=== PATIENT | female | born 1940 | race Caucasian/White ===

== ENCOUNTER 2020-01-27 20:51 | Inpatient (IN) | payer MEDICARE, OTHER ==
[2020-01-27] MEDS ORDERED: Diltiazem 125 MG/25 ML ONE (21:01)
[2020-01-27 21:15] LABS: #Basophils 0.1 thou/uL (0.0-0.2); #Lymphocytes 1.3 thou/uL (1.20-3.40); #Monocytes 0.8 thou/uL (0.11-0.59); #Neutrophils 16.4 thou/uL (1.40-6.50); %Basophils 0.3 % (0.0-1.0); %Eosinophils 0.1 % (0.0-10.0); %Monocytes 4.4 % (0.0-10.0); %Neutrophils 88.2 % (42.0-75.0); Hemoglobin 17.4 g/dL (12.0-16.0); Mean Corpuscular HGB CONC 33.8 g/dL (32.0-36.0); Mean Corpuscular Hemoglobin 30.3 pg (27.0-31.0); Mean Corpuscular Volume 89.8 fL (78.0-98.0); Mean Platelet Volume 8.1 fL (7.4-10.4); Platelet Count 220 thou/uL (130-400); RBC Distribution Width 14.7 % (11.5-14.5); Red Blood Cell (RBC) Count 5.75 mill/uL (4.20-5.40); White Blood Cell (WBC) Count 18.6 thou/uL (4.8-10.8)
[2020-01-27] MEDS ORDERED: diphenhydrAMINE 50 MG/ML VIAL ONE (21:16)
[2020-01-27] MEDS ORDERED: Metoprolol Tartrate 50 MG TAB ONE (21:16)
[2020-01-27] MEDS ORDERED: diphenhydrAMINE 50 MG CAP ONE (21:16)
[2020-01-27] MEDS ORDERED: Metoprolol Tartrate 5 MG/5 ML VIAL ONE ×3 (21:17→21:27)
[2020-01-27] MEDS ORDERED: methylPREDNISolone Sod Succ/PF 125 MG/2 ML VIAL ONE (21:19)
[2020-01-27 21:34] LABS: ALT (SGPT) 59 U/L (8-55); AST (SGOT) 163 U/L (5-34); Alkaline Phosphatase 46 U/L (40-110); Anion Gap 18 mmol/L (10-20); BUN (Urea Nitrogen) 17 mg/dL (9.8-20.1); Bilirubin, Total 1.1 mg/dL (0.2-1.2); Calc. Creatinine Clearance 0 mL/min (70-130); Calcium 9.3 mg/dL (7.8-10.44); Carbon Dioxide 19 mmol/L (23-31); Chloride 106 mmol/L (98-107); Estimated GFR-MDRD 67; Globulin 3.1 g/dL (2.4-3.5); Glucose 142 mg/dL (83-110); Potassium 4.3 mmol/L (3.5-5.1); Protein, Total 7.1 g/dL (6.0-8.3); Sodium 139 mmol/L (136-145)
--- NOTE | 2020-01-27 21:38 | RAD ---
XR Chest 1 View Portable History: Shortness of breath Comparison: None. Findings: Heart size is enlarged. Mild pulmonary edema. No pneumothorax. No effusion. No acute osseou s abnormality. Impression: Moderate decompensated congestive heart failure.
[2020-01-27 22:23] LABS: CKMB 333.7 ng/mL (0-6.6)
[2020-01-27] MEDS ORDERED: Furosemide 40 MG/4 ML VIAL ONE (22:32)
[2020-01-27] MEDS ORDERED: Digoxin 0.5 MG/2 ML AMP ONE (22:54)
[2020-01-27 23:13] LABS: Actual Bicarbonate (HCO3a) 13.8 mEq/L (22-28); Analyzer IN Cardio ER; Calcium, Ionized (arterial) 1.17 mmol/L (1.12-1.30); Carboxyhemoglobin (COHb) 0.5 gm% (0.0-3.0); Hemoglobin (Hb) 16.7 g/dL (12.0-16.0); O2 Tension (PaO2), arterial 134.3 mmHg (> 70.0); Potassium - ABG Lab 4.73 mmol/L (3.70-5.30); pH, Arterial 7.29 (7.35-7.45)
[2020-01-27 23:14] LABS: Puncture Site LRA
[2020-01-28 00:16] LABS: Lactic Acid 5.1 mmol/L (0.5-2.2)
[2020-01-28] MEDS ORDERED: Guaifenesin DM 100-10/5 ML UDCUP PO PRN (00:25)
[2020-01-28] MEDS ORDERED: Promethazine HCl 12.5 MG in Sodium Chloride 0.9% 50 ML IVPB PRN (00:25)
[2020-01-28] MEDS ORDERED: Ondansetron PF 4 MG/2 ML Vial IVP PRN (00:25)
[2020-01-28] MEDS ORDERED: Aspirin 325 MG TAB PO SCH (00:30)
[2020-01-28] MEDS ORDERED: Electrolyte Replacement Protoc 1 EACH EACH FS SCH (00:30)
[2020-01-28] MEDS ORDERED: Enoxaparin Sodium 100 MG/ML SYRINGE SC SCH (00:30)
--- NOTE | 2020-01-28 00:35 | PDOC.HHP ---
Hospitalist HPI - History of Present Illness Shortness of breath History of Present Illness: Patient is a 79 year old female with PMH COPD, HTN, CHF, HTN who presents to ED for shortness of breath x 1 day. She has history of COPD and reports wheezing as well. no covid exposure. denies fever, chills, nausea, vomiting, palpitaitons. got steroids and abx a few weeks ago for COPD exacerbation, she has some wh eezing. In ED, vitals concerning w/ RR 30, hypoxic and requiring facemask and then bipap to maintain saturations. BP stable. EKG reveals afib w/ rate 167, troponin 18, ckmb 333, bnp 642, lactic acid 2.8 -> 5.1, CXR w/ moderate decompensated CHF, WBC 18, elevated LFT/hgb. Patient started on aspirin and cardizem however had allergic reaction and switched to rate control w/ IV metoprolol and IV digoxin, Dr Cárdenas of cardiology called by ED who recommended digoxin, diuresis, echo. Hospitalist ROS - Review of Systems Constitutional: denies: fever, chills, sweats, weakness, malaise, other Eyes: denies: pain, vision change, conjunctivae inflammation, eyelid inflammation, redness, other ENT: denies: ear pain, ear discharge, nose pain, nose discharge, nose congestion, mouth pain, mouth swelling, throat pain, throat swelling, other Respiratory: reports: shortness of breath, wheezing. denies: cough, dry, hemoptysis, SOB with excertion, pleuritic pain, sputum, other Cardiovascular: denies: chest pain, palpitations, orthopnea, paroxysmal noc. dyspnea, edema, light headedness, other Gastrointestinal: denies: nausea, vomiting, abdominal pain, diarrhea, constipation, melena, hematochezia, other Genitourinary: denies: dysuria, frequency, incontinence, hematuria, retention, other Musculoskeletal: denies: neck pain, shoulder pain, arm pain, back pain, hand pain, leg pain, foot pain, other Skin: denies: rash, lesions, tami, bruising, other Neurological: denies: weakness, numbness, incoordination, change in speech, confusion, seizures, other All other systems reviewed; all pertinent +/- noted in HPI/Subj - Medication Medications: atenolol ThuJan 27, 2020 21:46 Mann RN, Daniel tablet : Strength - 100 mg : ORAL Patient Dose: once a day. simvastatin ThuJan 27, 2020 21:46 Mann RN, Daniel tablet : Strength - 20 mg : ORAL Patient Dose: once a day. hydroCHLOROthiazide ThuJan 27, 2020 21:47 Mann RN, Daniel capsule : Strength - 12.5 mg : ORAL Patient Dose: once a day. aspirin oral ThuJan 27, 2020 21:47 Mann RN, Daniel tablet : Strength - 81 mg : ORAL Patient Dose: Unknown. escitalopram oxalate ThuJan 27, 2020 21:48 Mann RN, Daniel tablet : Strength - 20 mg : ORAL Patient Dose: once a day. albuterol sulfate oral ThuJan 27, 2020 21:49 Mann RN, Daniel tablet : Strength - 4 mg : ORAL Patient Dose: 1 puff(s) Nebulize every 4 hours prn. Trelegy Ellipta ThuJan 27, 2020 21:51 Mann RN, Daniel blister with device : Strength - 100 mcg-62.5 mcg-25 mcg/actuation : INHALATION Patient Dose: 1 puff(s) Nebulize once a day. Hospitalist History - Past Medical History Other Medical History: COPD, HTN, CHF, HTN - Past Surgical History Past Surgical History: reports: Hysterectomy - Family History Family History: reports: no pertinent history - Social History Smoking Status: Current every day smoker Alcohol: reports: None Drugs: reports: none - Exam General Appearance: NAD, awake alert General - other findings: on bipap, no distress Eye: PERRL, anicteric sclera ENT: normocephalic atraumatic, no oropharyngeal lesions, moist mucosa Neck: supple, symmetric, no JVD, no thyromegaly, no lymphadenopathy, no carotid bruit Heart: RRR, no murmur, no gallops, no rubs, normal peripheral pulses Respiratory: CTAB, no rales, no ronchi, normal chest expansion, no tachypnea, normal percussion Respiratory - other findings: prolonged expiratory phase Gastrointestinal: soft, non-tender, non-distended, normal bowel sounds, no palpable masses, no hepatomegaly, no splenomegaly, no bruit Extremities: no cyanosis, no clubbing, no edema Skin: normal turgor, no lesions, no rashes Neurological: cranial nerve grossly intact, normal sensation to touch, no weakness, no focal deficits, no new deficit Musculoskeletal: normal tone, normal strength, no muscle wasting Psychiatric: normal affect, normal behavior, A&O x 3 Hospitalist Results - Labs Result Diagrams: 01/27/20 21:05 01/27/20 21:05 Lab results: WBC 18.6 thou/uL (4.8-10.8) H 01/27/20 21:05 Hgb 17.4 g/dL (12.0-16.0) H 01/27/20 21:05 Hct 51.6 % (36.0-47.0) H 01/27/20 21:05 MCV 89.8 fL (78.0-98.0) 01/27/20 21:05 Plt Count 220 thou/uL (130-400) 01/27/20 21:05 Neutrophils % 88.2 % (42.0-75.0) H 01/27/20 21:05 ABG pH 7.29 (7.35-7.45) L 01/27/20 23:00 ABG pCO2 29.0 mmHg (35.0-45.0) L 01/27/20 23:00 ABG pO2 134.3 mmHg (> 70.0) H 01/27/20 23:00 Sodium 139 mmol/L (136-145) 01/27/20 21:05 Potassium 4.3 mmol/L (3.5-5.1) 01/27/20 21:05 Chloride 106 mmol/L (98-107) 01/27/20 21:05 Carbon Dioxide 19 mmol/L (23-31) L 01/27/20 21:05 BUN 17 mg/dL (9.8-20.1) 01/27/20 21:05 Creatinine 0.83 mg/dL (0.6-1.1) 01/27/20 21:05 Glucose 142 mg/dL (83-110) H 01/27/20 21:05 Lactic Acid 5.1 mmol/L (0.5-2.2) H* 01/27/20 23:48 Calcium 9.3 mg/dL (7.8-10.44) 01/27/20 21:05 Total Bilirubin 1.1 mg/dL (0.2-1.2) 01/27/20 21:05 AST 163 U/L (5-34) H 01/27/20 21:05 ALT 59 U/L (8-55) H 01/27/20 21:05 Alkaline Phosphatase 46 U/L (40-110) 01/27/20 21:05 CK-MB (CK-2) 333.7 ng/mL (0-6.6) H* 01/27/20 21:05 Troponin I 18.754 ng/mL (< 0.028) H* 01/27/20 21:05 B-Natriuretic Peptide 642.9 pg/mL (0-100) H 01/27/20 21:05 Serum Total Protein 7.1 g/dL (6.0-8.3) 01/27/20 21:05 Albumin 4.0 g/dL (3.4-4.8) 01/27/20 21:05 Additional comment: VITAL SIGNS ThuJan 27, 2020 23:55 Mann RN, Daniel BP: 119/96 Pulse: 156 Resp: 30 Temp: 97.7 (Oral) Pain: 0 O2 sat: 97 on (Bipap) Time: 01/27/2020 23:55. labs, imaging, EKG report, ED documents reviewed RADIOLOGY XR Chest 1 View Portable Observe DT: ThuJan 27, 2020 21:08 CXRP XR Chest 1 View Portable History: Shortness of breath Comparison: None. Findings: Heart size is enlarged. Mild pulmonary edema. No pneumothorax. No effusion. No acute osseou s abnormality. Impression: Moderate decompensated congestive heart failure. - EKG Interpretation EKG: EKG INTERPRETATION ThuJan 27, 2020 21:09 MD Holliday Bryan 12 LEAD EKG INTERPRETATION 12 lead EKG interpreted by Emergency Department Physician at time of study Heart rate 167 bpm, atrial fibrillation with rapid ventricular response, Q waves in V1 through V4, normal axis, no ST elevation depression over impression is A. fib RVR. Hospitalist H&P A/P - Plan Plan: Patient is a 79 year old female with PMH COPD, HTN, CHF, HTN who presents to ED for shortness of breath x 1 day. # severe sepsis # COPD exacerbation # new onset afib w/ RVR # acute hypoxic respiratory failure # history of CHF/HTN Presents for worsening shortness of breath, in ED, vitals concerning w/ RR 30, hypoxic and requiring facemask and then bipap to maintain saturations. BP stable. EKG reveals afib w/ rate 167, troponin 18, ckmb 333, bnp 642, lactic acid 2.8 -> 5.1, CXR w/ moderate decompensated CHF, WBC 18, elevated LFT/hgb. Patient started on aspirin and cardizem however had allergic reaction and switched to rate control w/ IV metoprolol and IV digoxin, Dr Cárdenas of cardiology called by ED who recommended digoxin, diuresis, echo. - admit to CCU - CTA chest r/o PE or pneumonia - start rate control w/ IV metoprolol, digoxin load, may add amiodarone if persists or worsens - asa, statin, trend troponins, start lovenox therapeutic dosing - for COPD, empiric IV steroids and PRN nebs, follow up covid swab, azithromcyin - consult pulmonary and cardiology - echo ordered DVT/GI ppx full code 44 minutes critical care time
[2020-01-28] MEDS ORDERED: Dextrose 50% Abboject 50 ML SYRINGE IVP PRN (00:45)
[2020-01-28] MEDS ORDERED: Dextrose 5% in Water 1,000 ML IV PRN (00:45)
[2020-01-28] MEDS ORDERED: Azithromycin 500 MG in Sodium Chloride 0.9% 250 ML 250 ML IVPB SCH ×2 (01:00→21:00)
[2020-01-28] MEDS ORDERED: Digoxin 0.5 MG/2 ML AMP SLOW IVP SCH ×2 (04:00→09:00)
[2020-01-28 04:20] LABS: Lactic Acid 2.4 mmol/L (0.5-2.2)
[2020-01-28 04:32] LABS: Troponin I 23.552 ng/mL (< 0.028)
[2020-01-28] MEDS: methylPREDNISolone Sod Succ/PF 125 MG/2 ML VIAL IVP SCH ×3 (05:53→22:27)
--- NOTE | 2020-01-28 08:39 | CON ---
DATE OF CONSULTATION: HISTORY: Leanne Jessica is a 79-year-old morbidly obese female from [place], [place], who presented with several-day history of increasing shortness of breath and cough. She is still smoking. Apparently, she was given a course of steroids and antibiotics by primary care physician. In the ER, sats were 96% on face mask, respirations 36, blood pressure 116/79. She states on most days she can barely walk a 50-feet without getting markedly short of breath. PAST MEDICAL HISTORY: Arthritis, COPD, emphysema, hypertension, CHF. PREVIOUS SURGERIES: Hysterectomy. Still smoking. HOME MEDICATIONS: Includes; 1. Simvastatin 20. 2. Hydrochlorothiazide 12.5. 3. Trelegy 1 puff a day. 4. Lexapro 20. 5. Atenolol 100. 6. Aspirin 81. 7. Albuterol inhaler. ALLERGIES: 1. PENICILLIN. 2. CARDIZEM. REVIEW OF SYSTEMS: Otherwise, unremarkable. PHYSICAL EXAMINATION: GENERAL: She is awake, alert, responsive, on the BiPAP sats are 99%, blood pressure 140/100, pulse 80 and regular, respiratory rate 20. CHEST: Decreased breath sounds. No wheezing. CARDIAC: Normal S1, S2. No gallops, no masses. NEUROLOGIC: Awake, responsive. No edema. LABORATORY AND DIAGNOSTIC DATA: White count 18,000, H and H , platelet count is 220. PO2 is 134, pCO2 BiPAP 14/8. Lytes are normal. Troponin is elevated. AST slightly increased at 163. BNP is elevated at 642. Troponin is 23. Thyroid function normal. ASSESSMENT: 1. Acute coronary syndrome. 2. Supraventricular tachycardia. 3. Morbid obesity. 4. Chronic obstructive pulmonary disease. 5. Bilateral pleural effusion. 6. Chronic obstructive pulmonary disease exacerbation. PLAN: I agree with empiric antibiotics, steroids, neb treatments, supportive care. I await input from Cardiology. If condition gets worse, she may require intubation. In the meantime she is told to refrain from smoking. This is a 45-minute critical time. Continue observation in the ICU. Job ID: [id number]
[2020-01-28] MEDS ORDERED: FLU VACC QS2020-21(65YR UP)/PF 240 MCG/0.7 ML SYRINGE IM ONE (09:00)
--- NOTE | 2020-01-28 09:01 | CT ---
PRELIMINARY REPORT/[facility]/EMERGENCY AFTER HOURS PROCEDURE EXAM: CTA Chest with Intravenous Contrast CLINICAL HISTORY: Patient 79-year-old female with history of COPD who presents emergency department tonight with shortn ess of breath and tachycardia. Patient states that she has been having left the past couple of days and got worse after she called EMS. She states she is never had any kind of heart issues prior to now and does not have any chest pain currently but does feel very short of breath TECHNIQUE: Axial CTA images of the chest with intravenous contrast. Three-dimensional MIP/volume rendered reform ations were performed. CONTRAST: With; ISOVUE 370,100mL COMPARISON: None provided. FINDINGS: PULMONARY ARTERIES Heterogeneity/poor opacification of the subsegmental pulmonary arteries of the posterior lower lobes. No large pulmonary embolism is identified. AORTA Calcified atherosclerosis without thoracic aortic aneurysm or dissection. LUNGS Lower lobe predominant smooth interlobular septal thickening with patchy areas of groundglass attenua tion. Lower lobe predominant bronchial wall thickening. Tree-in-bud nodularity is appreciated within the right middle lobe. PLEURAL SPACES Small to moderate right greater than left pleural effusions. No pneumothorax. HEART AND MEDIASTINUM Cardiomegaly. Moderate pericardial effusion. Calcified atherosclerosis of the coronary arteries. M itral annular calcifications are present. LYMPH NODES No lymphadenopathy. BONES Compression fracture of T7. CHEST WALL AND UPPER ABDOMEN Right hepatic lobe cyst. The chest wall is unremarkable. IMPRESSION: 1. Heterogeneity/poor opacification of the subsegmental pulmonary arteries of the posterior lower lo bes. No large pulmonary embolism is identified. 2. Constellation of findings most consistent with cardiogenic pulmonary edema as evidenced by cardio megaly, small to moderate right greater than left pleural effusions, a moderate pericardial effusion, and lower lobe predominant pulmonary edema. Tree-in-bud nodularity within the right middle lobe likely reflects some degree of pulmonary edema within the bronchioles. Superimposed infection, aspiration, or hemorrhage cannot be excluded in the appropriate clinical setting. 3. Compression fracture of T7 of unknown chronicity. ELECTRONICALLY SIGNED BY: Berry Duran MD Jan 28, 2020 2:22:41 AM CDT This report is intended for review by the ordering physician only, in accordance of law. If you recei ve this report in error, please call [facility] at [phone]. FINAL REPORT Final report by Dr. Dawn. Emergency after-hours study CT ANGIOGRAM THORAX WITH CONTRAST: (CTA pulmonary angiogram) DATE: 01/28/2020 1:55 AM HISTORY: 79-year-old female with dyspnea and tachycardia TECHNIQUE: IV injection of iodinated contrast. Scan acquisition timing attempted to coincide with iodinated contrast bolus reaching maximal density in pulmonary arteries. 3-D MIP reconstructions. FINDINGS: No major disagreement with preliminary report by [facility]. IMPRESSION: 1) although there is excellent opacification of the central pulmonary arteries, there is heterogeneou s, poor contrast opacification of peripheral basilar lower lobe subsegmental branches of the bilateral lower lobe pulmonary arteries. Although the appearance is not classic for PE, this appearan ce is also not typical for streak artifact due to motion. Therefore, pulmonary thromboembolism cannot be excluded at these basilar peripheral branches, especia lly on the right. 2) groundglass pulmonary densities at the basilar segments of bilateral lower lobes, and to a lesser degree right middle lobe and lingula. Nonspecific. 3) moderate sized pericardial effusion. 4) small bilateral pleural effusions, right greater than left. 5) coronary atherosclerotic disease. Transcribed Date/Time: 01/28/2020 9:29 AM
[2020-01-28] MEDS: Aspirin 81 mg Enteric Coated Tablet PO SCH (09:03)
[2020-01-28] MEDS: Furosemide 40 MG/4 ML VIAL SLOW IVP SCH (09:04)
[2020-01-28] MEDS: Enoxaparin Sodium 100 MG/ML SYRINGE SC SCH ×2 (09:04→20:39)
[2020-01-28] MEDS: Famotidine 20 MG TAB PO SCH ×2 (09:04→22:01)
[2020-01-28 09:06] LABS: CKMB 206.6 ng/mL (0-6.6); Critical Call CKMB RESULT DECREASING
[2020-01-28] MEDS ORDERED: Iopamidol-370 76% 500 ML 1 ML ONE (09:12)
[2020-01-28] MEDS ORDERED: Magnesium 2 GM/50 ML 2 GM in Premix Bag 1 BAG IVPB SCH (09:15)
[2020-01-28] MEDS ORDERED: Digoxin 0.25 MG TAB PO SCH (10:00)
[2020-01-28] MEDS ORDERED: Diltiazem 125 MG in Sodium Chloride 0.9% 100 ML IVPB SCH (11:00)
[2020-01-28] MEDS: Diltiazem HCl 125 MG, Admixture Fee 1 EACH in Sodium Chloride 0.9% 100 ML IVPB SCH (11:23)
[2020-01-28] MEDS: cefTRIAXone\\ROCEPHIN 1 GM in Sodium Chloride 0.9% 100 ML IVPB SCH (11:24)
--- NOTE | 2020-01-28 12:27 | CON ---
DATE OF CONSULTATION: 01/28/2020 INDICATION FOR CONSULTATION: This is a 79-year-old female with acute respiratory failure, also has evidence of congestive heart failure, abnormal cardiac enzymes. She denies chest pain. We were advised to see her due to the abnormal cardiac enzymes and what appears to be congestive heart failure. HISTORY OF PRESENT ILLNESS: This is a very unfortunate 79-year-old female, who smokes up to 2 packs a day for many years. She is actually having shortness of breath for quite some time. Over the last several days, she noticed that the breathing had gotten worse and was given steroids and IV antibiotics, but continued to have problems. She then presented to the emergency room and she was in atrial fibrillation with rapid ventricular response. She then was transferred to [facility] for further evaluation and treatment. Chest x-ray does show some mild congestion, but cardiomegaly. She has very minimal what appears to be bilateral pleural effusions, but these are minimal. She has been on the BiPAP. She still is tachypneic. Heart rate is significantly elevated with her atrial fibrillation in the one teens to 150s. With minimal exertion, the heart rate goes up. The ER tried to give her some diltiazem yesterday in the emergency room as well as digoxin and the heart rate remained elevated. They only gave a small dose of the diltiazem and then this was stopped after she felt was some itching her hand, but at this time with elevated heart rate, we will need to reinstate medications to lower the heart rate and she is not a very good candidate for beta-blockers due to her severe underlying COPD and may have asthma. She has diffuse wheezing noted throughout. At this time, her respiratory rates in the 30s and O2 saturations remained in the 90s. Blood pressure is stable, but overall the patient does appear to be somewhat diaphoretic and remains short of breath and appears to be agitated or irritable just due to the work of breathing and overall tachycardia. 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 It is possible she infarcted several days ago and had an asymptomatic myocardial infarction. The cardiac enzymes are trending downward. Her MB was 333 when she arrived, this morning is 206. Troponin I is lagging behind, it was 18.7 on admission; it increased up to 23.5, indicative of a resolving myocardial infarction most likely; however, she still denies any chest pain and does not have any ST-segment elevation. This could be myocarditis due to a viral illness, but she has had no recent fevers, but has been having some cough, increased shortness of breath recently, and I believe she was negative on her COVID evaluation, but I do not see that at this time. We will need to re-evaluate to make sure that she has had a COVID study performed. At this time, she still denies any chest pain. PAST MEDICAL HISTORY: Significant for COPD, hypertension, and hypercholesterolemia. She has arthritis. She has had a hysterectomy. SOCIAL HISTORY: She continues to smoke heavily. MEDICATIONS: Prior to admission included, 1. Hydrochlorothiazide. 2. Simvastatin. 3. Trelegy. 4. Lexapro. 5. Aspirin. 6. Atenolol. 7. Albuterol inhalers. ALLERGIES: SUPPOSEDLY, SHE IS ALLERGIC TO PENICILLIN; UNCERTAIN ABOUT THE CARDIZEM ALLERGY, WE WILL REINSTATE CARDIZEM AND SEE WHETHER OR NOT SHE HAS ANY SIGNIFICANT ITCHING OR ANY WHELPS OR ANY URTICARIA, BUT WE WILL NEED TO LOWER THE HEART RATE. SHE HAS BEEN GIVEN DIGOXIN, BUT CONTINUES TO HAVE THE TACHYCARDIA. SHOULD SHE BECOME HYPOTENSIVE, THEN SHE WILL NEED TO UNDERGO A CARDIOVERSION, BUT AT THIS TIME, THE BLOOD PRESSURE IS REMAINING RELATIVELY STABLE AT 119/69. REVIEW OF SYSTEMS: Mainly, she complains of shortness of breath. She denied any new GI or complaints. Musculoskeletal; she has leg cramps at night, but has no claudication symptoms. She is limited by her ambulation due to her breathing. Neurologic; no history of seizures or syncope. PHYSICAL EXAMINATION: GENERAL: Obese elderly female, who is somewhat uncomfortable, appears to be in mild distress due to the tachycardia as well as the tachypnea. VITAL SIGNS: Respiratory rates in the 29 to 30. She had had a BiPAP mask in the past, this was then removed, and the O2 nasal cannula was reinstated, but she becomes more short of breath and we will reinstate the BiPAP mask at this time, so that she can become more comfortable. O2 sats still remained in the 90s. HEENT: Shows head to be normocephalic and atraumatic. I cannot hear any significant bruits; however, there is increased airway noise. CHEST: Her chest has diffuse wheezing throughout. CARDIOVASCULAR: Heart sounds are distant, but appears to be irregular and tachycardic. I cannot elicit any gross murmurs at this time. ABDOMEN: Morbid obesity. Positive bowel sounds at present. EXTREMITIES: No clubbing or cyanosis. I was unable to palpate femoral, popliteal or pedal pulses. NEUROLOGICAL: She appears to be grossly intact. LABORATORY DATA: WBC 18.6, hemoglobin 17.4, platelet count 220,000, and hematocrit 51.6. Her BUN is 17 and creatinine is 0.8. Her AST is 162 with ALT of 59. Troponin I is 18.7, increased to 23.5, but MBs were 333, decreased down to 206. ABGs yesterday showed a pH of 7.29 with a pO2 of 134, pCO2 of 29 on 40% oxygen, and O2 saturation was 98%. DIAGNOSTIC DATA: An EKG shows an atrial fibrillation with Q-waves in V1 through V4, most likely compatible with a recent or old anterior myocardial infarction anteriorly. I do not see Q-waves. There is no ST-segment elevation. IMPRESSION: 1. Acute congestive heart failure, possibly due to recent myocardial infarction with elevated enzymes or she has a myocarditis with a myocardial infarction in the past. Echocardiogram showed decrease in left ventricular systolic function compatible with previous injury or coronary artery disease, but she is decompensated. 2. Severe chronic obstructive pulmonary disease with respiratory insufficiency. She has been seen already by the manager sterile. She eventually might need to undergo intubation should she become more tachypneic, and right now, the respiratory rate is still in the 30s. BiPAP has been reinstated. We will at this time also start diltiazem for the tachycardia and see if we can control the heart rate better. This may actually improve some of her symptoms. Once she becomes more stable, we will most likely need to undergo cardiac catheterization. At this time, we will also continue with IV diuretics; however, the chest x-ray does not look significantly volume overloaded, but she will be given IV fluids for her medications as well as the antibiotics, and we will give IV Lasix and in order to prevent volume overload. 3. Severe chronic obstructive pulmonary disease, for which she is being seen by the manager sterile. 4. Hypertension. At this time, the blood pressure is stable and we will continue the present medications. We will be more than happy to continue to follow the patient with you, but at this time, overall prognosis is certainly concerning for deterioration of the patient. I believe COVID study is still pending. She may have a COVID-19. We will need to wait for the results of that study. Job ID: [id number] [id number]
--- NOTE | 2020-01-28 12:50 | PDOC.HOSPP ---
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 - Objective Vital Signs & Weight: Vital Signs (12 hours) Temp Pulse Resp Pulse Ox 01/28/20 11:01 144 H 23 H 95 01/28/20 11:00 124 H 31 H 95 01/28/20 09:11 140 H 01/28/20 08:00 97.5 F L 01/28/20 04:22 140 H 01/28/20 04:00 97.4 F L 01/28/20 02:27 144 H 23 H 99 01/28/20 02:20 97.7 F 01/28/20 02:05 100 Weight Weight 219 lb 4.8 oz Most Recent Monitor Data Heart Rate from ECG 110 NIBP 92/78 NIBP BP-Mean 82 Respiration from ECG 27 SpO2 95 I&O: 01/27/20 01/28/20 01/29/20 06:59 06:59 06:59 Intake Total 600 Output Total 240 465 Balance -240 135 Result Diagrams: 01/27/20 21:05 01/27/20 21:05 Additional Labs: Accuchecks 01/28/20 10:11 POC Glucose 168 H Hospitalist ROS - Medication Medications: Active Medications Generic Name Dose Route Start Last Admin Trade Name Freq PRN Reason Stop Dose Admin Albuterol/Ipratropium 3 ml 01/28/20 11:00 01/28/20 11:00 Ipratropium/Albuterol Sulfate 3 Ml Neb NEB 3 ml [id number] PAULA Administration Aspirin 81 mg 01/28/20 09:00 01/28/20 09:03 Aspirin 81 Mg Enteric Coated Tablet PO 81 mg DAILY PAULA Administration Enoxaparin Sodium 100 mg 01/28/20 09:00 01/28/20 09:04 Enoxaparin Sodium 100 Mg/Ml Syringe SC 100 mg 0900,2100 PAULA Administration Famotidine 20 mg 01/28/20 09:00 01/28/20 09:04 Famotidine 20 Mg Tab PO 20 mg BID PAULA Administration Furosemide 40 mg 01/28/20 09:00 01/28/20 09:04 Furosemide 40 Mg/4 Ml Vial SLOW IVP 40 mg DAILY PAULA Administration Ceftriaxone Sodium 1 gm/ 100 mls @ 200 mls/hr 01/28/20 11:00 01/28/20 11:24 Sodium Chloride IVPB 100 mls 1100 PAULA Administration Diltiazem HCl 125 mg/ 125 mls @ 0 mls/hr 01/28/20 11:00 01/28/20 11:23 Miscellaneous Medication 1 IVPB 125 mls each/ Sodium Chloride INF PAULA Administration Protocol As Directed Methylprednisolone Sodium Succinate 60 mg 01/28/20 06:00 01/28/20 05:53 Methylprednisolone Sod Succ/Pf 125 Mg/2 Ml Vial IVP 60 mg Q8HR PAULA Administration - Exam General Appearance: awake alert Eye: PERRL, anicteric sclera ENT: no oropharyngeal lesions, dry oral mucosa Neck: supple, no JVD Heart: no murmur, irregular Respiratory: no wheezes, rales, rhonchi, wheezes Gastrointestinal: soft, non-tender, non-distended, normal bowel sounds Extremities: no cyanosis, no edema Neurological: cranial nerve grossly intact, no focal deficits Psychiatric: normal affect, A&O x 3 Hosp A/P (1) Acute respiratory failure with hypoxia Code(s): J96.01 - ACUTE RESPIRATORY FAILURE WITH HYPOXIA Status: Acute (2) COPD exacerbation Code(s): J44.1 - CHRONIC OBSTRUCTIVE PULMONARY DISEASE W (ACUTE) EXACERBATION Status: Acute (3) NSTEMI (non-ST elevated myocardial infarction) Code(s): I21.4 - NON-ST ELEVATION (NSTEMI) MYOCARDIAL INFARCTION Status: Acute (4) Atrial fibrillation with RVR Code(s): I48.91 - UNSPECIFIED ATRIAL FIBRILLATION Status: Acute (5) Tobacco abuse Code(s): Z72.0 - TOBACCO USE Status: Chronic - Plan On bipap off and on trop is trending upto 25, d/w got iv digoxin, rvr upto 100 echo shows ef around 25%, technically inadequate and pt was in afib to measure accurately is on asp, full dose lovenox, lipitor, ceftriaxone, zithromax, solumedrol, lasix daily iv prognosis guarded may give liq diet until she is stable off bipap for sometime appreciate help from and
[2020-01-28 15:25] LABS: SARS-CoV-2 MS2 Positive; SARS-CoV-2 N Gene Negative; SARS-CoV-2 S Gene Negative; SARS-CoV-2 by NAA Not Detected (NotDetected); SARS-CoV-2 orf1ab Negative
[2020-01-28] MEDS: Mometasone 200 MCG/Formoterol 5 MCG 120 PUFF INHALER INH SCH (18:15)
[2020-01-28] MEDS ORDERED: Azithromycin 500 MG in Syringe 0 ML IVPB SCH (21:00)
[2020-01-28] MEDS: Atorvastatin Calcium 40 MG TAB PO SCH (22:01)
[2020-01-28] MEDS ORDERED: Lorazepam 0.5 MG TAB PO SCH (23:00)
[2020-01-29] MEDS: Diltiazem HCl 125 MG, Admixture Fee 1 EACH in Sodium Chloride 0.9% 100 ML IVPB SCH ×3 (00:05→16:25)
[2020-01-29 03:51] LABS: #Lymphocytes 0.7 thou/uL (1.20-3.40); #Monocytes 0.8 thou/uL (0.11-0.59); #Neutrophils 15.3 thou/uL (1.40-6.50); %Basophils 0.2 % (0.0-1.0); %Eosinophils 0.1 % (0.0-10.0); %Lymphocytes 4.2 % (21.0-51.0); %Monocytes 4.9 % (0.0-10.0); %Neutrophils 90.6 % (42.0-75.0); Hemoglobin 15.8 g/dL (12.0-16.0); Mean Corpuscular HGB CONC 33.4 g/dL (32.0-36.0); Mean Corpuscular Hemoglobin 29.9 pg (27.0-31.0); Mean Corpuscular Volume 89.7 fL (78.0-98.0); Mean Platelet Volume 8.7 fL (7.4-10.4); Platelet Count 190 thou/uL (130-400); RBC Distribution Width 14.4 % (11.5-14.5); Red Blood Cell (RBC) Count 5.28 mill/uL (4.20-5.40); White Blood Cell (WBC) Count 16.9 thou/uL (4.8-10.8)
[2020-01-29 04:10] LABS: ALT (SGPT) 70 U/L (8-55); AST (SGOT) 120 U/L (5-34); Albumin 3.7 g/dL (3.4-4.8); Alkaline Phosphatase 40 U/L (40-110); Anion Gap 14 mmol/L (10-20); BUN (Urea Nitrogen) 28 mg/dL (9.8-20.1); Bilirubin, Direct 0.4 mg/dL (0.1-0.3); Bilirubin, Total 0.8 mg/dL (0.2-1.2); Calc. Creatinine Clearance 92 mL/min (70-130); Carbon Dioxide 24 mmol/L (23-31); Chloride 104 mmol/L (98-107); Estimated GFR-MDRD 70; Glucose 150 mg/dL (83-110); Magnesium 2.5 mg/dL (1.6-2.6); Potassium 4.3 mmol/L (3.5-5.1); Protein, Total 6.6 g/dL (6.0-8.3); Sodium 138 mmol/L (136-145)
[2020-01-29] MEDS: methylPREDNISolone Sod Succ/PF 125 MG/2 ML VIAL IVP SCH ×3 (05:38→21:09)
[2020-01-29] MEDS: Mometasone 200 MCG/Formoterol 5 MCG 120 PUFF INHALER INH SCH ×2 (06:44→18:12)
[2020-01-29] MEDS: Furosemide 40 MG/4 ML VIAL SLOW IVP SCH (08:51)
[2020-01-29] MEDS: HYDROcodone/Acetaminophen 5/325 mg Tablet PO PRN ×2 (08:51→15:56)
[2020-01-29] MEDS: Enoxaparin Sodium 100 MG/ML SYRINGE SC SCH ×2 (08:53→21:10)
[2020-01-29] MEDS: Aspirin 81 mg Enteric Coated Tablet PO SCH (08:53)
[2020-01-29] MEDS: Famotidine 20 MG TAB PO SCH ×2 (08:53→21:09)
[2020-01-29] MEDS ORDERED: methylPREDNISolone Sod Succ/PF 125 MG/2 ML VIAL IVP SCH (09:00)
--- NOTE | 2020-01-29 09:04 | PRG ---
DATE OF SERVICE: 01/29/2020 SUBJECTIVE: Leanne Jessica is a 79-year-old female, still in AFib, going anywhere from 120 to 160. Blood pressure is 130/80, sats 93% to 95%, respiratory rate 25. She is having palpitation, but no shortness of breath. OBJECTIVE: CHEST: No wheezing. No crackles. CARDIAC: Normal S1, S2. No gallops. ABDOMEN: No masses. LABORATORY DATA: White count is 16,000. There is no left shift. Lytes are normal. AST is elevated at 120. ASSESSMENT: 1. Chronic obstructive pulmonary disease. 2. Supraventricular tachycardia. 3. Severely depressed ejection fraction, congestive heart failure. PLAN: Pulmonary parks, continue steroids, neb treatments. Continue cardiac input. We will follow. Job ID: [id number]
[2020-01-29] MEDS: Nicotine 21 MG PATCH TOP SCH (09:53)
[2020-01-29] MEDS: Lorazepam 0.5 MG TAB PO PRN ×2 (09:53→21:09)
--- NOTE | 2020-01-29 10:07 | RAD ---
RADIOGRAPH CHEST 1 VIEW: DATE: 01/29/2020 TIME: 4:37 AM HISTORY: 79-year-old female with dyspnea, "hypoxic respiratory failure" COMPARISON: 01/27/2020 FINDINGS: Cardiac silhouette is enlarged due to combination of pericardial effusion and chamber dilation, as de monstrated on yesterday's CTA. There is no endotracheal tube or central venous catheter. Mild interstitial densities at bilateral mid and lower lung zones, especially at right base, may or m ay not have minimally improved. Comparison is difficult because of positional differences; the current study is lordotic positioning. No pneumothorax. IMPRESSION: 1) pericardial effusion and cardiomegaly. 2) interstitial densities may represent mild pulmonary interstitial edema. This may have slightly imp roved since 2 days ago.
[2020-01-29] MEDS: cefTRIAXone\\ROCEPHIN 1 GM in Sodium Chloride 0.9% 100 ML IVPB SCH (10:22)
[2020-01-29] MEDS: Insulin Regular 300 UNITS/3 ML VIAL SC PRN (10:22)
--- NOTE | 2020-01-29 12:33 | PDOC.HOSPP ---
- Subjective Encounter Date: 01/29/20 Encounter Time: 09:00 Subjective: is on bipap oriented well, follows verbal stimuli no chest pain, has sob has shaking of her hands/forearm likely from nebs - Objective Vital Signs & Weight: Vital Signs (12 hours) Temp Pulse Resp Pulse Ox 01/29/20 12:00 98.8 F 01/29/20 09:00 97.4 F L 01/29/20 08:00 90 L 01/29/20 06:43 120 H 24 H 96 01/29/20 04:00 98.4 F 01/29/20 01:16 85 23 H 99 Weight Weight 219 lb 4.8 oz Most Recent Monitor Data Heart Rate from ECG 151 NIBP 124/77 NIBP BP-Mean 92 Respiration from ECG 27 SpO2 82 I&O: 01/28/20 01/29/20 01/30/20 06:59 06:59 06:59 Intake Total 889.3 540 Output Total 240 1555 635 Balance -240 -665.7 -95 Result Diagrams: 01/29/20 03:03 01/29/20 03:03 Additional Labs: Accuchecks 01/29/20 10:23 POC Glucose 210 H Hospitalist ROS - Medication Medications: Active Medications Generic Name Dose Route Start Last Admin Trade Name Freq PRN Reason Stop Dose Admin Hydrocodone Bitart/Acetaminophen 1 tab 01/28/20 00:25 01/29/20 08:51 Hydrocodone/Acetaminophen 5/325 Mg Tablet PO 1 tab Q4H PRN Administration Moderate Pain (4-6) Albuterol/Ipratropium 3 ml 01/28/20 00:25 01/28/20 21:49 Ipratropium/Albuterol Sulfate 3 Ml Neb NEB 3 ml Q2H PRN Administration SOB &/or Wheezing Aspirin 81 mg 01/28/20 09:00 01/29/20 08:53 Aspirin 81 Mg Enteric Coated Tablet PO 81 mg DAILY PAULA Administration Atorvastatin Calcium 40 mg 01/28/20 21:00 01/28/20 22:01 Atorvastatin Calcium 40 Mg Tab PO 40 mg HS PAULA Administration Enoxaparin Sodium 100 mg 01/28/20 09:00 01/29/20 08:53 Enoxaparin Sodium 100 Mg/Ml Syringe SC 100 mg 0900,2100 PAULA Administration Famotidine 20 mg 01/28/20 09:00 01/29/20 08:53 Famotidine 20 Mg Tab PO 20 mg BID PAULA Administration Furosemide 40 mg 01/28/20 09:00 01/29/20 08:51 Furosemide 40 Mg/4 Ml Vial SLOW IVP 40 mg DAILY PAULA Administration Ceftriaxone Sodium 1 gm/ 100 mls @ 200 mls/hr 01/28/20 11:00 01/29/20 10:22 Sodium Chloride IVPB 100 mls 1100 PAULA Administration Diltiazem HCl 125 mg/ 125 mls @ 0 mls/hr 01/28/20 11:00 01/29/20 10:20 Miscellaneous Medication 1 IVPB 125 mls each/ Sodium Chloride INF PAULA Administration Protocol As Directed Insulin Human Regular 0 units 01/28/20 00:26 01/29/20 10:22 Insulin Regular 300 Units/3 Ml Vial SC 3 unit .MILD SLIDING SCALE PRN Administration Mild Correctional Scale Lorazepam 0.5 mg 01/29/20 09:28 01/29/20 09:53 Lorazepam 0.5 Mg Tab PO 0.5 mg Q8H PRN Administration Anxiety Mometasone Furoate/Formoterol Fumar 2 puff 01/28/20 18:30 01/29/20 06:44 Mometasone 200 Mcg/Formoterol 5 Mcg 120 Puff Inhaler INH 2 puff BID-RT PAULA Administration Nicotine 21 mg 01/29/20 10:00 01/29/20 09:53 Nicotine 21 Mg Patch TOP 21 mg Q24HR PAULA Administration - Exam General Appearance: awake alert Eye: PERRL, anicteric sclera ENT: no oropharyngeal lesions, dry oral mucosa Neck: supple, no JVD Heart: no gallops, irregular Respiratory: no wheezes, rales, rhonchi Gastrointestinal: soft, non-tender, non-distended, normal bowel sounds Extremities: no cyanosis, no edema Neurological: cranial nerve grossly intact, no focal deficits Psychiatric: A&O x 3 Hosp A/P (1) Acute respiratory failure with hypoxia Code(s): J96.01 - ACUTE RESPIRATORY FAILURE WITH HYPOXIA Status: Acute (2) COPD exacerbation Code(s): J44.1 - CHRONIC OBSTRUCTIVE PULMONARY DISEASE W (ACUTE) EXACERBATION Status: Acute (3) NSTEMI (non-ST elevated myocardial infarction) Code(s): I21.4 - NON-ST ELEVATION (NSTEMI) MYOCARDIAL INFARCTION Status: Acute (4) Atrial fibrillation with RVR Code(s): I48.91 - UNSPECIFIED ATRIAL FIBRILLATION Status: Acute (5) Tobacco abuse Code(s): Z72.0 - TOBACCO USE Status: Chronic (6) Acute exacerbation of CHF (congestive heart failure) Code(s): I50.9 - HEART FAILURE, UNSPECIFIED Status: Acute Qualifiers: Heart failure type: combined systolic and diastolic Qualified Code(s): I50.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 - Plan On bipap off and on trop is trending upto 25. cardizem drip echo shows ef around 25%, technically inadequate and pt was in afib to measure accurately is on asp, full dose lovenox, lipitor, ceftriaxone, solumedrol, lasix daily iv prognosis guarded may give liq diet until she is stable off bipap for sometime appreciate help from and likely will have cardiac cath or cardioversion with cath in am if stable off bipap. Has underlying anxiety as well, ativan prn
[2020-01-29] MEDS ORDERED: Digoxin 0.5 MG/2 ML AMP SLOW IVP SCH (13:30)
[2020-01-29] MEDS: Atorvastatin Calcium 40 MG TAB PO SCH (21:09)
[2020-01-29] MEDS ORDERED: methylPREDNISolone Sod Succ 40 MG VIAL IVP SCH (22:00)
[2020-01-30] MEDS: Diltiazem HCl 125 MG, Admixture Fee 1 EACH in Sodium Chloride 0.9% 100 ML IVPB SCH ×2 (02:41→11:01)
[2020-01-30] MEDS: methylPREDNISolone Sod Succ 40 MG VIAL IVP SCH ×3 (05:46→21:17)
[2020-01-30] MEDS: Mometasone 200 MCG/Formoterol 5 MCG 120 PUFF INHALER INH SCH ×2 (07:40→18:15)
--- NOTE | 2020-01-30 08:13 | RAD ---
PORTABLE CHEST: HISTORY: CCU followup. On ventilator. COMPARISON: 01/29/2020. FINDINGS: Cardiomegaly with mild vascular engorgement. Hazy infiltrate and/or atelectasis in the right lung ba se. IMPRESSION: No significant change from yesterday. POS: OFF
[2020-01-30] MEDS: Enoxaparin Sodium 100 MG/ML SYRINGE SC SCH ×2 (08:53→20:59)
[2020-01-30] MEDS: Furosemide 40 MG/4 ML VIAL SLOW IVP SCH (08:53)
[2020-01-30] MEDS: Digoxin 0.25 MG TAB PO SCH (08:54)
[2020-01-30] MEDS: Aspirin 81 mg Enteric Coated Tablet PO SCH (08:54)
[2020-01-30] MEDS: Famotidine 20 MG TAB PO SCH ×2 (08:54→20:59)
[2020-01-30] MEDS ORDERED: Laxative Of Choice PO PRN (09:05)
--- NOTE | 2020-01-30 09:36 | PRG ---
DATE OF SERVICE: 01/30/2020 SUBJECTIVE: This morning, she says she is constipated, but her breathing is somewhat better. X-ray still shows a questionable left-sided infiltrate. OBJECTIVE: VITAL SIGNS: Pulse 115, respirations 30, saturations 95% on 4 L, blood pressure CHEST: Prolonged expiration, minimal wheezing. CARDIAC: Atrial fibrillation. ABDOMEN: Soft. LABORATORY DATA: Glucose 160. ASSESSMENT: 1. Chronic obstructive pulmonary disease exacerbation, bronchitis. 2. SVT, severe deconditioning. PLAN: Laxative is being given. Continue cardiac care. She has cardiomyopathy, EF is only 25%. Job ID: [id number]
[2020-01-30] MEDS ORDERED: Bisacodyl 10 MG SUPP PR PRN (09:41)
[2020-01-30] MEDS: cefTRIAXone\\ROCEPHIN 1 GM in Sodium Chloride 0.9% 100 ML IVPB SCH (09:46)
[2020-01-30] MEDS: Nicotine 21 MG PATCH TOP SCH (09:46)
[2020-01-30] MEDS: Lorazepam 0.5 MG TAB PO PRN ×2 (09:55→20:59)
[2020-01-30] MEDS: Insulin Regular 300 UNITS/3 ML VIAL SC PRN (12:29)
--- NOTE | 2020-01-30 15:12 | PDOC.HOSPP ---
- Subjective Encounter Date: 01/30/20 Subjective: Still having a difficult time with her shortness of breath. However, she reports that she had a rough night primarily related to constipation issues. She requested a suppository and one was ordered. - Objective Vital Signs & Weight: Vital Signs (12 hours) Temp Pulse Resp Pulse Ox 01/30/20 13:01 95 29 H 98 01/30/20 08:54 115 H 01/30/20 07:38 115 H 30 H 95 01/30/20 04:00 98.1 F Weight Weight 219 lb 4.8 oz Most Recent Monitor Data Heart Rate from ECG 108 NIBP 127/80 NIBP BP-Mean 95 Respiration from ECG 24 SpO2 90 I&O: 01/29/20 01/30/20 01/31/20 06:59 06:59 06:59 Intake Total 889.3 1757 300 Output Total 1555 1180 675 Balance -665.7 577 -375 Result Diagrams: 01/29/20 03:03 01/29/20 03:03 Additional Labs: Accuchecks 01/30/20 01/30/20 01/29/20 10:19 05:56 23:31 POC Glucose 176 H 166 H 177 H 01/29/20 01/28/20 17:11 16:49 POC Glucose 170 H 148 H Hospitalist ROS - Medication Medications: Active Medications Generic Name Dose Route Start Last Admin Trade Name Freq PRN Reason Stop Dose Admin Hydrocodone Bitart/Acetaminophen 1 tab 01/28/20 00:25 01/29/20 15:56 Hydrocodone/Acetaminophen 5/325 Mg Tablet PO 1 tab Q4H PRN Administration Moderate Pain (4-6) Albuterol/Ipratropium 3 ml 01/28/20 00:25 01/28/20 21:49 Ipratropium/Albuterol Sulfate 3 Ml Neb NEB 3 ml Q2H PRN Administration SOB &/or Wheezing Albuterol/Ipratropium 3 ml 01/29/20 13:00 01/30/20 13:01 Ipratropium/Albuterol Sulfate 3 Ml Neb NEB 3 ml [id number] PAULA Administration Aspirin 81 mg 01/28/20 09:00 01/30/20 08:54 Aspirin 81 Mg Enteric Coated Tablet PO 81 mg DAILY PAULA Administration Atorvastatin Calcium 40 mg 01/28/20 21:00 01/29/20 21:09 Atorvastatin Calcium 40 Mg Tab PO 40 mg HS PAULA Administration Bisacodyl 10 mg 01/30/20 09:41 01/30/20 11:02 Bisacodyl 10 Mg Supp SC 10 mg Q8H PRN Administration Constipation Digoxin 0.25 mg 01/30/20 09:00 01/30/20 08:54 Digoxin 0.25 Mg Tab PO 0.25 mg DAILY PAULA Administration Enoxaparin Sodium 100 mg 01/28/20 09:00 01/30/20 08:53 Enoxaparin Sodium 100 Mg/Ml Syringe SC 100 mg 0900,2100 PAULA Administration Famotidine 20 mg 01/28/20 09:00 01/30/20 08:54 Famotidine 20 Mg Tab PO 20 mg BID PAULA Administration Furosemide 40 mg 01/28/20 09:00 01/30/20 08:53 Furosemide 40 Mg/4 Ml Vial SLOW IVP 40 mg DAILY PAULA Administration Ceftriaxone Sodium 1 gm/ 100 mls @ 200 mls/hr 01/28/20 11:00 01/30/20 09:46 Sodium Chloride IVPB 100 mls 1100 PAULA Administration Diltiazem HCl 125 mg/ 125 mls @ 0 mls/hr 01/28/20 11:00 01/30/20 11:01 Miscellaneous Medication 1 IVPB 125 mls each/ Sodium Chloride INF PAULA Administration Protocol As Directed Insulin Human Regular 0 units 01/28/20 00:26 01/30/20 12:29 Insulin Regular 300 Units/3 Ml Vial SC 2 unit .MILD SLIDING SCALE PRN Administration Mild Correctional Scale Lorazepam 0.5 mg 01/29/20 09:28 01/30/20 09:55 Lorazepam 0.5 Mg Tab PO 0.5 mg Q8H PRN Administration Anxiety Methylprednisolone Sodium Succinate 40 mg 01/30/20 06:00 01/30/20 14:02 Methylprednisolone Sod Succ 40 Mg Vial IVP 40 mg Q8HR PAULA Administration Mometasone Furoate/Formoterol Fumar 2 puff 01/28/20 18:30 01/30/20 07:40 Mometasone 200 Mcg/Formoterol 5 Mcg 120 Puff Inhaler INH 2 puff BID-RT PAULA Administration Nicotine 21 mg 01/29/20 10:00 01/30/20 09:46 Nicotine 21 Mg Patch TOP 21 mg Q24HR PAULA Administration Ondansetron HCl 4 mg 01/28/20 00:25 01/29/20 20:40 Ondansetron Pf 4 Mg/2 Ml Vial IVP 4 mg Q6H PRN Administration Nausea/Vomiting, use 1st - Exam General Appearance: NAD General - other findings: On BiPAP. Conversant. Heart: no murmur, no gallops, no rubs, normal peripheral pulses, irregular Respiratory: rales (Bilateral) Gastrointestinal: soft, non-tender, non-distended, normal bowel sounds, no palpable masses, no hepatomegaly, no splenomegaly, no bruit Extremities: no cyanosis, no clubbing, no edema Skin: normal turgor Musculoskeletal: no muscle wasting, generalized weakness Psychiatric: normal affect, normal behavior, A&O x 3 Hosp A/P (1) Acute exacerbation of CHF (congestive heart failure) Code(s): I50.9 - HEART FAILURE, UNSPECIFIED Status: Acute Qualifiers: Heart failure type: combined systolic and diastolic Qualified Code(s): I50.43 - Acute on chronic combined systolic (congestive) and diastolic ( congestive) heart failure (2) Acute respiratory failure with hypoxia Code(s): J96.01 - ACUTE RESPIRATORY FAILURE WITH HYPOXIA Status: Acute (3) Atrial fibrillation with RVR Code(s): I48.91 - UNSPECIFIED ATRIAL FIBRILLATION Status: Acute (4) COPD exacerbation Code(s): J44.1 - CHRONIC OBSTRUCTIVE PULMONARY DISEASE W (ACUTE) EXACERBATION Status: Acute (5) NSTEMI (non-ST elevated myocardial infarction) Code(s): I21.4 - NON-ST ELEVATION (NSTEMI) MYOCARDIAL INFARCTION Status: Acute (6) Tobacco abuse Code(s): Z72.0 - TOBACCO USE Status: Chronic (7) Constipation Code(s): K59.00 - CONSTIPATION, UNSPECIFIED Status: Acute (8) Cardiomyopathy Code(s): I42.9 - CARDIOMYOPATHY, UNSPECIFIED Status: Acute - Plan Acute hypoxic respiratory failure: Secondary to COPD exacerbation. Pulmonology following. Continuing on BiPAP, steroids, bronchodilators. COPD exacerbation: As above. A. fib with RVR: Continuing on maximum diltiazem drip. Still does not have complete rate control. Dr. Cárdenas has started digoxin without a load today. Continue with 0.25 mg p.o. daily. Full dose anticoagulation with Lovenox. NSTEMI: Cardiology anticipates a heart cath however, the patient is incapable of lying flat currently. Continue to work on improving her respiratory status. Constipation: Dulcolax suppository ordered. Coronary artery disease: Continue aspirin beta blockers. Hyperlipidemia: Continue statin. Acute on chronic systolic congestive heart failure: Patient has a cardiomyopathy with an ejection fraction of 20 to 25%. Likely decompensated significantly with the tachycardia of the atrial fibrillation. C urrently appears to be a bit more euvolemic. Continue daily IV Lasix dose.
[2020-01-30] MEDS ORDERED: Digoxin 0.5 MG/2 ML AMP ONE (16:10)
[2020-01-30] MEDS ORDERED: Digoxin 0.5 MG/2 ML AMP SLOW IVP SCH (16:30)
[2020-01-30] MEDS: Atorvastatin Calcium 40 MG TAB PO SCH (20:59)
[2020-01-31] MEDS: methylPREDNISolone Sod Succ 40 MG VIAL IVP SCH ×3 (05:33→21:18)
[2020-01-31] MEDS: Mometasone 200 MCG/Formoterol 5 MCG 120 PUFF INHALER INH SCH ×2 (07:14→18:23)
[2020-01-31] MEDS: Lorazepam 0.5 MG TAB PO PRN ×2 (07:27→17:19)
--- NOTE | 2020-01-31 08:55 | PRG ---
DATE OF SERVICE: 01/31/2020 SUBJECTIVE: Leanne Jessica is a 79-year-old female, remains on the BiPAP this morning with sats of 95%, pulse 89, blood pressure 150/78. OBJECTIVE: RESPIRATORY, LUNGS, CHEST: Decreased breath sounds with minimal wheezing. CARDIAC: Normal S1, S2. No gallops. ASSESSMENT: Cardiomyopathy, ejection fraction decreased, chronic obstructive pulmonary disease, congestive heart failure, morbid obesity. PLAN: She is on a Cardizem drip, dig, steroids, empiric antibiotics, neb treatment. Laxative of choice. We will continue to observe while in the ICU. Job ID: [id number]
[2020-01-31] MEDS: Enoxaparin Sodium 100 MG/ML SYRINGE SC SCH ×2 (09:14→21:18)
[2020-01-31] MEDS: Furosemide 40 MG/4 ML VIAL SLOW IVP SCH (09:15)
[2020-01-31] MEDS: Digoxin 0.25 MG TAB PO SCH (09:15)
[2020-01-31] MEDS: Escitalopram Oxalate 20 mg Tablet PO SCH (09:15)
[2020-01-31] MEDS: Nicotine 21 MG PATCH TOP SCH (09:15)
[2020-01-31] MEDS: Aspirin 81 mg Enteric Coated Tablet PO SCH (09:15)
[2020-01-31] MEDS: Famotidine 20 MG TAB PO SCH ×2 (09:15→21:18)
--- NOTE | 2020-01-31 09:21 | RAD ---
CHEST 1 VIEW: Date: 01/31/2020 HISTORY: Ventilated patient. COMPARISON: Radiograph prior day. FINDINGS: Heart size is enlarged. Small pleural effusions. Mild pulmonary edema. IMPRESSION: Mild decompensated congestive heart failure. Slightly enlarging pleural effusions. POS: OFF
[2020-01-31] MEDS: Insulin Regular 300 UNITS/3 ML VIAL SC PRN ×2 (10:43→15:58)
[2020-01-31] MEDS: cefTRIAXone\\ROCEPHIN 1 GM in Sodium Chloride 0.9% 100 ML IVPB SCH (10:43)
[2020-01-31] MEDS: Diltiazem HCl 125 MG, Admixture Fee 1 EACH in Sodium Chloride 0.9% 100 ML IVPB SCH (12:35)
[2020-01-31] MEDS: Acetaminophen 325 MG TAB PO PRN (12:35)
--- NOTE | 2020-01-31 14:37 | PQF ---
CLINICAL DOCUMENTATION CLARIFICATION FORM: Dear Dr. Paniagua Date: 01/31/20 Please exercise your independent, professional judgment in responding to the clarification form. Clinical indicators are provided on the bottom of this form for your review. Please check appropriate box(es) to clarify if the following diagnosis has been ruled in our ruled out: SEPSIS [ ] Ruled in diagnosis [ ] Continue to treat [ ] Resolved [ ] Ruled out diagnosis [ ] Improving [ ] Cannot rule out diagnosis [ ] Other diagnosis [ ] Unable to determine In addition, please specify: Present on Admission (POA): [ ] Yes [ ] No [ ] Unable to determine For continuity of documentation, please document condition throughout progress notes and discharge summary. Thank You. CLINICAL INDICATORS - SIGNS / SYMPTOMS / LABS / RESULTS AND LOCATION IN MR H&P (ATERNO): "SEVERE SEPSIS" WBC 01/26: 18.6 LACTIC ACID 01/26: 5.1 RISKS: COPD EXACERBATION (H&P) ACUTE RESPIRATORY FAILURE (H&P) TREATMENT: SOLUMEDROL (01/29) IV ROCEPHIN (01/27-PRESENT) COVID TESTING 01/26 CRITICAL CARE MONITORING CDS Signature: Mulu Michelle RN Phone #: [phone] Date: 01/31/20 This is a permanent part of the Medical Record [facility]
[2020-01-31] MEDS ORDERED: Bisacodyl 5 MG TAB PO PRN (16:36)
--- NOTE | 2020-01-31 16:38 | PDOC.HOSPP ---
- Subjective Encounter Date: 01/31/20 Subjective: Says she had another rough night. Still did not have BM. Does not want a liquid. She was off BIPAP and then had to lie down to get cleaned and she desaturated. She was back on BIPAP briefly and then back on NC. - Objective Vital Signs & Weight: Vital Signs (12 hours) Temp Pulse Resp Pulse Ox 01/31/20 16:00 98.1 F 01/31/20 13:53 104 H 22 H 92 L 01/31/20 12:00 97.9 F 01/31/20 09:15 106 H 01/31/20 08:00 97.9 F 96 01/31/20 07:14 101 H 32 H 95 Weight Weight 219 lb 4.8 oz Most Recent Monitor Data Heart Rate from ECG 103 NIBP 139/81 NIBP BP-Mean 100 Respiration from ECG 18 SpO2 88 I&O: 01/30/20 01/31/20 02/01/20 06:59 06:59 06:59 Intake Total 1757 698 Output Total 1180 8211 780 Balance 577 -1072 -780 Result Diagrams: 01/29/20 03:03 01/29/20 03:03 Additional Labs: Accuchecks 01/31/20 01/31/20 01/31/20 16:02 10:44 05:55 POC Glucose 162 H 198 H 170 H 01/30/20 17:46 POC Glucose 152 H Hospitalist ROS - Medication Medications: Active Medications Generic Name Dose Route Start Last Admin Trade Name Freq PRN Reason Stop Dose Admin Acetaminophen 650 mg 01/28/20 00:25 01/31/20 12:35 Acetaminophen 325 Mg Tab PO 650 mg Q4H PRN Administration Headache/Fever/Mild Pain (1-3) Hydrocodone Bitart/Acetaminophen 1 tab 01/28/20 00:25 01/29/20 15:56 Hydrocodone/Acetaminophen 5/325 Mg Tablet PO 1 tab Q4H PRN Administration Moderate Pain (4-6) Albuterol/Ipratropium 3 ml 01/28/20 00:25 01/28/20 21:49 Ipratropium/Albuterol Sulfate 3 Ml Neb NEB 3 ml Q2H PRN Administration SOB &/or Wheezing Albuterol/Ipratropium 3 ml 01/29/20 13:00 01/31/20 13:53 Ipratropium/Albuterol Sulfate 3 Ml Neb NEB 3 ml [id number] PAULA Administration Aspirin 81 mg 01/28/20 09:00 01/31/20 09:15 Aspirin 81 Mg Enteric Coated Tablet PO 81 mg DAILY PAULA Administration Atorvastatin Calcium 40 mg 01/28/20 21:00 01/30/20 20:59 Atorvastatin Calcium 40 Mg Tab PO 40 mg HS PAULA Administration Bisacodyl 10 mg 01/30/20 09:41 01/30/20 11:02 Bisacodyl 10 Mg Supp RI 10 mg Q8H PRN Administration Constipation Digoxin 0.25 mg 01/30/20 09:00 01/31/20 09:15 Digoxin 0.25 Mg Tab PO 0.25 mg DAILY PAULA Administration Enoxaparin Sodium 100 mg 01/28/20 09:00 01/31/20 09:14 Enoxaparin Sodium 100 Mg/Ml Syringe SC 100 mg 0900,2100 PAULA Administration Escitalopram Oxalate 20 mg 01/31/20 09:00 01/31/20 09:15 Escitalopram Oxalate 20 Mg Tablet PO 20 mg DAILY PAULA Administration Famotidine 20 mg 01/28/20 09:00 01/31/20 09:15 Famotidine 20 Mg Tab PO 20 mg BID PAULA Administration Furosemide 40 mg 01/28/20 09:00 01/31/20 09:15 Furosemide 40 Mg/4 Ml Vial SLOW IVP 40 mg DAILY PAULA Administration Ceftriaxone Sodium 1 gm/ 100 mls @ 200 mls/hr 01/28/20 11:00 01/31/20 10:43 Sodium Chloride IVPB 100 mls 1100 PAULA Administration Diltiazem HCl 125 mg/ 125 mls @ 0 mls/hr 01/28/20 11:00 01/31/20 12:35 Miscellaneous Medication 1 IVPB 125 mls each/ Sodium Chloride INF PAULA Administration Protocol As Directed Insulin Human Regular 0 units 01/28/20 00:26 01/31/20 15:58 Insulin Regular 300 Units/3 Ml Vial SC 2 unit .MILD SLIDING SCALE PRN Administration Mild Correctional Scale Lorazepam 0.5 mg 01/29/20 09:28 01/31/20 07:27 Lorazepam 0.5 Mg Tab PO 0.5 mg Q8H PRN Administration Anxiety Methylprednisolone Sodium Succinate 40 mg 01/30/20 06:00 01/31/20 14:32 Methylprednisolone Sod Succ 40 Mg Vial IVP 40 mg Q8HR PAULA Administration Mometasone Furoate/Formoterol Fumar 2 puff 01/28/20 18:30 01/31/20 07:14 Mometasone 200 Mcg/Formoterol 5 Mcg 120 Puff Inhaler INH 2 puff BID-RT PAULA Administration Nicotine 21 mg 01/29/20 10:00 01/31/20 09:15 Nicotine 21 Mg Patch TOP 21 mg Q24HR PAULA Administration Ondansetron HCl 4 mg 01/28/20 00:25 01/29/20 20:40 Ondansetron Pf 4 Mg/2 Ml Vial IVP 4 mg Q6H PRN Administration Nausea/Vomiting, use 1st - Exam General Appearance: NAD, awake alert Heart: no murmur, no gallops, no rubs, normal peripheral pulses, irregular Respiratory: rales, rhonchi, tachypneic, wheezes Gastrointestinal: soft, non-tender, non-distended, normal bowel sounds, no palpable masses, no hepatomegaly, no splenomegaly, no bruit Extremities: no cyanosis, no clubbing, no edema Skin: normal turgor Neurological: no focal deficits Musculoskeletal: generalized weakness Psychiatric: normal affect, normal behavior, A&O x 3 Hosp A/P (1) Acute exacerbation of CHF (congestive heart failure) Code(s): I50.9 - HEART FAILURE, UNSPECIFIED Status: Acute Qualifiers: Heart failure type: combined systolic and diastolic Qualified Code(s): I50.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 (2) Acute respiratory failure with hypoxia Code(s): J96.01 - ACUTE RESPIRATORY FAILURE WITH HYPOXIA Status: Acute (3) Atrial fibrillation with RVR Code(s): I48.91 - UNSPECIFIED ATRIAL FIBRILLATION Status: Acute (4) COPD exacerbation Code(s): J44.1 - CHRONIC OBSTRUCTIVE PULMONARY DISEASE W (ACUTE) EXACERBATION Status: Acute (5) NSTEMI (non-ST elevated myocardial infarction) Code(s): I21.4 - NON-ST ELEVATION (NSTEMI) MYOCARDIAL INFARCTION Status: Acute (6) Tobacco abuse Code(s): Z72.0 - TOBACCO USE Status: Chronic (7) Constipation Code(s): K59.00 - CONSTIPATION, UNSPECIFIED Status: Acute (8) Cardiomyopathy Code(s): I42.9 - CARDIOMYOPATHY, UNSPECIFIED Status: Acute - Plan Acute hypoxic respiratory failure: Secondary to COPD exacerbation. Pulmonology following. Continuing on BiPAP and weaning down to NC oxygen, steroids, bronchodilators. COPD exacerbation: As above. A. fib with RVR: Continuing on maximum diltiazem drip. Still does not have complete rate control. Dr. Cárdenas has started digoxin with some improvement. Continue with 0.25 mg p.o. daily. Full dose anticoagulation with Lovenox. NSTEMI: Cardiology anticipates a heart cath however, the patient is incapable of lying flat currently. Continue to work on improving her respiratory status. Constipation: Dulcolax suppository ordered. Coronary artery disease: Continue aspirin beta blockers. Hyperlipidemia: Continue statin. 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 Likely decompensated significantly with the tachycardia of the atrial fibrillation. Currently appears to be a bit more euvolemic. Continue daily IV Lasix dose. CXR had some persistent edema. Will give an additional dose of Lasix this afternoon. Did not have a huge response to the morning dose.
[2020-01-31] MEDS: HYDROcodone/Acetaminophen 5/325 mg Tablet PO PRN (16:39)
[2020-01-31] MEDS ORDERED: Furosemide 40 MG/4 ML VIAL SLOW IVP SCH (16:45)
[2020-01-31] MEDS: Senokot 8.6 MG TAB PO PRN (17:21)
[2020-01-31] MEDS: Atorvastatin Calcium 40 MG TAB PO SCH (21:18)
[2020-02-01] MEDS: Lorazepam 0.5 MG TAB PO PRN ×3 (00:33→21:15)
[2020-02-01 03:47] LABS: Hemoglobin 15.2 g/dL (12.0-16.0); Mean Corpuscular HGB CONC 33.2 g/dL (32.0-36.0); Mean Corpuscular Hemoglobin 29.9 pg (27.0-31.0); Mean Corpuscular Volume 89.8 fL (78.0-98.0); Mean Platelet Volume 8.1 fL (7.4-10.4); Platelet Count 183 thou/uL (130-400); RBC Distribution Width 14.2 % (11.5-14.5); White Blood Cell (WBC) Count 12.6 thou/uL (4.8-10.8)
[2020-02-01] MEDS: HYDROcodone/Acetaminophen 5/325 mg Tablet PO PRN (03:52)
[2020-02-01 04:05] LABS: Anion Gap 13 mmol/L (10-20); BUN (Urea Nitrogen) 29 mg/dL (9.8-20.1); Calc. Creatinine Clearance 96 mL/min (70-130); Calcium 9.1 mg/dL (7.8-10.44); Carbon Dioxide 30 mmol/L (23-31); Chloride 99 mmol/L (98-107); Estimated GFR-MDRD 73; Glucose 156 mg/dL (83-110); Potassium 4.3 mmol/L (3.5-5.1); Sodium 138 mmol/L (136-145)
[2020-02-01] MEDS: methylPREDNISolone Sod Succ 40 MG VIAL IVP SCH ×3 (05:27→21:16)
[2020-02-01] MEDS: Furosemide 40 MG/4 ML VIAL SLOW IVP SCH ×2 (05:27→13:17)
[2020-02-01] MEDS: Diltiazem HCl 125 MG, Admixture Fee 1 EACH in Sodium Chloride 0.9% 100 ML IVPB SCH ×3 (05:56→21:18)
[2020-02-01] MEDS: Mometasone 200 MCG/Formoterol 5 MCG 120 PUFF INHALER INH SCH ×2 (07:14→18:34)
--- NOTE | 2020-02-01 08:53 | PRG ---
DATE OF SERVICE: 02/01/2020 SUBJECTIVE: Leanne Jessica is a 79-year-old female, remains in the ICU in atrial fibrillation, on a Cardizem drip. She is better, less short of breath, but still constipated. OBJECTIVE: VITAL SIGNS: Sats are anyway from 90% to 88% on 4 L, pulse 89, blood pressure 145/73. CHEST: Decreased breath sounds. Prolonged expiration. CARDIAC: Atrial fibrillation. ABDOMEN: Distended, but soft. EXTREMITIES: No edema. IMPRESSION AND PLAN: 1. End-stage chronic obstructive pulmonary disease. 2. Cardiomyopathy. 3. Probably sleep apnea. 4. Severe deconditioning. Pulmonary parks, she is stable enough to be transferred to a monitored bed. Continue steroids, neb treatment, Dulera. We will follow. Job ID: [id number]
[2020-02-01] MEDS: Aspirin 81 mg Enteric Coated Tablet PO SCH (10:03)
[2020-02-01] MEDS: Famotidine 20 MG TAB PO SCH ×2 (10:03→21:14)
[2020-02-01] MEDS: Digoxin 0.25 MG TAB PO SCH (10:03)
[2020-02-01] MEDS: Escitalopram Oxalate 20 mg Tablet PO SCH (10:03)
[2020-02-01] MEDS: cefTRIAXone\\ROCEPHIN 1 GM in Sodium Chloride 0.9% 100 ML IVPB SCH (10:03)
[2020-02-01] MEDS: Enoxaparin Sodium 100 MG/ML SYRINGE SC SCH ×2 (10:03→21:16)
[2020-02-01] MEDS: Insulin Regular 300 UNITS/3 ML VIAL SC PRN ×2 (11:29→17:36)
[2020-02-01] MEDS ORDERED: Magnesium Citrate 300 ML BOT PO SCH (12:00)
--- NOTE | 2020-02-01 17:55 | PDOC.HOSPP ---
- Subjective Encounter Date: 02/01/20 Encounter Time: 17:50 Subjective: f/u for A-fib RVR with systolic CHF and EF 25% receiving Cardizem gtt and Lasix. Apparently dyspnea precluding pt laying supine for heart cath currently. - Objective Vital Signs & Weight: Vital Signs (12 hours) Temp Pulse Pulse Pulse Resp BP BP 02/01/20 16:00 98.7 F 02/01/20 13:29 82 28 H 02/01/20 12:00 98.8 F 02/01/20 10:03 107 H 02/01/20 08:50 105 H 94 133/61 127/72 02/01/20 08:00 98.2 F 02/01/20 07:11 89 22 H Pulse Ox Pulse Ox Pulse Ox 02/01/20 16:00 02/01/20 13:29 94 L 02/01/20 12:00 02/01/20 10:03 02/01/20 08:50 86 L 92 L 02/01/20 08:00 94 L 02/01/20 07:11 90 L Weight Weight 219 lb 4.8 oz Most Recent Monitor Data Heart Rate from ECG 110 NIBP 129/75 NIBP BP-Mean 93 Respiration from ECG 22 SpO2 99 I&O: 01/31/20 02/01/20 02/02/20 06:59 06:59 06:59 Intake Total 698 579 890 Output Total 8263 7969 1837 [facility]1072 -1786 -1275 Result Diagrams: 02/01/20 03:23 02/01/20 03:23 Additional Labs: Accuchecks 02/01/20 02/01/20 16:35 11:26 POC Glucose 164 H 163 H Laboratory Tests 01/27/20 01/27/20 01/27/20 21:05 21:05 21:05 WBC 18.6 H Troponin I 18.754 H* B-Natriuretic Peptide 642.9 H TSH 3rd Generation SARS-CoV-2 (PCR) 01/27/20 01/28/20 01/28/20 22:50 03:10 03:10 WBC Troponin I 23.552 H* B-Natriuretic Peptide TSH 3rd Generation 1.6065 SARS-CoV-2 (PCR) Not Detected 01/29/20 03:03 WBC 16.9 H Troponin I B-Natriuretic Peptide TSH 3rd Generation SARS-CoV-2 (PCR) Radiology Reviewed by me: Yes (PCXR - mild vasc prominence, cardiomegaly) EKG Reviewed by me: Yes (Tele - A-fib in 100's) Hospitalist ROS - Medication Medications: Active Medications Generic Name Dose Route Start Last Admin Trade Name Freq PRN Reason Stop Dose Admin Acetaminophen 650 mg 01/28/20 00:25 01/31/20 12:35 Acetaminophen 325 Mg Tab PO 650 mg Q4H PRN Administration Headache/Fever/Mild Pain (1-3) Hydrocodone Bitart/Acetaminophen 1 tab 01/28/20 00:25 02/01/20 03:52 Hydrocodone/Acetaminophen 5/325 Mg Tablet PO 1 tab Q4H PRN Administration Moderate Pain (4-6) Albuterol/Ipratropium 3 ml 01/28/20 00:25 01/28/20 21:49 Ipratropium/Albuterol Sulfate 3 Ml Neb NEB 3 ml Q2H PRN Administration SOB &/or Wheezing Albuterol/Ipratropium 3 ml 01/29/20 13:00 02/01/20 13:29 Ipratropium/Albuterol Sulfate 3 Ml Neb NEB 3 ml [id number] PAULA Administration Aspirin 81 mg 01/28/20 09:00 02/01/20 10:03 Aspirin 81 Mg Enteric Coated Tablet PO 81 mg DAILY PAULA Administration Atorvastatin Calcium 40 mg 01/28/20 21:00 01/31/20 21:18 Atorvastatin Calcium 40 Mg Tab PO 40 mg HS PAULA Administration Bisacodyl 10 mg 01/30/20 09:41 01/30/20 11:02 Bisacodyl 10 Mg Supp [place] 10 mg Q8H PRN Administration Constipation Digoxin 0.25 mg 01/30/20 09:00 02/01/20 10:03 Digoxin 0.25 Mg Tab PO 0.25 mg DAILY PAULA Administration Enoxaparin Sodium 100 mg 01/28/20 09:00 02/01/20 10:03 Enoxaparin Sodium 100 Mg/Ml Syringe SC 100 mg 0900,2100 PAULA Administration Escitalopram Oxalate 20 mg 01/31/20 09:00 02/01/20 10:03 Escitalopram Oxalate 20 Mg Tablet PO 20 mg DAILY PAULA Administration Famotidine 20 mg 01/28/20 09:00 02/01/20 10:03 Famotidine 20 Mg Tab PO 20 mg BID PAULA Administration Furosemide 40 mg 02/01/20 06:00 02/01/20 13:17 Furosemide 40 Mg/4 Ml Vial SLOW IVP 40 mg 0600,1400 PAULA Administration Ceftriaxone Sodium 1 gm/ 100 mls @ 200 mls/hr 01/28/20 11:00 02/01/20 10:03 Sodium Chloride IVPB 100 mls 1100 PAULA Administration Diltiazem HCl 125 mg/ 125 mls @ 0 mls/hr 01/28/20 11:00 02/01/20 14:06 Miscellaneous Medication 1 IVPB 125 mls each/ Sodium Chloride INF PAULA Administration Protocol As Directed Insulin Human Regular 0 units 01/28/20 00:26 02/01/20 17:36 Insulin Regular 300 Units/3 Ml Vial SC 2 unit .MILD SLIDING SCALE PRN Administration Mild Correctional Scale Lorazepam 0.5 mg 01/29/20 09:28 02/01/20 13:17 Lorazepam 0.5 Mg Tab PO 0.5 mg Q8H PRN Administration Anxiety Methylprednisolone Sodium Succinate 40 mg 02/01/20 09:00 02/01/20 10:03 Methylprednisolone Sod Succ 40 Mg Vial IVP 40 mg BID PAULA Administration Mometasone Furoate/Formoterol Fumar 2 puff 01/28/20 18:30 02/01/20 07:14 Mometasone 200 Mcg/Formoterol 5 Mcg 120 Puff Inhaler INH 2 puff BID-RT PAULA Administration Ondansetron HCl 4 mg 01/28/20 00:25 01/29/20 20:40 Ondansetron Pf 4 Mg/2 Ml Vial IVP 4 mg Q6H PRN Administration Nausea/Vomiting, use 1st Senna 2 tab 01/31/20 16:36 01/31/20 17:21 Senokot 8.6 Mg Tab PO 2 tab HSPRN PRN Administration Constipation Sodium Chloride 10 ml 02/01/20 09:00 02/01/20 10:04 Flush - Normal Saline 10 Ml Syringe IVF 10 ml Q12HR PAULA Administration - Exam General Appearance: awake alert General - other findings: mild resp distress Eye: PERRL, anicteric sclera ENT: normocephalic atraumatic, no oropharyngeal lesions Neck: supple, symmetric, no JVD, no thyromegaly, no lymphadenopathy Heart: no murmur, no gallops, normal peripheral pulses, irregular Heart - other findings: S1, S2 tachycardic Respiratory - other findings: diminished bilat, exp wheeze, poor inspiratory effort Gastrointestinal: soft, non-tender, non-distended, normal bowel sounds, no palpable masses Extremities: no cyanosis, no clubbing, no edema Skin: normal turgor Neurological: cranial nerve grossly intact, no new deficit Musculoskeletal: normal tone, generalized weakness Psychiatric: normal affect, A&O x 3 Hosp A/P (1) Acute exacerbation of CHF (congestive heart failure) Code(s): I50.9 - HEART FAILURE, UNSPECIFIED Status: Acute Qualifiers: Heart failure type: combined systolic and diastolic Qualified Code(s): I50.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 Plan: EF 25%, continue Lasix 40mg IV BID, await heart cath, ASA/Lipitor (2) Acute respiratory failure with hypoxia Code(s): J96.01 - ACUTE RESPIRATORY FAILURE WITH HYPOXIA Status: Acute Plan: Secondary to CHF/COPD, O2 supplementation (3) Atrial fibrillation with RVR Code(s): I48.91 - UNSPECIFIED ATRIAL FIBRILLATION Status: Acute Plan: Cardizem gtt, Digoxin 0.25mg daily, Lovenox (4) COPD exacerbation Code(s): J44.1 - CHRONIC OBSTRUCTIVE PULMONARY DISEASE W (ACUTE) EXACERBATION Status: Acute Plan: Pulmonary support, Duonebs/Solumedrol/Dulera/Rocephin (5) Cardiomyopathy Code(s): I42.9 - CARDIOMYOPATHY, UNSPECIFIED Status: Chronic Plan: Likely ischemic, heart cath pending (6) Constipation Code(s): K59.00 - CONSTIPATION, UNSPECIFIED Status: Acute Plan: Add Dulcolax supp, Senokot 2 tabs now, Mag Citrate (7) NSTEMI (non-ST elevated myocardial infarction) Code(s): I21.4 - NON-ST ELEVATION (NSTEMI) MYOCARDIAL INFARCTION Status: Acute (8) Tobacco abuse Code(s): Z72.0 - TOBACCO USE Status: Chronic Plan: Nicotine patch daily, smoking cessation resources - Plan continue antibiotics, addiction social worker, respiratory therapy, DVT proph w/SCDs Continue Cardizem gtt for rate control Digoxin 0.25mg po daily Lovenox 100mg sc BID Heart Cath pending Pulmonary support BiPAP PRN AM lab: BMP Transfer to [facility]
[2020-02-01] MEDS ORDERED: Senokot 8.6 MG TAB PO SCH (18:15)
--- NOTE | 2020-02-01 19:47 | PQF ---
Q55 2019 [facility] Updated: CLINICAL DOCUMENTATION CLARIFICATION FORM: Dear Dr. Gavin Date: 02/01/20 Please exercise your independent, professional judgment in responding to the clarification form. Clinical indicators are provided on the bottom of this form for your review. Please check appropriate box(es) to clarify if the following diagnosis has been ruled in our ruled out: SEPSIS [ ] Ruled in diagnosis [ ] Continue to treat [ ] Resolved [ x ] Ruled out diagnosis [ ] Improving [ ] Cannot rule out diagnosis [ ] Other diagnosis [ ] Unable to determine In addition, please specify: Present on Admission (POA): [ ] Yes [ x ] No [ ] Unable to determine For continuity of documentation, please document condition throughout progress notes and discharge summary. Thank You. CLINICAL INDICATORS - SIGNS / SYMPTOMS / LABS / RESULTS AND LOCATION IN MR H&P (ATERNO): "SEVERE SEPSIS" WBC 01/26: 18.6 LACTIC ACID 01/26: 5.1 RISKS: COPD EXACERBATION (H&P) ACUTE RESPIRATORY FAILURE (H&P) TREATMENT: SOLUMEDROL (01/29) IV ROCEPHIN (01/27-PRESENT) COVID TESTING 01/26 CRITICAL CARE MONITORING CDS Signature: Mulu Michelle RN Phone #: [phone] Date: 02/01/20 This is a permanent part of the Medical Record [facility]
[2020-02-01] MEDS: Atorvastatin Calcium 40 MG TAB PO SCH (21:15)
[2020-02-01] MEDS: Bisacodyl 10 MG SUPP PR SCH (21:16)
[2020-02-02] MEDS: Bisacodyl 10 MG SUPP PR SCH ×3 (02:41→19:06)
[2020-02-02] MEDS ORDERED: Lorazepam 2 MG/ML VIAL SLOW IVP SCH (02:45)
[2020-02-02 04:20] LABS: #Lymphocytes 0.3 thou/uL (1.20-3.40); #Monocytes 0.7 thou/uL (0.11-0.59); #Neutrophils 9.3 thou/uL (1.40-6.50); %Eosinophils 0.1 % (0.0-10.0); %Lymphocytes 2.8 % (21.0-51.0); %Monocytes 7.1 % (0.0-10.0); Hemoglobin 14.8 g/dL (12.0-16.0); Mean Corpuscular HGB CONC 32.9 g/dL (32.0-36.0); Mean Corpuscular Volume 91.1 fL (78.0-98.0); Mean Platelet Volume 8.3 fL (7.4-10.4); Platelet Count 171 thou/uL (130-400); Red Blood Cell (RBC) Count 4.92 mill/uL (4.20-5.40); White Blood Cell (WBC) Count 10.3 thou/uL (4.8-10.8)
[2020-02-02 04:43] LABS: Anion Gap 13 mmol/L (10-20); BUN (Urea Nitrogen) 30 mg/dL (9.8-20.1); Calc. Creatinine Clearance 94 mL/min (70-130); Calcium 8.6 mg/dL (7.8-10.44); Carbon Dioxide 31 mmol/L (23-31); Chloride 97 mmol/L (98-107); Estimated GFR-MDRD 71; Glucose 165 mg/dL (83-110); Potassium 4.2 mmol/L (3.5-5.1); Sodium 137 mmol/L (136-145)
[2020-02-02] MEDS: Furosemide 40 MG/4 ML VIAL SLOW IVP SCH ×2 (06:13→14:25)
[2020-02-02] MEDS: Mometasone 200 MCG/Formoterol 5 MCG 120 PUFF INHALER INH SCH ×2 (07:23→18:51)
[2020-02-02] MEDS: Digoxin 0.25 MG TAB PO SCH (08:24)
[2020-02-02] MEDS: Escitalopram Oxalate 20 mg Tablet PO SCH (08:24)
[2020-02-02] MEDS: Aspirin 81 mg Enteric Coated Tablet PO SCH (08:24)
[2020-02-02] MEDS: Famotidine 20 MG TAB PO SCH ×2 (08:24→21:10)
[2020-02-02] MEDS: Lorazepam 0.5 MG TAB PO PRN (08:24)
[2020-02-02] MEDS: Enoxaparin Sodium 100 MG/ML SYRINGE SC SCH ×2 (08:25→21:10)
[2020-02-02] MEDS: methylPREDNISolone Sod Succ 40 MG VIAL IVP SCH ×2 (08:25→21:11)
--- NOTE | 2020-02-02 10:07 | PRG ---
DATE OF SERVICE: 02/02/2020 SUBJECTIVE: Leanne Jessica is a 79-year-old female, who is still short of breath, still tachypneic, and tachycardic. OBJECTIVE: VITAL SIGNS: Temperature 97, pulse 74, saturations 94% on 4 L, blood pressure 150/95. CHEST: Decreased breath sounds. No wheezing. CARDIAC: Normal S1 and S2. No gallops. ABDOMEN: No masses. LABORATORY DATA: Unremarkable. ASSESSMENT AND PLAN: Chronic obstructive pulmonary disease, end-stage; supraventricular tachycardia; severe deconditioning. Switch over to oral antibiotics. Continue PT, supportive care, nutrition. Cardizem. Prognosis is poor. Nocturnal CPAP. Job ID: [id number]
[2020-02-02] MEDS ORDERED: Doxycycline 100 MG CAP PO SCH (11:00)
[2020-02-02] MEDS: Acetaminophen 325 MG TAB PO PRN (14:25)
[2020-02-02] MEDS: Nicotine 21 MG PATCH TOP SCH (14:25)
[2020-02-02] MEDS ORDERED: Fleets Phospha Soda 45 ml Bottle PO PRN (17:17)
--- NOTE | 2020-02-02 17:19 | PDOC.HOSPP ---
- Subjective Encounter Date: 02/02/20 Encounter Time: 17:05 Subjective: f/u for COPD/CHF exacerbation/A-fib RVR on Cardizem gtt. SOB remains and worsened with exertion. - Objective Vital Signs & Weight: Vital Signs (12 hours) Temp Pulse Pulse Pulse Resp BP BP 02/02/20 15:23 97.3 F L 02/02/20 14:21 89 28 H 02/02/20 11:32 96.1 F L 02/02/20 08:48 92 84 145/68 H 133/78 02/02/20 08:24 74 02/02/20 08:00 02/02/20 07:31 96.2 F L 02/02/20 07:20 94 31 H Pulse Ox 02/02/20 15:23 02/02/20 14:21 94 L 02/02/20 11:32 02/02/20 08:48 02/02/20 08:24 02/02/20 08:00 100 02/02/20 07:31 02/02/20 07:20 92 L Weight Weight 219 lb 4.8 oz Most Recent Monitor Data Heart Rate from ECG 92 NIBP 141/90 NIBP BP-Mean 107 Respiration from ECG 18 SpO2 94 I&O: 02/01/20 02/02/20 02/03/20 06:59 06:59 06:59 Intake Total 579 2140 Output Total 1229 4075 Balance -0111 -289 Result Diagrams: 02/02/20 03:46 02/02/20 03:46 Additional Labs: Accuchecks 02/02/20 02/02/20 02/02/20 16:59 10:43 05:54 POC Glucose 203 H 167 H 175 H 02/01/20 21:09 POC Glucose 163 H Laboratory Tests 01/27/20 01/27/20 01/27/20 21:05 21:05 21:05 WBC 18.6 H Troponin I 18.754 H* B-Natriuretic Peptide 642.9 H TSH 3rd Generation SARS-CoV-2 (PCR) 01/27/20 01/28/20 01/28/20 22:50 03:10 03:10 WBC Troponin I 23.552 H* B-Natriuretic Peptide TSH 3rd Generation 1.6065 SARS-CoV-2 (PCR) Not Detected 01/29/20 03:03 WBC 16.9 H Troponin I B-Natriuretic Peptide TSH 3rd Generation SARS-CoV-2 (PCR) EKG Reviewed by me: Yes (Tele - A-fib in 's) Hospitalist ROS - Medication Medications: Active Medications Generic Name Dose Route Start Last Admin Trade Name Freq PRN Reason Stop Dose Admin Acetaminophen 650 mg 01/28/20 00:25 02/02/20 14:25 Acetaminophen 325 Mg Tab PO 650 mg Q4H PRN Administration Headache/Fever/Mild Pain (1-3) Hydrocodone Bitart/Acetaminophen 1 tab 01/28/20 00:25 02/01/20 03:52 Hydrocodone/Acetaminophen 5/325 Mg Tablet PO 1 tab Q4H PRN Administration Moderate Pain (4-6) Albuterol/Ipratropium 3 ml 01/28/20 00:25 01/28/20 21:49 Ipratropium/Albuterol Sulfate 3 Ml Neb NEB 3 ml Q2H PRN Administration SOB &/or Wheezing Albuterol/Ipratropium 3 ml 01/29/20 13:00 02/02/20 14:21 Ipratropium/Albuterol Sulfate 3 Ml Neb NEB 3 ml [id number] PAULA Administration Aspirin 81 mg 01/28/20 09:00 02/02/20 08:24 Aspirin 81 Mg Enteric Coated Tablet PO 81 mg DAILY PAULA Administration Atorvastatin Calcium 40 mg 01/28/20 21:00 02/01/20 21:15 Atorvastatin Calcium 40 Mg Tab PO 40 mg HS PAULA Administration Bisacodyl 10 mg 02/01/20 18:00 02/02/20 08:25 Bisacodyl 10 Mg Supp ME 10 mg 0200,1000,1800 PAULA Administration Digoxin 0.25 mg 01/30/20 09:00 02/02/20 08:24 Digoxin 0.25 Mg Tab PO 0.25 mg DAILY PAULA Administration Enoxaparin Sodium 100 mg 01/28/20 09:00 02/02/20 08:25 Enoxaparin Sodium 100 Mg/Ml Syringe SC 100 mg 0900,2100 PAULA Administration Escitalopram Oxalate 20 mg 01/31/20 09:00 02/02/20 08:24 Escitalopram Oxalate 20 Mg Tablet PO 20 mg DAILY PAULA Administration Famotidine 20 mg 01/28/20 09:00 02/02/20 08:24 Famotidine 20 Mg Tab PO 20 mg BID PAULA Administration Furosemide 40 mg 02/01/20 06:00 02/02/20 14:25 Furosemide 40 Mg/4 Ml Vial SLOW IVP 40 mg 0600,1400 PAULA Administration Diltiazem HCl 125 mg/ 125 mls @ 0 mls/hr 01/28/20 11:00 02/01/20 21:18 Miscellaneous Medication 1 IVPB 125 mls each/ Sodium Chloride INF PAULA Administration Protocol As Directed Insulin Human Regular 0 units 01/28/20 00:26 02/01/20 17:36 Insulin Regular 300 Units/3 Ml Vial SC 2 unit .MILD SLIDING SCALE PRN Administration Mild Correctional Scale Methylprednisolone Sodium Succinate 40 mg 02/01/20 09:00 02/02/20 08:25 Methylprednisolone Sod Succ 40 Mg Vial IVP 40 mg BID PAULA Administration Mometasone Furoate/Formoterol Fumar 2 puff 01/28/20 18:30 02/02/20 07:23 Mometasone 200 Mcg/Formoterol 5 Mcg 120 Puff Inhaler INH 2 puff BID-RT PAULA Administration Nicotine 21 mg 02/02/20 14:00 02/02/20 14:25 Nicotine 21 Mg Patch TOP 21 mg Q24HR PAULA Administration Ondansetron HCl 4 mg 01/28/20 00:25 01/29/20 20:40 Ondansetron Pf 4 Mg/2 Ml Vial IVP 4 mg Q6H PRN Administration Nausea/Vomiting, use 1st Senna 2 tab 01/31/20 16:36 01/31/20 17:21 Senokot 8.6 Mg Tab PO 2 tab HSPRN PRN Administration Constipation Sodium Chloride 10 ml 02/01/20 09:00 02/02/20 08:26 Flush - Normal Saline 10 Ml Syringe IVF 10 ml Q12HR PAULA Administration - Exam General Appearance: ill appearing General - other findings: resp distress Eye: PERRL, anicteric sclera ENT: normocephalic atraumatic, no oropharyngeal lesions Neck: supple, symmetric, no JVD, no thyromegaly, no lymphadenopathy Heart: no gallops, no rubs, normal peripheral pulses, irregular Heart - other findings: S1, S2 Respiratory: rhonchi, tachypneic Respiratory - other findings: diminished bilat, exp wheezes Gastrointestinal: soft, non-tender, non-distended, normal bowel sounds, no palpable masses Gastrointestinal - other findings: obese Extremities: no cyanosis, no clubbing, no edema Skin: normal turgor Neurological: cranial nerve grossly intact, no new deficit Musculoskeletal: normal tone, generalized weakness Psychiatric: A&O x 3, flat affect Hosp A/P (1) Acute exacerbation of CHF (congestive heart failure) Code(s): I50.9 - HEART FAILURE, UNSPECIFIED Status: Acute Qualifiers: Heart failure type: combined systolic and diastolic Qualified Code(s): I50. 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 Plan: Continue Lasix IV, serial I/O's, Daily weight (2) Acute respiratory failure with hypoxia Code(s): J96.01 - ACUTE RESPIRATORY FAILURE WITH HYPOXIA Status: Acute Plan: Continue O2 supplementation, BiPAP PRN, Duonebs/Solumedrol (3) Atrial fibrillation with RVR Code(s): I48.91 - UNSPECIFIED ATRIAL FIBRILLATION Status: Acute Plan: Rate improved, continue Cardizem gtt, eventual heart cath when able to lay supine (4) COPD exacerbation Code(s): J44.1 - CHRONIC OBSTRUCTIVE PULMONARY DISEASE W (ACUTE) EXACERBATION Status: Acute Plan: Continue Duonebs/Solumedrol/Doxycycline/Dulera (5) Cardiomyopathy Code(s): I42.9 - CARDIOMYOPATHY, UNSPECIFIED Status: Chronic (6) Constipation Code(s): K59.00 - CONSTIPATION, UNSPECIFIED Status: Acute Plan: Add Fleets enema, Senokot-S (7) NSTEMI (non-ST elevated myocardial infarction) Code(s): I21.4 - NON-ST ELEVATION (NSTEMI) MYOCARDIAL INFARCTION Status: Acute Plan: Plan for heart cath if able to lay supine (8) Tobacco abuse Code(s): Z72.0 - TOBACCO USE Status: Chronic - Plan continue antibiotics, social secretary, respiratory therapy, DVT proph w/SCDs Continue Cardizem gtt for rate control Digoxin 0.25mg po daily Lovenox 100mg sc BID Heart Cath pending Pulmonary support BiPAP PRN Continue Solumedrol Add Fleets enema/Senokot-S AM lab: BMP
[2020-02-02] MEDS ORDERED: Senokot S 8.6-50 MG TAB PO SCH (19:00)
[2020-02-02] MEDS: Atorvastatin Calcium 40 MG TAB PO SCH (21:10)
[2020-02-02] MEDS: Doxycycline 100 MG CAP PO SCH (21:10)
[2020-02-03] MEDS: Diltiazem HCl 125 MG, Admixture Fee 1 EACH in Sodium Chloride 0.9% 100 ML IVPB SCH ×3 (00:03→19:18)
[2020-02-03] MEDS ORDERED: ALPRAZolam 0.25 MG TAB PO SCH ×2 (00:30→16:15)
[2020-02-03] MEDS: Bisacodyl 10 MG SUPP PR SCH ×3 (02:13→18:05)
[2020-02-03 04:12] LABS: Anion Gap 14 mmol/L (10-20); BUN (Urea Nitrogen) 26 mg/dL (9.8-20.1); Calc. Creatinine Clearance 97 mL/min (70-130); Calcium 8.7 mg/dL (7.8-10.44); Carbon Dioxide 33 mmol/L (23-31); Chloride 95 mmol/L (98-107); Estimated GFR-MDRD 74; Glucose 141 mg/dL (83-110); Potassium 4.2 mmol/L (3.5-5.1); Sodium 138 mmol/L (136-145)
[2020-02-03] MEDS: Furosemide 40 MG/4 ML VIAL SLOW IVP SCH ×2 (05:34→14:48)
[2020-02-03] MEDS: Mometasone 200 MCG/Formoterol 5 MCG 120 PUFF INHALER INH SCH ×2 (07:09→18:51)
[2020-02-03] MEDS: Aspirin 81 mg Enteric Coated Tablet PO SCH (10:01)
[2020-02-03] MEDS: Digoxin 0.25 MG TAB PO SCH (10:01)
[2020-02-03] MEDS: Famotidine 20 MG TAB PO SCH ×2 (10:01→20:34)
[2020-02-03] MEDS: methylPREDNISolone Sod Succ 40 MG VIAL IVP SCH ×2 (10:02→20:33)
[2020-02-03] MEDS: Escitalopram Oxalate 20 mg Tablet PO SCH (10:02)
[2020-02-03] MEDS: Doxycycline 100 MG CAP PO SCH ×2 (10:02→20:34)
[2020-02-03] MEDS: Enoxaparin Sodium 100 MG/ML SYRINGE SC SCH ×2 (10:03→20:33)
[2020-02-03] MEDS: Senokot S 8.6-50 MG TAB PO SCH ×2 (10:03→20:34)
--- NOTE | 2020-02-03 10:12 | PRG ---
DATE OF SERVICE: 02/03/2020 SUBJECTIVE: Leanne Jessica remains constipated. She is still short of breath but better. OBJECTIVE: VITAL SIGNS: Temperature 98, pulse 97, saturations are 95%, she is on BiPAP overnight, blood pressure 141/89. CHEST: Decreased breath sounds. No wheezing. CARDIAC: Normal S1, S2. No gallops. ABDOMEN: Soft but distended. IMPRESSION: 1. Chronic obstructive pulmonary disease exacerbation. 2. Supraventricular tachycardia, congestive heart failure. 3. Obesity. 4. Constipation. 5. Anxiety. PLAN: I would avoid giving her any more of narcotics, they aggravate the constipation. She continues to need aggressive PT, supportive care, steroids. We will follow. Job ID: [id number]
[2020-02-03] MEDS ORDERED: Lisinopril 10 MG TAB PO SCH (12:15)
[2020-02-03] MEDS: Nicotine 21 MG PATCH TOP SCH (14:47)
[2020-02-03] MEDS ORDERED: Fleet Enema 133 ML BOT PR SCH (16:15)
--- NOTE | 2020-02-03 17:59 | RAD ---
Abdomen one view HISTORY: Abdominal pain. FINDINGS: Large amount of stool overlies the colon. Gas is evident within the nondilated rectum. Nondilated gas-filled loops of small bowel are present throughout the abdomen. Prominent degenerative changes of the lumbar spine. IMPRESSION : Constipation.
[2020-02-03] MEDS: Insulin Regular 300 UNITS/3 ML VIAL SC PRN (18:02)
--- NOTE | 2020-02-03 18:57 | PDOC.HOSPP ---
- Subjective Encounter Date: 02/03/20 Encounter Time: 13:00 Subjective: Patient seen for follow-up regarding congestive heart failure exacerbation. Reports anxiety. - Objective Vital Signs & Weight: Vital Signs (12 hours) Temp Pulse Resp BP Pulse Ox 02/03/20 18:50 89 25 H 96 02/03/20 15:31 96.7 F L 02/03/20 14:47 118/77 02/03/20 12:55 83 26 H 100 02/03/20 11:54 96.0 F L 02/03/20 08:00 100 02/03/20 07:18 98.0 F 02/03/20 07:10 94 17 95 Weight Weight 232 lb 8 oz Most Recent Monitor Data Heart Rate from ECG 126 NIBP 117/71 NIBP BP-Mean 86 Respiration from ECG 36 SpO2 100 I&O: 02/02/20 02/03/20 02/04/20 06:59 06:59 06:59 Intake Total 2140 508 1087 Output Total 3048 1404 5853 [facility] -1360 -1977 Result Diagrams: 02/02/20 03:46 02/03/20 03:12 Additional Labs: Accuchecks 02/03/20 02/03/20 02/03/20 16:44 10:57 05:54 POC Glucose 181 H 91 183 H 02/02/20 22:14 POC Glucose 151 H I reviewed patient's labs and MAR EKG Reviewed by me: Yes (Telemetry: Normal sinus rhythm) Hospitalist ROS - Review of Systems Respiratory: reports: SOB with excertion Cardiovascular: denies: chest pain, palpitations, orthopnea, paroxysmal noc. dyspnea, edema, light headedness Gastrointestinal: denies: nausea, vomiting, abdominal pain, diarrhea, constipation, melena, hematochezia - Medication Medications: Active Medications Generic Name Dose Route Start Last Admin Trade Name Freq PRN Reason Stop Dose Admin Acetaminophen 650 mg 01/28/20 00:25 02/02/20 14:25 Acetaminophen 325 Mg Tab PO 650 mg Q4H PRN Administration Headache/Fever/Mild Pain (1-3) Hydrocodone Bitart/Acetaminophen 1 tab 01/28/20 00:25 02/01/20 03:52 Hydrocodone/Acetaminophen 5/325 Mg Tablet PO 1 tab Q4H PRN Administration Moderate Pain (4-6) Albuterol/Ipratropium 3 ml 01/28/20 00:25 01/28/20 21:49 Ipratropium/Albuterol Sulfate 3 Ml Neb NEB 3 ml Q2H PRN Administration SOB &/or Wheezing Albuterol/Ipratropium 3 ml 01/29/20 13:00 02/03/20 18:50 Ipratropium/Albuterol Sulfate 3 Ml Neb NEB 3 ml [id number] PAULA Administration Aspirin 81 mg 01/28/20 09:00 02/03/20 10:01 Aspirin 81 Mg Enteric Coated Tablet PO 81 mg DAILY PAULA Administration Atorvastatin Calcium 40 mg 01/28/20 21:00 02/02/20 21:10 Atorvastatin Calcium 40 Mg Tab PO 40 mg HS PAULA Administration Bisacodyl 10 mg 02/01/20 18:00 02/03/20 18:05 Bisacodyl 10 Mg Supp TN Not Given 0200,1000,1800 PAULA Digoxin 0.25 mg 01/30/20 09:00 02/03/20 10:01 Digoxin 0.25 Mg Tab PO 0.25 mg DAILY PAULA Administration Doxycycline Hyclate 100 mg 02/02/20 21:00 02/03/20 10:02 Doxycycline 100 Mg Cap PO 02/09/20 21:01 100 mg BID PAULA Administration Enoxaparin Sodium 100 mg 01/28/20 09:00 02/03/20 10:03 Enoxaparin Sodium 100 Mg/Ml Syringe SC 100 mg 0900,2100 PAULA Administration Escitalopram Oxalate 20 mg 01/31/20 09:00 02/03/20 10:02 Escitalopram Oxalate 20 Mg Tablet PO 20 mg DAILY PAULA Administration Famotidine 20 mg 01/28/20 09:00 02/03/20 10:01 Famotidine 20 Mg Tab PO 20 mg BID PAULA Administration Furosemide 40 mg 02/01/20 06:00 02/03/20 14:48 Furosemide 40 Mg/4 Ml Vial SLOW IVP 40 mg 0600,1400 PAULA Administration Insulin Human Regular 0 units 01/28/20 00:26 02/03/20 18:02 Insulin Regular 300 Units/3 Ml Vial SC 2 unit .MILD SLIDING SCALE PRN Administration Mild Correctional Scale Methylprednisolone Sodium Succinate 40 mg 02/01/20 09:00 02/03/20 10:02 Methylprednisolone Sod Succ 40 Mg Vial IVP 40 mg BID PAULA Administration Mometasone Furoate/Formoterol Fumar 2 puff 01/28/20 18:30 02/03/20 18:51 Mometasone 200 Mcg/Formoterol 5 Mcg 120 Puff Inhaler INH 2 puff BID-RT PAULA Administration Nicotine 21 mg 02/02/20 14:00 02/03/20 14:47 Nicotine 21 Mg Patch TOP 21 mg Q24HR PAULA Administration Ondansetron HCl 4 mg 01/28/20 00:25 01/29/20 20:40 Ondansetron Pf 4 Mg/2 Ml Vial IVP 4 mg Q6H PRN Administration Nausea/Vomiting, use 1st Senna 2 tab 01/31/20 16:36 01/31/20 17:21 Senokot 8.6 Mg Tab PO 2 tab HSPRN PRN Administration Constipation Senna/Docusate Sodium 1 tab 02/03/20 09:00 02/03/20 10:03 Senokot S 8.6-50 Mg Tab PO 1 tab BID PAULA Administration Sodium Chloride 10 ml 02/01/20 09:00 02/03/20 10:02 Flush - Normal Saline 10 Ml Syringe IVF 10 ml Q12HR PAULA Administration - Exam General - other findings: Obese Eye: anicteric sclera ENT: moist mucosa Neck: supple Heart: RRR Respiratory - other findings: Bibasilar crackles Gastrointestinal: soft, non-tender Extremities: 2+ LE edema Skin: no rashes Psychiatric: normal affect, normal behavior Hosp A/P - Plan -Assessment (1) Acute exacerbation of CHF (congestive heart failure) Code(s): I50.9 - HEART FAILURE, UNSPECIFIED Status: Acute Qualifiers: Heart failure type: combined systolic and diastolic Qualified Code(s): I50.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 (2) Acute respiratory failure with hypoxia Code(s): J96.01 - ACUTE RESPIRATORY FAILURE WITH HYPOXIA Status: Acute Plan: Continue O2 supplementation, BiPAP PRN, Duonebs/Solumedrol (3) Atrial fibrillation with RVR Code(s): I48.91 - UNSPECIFIED ATRIAL FIBRILLATION Status: Acute (4) COPD exacerbation Code(s): J44.1 - CHRONIC OBSTRUCTIVE PULMONARY DISEASE W (ACUTE) EXACERBATION Status: Acute (5) Cardiomyopathy Code(s): I42.9 - CARDIOMYOPATHY, UNSPECIFIED Status: Chronic (6) Constipation Code(s): K59.00 - CONSTIPATION, UNSPECIFIED Status: Acute Plan: Add Fleets enema, Senokot-S (7) NSTEMI (non-ST elevated myocardial infarction) Code(s): I21.4 - NON-ST ELEVATION (NSTEMI) MYOCARDIAL INFARCTION Status: Acute Plan: Plan for heart cath if able to lay supine (8) Tobacco abuse Code(s): Z72.0 - TOBACCO USE Status: Chronic - Plan continue antibiotics, marriage and family social worker, respiratory therapy, DVT proph w/SCDs Continue IV furosemide Continue oxygen, steroids and bronchodilators. Continue Cardizem gtt for rate control Continue digoxin 0.25mg po daily Continue Lovenox 100mg sc BID Heart Cath pending Pulmonary support BiPAP PRN PRN Xanax for anxiety.
[2020-02-03] MEDS: Atorvastatin Calcium 40 MG TAB PO SCH (20:34)
[2020-02-04] MEDS: Bisacodyl 10 MG SUPP PR SCH ×3 (01:26→18:36)
[2020-02-04] MEDS: Diltiazem HCl 125 MG, Admixture Fee 1 EACH in Sodium Chloride 0.9% 100 ML IVPB SCH ×2 (06:43→19:42)
[2020-02-04] MEDS: Furosemide 40 MG/4 ML VIAL SLOW IVP SCH ×2 (06:43→14:25)
[2020-02-04] MEDS: Mometasone 200 MCG/Formoterol 5 MCG 120 PUFF INHALER INH SCH ×2 (07:56→19:07)
[2020-02-04] MEDS ORDERED: Digoxin 0.25 MG TAB PO SCH (08:57)
--- NOTE | 2020-02-04 09:12 | PRG ---
DATE OF SERVICE: 02/04/2020 SUBJECTIVE: Ms. Jessica is coughing up significant amounts of blood. She shows me her tissues and towel and she has been coughing up quite a bit of blood last night and again this morning. Her breathing is about the same, she says. No chest pain, but she is still short of breath. Heart rate is in the 80s. OBJECTIVE: VITAL SIGNS: Blood pressure 140/80. Pulse as mentioned. LUNGS: Expiratory wheezing with rhonchi. CARDIAC: Irregularly irregular. ABDOMEN: Soft and nontender. EXTREMITIES: Mild edema. ASSESSMENT: 1. Atrial fibrillation, rate is controlled. 2. Depressed left ventricular function. 3. Chronic obstructive pulmonary disease. 4. Gross hemoptysis. PLAN: 1. Hold Lovenox today, reduced dose tomorrow. Not feasible to continue full-dose Lovenox now as mentioned due to significant amount of gross hemoptysis. 2. We will follow during this hospitalization tomorrow. Dr. Cárdenas returns on Thursday. Job ID: [id number]
[2020-02-04] MEDS: methylPREDNISolone Sod Succ 40 MG VIAL IVP SCH ×2 (09:29→21:30)
[2020-02-04] MEDS: Doxycycline 100 MG CAP PO SCH ×2 (09:29→21:30)
[2020-02-04] MEDS: Escitalopram Oxalate 20 mg Tablet PO SCH (09:30)
[2020-02-04] MEDS: ALPRAZolam 0.25 MG TAB PO SCH ×2 (09:30→21:31)
[2020-02-04] MEDS: Senokot S 8.6-50 MG TAB PO SCH ×2 (09:30→21:31)
[2020-02-04] MEDS: Aspirin 81 mg Enteric Coated Tablet PO SCH (09:30)
[2020-02-04] MEDS: Lisinopril 10 MG TAB PO SCH (09:31)
[2020-02-04] MEDS: Famotidine 20 MG TAB PO SCH ×2 (09:32→21:30)
[2020-02-04] MEDS: Digoxin 0.125 MG TAB PO SCH (09:36)
[2020-02-04] MEDS: Nicotine 21 MG PATCH TOP SCH (14:25)
--- NOTE | 2020-02-04 16:44 | PDOC.HOSPP ---
- Subjective Encounter Date: 02/04/20 Encounter Time: 01:54 Subjective: Patient seen for follow-up regarding atrial fibrillation with rapid ventricular response. Reports feeling better today. Still unable to lie flat. - Objective Vital Signs & Weight: Vital Signs (12 hours) Temp Pulse Pulse Pulse Resp BP BP 02/04/20 15:47 97.2 F L 02/04/20 12:28 88 87 136/80 02/04/20 12:09 85 21 H 02/04/20 12:00 96.8 F L 02/04/20 09:36 79 02/04/20 09:31 109/70 02/04/20 08:00 02/04/20 07:55 94 27 H 02/04/20 07:29 96.0 F L BP Pulse Ox Pulse Ox Pulse Ox 02/04/20 15:47 02/04/20 12:28 116/67 97 96 02/04/20 12:09 94 L 02/04/20 12:00 02/04/20 09:36 02/04/20 09:31 02/04/20 08:00 97 02/04/20 07:55 95 02/04/20 07:29 Weight Weight 228 lb Most Recent Monitor Data Heart Rate from ECG 77 NIBP 125/71 NIBP BP-Mean 89 Respiration from ECG 23 SpO2 94 I&O: 02/03/20 02/04/20 02/05/20 06:59 06:59 06:59 Intake Total 620 1447 240 Output Total 2575 2900 Balance -1955 -1453 240 Result Diagrams: 02/02/20 03:46 02/03/20 03:12 Additional Labs: Accuchecks 02/04/20 02/03/20 02/03/20 05:58 20:49 16:44 POC Glucose 151 H 164 H 181 H I reviewed patient's labs and MAR EKG Reviewed by me: Yes (Telemetry: Atrial fibrillation with controlled ventricular response) Hospitalist ROS - Review of Systems Cardiovascular: reports: orthopnea, edema. denies: chest pain, palpitations, paroxysmal noc. dyspnea, light headedness Gastrointestinal: denies: nausea, vomiting, abdominal pain, diarrhea, constipation, melena, hematochezia - Medication Medications: Active Medications Generic Name Dose Route Start Last Admin Trade Name Freq PRN Reason Stop Dose Admin Acetaminophen 650 mg 01/28/20 00:25 02/02/20 14:25 Acetaminophen 325 Mg Tab PO 650 mg Q4H PRN Administration Headache/Fever/Mild Pain (1-3) Hydrocodone Bitart/Acetaminophen 1 tab 01/28/20 00:25 02/01/20 03:52 Hydrocodone/Acetaminophen 5/325 Mg Tablet PO 1 tab Q4H PRN Administration Moderate Pain (4-6) Albuterol/Ipratropium 3 ml 01/28/20 00:25 01/28/20 21:49 Ipratropium/Albuterol Sulfate 3 Ml Neb NEB 3 ml Q2H PRN Administration SOB &/or Wheezing Albuterol/Ipratropium 3 ml 01/29/20 13:00 02/04/20 12:09 Ipratropium/Albuterol Sulfate 3 Ml Neb NEB 3 ml [id number] PAULA Administration Alprazolam 0.25 mg 02/04/20 09:00 02/04/20 09:30 Alprazolam 0.25 Mg Tab PO 0.25 mg BID PAULA Administration Aspirin 81 mg 01/28/20 09:00 02/04/20 09:30 Aspirin 81 Mg Enteric Coated Tablet PO 81 mg DAILY PAULA Administration Atorvastatin Calcium 40 mg 01/28/20 21:00 02/03/20 20:34 Atorvastatin Calcium 40 Mg Tab PO 40 mg HS PAULA Administration Bisacodyl 10 mg 02/01/20 18:00 02/04/20 09:36 Bisacodyl 10 Mg Supp OK Not Given 0200,1000,1800 PAULA Digoxin 0.125 mg 02/04/20 09:00 02/04/20 09:36 Digoxin 0.125 Mg Tab PO 0.125 mg DAILY PAULA Administration Doxycycline Hyclate 100 mg 02/02/20 21:00 02/04/20 09:29 Doxycycline 100 Mg Cap PO 02/09/20 21:01 100 mg BID PAULA Administration Escitalopram Oxalate 20 mg 01/31/20 09:00 02/04/20 09:30 Escitalopram Oxalate 20 Mg Tablet PO 20 mg DAILY PAULA Administration Famotidine 20 mg 01/28/20 09:00 02/04/20 09:32 Famotidine 20 Mg Tab PO 20 mg BID PAULA Administration Furosemide 40 mg 02/01/20 06:00 02/04/20 14:25 Furosemide 40 Mg/4 Ml Vial SLOW IVP 40 mg 0600,1400 PAULA Administration Diltiazem HCl 125 mg/ 125 mls @ 0 mls/hr 02/03/20 11:55 02/04/20 06:43 Miscellaneous Medication 1 IVPB 125 mls each/ Sodium Chloride INF PAULA Administration Protocol As Directed Insulin Human Regular 0 units 01/28/20 00:26 02/03/20 18:02 Insulin Regular 300 Units/3 Ml Vial SC 2 unit .MILD SLIDING SCALE PRN Administration Mild Correctional Scale Lisinopril 10 mg 02/04/20 09:00 02/04/20 09:31 Lisinopril 10 Mg Tab PO 10 mg DAILY PAULA Administration Methylprednisolone Sodium Succinate 40 mg 02/01/20 09:00 02/04/20 09:29 Methylprednisolone Sod Succ 40 Mg Vial IVP 40 mg BID PAULA Administration Mometasone Furoate/Formoterol Fumar 2 puff 01/28/20 18:30 02/04/20 07:56 Mometasone 200 Mcg/Formoterol 5 Mcg 120 Puff Inhaler INH 2 puff BID-RT PAULA Administration Nicotine 21 mg 02/02/20 14:00 02/04/20 14:25 Nicotine 21 Mg Patch TOP 21 mg Q24HR PAULA Administration Ondansetron HCl 4 mg 01/28/20 00:25 01/29/20 20:40 Ondansetron Pf 4 Mg/2 Ml Vial IVP 4 mg Q6H PRN Administration Nausea/Vomiting, use 1st Senna 2 tab 01/31/20 16:36 01/31/20 17:21 Senokot 8.6 Mg Tab PO 2 tab HSPRN PRN Administration Constipation Senna/Docusate Sodium 1 tab 02/03/20 09:00 02/04/20 09:30 Senokot S 8.6-50 Mg Tab PO 1 tab BID PAULA Administration Sodium Chloride 10 ml 02/01/20 09:00 02/04/20 09:33 Flush - Normal Saline 10 Ml Syringe IVF 10 ml Q12HR PAULA Administration - Exam General - other findings: Obesity Eye: anicteric sclera ENT: no oropharyngeal lesions Neck: supple Heart: irregular Respiratory - other findings: Bilateral crackles Gastrointestinal: soft, non-tender Musculoskeletal: no muscle wasting Psychiatric: normal affect, normal behavior Hosp A/P - Plan -Assessment (1) Acute exacerbation of CHF (congestive heart failure) Code(s): I50.9 - HEART FAILURE, UNSPECIFIED Status: Acute Qualifiers: Heart failure type: combined systolic and diastolic Qualified Code(s): I50.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 (2) Acute respiratory failure with hypoxia Code(s): J96.01 - ACUTE RESPIRATORY FAILURE WITH HYPOXIA Status: Acute Plan: Continue O2 supplementation, BiPAP PRN, Duonebs/Solumedrol (3) Atrial fibrillation with RVR Code(s): I48.91 - UNSPECIFIED ATRIAL FIBRILLATION Status: Acute (4) COPD exacerbation Code(s): J44.1 - CHRONIC OBSTRUCTIVE PULMONARY DISEASE W (ACUTE) EXACERBATION Status: Acute (5) Cardiomyopathy Code(s): I42.9 - CARDIOMYOPATHY, UNSPECIFIED Status: Chronic (6) Constipation Code(s): K59.00 - CONSTIPATION, UNSPECIFIED Status: Acute Plan: Add Fleets enema, Senokot-S (7) NSTEMI (non-ST elevated myocardial infarction) Code(s): I21.4 - NON-ST ELEVATION (NSTEMI) MYOCARDIAL INFARCTION Status: Acute Plan: Plan for heart cath if able to lay supine (8) Tobacco abuse Code(s): Z72.0 - TOBACCO USE Status: Chronic - Plan continue antibiotics, social services designee, respiratory therapy, DVT proph w/SCDs Patient continues to be orthopneic, continue IV Lasix. Continue oxygen, steroids and bronchodilators. Rate controlled atrial fibrillation. Over [place] held today secondary to epistaxis/hematuria Heart Cath pending BiPAP PRN Continue PRN Xanax for anxiety.
--- NOTE | 2020-02-04 20:21 | PRG ---
DATE OF SERVICE: 02/04/2020 SUBJECTIVE: Leanne Jessica has no complaints today. She did have some hemoptysis. Her anticoagulants have been held. Her hemodynamics have been stable. She has faint wheezes. OBJECTIVE: CARDIAC: Remarkable for irregular rhythm consistent with her atrial fibrillation. ABDOMEN: Soft and nontender. EXTREMITIES: Without edema. ASSESSMENT: 1. Atrial fibrillation. 2. Systolic heart failure. 3. Chronic obstructive pulmonary disease. 4. Hemoptysis. PLAN: I would proceed forward with adjusted dose anticoagulants. Bronchoscopy is not indicated. Job ID: [id number]
[2020-02-04] MEDS: Atorvastatin Calcium 40 MG TAB PO SCH (21:30)
[2020-02-05] MEDS: Bisacodyl 10 MG SUPP PR SCH ×3 (01:01→14:36)
[2020-02-05] MEDS: Furosemide 40 MG/4 ML VIAL SLOW IVP SCH ×2 (06:38→14:31)
[2020-02-05] MEDS: Mometasone 200 MCG/Formoterol 5 MCG 120 PUFF INHALER INH SCH ×2 (06:49→18:54)
[2020-02-05] MEDS: Enoxaparin Sodium 40 MG/0.4 ML SYRINGE SC SCH ×2 (09:36→23:07)
[2020-02-05] MEDS: Aspirin 81 mg Enteric Coated Tablet PO SCH (09:36)
[2020-02-05] MEDS: methylPREDNISolone Sod Succ 40 MG VIAL IVP SCH ×2 (09:36→23:08)
[2020-02-05] MEDS: Digoxin 0.125 MG TAB PO SCH (09:36)
[2020-02-05] MEDS: Escitalopram Oxalate 20 mg Tablet PO SCH (09:36)
[2020-02-05] MEDS: ALPRAZolam 0.25 MG TAB PO SCH ×2 (09:36→23:08)
[2020-02-05] MEDS: Famotidine 20 MG TAB PO SCH ×2 (09:37→23:07)
[2020-02-05] MEDS: Lisinopril 10 MG TAB PO SCH (09:37)
[2020-02-05] MEDS: Senokot S 8.6-50 MG TAB PO SCH ×2 (09:37→23:07)
[2020-02-05] MEDS: Doxycycline 100 MG CAP PO SCH ×2 (09:37→23:07)
--- NOTE | 2020-02-05 09:57 | PRG ---
DATE OF SERVICE: 02/05/2020 SUBJECTIVE: Ms. Jessica is doing better. She is coughing up some brown phlegm now, but no bright red blood. She is back on enoxaparin 40 mg twice a day. OBJECTIVE: VITAL SIGNS: Blood pressure 134/76 and pulse 88 and sinus. LUNGS: No wheezing. CARDIAC: Normal S1 and normal S2. ABDOMEN: Soft and nontender. ASSESSMENT: 1. Hemoptysis improved. 2. Chronic obstructive pulmonary disease. 3. Paroxysmal atrial fibrillation. PLAN: Continue current medical regimen. Dr. Cárdenas to resume tomorrow. Job ID: [id number]
--- NOTE | 2020-02-05 13:31 | PDOC.HOSPP ---
- Subjective Encounter Date: 02/05/20 Encounter Time: 11:00 Subjective: Patient seen for follow-up for congestive heart failure exacerbation. She reports ongoing orthopnea. - Objective Vital Signs & Weight: Vital Signs (12 hours) Temp Pulse Pulse Pulse Resp BP BP 02/05/20 12:40 84 19 02/05/20 11:57 96.4 F L 02/05/20 10:00 95 78 145/77 H 02/05/20 09:37 109/70 02/05/20 09:36 88 02/05/20 08:00 02/05/20 07:04 97.0 F L 02/05/20 06:49 88 21 H BP Pulse Ox Pulse Ox Pulse Ox 02/05/20 12:40 95 02/05/20 11:57 02/05/20 10:00 126/84 99 100 02/05/20 09:37 02/05/20 09:36 02/05/20 08:00 95 02/05/20 07:04 02/05/20 06:49 95 Weight Weight 228 lb Most Recent Monitor Data Heart Rate from ECG 100 NIBP 120/73 NIBP BP-Mean 88 Respiration from ECG 26 SpO2 100 I&O: 02/04/20 02/05/20 02/06/20 06:59 06:59 06:59 Intake Total 1447 600 Output Total 2900 Balance -1453 600 Result Diagrams: 02/02/20 03:46 02/03/20 03:12 Additional Labs: Accuchecks 02/05/20 02/05/20 02/04/20 11:12 05:28 20:52 POC Glucose 172 H 288 H 169 H I reviewed patient's labs and MAR EKG Reviewed by me: Yes (Telemetry: Atrial fibrillation) Hospitalist ROS - Review of Systems Respiratory: reports: SOB with excertion. denies: cough, dry, shortness of breath, hemoptysis, pleuritic pain, sputum, wheezing Cardiovascular: reports: orthopnea, edema. denies: chest pain, palpitations, paroxysmal noc. dyspnea, light headedness - Medication Medications: Active Medications Generic Name Dose Route Start Last Admin Trade Name Freq PRN Reason Stop Dose Admin Acetaminophen 650 mg 01/28/20 00:25 02/02/20 14:25 Acetaminophen 325 Mg Tab PO 650 mg Q4H PRN Administration Headache/Fever/Mild Pain (1-3) Hydrocodone Bitart/Acetaminophen 1 tab 01/28/20 00:25 02/01/20 03:52 Hydrocodone/Acetaminophen 5/325 Mg Tablet PO 1 tab Q4H PRN Administration Moderate Pain (4-6) Albuterol/Ipratropium 3 ml 01/28/20 00:25 01/28/20 21:49 Ipratropium/Albuterol Sulfate 3 Ml Neb NEB 3 ml Q2H PRN Administration SOB &/or Wheezing Albuterol/Ipratropium 3 ml 01/29/20 13:00 02/05/20 12:40 Ipratropium/Albuterol Sulfate 3 Ml Neb NEB 3 ml [id number] PAULA Administration Alprazolam 0.25 mg 02/04/20 09:00 02/05/20 09:36 Alprazolam 0.25 Mg Tab PO 0.25 mg BID PAULA Administration Aspirin 81 mg 01/28/20 09:00 02/05/20 09:36 Aspirin 81 Mg Enteric Coated Tablet PO 81 mg DAILY PAULA Administration Atorvastatin Calcium 40 mg 01/28/20 21:00 02/04/20 21:30 Atorvastatin Calcium 40 Mg Tab PO 40 mg HS PAULA Administration Bisacodyl 10 mg 02/01/20 18:00 02/05/20 09:37 Bisacodyl 10 Mg Supp NE 10 mg 0200,1000,1800 PAULA Administration Digoxin 0.125 mg 02/04/20 09:00 02/05/20 09:36 Digoxin 0.125 Mg Tab PO 0.125 mg DAILY PAULA Administration Doxycycline Hyclate 100 mg 02/02/20 21:00 02/05/20 09:37 Doxycycline 100 Mg Cap PO 02/09/20 21:01 100 mg BID PAULA Administration Enoxaparin Sodium 40 mg 02/05/20 09:00 02/05/20 09:36 Enoxaparin Sodium 40 Mg/0.4 Ml Syringe SC 40 mg 0900,2100 PAULA Administration Escitalopram Oxalate 20 mg 01/31/20 09:00 02/05/20 09:36 Escitalopram Oxalate 20 Mg Tablet PO 20 mg DAILY PAULA Administration Famotidine 20 mg 01/28/20 09:00 02/05/20 09:37 Famotidine 20 Mg Tab PO 20 mg BID PAULA Administration Furosemide 40 mg 02/01/20 06:00 02/05/20 06:38 Furosemide 40 Mg/4 Ml Vial SLOW IVP 40 mg 0600,1400 PAULA Administration Diltiazem HCl 125 mg/ 125 mls @ 0 mls/hr 02/03/20 11:55 02/04/20 19:42 Miscellaneous Medication 1 IVPB 125 mls each/ Sodium Chloride INF PAULA Administration Protocol As Directed Insulin Human Regular 0 units 01/28/20 00:26 02/03/20 18:02 Insulin Regular 300 Units/3 Ml Vial SC 2 unit .MILD SLIDING SCALE PRN Administration Mild Correctional Scale Lisinopril 10 mg 02/04/20 09:00 02/05/20 09:37 Lisinopril 10 Mg Tab PO 10 mg DAILY PAULA Administration Methylprednisolone Sodium Succinate 40 mg 02/01/20 09:00 02/05/20 09:36 Methylprednisolone Sod Succ 40 Mg Vial IVP 40 mg BID PAULA Administration Mometasone Furoate/Formoterol Fumar 2 puff 01/28/20 18:30 02/05/20 06:49 Mometasone 200 Mcg/Formoterol 5 Mcg 120 Puff Inhaler INH 2 puff BID-RT PAULA Administration Nicotine 21 mg 02/02/20 14:00 02/04/20 14:25 Nicotine 21 Mg Patch TOP 21 mg Q24HR PAULA Administration Ondansetron HCl 4 mg 01/28/20 00:25 01/29/20 20:40 Ondansetron Pf 4 Mg/2 Ml Vial IVP 4 mg Q6H PRN Administration Nausea/Vomiting, use 1st Senna 2 tab 01/31/20 16:36 01/31/20 17:21 Senokot 8.6 Mg Tab PO 2 tab HSPRN PRN Administration Constipation Senna/Docusate Sodium 1 tab 02/03/20 09:00 02/05/20 09:37 Senokot S 8.6-50 Mg Tab PO 1 tab BID PAULA Administration Sodium Chloride 10 ml 02/01/20 09:00 02/05/20 09:37 Flush - Normal Saline 10 Ml Syringe IVF 10 ml Q12HR PAULA Administration - Exam General - other findings: Obese Eye: anicteric sclera ENT: moist mucosa Neck: supple Heart: irregular Respiratory: CTAB Gastrointestinal: soft, non-tender Extremities: no cyanosis Skin: no rashes Psychiatric: normal affect, normal behavior Hosp A/P - Plan -Assessment (1) Acute exacerbation of CHF (congestive heart failure) Code(s): I50.9 - HEART FAILURE, UNSPECIFIED Status: Acute Qualifiers: Heart failure type: combined systolic and diastolic Qualified Code(s): I50.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 AHA class III (2) Acute respiratory failure with hypoxia Code(s): J96.01 - ACUTE RESPIRATORY FAILURE WITH HYPOXIA Status: Acute Plan: Continue O2 supplementation, BiPAP PRN, Duonebs/Solumedrol (3) COPD exacerbation Code(s): J44.1 - CHRONIC OBSTRUCTIVE PULMONARY DISEASE W (ACUTE) EXACERBATION Status: Acute (4) Cardiomyopathy Code(s): I42.9 - CARDIOMYOPATHY, UNSPECIFIED Status: Chronic (5) NSTEMI (non-ST elevated myocardial infarction) Code(s): I21.4 - NON-ST ELEVATION (NSTEMI) MYOCARDIAL INFARCTION Status: Acute Plan: Plan for heart cath if able to lay supine (6) Tobacco abuse Code(s): Z72.0 - TOBACCO USE Status: Chronic (7) Atrial fibrillation with RVR Code(s): I48.91 - UNSPECIFIED ATRIAL FIBRILLATION Status: Resolved, rate is controlled - Plan continue antibiotics, social media editor, respiratory therapy, DVT proph w/SCDs Patient continues to be orthopneic, continue IV Lasix for congestive heart failure exacerbation. Continue oxygen, steroids and bronchodilators. Rate controlled atrial fibrillation. Lovenox to be resumed Heart Cath pending Continue PRN Xanax for anxiety. Transfer to telemetry floor
[2020-02-05] MEDS: Nicotine 21 MG PATCH TOP SCH (14:31)
--- NOTE | 2020-02-05 15:23 | PRG ---
DATE OF SERVICE: 02/05/2020 SUBJECTIVE: Ms. Jessica says she feels better. Heart rate is 98. She is still on Cardizem. OBJECTIVE: VITAL SIGNS: Blood pressure 115/60, respiratory rates in the teens. LUNGS: Distant. HEART: Regular rhythm. ABDOMEN: Soft. LABORATORY DATA: White count has not been repeated since the . Electrolytes have been repeated. Glucose is intermittently elevated. IMPRESSION: 1. Chronic obstructive pulmonary disease, clinically stable. 2. History of hemoptysis. 3. Atrial fibrillation. 4. We will continue to follow the other physicians caring for. I will order lab for tomorrow. She could move out of the intermediate care unit to a monitored bed. Job ID: [id number]
[2020-02-05] MEDS: Diltiazem HCl 125 MG, Admixture Fee 1 EACH in Sodium Chloride 0.9% 100 ML IVPB SCH (17:41)
[2020-02-05 19:38] LABS: Magnesium 2.3 mg/dL (1.6-2.6); Potassium 3.9 mmol/L (3.5-5.1)
[2020-02-05] MEDS: Atorvastatin Calcium 40 MG TAB PO SCH (23:07)
[2020-02-06] MEDS: Bisacodyl 10 MG SUPP PR SCH ×3 (03:05→18:39)
[2020-02-06 05:11] LABS: Band 1 % (5-11); Hemoglobin 14.9 g/dL (12.0-16.0); Lymphocytes 2 % (21-51); MDiff Complete? YES; Mean Corpuscular HGB CONC 32.5 g/dL (32.0-36.0); Mean Corpuscular Hemoglobin 29.1 pg (27.0-31.0); Mean Corpuscular Volume 89.7 fL (78.0-98.0); Mean Platelet Volume 8.3 fL (7.4-10.4); Monocytes 7 % (0-10); Neutrophil 90 % (42-75); Platelet Count 269 thou/uL (130-400); Platelet Morphology Comment Appears Adequate; RBC Morphology Normal; Red Blood Cell (RBC) Count 5.12 mill/uL (4.20-5.40); White Blood Cell (WBC) Count 20.4 thou/uL (4.8-10.8)
[2020-02-06 05:19] LABS: Anion Gap 12 mmol/L (10-20); BUN (Urea Nitrogen) 31 mg/dL (9.8-20.1); Calc. Creatinine Clearance 94 mL/min (70-130); Carbon Dioxide 34 mmol/L (23-31); Chloride 92 mmol/L (98-107); Estimated GFR-MDRD 68; Glucose 141 mg/dL (83-110); Potassium 3.9 mmol/L (3.5-5.1); Sodium 134 mmol/L (136-145)
[2020-02-06] MEDS: Furosemide 40 MG/4 ML VIAL SLOW IVP SCH ×2 (06:26→15:36)
[2020-02-06] MEDS: Mometasone 200 MCG/Formoterol 5 MCG 120 PUFF INHALER INH SCH ×2 (08:13→19:41)
[2020-02-06] MEDS: Aspirin 81 mg Enteric Coated Tablet PO SCH (09:38)
[2020-02-06] MEDS: Doxycycline 100 MG CAP PO SCH ×2 (09:38→20:38)
[2020-02-06] MEDS: Digoxin 0.125 MG TAB PO SCH (09:39)
[2020-02-06] MEDS: ALPRAZolam 0.25 MG TAB PO SCH ×2 (09:39→20:38)
[2020-02-06] MEDS: Famotidine 20 MG TAB PO SCH ×2 (09:39→20:38)
[2020-02-06] MEDS: Lisinopril 10 MG TAB PO SCH (09:40)
[2020-02-06] MEDS: Enoxaparin Sodium 40 MG/0.4 ML SYRINGE SC SCH ×2 (09:41→20:39)
[2020-02-06] MEDS: Escitalopram Oxalate 20 mg Tablet PO SCH (09:41)
[2020-02-06] MEDS: methylPREDNISolone Sod Succ 40 MG VIAL IVP SCH ×2 (09:42→20:39)
[2020-02-06] MEDS: Senokot S 8.6-50 MG TAB PO SCH ×2 (09:47→20:38)
--- NOTE | 2020-02-06 12:45 | PDOC.HOSPP ---
- Subjective Encounter Date: 02/06/20 Encounter Time: 07:00 Subjective: Patient seen for follow-up for congestive heart failure exacerbation. Denies chest pain. - Objective Vital Signs & Weight: Vital Signs (12 hours) Temp Pulse Pulse Pulse Resp BP BP 02/06/20 12:40 71 20 02/06/20 11:47 97.5 F L 77 18 02/06/20 09:40 121/59 L 02/06/20 09:39 120 H 02/06/20 09:04 163 H 91 171/73 H 02/06/20 08:41 02/06/20 04:37 97.3 F L 59 L 18 BP BP Pulse Ox 02/06/20 12:40 93 L 02/06/20 11:47 128/71 94 L 02/06/20 09:40 02/06/20 09:39 02/06/20 09:04 121/59 L 02/06/20 08:41 91 L 02/06/20 04:37 152/70 H 94 L Weight Weight 228 lb Most Recent Monitor Data Heart Rate from ECG 101 NIBP 119/68 NIBP BP-Mean 85 Respiration from ECG 21 SpO2 85 I&O: 02/05/20 02/06/20 02/07/20 06:59 06:59 06:59 Intake Total 600 715 Output Total 1400 Balance 600 -685 Result Diagrams: 02/06/20 04:32 02/06/20 04:32 Additional Labs: Accuchecks 02/06/20 02/05/20 02/05/20 06:27 23:23 16:46 POC Glucose 145 H 194 H 177 H 02/04/20 02/04/20 17:31 11:06 POC Glucose 174 H 146 H I reviewed patient's labs and MAR EKG Reviewed by me: Yes (Telemetry: Francheska jones) Hospitalist ROS - Review of Systems Respiratory: reports: SOB with excertion. denies: cough, dry, shortness of breath, hemoptysis, pleuritic pain, sputum, wheezing Cardiovascular: denies: chest pain, palpitations, orthopnea, paroxysmal noc. dyspnea, edema, light headedness - Medication Medications: Active Medications Generic Name Dose Route Start Last Admin Trade Name Freq PRN Reason Stop Dose Admin Acetaminophen 650 mg 01/28/20 00:25 02/02/20 14:25 Acetaminophen 325 Mg Tab PO 650 mg Q4H PRN Administration Headache/Fever/Mild Pain (1-3) Hydrocodone Bitart/Acetaminophen 1 tab 01/28/20 00:25 02/01/20 03:52 Hydrocodone/Acetaminophen 5/325 Mg Tablet PO 1 tab Q4H PRN Administration Moderate Pain (4-6) Albuterol/Ipratropium 3 ml 01/28/20 00:25 01/28/20 21:49 Ipratropium/Albuterol Sulfate 3 Ml Neb NEB 3 ml Q2H PRN Administration SOB &/or Wheezing Albuterol/Ipratropium 3 ml 01/29/20 13:00 02/06/20 12:40 Ipratropium/Albuterol Sulfate 3 Ml Neb NEB 3 ml [id number] PAULA Administration Alprazolam 0.25 mg 02/04/20 09:00 02/06/20 09:39 Alprazolam 0.25 Mg Tab PO 0.25 mg BID PAULA Administration Aspirin 81 mg 01/28/20 09:00 02/06/20 09:38 Aspirin 81 Mg Enteric Coated Tablet PO 81 mg DAILY PAULA Administration Atorvastatin Calcium 40 mg 01/28/20 21:00 02/05/20 23:07 Atorvastatin Calcium 40 Mg Tab PO 40 mg HS PAULA Administration Bisacodyl 10 mg 02/01/20 18:00 02/06/20 03:05 Bisacodyl 10 Mg Supp MS 10 mg 0200,1000,1800 PAULA Administration Digoxin 0.125 mg 02/04/20 09:00 02/06/20 09:39 Digoxin 0.125 Mg Tab PO 0.125 mg DAILY PAULA Administration Doxycycline Hyclate 100 mg 02/02/20 21:00 02/06/20 09:38 Doxycycline 100 Mg Cap PO 02/09/20 21:01 100 mg BID PAULA Administration Enoxaparin Sodium 40 mg 02/05/20 09:00 02/06/20 09:41 Enoxaparin Sodium 40 Mg/0.4 Ml Syringe SC 40 mg 0900,2100 PAULA Administration Escitalopram Oxalate 20 mg 01/31/20 09:00 02/06/20 09:41 Escitalopram Oxalate 20 Mg Tablet PO 20 mg DAILY PAULA Administration Famotidine 20 mg 01/28/20 09:00 02/06/20 09:39 Famotidine 20 Mg Tab PO 20 mg BID PAULA Administration Furosemide 40 mg 10/14/20 06:00 02/06/20 06:26 Furosemide 40 Mg/4 Ml Vial SLOW IVP 40 mg 0600,1400 PAULA Administration Diltiazem HCl 125 mg/ 125 mls @ 0 mls/hr 02/03/20 11:55 02/05/20 17:41 Miscellaneous Medication 1 IVPB 125 mls each/ Sodium Chloride INF PAULA Administration Protocol As Directed Insulin Human Regular 0 units 01/28/20 00:26 02/03/20 18:02 Insulin Regular 300 Units/3 Ml Vial SC 2 unit .MILD SLIDING SCALE PRN Administration Mild Correctional Scale Lisinopril 10 mg 02/04/20 09:00 02/06/20 09:40 Lisinopril 10 Mg Tab PO 10 mg DAILY PAULA Administration Methylprednisolone Sodium Succinate 40 mg 02/01/20 09:00 02/06/20 09:42 Methylprednisolone Sod Succ 40 Mg Vial IVP 40 mg BID PAULA Administration Mometasone Furoate/Formoterol Fumar 2 puff 01/28/20 18:30 02/06/20 08:13 Mometasone 200 Mcg/Formoterol 5 Mcg 120 Puff Inhaler INH 2 puff BID-RT PAULA Administration Nicotine 21 mg 02/02/20 14:00 02/05/20 14:31 Nicotine 21 Mg Patch TOP 21 mg Q24HR PAULA Administration Ondansetron HCl 4 mg 01/28/20 00:25 01/29/20 20:40 Ondansetron Pf 4 Mg/2 Ml Vial IVP 4 mg Q6H PRN Administration Nausea/Vomiting, use 1st Senna 2 tab 01/31/20 16:36 01/31/20 17:21 Senokot 8.6 Mg Tab PO 2 tab HSPRN PRN Administration Constipation Senna/Docusate Sodium 1 tab 02/03/20 09:00 02/06/20 09:47 Senokot S 8.6-50 Mg Tab PO Not Given BID PAULA Sodium Chloride 10 ml 02/01/20 09:00 02/06/20 09:47 Flush - Normal Saline 10 Ml Syringe IVF 10 ml Q12HR PAULA Administration - Exam General Appearance: awake alert General - other findings: Obese Eye: anicteric sclera ENT: moist mucosa Neck: supple Heart: irregular Respiratory: rales Gastrointestinal: soft Extremities: 2+ LE edema Skin: no rashes Psychiatric: normal affect, normal behavior Hosp A/P - Plan -Assessment (1) Acute exacerbation of CHF (congestive heart failure) Code(s): I50.9 - HEART FAILURE, UNSPECIFIED Status: Acute Qualifiers: Heart failure type: combined systolic and diastolic Qualified Code(s): I50.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 AHA class III (2) Acute respiratory failure with hypoxia Code(s): J96.01 - ACUTE RESPIRATORY FAILURE WITH HYPOXIA Status: Acute Plan: Continue O2 supplementation, BiPAP PRN, Duonebs/Solumedrol (3) NSTEMI (non-ST elevated myocardial infarction) Code(s): I21.4 - NON-ST ELEVATION (NSTEMI) MYOCARDIAL INFARCTION Status: Acute Plan: Plan for heart cath if able to lay supine (4) COPD exacerbation Code(s): J44.1 - CHRONIC OBSTRUCTIVE PULMONARY DISEASE W (ACUTE) EXACERBATION Status: Acute (5) Cardiomyopathy Code(s): I42.9 - CARDIOMYOPATHY, UNSPECIFIED Status: Chronic (6) Tobacco abuse Code(s): Z72.0 - TOBACCO USE Status: Chronic (7) Atrial fibrillation with RVR Code(s): I48.91 - UNSPECIFIED ATRIAL FIBRILLATION Status: Resolved, rate is controlled - Plan Continue IV furosemide. Abdominal wall bruises from Lovenox injections. H&H stable. Continue oxygen, steroids and bronchodilators. Rate controlled atrial fibrillation. Lovenox to be resumed Coronary angiography pending. PRN Xanax for anxiety.
[2020-02-06] MEDS: Nicotine 21 MG PATCH TOP SCH (15:44)
[2020-02-06] MEDS ORDERED: Communication Order-Pharmacy FS SCH (16:00)
[2020-02-06] MEDS: Insulin Regular 300 UNITS/3 ML VIAL SC PRN (18:18)
[2020-02-06] MEDS: Atorvastatin Calcium 40 MG TAB PO SCH (20:38)
[2020-02-06] MEDS: Diltiazem HCl 125 MG, Admixture Fee 1 EACH in Sodium Chloride 0.9% 100 ML IVPB SCH (22:29)
[2020-02-07] MEDS: Bisacodyl 10 MG SUPP PR SCH ×3 (02:37→17:24)
[2020-02-07 05:05] LABS: Anion Gap 15 mmol/L (10-20); BUN (Urea Nitrogen) 26 mg/dL (9.8-20.1); Calc. Creatinine Clearance 98 mL/min (70-130); Calcium 8.7 mg/dL (7.8-10.44); Carbon Dioxide 27 mmol/L (23-31); Chloride 96 mmol/L (98-107); Estimated GFR-MDRD 72; Glucose 161 mg/dL (83-110); Sodium 134 mmol/L (136-145)
[2020-02-07] MEDS: ALPRAZolam 0.25 MG TAB PO SCH ×2 (05:26→21:03)
[2020-02-07] MEDS: methylPREDNISolone Sod Succ 40 MG VIAL IVP SCH ×2 (05:26→21:05)
[2020-02-07] MEDS: Famotidine 20 MG TAB PO SCH ×2 (05:26→21:03)
[2020-02-07] MEDS: Lisinopril 10 MG TAB PO SCH (05:27)
[2020-02-07] MEDS: Aspirin 81 mg Enteric Coated Tablet PO SCH (05:27)
[2020-02-07] MEDS: Escitalopram Oxalate 20 mg Tablet PO SCH (05:27)
[2020-02-07] MEDS: Digoxin 0.125 MG TAB PO SCH (05:27)
[2020-02-07] MEDS: Doxycycline 100 MG CAP PO SCH ×2 (05:27→21:03)
[2020-02-07] MEDS: Furosemide 40 MG/4 ML VIAL SLOW IVP SCH ×2 (05:28→15:09)
[2020-02-07 05:59] LABS: Band 10 % (5-11); Hemoglobin 15.3 g/dL (12.0-16.0); Lymphocytes 10 % (21-51); MDiff Complete? YES; Mean Corpuscular HGB CONC 33.3 g/dL (32.0-36.0); Mean Corpuscular Hemoglobin 29.9 pg (27.0-31.0); Mean Corpuscular Volume 89.7 fL (78.0-98.0); Mean Platelet Volume 8.2 fL (7.4-10.4); Monocytes 5 % (0-10); Neutrophil 75 % (42-75); Platelet Count 258 thou/uL (130-400); Platelet Morphology Comment Appears Adequate; RBC Distribution Width 14.1 % (11.5-14.5); Red Blood Cell (RBC) Count 5.11 mill/uL (4.20-5.40); White Blood Cell (WBC) Count 20.4 thou/uL (4.8-10.8)
[2020-02-07] MEDS: Mometasone 200 MCG/Formoterol 5 MCG 120 PUFF INHALER INH SCH ×2 (06:47→18:37)
[2020-02-07] MEDS: Senokot S 8.6-50 MG TAB PO SCH ×2 (07:39→21:04)
[2020-02-07] MEDS ORDERED: Lidocaine 1% (PF) 30 ML VIAL ONE (09:39)
[2020-02-07] MEDS ORDERED: Nitroglycerin 100MG/250ML BOT 250 ML ONE (10:20)
[2020-02-07] MEDS ORDERED: Verapamil 5 MG/2 ML VIAL ONE (10:20)
[2020-02-07] MEDS ORDERED: Heparin 10,000 UNITS/ 10 ML VIAL ONE (10:20)
[2020-02-07] MEDS ORDERED: Iopamidol 370 76% 100 ML VIAL ONE (10:46)
--- NOTE | 2020-02-07 11:21 | PDOC.HOSPP ---
- Subjective Encounter Date: 02/07/20 Encounter Time: 07:20 Subjective: Patient was seen for follow-up for congestive heart failure exacerbation. She reports feeling better. - Objective Vital Signs & Weight: Vital Signs (12 hours) Temp Pulse Resp BP BP Pulse Ox 02/07/20 07:31 97.3 F L 76 19 154/76 H 96 02/07/20 06:48 95 02/07/20 06:47 74 16 94 L 02/07/20 06:43 74 16 94 L 02/07/20 05:27 116 H 130/60 02/07/20 03:55 97.7 F 82 16 144/70 H 95 02/06/20 23:40 97.6 F 74 18 148/70 H Weight Weight 226 lb Most Recent Monitor Data Heart Rate from ECG 101 NIBP 119/68 NIBP BP-Mean 85 Respiration from ECG 21 SpO2 85 I&O: 02/06/20 02/07/20 02/08/20 06:59 06:59 06:59 Intake Total 715 1375 Output Total 1400 400 Balance -685 975 Result Diagrams: 02/07/20 04:27 02/07/20 04:27 Additional Labs: Accuchecks 02/07/20 02/06/20 02/06/20 06:22 21:32 17:09 POC Glucose 166 H 185 H 222 H 02/06/20 13:35 POC Glucose 167 H I reviewed patient's labs and MAR EKG Reviewed by me: Yes (Atrial fibrillation on telemetry) Hospitalist ROS - Review of Systems Respiratory: reports: SOB with excertion Cardiovascular: denies: chest pain, palpitations, orthopnea, paroxysmal noc. dyspnea, edema, light headedness Gastrointestinal: denies: nausea, vomiting, abdominal pain, diarrhea, constipation, melena, hematochezia - Medication Medications: Active Medications Generic Name Dose Route Start Last Admin Trade Name Freq PRN Reason Stop Dose Admin Acetaminophen 650 mg 01/28/20 00:25 02/02/20 14:25 Acetaminophen 325 Mg Tab PO 650 mg Q4H PRN Administration Headache/Fever/Mild Pain (1-3) Albuterol/Ipratropium 3 ml 01/28/20 00:25 01/28/20 21:49 Ipratropium/Albuterol Sulfate 3 Ml Neb NEB 3 ml Q2H PRN Administration SOB &/or Wheezing Albuterol/Ipratropium 3 ml 01/29/20 13:00 02/07/20 06:43 Ipratropium/Albuterol Sulfate 3 Ml Neb NEB 3 ml [id number] PAULA Administration Alprazolam 0.25 mg 02/04/20 09:00 02/07/20 05:26 Alprazolam 0.25 Mg Tab PO 0.25 mg BID PAULA Administration Aspirin 81 mg 01/28/20 09:00 02/07/20 05:27 Aspirin 81 Mg Enteric Coated Tablet PO 81 mg DAILY PAULA Administration Atorvastatin Calcium 40 mg 01/28/20 21:00 02/06/20 20:38 Atorvastatin Calcium 40 Mg Tab PO 40 mg HS PAULA Administration Bisacodyl 10 mg 02/01/20 18:00 02/07/20 09:00 Bisacodyl 10 Mg Supp RI Not Given 0200,1000,1800 [facility] Digoxin 0.125 mg 02/04/20 09:00 02/07/20 05:27 Digoxin 0.125 Mg Tab PO 0.125 mg DAILY PAULA Administration Doxycycline Hyclate 100 mg 02/02/20 21:00 02/07/20 05:27 Doxycycline 100 Mg Cap PO 02/09/20 21:01 100 mg BID PAULA Administration Escitalopram Oxalate 20 mg 01/31/20 09:00 02/07/20 05:27 Escitalopram Oxalate 20 Mg Tablet PO 20 mg DAILY PAULA Administration Famotidine 20 mg 01/28/20 09:00 02/07/20 05:26 Famotidine 20 Mg Tab PO 20 mg BID PAULA Administration Furosemide 40 mg 02/01/20 06:00 02/07/20 05:28 Furosemide 40 Mg/4 Ml Vial SLOW IVP Not Given 0600,1400 [facility] Diltiazem HCl 125 mg/ 125 mls @ 0 mls/hr 02/03/20 11:55 02/06/20 22:29 Miscellaneous Medication 1 IVPB 125 mls each/ Sodium Chloride INF PAULA Administration Protocol As Directed Insulin Human Regular 0 units 01/28/20 00:26 02/06/20 18:18 Insulin Regular 300 Units/3 Ml Vial SC 3 unit .MILD SLIDING SCALE PRN Administration Mild Correctional Scale Lisinopril 10 mg 02/04/20 09:00 02/07/20 05:27 Lisinopril 10 Mg Tab PO 10 mg DAILY PAULA Administration Methylprednisolone Sodium Succinate 40 mg 02/01/20 09:00 02/07/20 05:26 Methylprednisolone Sod Succ 40 Mg Vial IVP 40 mg BID PAULA Administration Mometasone Furoate/Formoterol Fumar 2 puff 01/28/20 18:30 02/07/20 06:47 Mometasone 200 Mcg/Formoterol 5 Mcg 120 Puff Inhaler INH 2 puff BID-RT PAULA Administration Nicotine 21 mg 02/02/20 14:00 02/06/20 15:44 Nicotine 21 Mg Patch TOP Not Given Q24HR PAULA Ondansetron HCl 4 mg 01/28/20 00:25 01/29/20 20:40 Ondansetron Pf 4 Mg/2 Ml Vial IVP 4 mg Q6H PRN Administration Nausea/Vomiting, use 1st Senna 2 tab 01/31/20 16:36 01/31/20 17:21 Senokot 8.6 Mg Tab PO 2 tab HSPRN PRN Administration Constipation Senna/Docusate Sodium 1 tab 02/03/20 09:00 02/07/20 07:39 Senokot S 8.6-50 Mg Tab PO Not Given BID PAULA Sodium Chloride 10 ml 02/01/20 09:00 02/07/20 07:39 Flush - Normal Saline 10 Ml Syringe IVF Not Given Q12HR PAULA Sodium Chloride 10 ml 02/01/20 08:30 02/06/20 15:37 Flush - Normal Saline 10 Ml Syringe IVF 10 ml PRN PRN Administration Saline Flush - Exam General Appearance: awake alert Eye: anicteric sclera ENT: moist mucosa Neck: supple Heart: irregular Respiratory: CTAB Gastrointestinal: soft Extremities: no cyanosis Skin: no rashes Psychiatric: normal affect Hosp A/P - Plan -Assessment (1) Acute exacerbation of CHF (congestive heart failure) Code(s): I50.9 - HEART FAILURE, UNSPECIFIED Status: Acute Qualifiers: Heart failure type: combined systolic and diastolic Qualified Code(s): I50.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 AHA class III (2) Acute respiratory failure with hypoxia Code(s): J96.01 - ACUTE RESPIRATORY FAILURE WITH HYPOXIA Status: Acute Plan: Continue O2 supplementation, BiPAP PRN, Duonebs/Solumedrol (3) NSTEMI (non-ST elevated myocardial infarction) Code(s): I21.4 - NON-ST ELEVATION (NSTEMI) MYOCARDIAL INFARCTION Status: Acute Plan: Plan for heart cath if able to lay supine (4) COPD exacerbation Code(s): J44.1 - CHRONIC OBSTRUCTIVE PULMONARY DISEASE W (ACUTE) EXACERBATION Status: Acute (5) Cardiomyopathy Code(s): I42.9 - CARDIOMYOPATHY, UNSPECIFIED Status: Chronic (6) Tobacco abuse Code(s): Z72.0 - TOBACCO USE Status: Chronic (7) Atrial fibrillation with RVR Code(s): I48.91 - UNSPECIFIED ATRIAL FIBRILLATION Status: Resolved, rate is controlled - Plan Patient to go for cath today Continue IV furosemide. Continue oxygen, steroids and bronchodilators for COPD exacerbation. Rate controlled atrial fibrillation. Lovenox to be resumed Coronary angiography pending. PRN Xanax for anxiety. Continue Lexapro.
[2020-02-07] MEDS ORDERED: Nitroglycerin 0.4 MG TAB (25 Tab Bottle) SL PRN (11:26)
[2020-02-07] MEDS ORDERED: Acetaminophen/Codeine 30-300mg Tablet PO PRN (11:26)
[2020-02-07] MEDS ORDERED: Sodium Chloride 0.9% 200 ML IV PRN (11:26)
[2020-02-07] MEDS ORDERED: Enoxaparin Sodium 100 MG/ML SYRINGE SC SCH ×2 (12:00→21:00)
[2020-02-07] MEDS: Nicotine 21 MG PATCH TOP SCH (15:03)
--- NOTE | 2020-02-07 20:45 | PRG ---
DATE OF SERVICE: 02/07/2020 SUBJECTIVE: Leanne Jessica has apparently undergone cardiac catheterization. The report is not available yet in medical record system. I was contacted by Dr. Leos if she is a candidate for surgery. She is so deconditioned at this point, it is hard to know. Apparently, at this point in time, it takes two people to get her out of bed moving. I am told she did walk short distance. OBJECTIVE: VITAL SIGNS: She is afebrile, heart rate is 84, respiratory rate is 20, oximetry is 92% on 2 L, and blood pressure is 102/59. LUNGS: Clear. HEART: Regular rhythm. ABDOMEN: Soft. LABORATORY DATA: White count 20.4, hemoglobin 15.3, and platelets 258. Sodium 134, potassium 4, chloride 96, bicarb 27, BUN 26, and creatinine 0.7. IMPRESSION: Deconditioning, acute coronary artery disease, severe obstructive lung disease by history. PLAN: Bedside spirometry. Hopefully this will give us a baseline. If we get her ambulatory maybe she will be a candidate for surgery if PFT suggest. Job ID: [id number]
[2020-02-07] MEDS: Atorvastatin Calcium 40 MG TAB PO SCH (21:03)
[2020-02-07] MEDS: Enoxaparin Sodium 100 MG/ML SYRINGE SC SCH (21:05)
--- NOTE | 2020-02-07 23:49 | CON ---
DATE OF CONSULTATION: HISTORY OF PRESENT ILLNESS: This is a 79-year-old female who was admitted with significant dyspnea on 01/26. At that time, she was felt to have a combination of congestive heart failure and COPD exacerbation. She was treated by multiple specialists including Pulmonary and Cardiology. Her initial cardiac echo was not very favorable showing an ejection fraction of 20% to 25%. She was found to be in atrial fibrillation on admission and denies any previous knowledge of being in atrial fibrillation; although, Dr. Hameed felt that it was probably chronic at that time. She obtains her care through Dr. Chapman in [place]. This care consists of treatment for hypertension and dyslipidemia as well as treatment for COPD with inhalers. The patient was placed on IV steroids by Dr. Oleary, which she continues to require. She was treated with IV digoxin and Cardizem for her atrial fibrillation with RVR. She was placed on some anticoagulation, but evidently had some hemoptysis, released brown-colored sputum that may have been hemoptysis. She underwent cardiac catheterization today showing severe triple-vessel coronary artery disease with a high-grade lesion of her ostial LAD as well as severe disease in a bifurcating OM with the first OM being bypassable and the second probably being too small. The right coronary artery was heavily calcified and essentially occluded with slow [id number] filling of the PDA and [id number] filling and [id number] filling of a posterolateral system. Potential targets include LAD, OM1, and PDA, although PDA distally is rather poor quality vessel. LVEF on cardiac cath today looked more like 40% by Dr. Cárdenas' interpretation with some apical akinesis. PAST SURGICAL HISTORY: Includes hysterectomy. SOCIAL HISTORY: The patient smokes 1 to 2 packs of day according to her and confirmed by her son. She leads a rarely very inactive lifestyle getting around in her house, but rarely getting outside. The son states that she over a year ago was unable to get to the car to be driven around due to dyspnea. She does not wear home oxygen. HOME MEDICATIONS: Included: 1. Simvastatin 20 inhalers. 2. Hydrochlorothiazide 12.5. 3. Atenolol 100 daily. 4. Aspirin 81 a day. 5. Albuterol inhaler. ALLERGIES: SHE REPORTS ALLERGIES TO DILTIAZEM AND PENICILLIN. PHYSICAL EXAMINATION: GENERAL: She looks her stated age or older. VITAL SIGNS: Her height is recorded at 5 feet and 8 inches. Her weight is recorded at 226 pounds with a BMI of 34. Blood pressure at the present time is about 110/60 and heart rate 84, irregularly irregular. NECK: No carotid bruits. LUNGS: Clear to auscultation at this time anteriorly with no wheezes. ABDOMEN: Obese and nontender. EXTREMITIES: I do not palpate popliteal or pedal pulses, and she has no peripheral edema. SKIN: Unremarkable of her legs. ASSESSMENT AND PLAN: At this time, the patient's known surgical risk in regard to her pulmonary status as she has not had pulmonary function tests. I think we can assume her lung disease is rather significant, but how severe is unclear. She is not able to ambulate out to her car due to dyspnea, but does not require home oxygen therapy. Her cardiac function, although, extremely poor on admission, may have improved somewhat based on her left ventriculogram today. Her mobility is severely compromised; although, she has been walking with physical therapy once a day. She is felt to be too unsteady on her feet to get out of bed without one or two person being present. We will check some PFTs and I have discussed this with Dr. Moreira. We will continue with inpatient physical therapy and if she makes enough improvement, may consider coronary artery bypass grafting. I have reviewed her admission CT scan and she does have some calcification of the ascending aorta, but does not appear to be prohibitive in regard to surgical intervention. We will go ahead and check a carotid ultrasound while we are pursuing a pulmonary evaluation and continuing physical therapy. I have discussed all this with the son by phone and the patient in person, and questions have been answered. Job ID: [id number] [facility]
--- NOTE | 2020-02-07 23:57 | ULT ---
BILATERAL CAROTID DUPLEX ULTRASOUND: HISTORY: Preop evaluation for a planned CABG TECHNIQUE: Grayscale, color-flow and spectral Doppler ultrasound imaging of the extracranial carotid artery syst ems and vertebral arteries was performed bilaterally. FINDINGS: There is moderate atherosclerotic irregularity involving the right common carotid artery with mild at herosclerotic irregularity involving the proximal right internal carotid artery. There is lrsi-bi-kosklxfr atherosclerotic irregularity involving the distal left common carotid artery and pro ximal left ICA. The peak systolic velocity in the right ICA measures 92.6 cm/s. The peak systolic velocity in the ri ght CCA measures 109.4 cm/s. The peak systolic velocity in the left ICA measures 84.3 cm/s. The peak systolic velocity in the l eft CCA measures 72.4 cm/s. The right IC/CC ratio is0.85. The left IC/CC ratio is 1.16. Vertebral flow: antegrade, bilaterally. . IMPRESSION: No hemodynamically significant stenosis of both ICAs.
[2020-02-08 04:26] LABS: Hemoglobin A1c 5.9 % (4.0-6.0)
[2020-02-08 04:41] LABS: Anion Gap 13 mmol/L (10-20); BUN (Urea Nitrogen) 24 mg/dL (9.8-20.1); Calc. Creatinine Clearance 102 mL/min (70-130); Calcium 8.3 mg/dL (7.8-10.44); Carbon Dioxide 28 mmol/L (23-31); Chloride 95 mmol/L (98-107); Estimated GFR-MDRD 75; Glucose 153 mg/dL (83-110); Potassium 4.4 mmol/L (3.5-5.1); Sodium 132 mmol/L (136-145)
[2020-02-08 04:45] LABS: Band 3 % (5-11); Hemoglobin 14.2 g/dL (12.0-16.0); Lymphocytes 3 % (21-51); MDiff Complete? YES; Mean Corpuscular HGB CONC 33.6 g/dL (32.0-36.0); Mean Corpuscular Volume 89.4 fL (78.0-98.0); Monocytes 15 % (0-10); Neutrophil 79 % (42-75); Platelet Count 209 thou/uL (130-400); Platelet Morphology Comment Appears Adequate; RBC Morphology Normal; Red Blood Cell (RBC) Count 4.72 mill/uL (4.20-5.40); White Blood Cell (WBC) Count 19.2 thou/uL (4.8-10.8)
[2020-02-08] MEDS: Insulin Regular 300 UNITS/3 ML VIAL SC PRN ×3 (05:45→17:39)
[2020-02-08] MEDS: Bisacodyl 10 MG SUPP PR SCH ×3 (06:04→14:05)
[2020-02-08] MEDS: Furosemide 40 MG/4 ML VIAL SLOW IVP SCH ×3 (06:13→13:57)
--- NOTE | 2020-02-08 06:35 | PRG ---
DATE OF SERVICE: 02/08/2020 The patient had an uneventful night and remains on nasal oxygen. Her hemoglobin A1c was normal and her carotid ultrasound showed no significant disease. Her white count remains elevated at 19,000 and she is on steroids, which may account for this. She is on oral Vibramycin as well. Her PFTs are pending. Plan at this time is for PFTs to evaluate surgical risk and then consider surgical intervention when she is ambulatory and doing better from a pulmonary standpoint. Job ID: [id number]
[2020-02-08] MEDS: Mometasone 200 MCG/Formoterol 5 MCG 120 PUFF INHALER INH SCH ×2 (06:52→18:36)
[2020-02-08] MEDS: Escitalopram Oxalate 20 mg Tablet PO SCH (08:28)
[2020-02-08] MEDS: Senokot S 8.6-50 MG TAB PO SCH ×2 (08:28→20:41)
[2020-02-08] MEDS: Aspirin 81 mg Enteric Coated Tablet PO SCH (08:29)
[2020-02-08] MEDS: ALPRAZolam 0.25 MG TAB PO SCH ×2 (08:29→20:41)
[2020-02-08] MEDS: Famotidine 20 MG TAB PO SCH ×2 (08:29→20:41)
[2020-02-08] MEDS: Doxycycline 100 MG CAP PO SCH ×2 (08:29→20:41)
[2020-02-08] MEDS: Digoxin 0.125 MG TAB PO SCH (08:29)
[2020-02-08] MEDS: Enoxaparin Sodium 100 MG/ML SYRINGE SC SCH ×2 (08:30→20:41)
[2020-02-08] MEDS: methylPREDNISolone Sod Succ 40 MG VIAL IVP SCH (08:30)
[2020-02-08] MEDS: Lisinopril 10 MG TAB PO SCH (08:31)
[2020-02-08] MEDS: Nicotine 21 MG PATCH TOP SCH (13:57)
[2020-02-08] MEDS: Acetaminophen 325 MG TAB PO PRN (13:58)
--- NOTE | 2020-02-08 15:23 | PRG ---
DATE OF SERVICE: 02/08/2020 SUBJECTIVE: Leanne Jessica remains stable. She says she has had her spirometry, but I have not seen the results yet. OBJECTIVE: LUNGS: Clear. HEART: Regular rhythm. ABDOMEN: Soft. LABORATORY DATA: White count 19.2, hemoglobin 14.2, platelets 209. Sodium 132, potassium 4.4, chloride 95, bicarb 28, BUN 24, creatinine 0.75. She is still fully anticoagulated with Lovenox. I have encouraged her to start moving around more. We will discontinue her IV steroids. Switch her to p.o. prednisone since she is not wheezing. We will increase her activity level and look at her PFTs and get her ambulatory without assistance and maybe hopefully consider surgery, but a lot depends on the above. Job ID: [id number]
--- NOTE | 2020-02-08 15:29 | PDOC.HOSPP ---
- Subjective Encounter Date: 02/08/20 Encounter Time: 07:30 Subjective: Patient seen for follow-up regarding congestive heart failure exacerbation. Sleepy but arousable, denies chest pain, shortness of breath, fevers or chills. - Objective Vital Signs & Weight: Vital Signs (12 hours) Temp Pulse Resp BP Pulse Ox 02/08/20 15:03 97.8 F 131 H 20 115/56 L 99 02/08/20 12:02 126 H 20 95 02/08/20 11:37 97.6 F 120 H 20 90/51 L 97 02/08/20 07:37 99.1 F 83 19 117/65 100 02/08/20 06:55 96 02/08/20 06:54 83 20 96 02/08/20 06:52 83 20 96 02/08/20 04:00 97.6 F 88 16 119/70 93 L Weight Admit Weight 219 lb 4.8 oz Weight 226 lb 6.4 oz Most Recent Monitor Data Heart Rate from ECG 101 NIBP 119/68 NIBP BP-Mean 85 Respiration from ECG 21 SpO2 85 I&O: 02/07/20 02/08/20 02/09/20 06:59 06:59 06:59 Intake Total 1375 1290 Output Total 400 970 400 Balance 975 320 -400 Result Diagrams: 02/08/20 04:03 02/08/20 04:02 Additional Labs: Accuchecks 02/08/20 02/08/20 02/07/20 11:20 05:18 19:53 POC Glucose 190 H 156 H 166 H 02/07/20 17:28 POC Glucose 163 H Labs and MAR reviewed by me EKG Reviewed by me: Yes (Telemetry: Atrial fibrillation) Hospitalist ROS - Review of Systems Cardiovascular: denies: chest pain, palpitations, orthopnea, paroxysmal noc. dyspnea, edema, light headedness Gastrointestinal: denies: nausea, vomiting, abdominal pain, diarrhea, con stipation, melena, hematochezia - Medication Medications: Active Medications Generic Name Dose Route Start Last Admin Trade Name Freq PRN Reason Stop Dose Admin Acetaminophen 650 mg 01/28/20 00:25 02/08/20 13:58 Acetaminophen 325 Mg Tab PO 650 mg Q4H PRN Administration Headache/Fever/Mild Pain (1-3) Albuterol/Ipratropium 3 ml 01/28/20 00:25 01/28/20 21:49 Ipratropium/Albuterol Sulfate 3 Ml Neb NEB 3 ml Q2H PRN Administration SOB &/or Wheezing Albuterol/Ipratropium 3 ml 01/29/20 13:00 02/08/20 12:02 Ipratropium/Albuterol Sulfate 3 Ml Neb NEB 3 ml [id number] PAULA Administration Alprazolam 0.25 mg 02/04/20 09:00 02/08/20 08:29 Alprazolam 0.25 Mg Tab PO 0.25 mg BID PAULA Administration Aspirin 81 mg 01/28/20 09:00 02/08/20 08:29 Aspirin 81 Mg Enteric Coated Tablet PO 81 mg DAILY PAULA Administration Atorvastatin Calcium 40 mg 01/28/20 21:00 02/07/20 21:03 Atorvastatin Calcium 40 Mg Tab PO 40 mg HS PAULA Administration Bisacodyl 10 mg 02/01/20 18:00 02/08/20 14:05 Bisacodyl 10 Mg Supp TX Not Given 0200,1000,1800 PAULA Digoxin 0.125 mg 02/04/20 09:00 02/08/20 08:29 Digoxin 0.125 Mg Tab PO 0.125 mg DAILY PAULA Administration Doxycycline Hyclate 100 mg 02/02/20 21:00 02/08/20 08:29 Doxycycline 100 Mg Cap PO 02/09/20 21:01 100 mg BID PAULA Administration Enoxaparin Sodium 100 mg 02/07/20 21:00 02/08/20 08:30 Enoxaparin Sodium 100 Mg/Ml Syringe SC 100 mg 0900,2100 PAULA Administration Escitalopram Oxalate 20 mg 01/31/20 09:00 02/08/20 08:28 Escitalopram Oxalate 20 Mg Tablet PO 20 mg DAILY PAULA Administration Famotidine 20 mg 01/28/20 09:00 02/08/20 08:29 Famotidine 20 Mg Tab PO 20 mg BID PAULA Administration Furosemide 40 mg 02/01/20 06:00 02/08/20 13:57 Furosemide 40 Mg/4 Ml Vial SLOW IVP 40 mg 0600,1400 PAULA Administration Diltiazem HCl 125 mg/ Sodium 125 mls @ 2.5 mls/hr 02/07/20 18:30 02/08/20 15:02 Chloride IVPB 125 mls INF PAULA Administration 2.5 MG/HR Insulin Human Regular 0 units 01/28/20 00:26 02/08/20 12:14 Insulin Regular 300 Units/3 Ml Vial SC 2 unit .MILD SLIDING SCALE PRN Administration Mild Correctional Scale Lisinopril 10 mg 02/04/20 09:00 02/08/20 08:31 Lisinopril 10 Mg Tab PO 10 mg DAILY PAULA Administration Mometasone Furoate/Formoterol Fumar 2 puff 01/28/20 18:30 02/08/20 06:52 Mometasone 200 Mcg/Formoterol 5 Mcg 120 Puff Inhaler INH 2 puff BID-RT PAULA Administration Nicotine 21 mg 02/02/20 14:00 02/08/20 13:57 Nicotine 21 Mg Patch TOP Not Given Q24HR PAULA Ondansetron HCl 4 mg 01/28/20 00:25 01/29/20 20:40 Ondansetron Pf 4 Mg/2 Ml Vial IVP 4 mg Q6H PRN Administration Nausea/Vomiting, use 1st Senna 2 tab 01/31/20 16:36 01/31/20 17:21 Senokot 8.6 Mg Tab PO 2 tab HSPRN PRN Administration Constipation Senna/Docusate Sodium 1 tab 02/03/20 09:00 02/08/20 08:28 Senokot S 8.6-50 Mg Tab PO 1 tab BID PAULA Administration Sodium Chloride 10 ml 02/01/20 09:00 02/08/20 08:42 Flush - Normal Saline 10 Ml Syringe IVF 10 ml Q12HR PAULA Administration Sodium Chloride 10 ml 02/01/20 08:30 02/06/20 15:37 Flush - Normal Saline 10 Ml Syringe IVF 10 ml PRN PRN Administration Saline Flush - Exam General Appearance: awake alert General - other findings: Obese Eye: anicteric sclera ENT: moist mucosa Neck: supple Heart: irregular Respiratory: CTAB Gastrointestinal: soft, non-tender Skin: no rashes Psychiatric: normal affect Hosp A/P - Plan -Assessment (1) Acute exacerbation of CHF (congestive heart failure) Code(s): I50.9 - HEART FAILURE, UNSPECIFIED Status: Acute Qualifiers: Heart failure type: combined systolic and diastolic Qualified Code(s): I50.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 AHA class III (2) Acute respiratory failure with hypoxia Code(s): J96.01 - ACUTE RESPIRATORY FAILURE WITH HYPOXIA Status: Acute Plan: Continue O2 supplementation, BiPAP PRN, Duonebs/Solumedrol (3) NSTEMI (non-ST elevated myocardial infarction) Code(s): I21.4 - NON-ST ELEVATION (NSTEMI) MYOCARDIAL INFARCTION Status: Acute Plan: Plan for heart cath if able to lay supine (4) CAD Status: Acute (5) COPD exacerbation Code(s): J44.1 - CHRONIC OBSTRUCTIVE PULMONARY DISEASE W (ACUTE) EXACERBATION Status: Acute (6) Cardiomyopathy Code(s): I42.9 - CARDIOMYOPATHY, UNSPECIFIED Status: Chronic (6) Tobacco abuse Code(s): Z72.0 - TOBACCO USE Status: Chronic (7) Atrial fibrillation with RVR Code(s): I48.91 - UNSPECIFIED ATRIAL FIBRILLATION Status: Resolved, rate is controlled - Plan Status post cardiac catheterization, patient has multivessel disease, needs coronary artery bypass graft when optimized. Patient is on IV furosemide. oxygen, steroids and bronchodilators for COPD exacerbation. Rate controlled atrial fibrillation. Continue Lovenox. PRN Xanax for anxiety. Continue Lexapro.
[2020-02-08 16:37] LABS: Bilirubin Negative (Negative); Blood, Urine 3+ (Negative); Clarity Clear (Clear); Glucose, Urine (Dipstick) Normal (Negative); Ketone, Urine Negative (Negative); Leukocyte Negative Leu/uL (Negative); Nitrite Negative (Negative); Protein, Urine (Dipstick) Negative (Neg-Trace); RBC/HPF Greater than 50 HPF (0-3); Specific Gravity, Urine 1.011 (1.002-1.036); Squamous Epithelial 0-3 HPF (0-3); Urobilinogen Normal mg/dL (Less than 2)
[2020-02-08 16:44] LABS: Bacteria/HPF Rare-Few HPF (None Seen)
[2020-02-08] MEDS: Atorvastatin Calcium 40 MG TAB PO SCH (20:41)
[2020-02-09] MEDS: Bisacodyl 10 MG SUPP PR SCH ×3 (02:00→19:21)
[2020-02-09 04:50] LABS: Eosinophils 1 % (0-10); Hemoglobin 14.3 g/dL (12.0-16.0); Lymphocytes 7 % (21-51); MDiff Complete? YES; Mean Corpuscular HGB CONC 32.7 g/dL (32.0-36.0); Mean Corpuscular Hemoglobin 29.4 pg (27.0-31.0); Mean Corpuscular Volume 89.9 fL (78.0-98.0); Mean Platelet Volume 7.8 fL (7.4-10.4); Monocytes 5 % (0-10); Neutrophil 87 % (42-75); Platelet Count 222 thou/uL (130-400); Platelet Morphology Comment Appears Adequate; RBC Distribution Width 14.3 % (11.5-14.5); Red Blood Cell (RBC) Count 4.87 mill/uL (4.20-5.40); White Blood Cell (WBC) Count 16.4 thou/uL (4.8-10.8)
[2020-02-09] MEDS: Furosemide 40 MG/4 ML VIAL SLOW IVP SCH ×2 (05:01→15:12)
[2020-02-09] MEDS: Acetaminophen 325 MG TAB PO PRN (05:01)
[2020-02-09 05:06] LABS: Anion Gap 13 mmol/L (10-20); BUN (Urea Nitrogen) 29 mg/dL (9.8-20.1); Calc. Creatinine Clearance 102 mL/min (70-130); Calcium 8.4 mg/dL (7.8-10.44); Carbon Dioxide 31 mmol/L (23-31); Chloride 95 mmol/L (98-107); Estimated GFR-MDRD 75; Glucose 104 mg/dL (83-110); Potassium 3.6 mmol/L (3.5-5.1); Sodium 135 mmol/L (136-145)
[2020-02-09] MEDS: Mometasone 200 MCG/Formoterol 5 MCG 120 PUFF INHALER INH SCH ×2 (07:13→18:44)
[2020-02-09] MEDS ORDERED: Spironolactone 25 MG TAB PO SCH (09:15)
[2020-02-09] MEDS: Lisinopril 10 MG TAB PO SCH (09:27)
[2020-02-09] MEDS: Senokot S 8.6-50 MG TAB PO SCH ×2 (09:27→21:29)
[2020-02-09] MEDS: Doxycycline 100 MG CAP PO SCH ×2 (09:27→21:29)
[2020-02-09] MEDS: ALPRAZolam 0.25 MG TAB PO SCH ×2 (09:27→21:29)
[2020-02-09] MEDS: Digoxin 0.25 MG TAB PO SCH (09:27)
[2020-02-09] MEDS: Aspirin 81 mg Enteric Coated Tablet PO SCH (09:27)
[2020-02-09] MEDS: Enoxaparin Sodium 100 MG/ML SYRINGE SC SCH ×2 (09:28→21:30)
[2020-02-09] MEDS: predniSONE 20 MG TAB PO SCH (09:28)
[2020-02-09] MEDS: Famotidine 20 MG TAB PO SCH ×2 (09:28→21:29)
[2020-02-09] MEDS: Escitalopram Oxalate 20 mg Tablet PO SCH (09:29)
--- NOTE | 2020-02-09 11:28 | CON ---
DATE OF CONSULTATION: 02/09/2020 HISTORY OF PRESENT ILLNESS: I am seeing Ms. Jessica at our [facility] telemetry floor for electrophysiology consultation. Her problems are 1. Persistent atrial fibrillation, rapid ventricular rate. a. Difficult to control ventricular rate despite digoxin, IV diltiazem, metoprolol. 2. Subacute myocardial infarction with peak troponin I at 23. a. Left heart catheterization from 01/28/20 shows 9% proximal LAD, 25% diffuse OM, proximal subtotal RCA with LVEF 40% to 45%. b. 2D echo from 01/28/2020 shows LVEF of 20% to 25% but difficult to assess due to atrial fibrillation, moderate left atrial enlargement, trace MR. 3. Advanced COPD and bilateral pleural effusion. a. Current smoking. 4. Hypertension. ALLERGIES: PENICILLIN AND CARDIZEM. MEDICATIONS: At home included 1. Lexapro. 2. Aspirin. 3. Simvastatin. 4. Hydrochlorothiazide. 5. Atenolol 100 mg a day. 6. Albuterol 2 puffs q.4 hours p.r.n. 7. Fluticasone. SUBJECTIVE: Mrs. Jessica is here after a myocardial infarction, which occurred on the , which manifested as acute CHF exacerbation. She was noted to have also atrial fibrillation, which was not noted before. She continues to be with rapid rates and required intermittent IV diltiazem for rate control. She has had difficult time to be rate controlled with this medication due to borderline blood pressure. She is also on digoxin. Left heart catheterization demonstrated three vessel coronary artery disease requiring bypass surgery, but due to her advanced pulmonary disease and medical status, this is on hold. I was consulted by Dr. Cárdenas for potential aiding her atrial fibrillation management. Currently, she seems to be doing fair at rest with minimal ambulation like going to the bathroom, though she gets severely dyspneic. She denies PND or orthopnea. She has no fever, chills, or cough. She has no new neurological deficits. She does have a history of hemoptysis and Pulmonary follows her closely. She also was noted to have bilateral effusions in the evenings. REVIEW OF SYSTEMS: Rest of 12-point review of system otherwise unremarkable. PAST MEDICAL HISTORY: As above. SOCIAL HISTORY: The patient denies EtOH abuse. Current heavy smoker. Denies drug use. FAMILY HISTORY: Not contributory. SURGICAL HISTORY: Significant for hysterectomy. OBJECTIVE: VITAL SIGNS: Currently blood pressure is 120/66, heart rate 89, respirations 20, temperature 97.5 degrees Fahrenheit. GENERAL: This is an elderly appearing obese woman in no apparent distress. NECK: Supple. Jugular vein is difficult to evaluate due to neck obesity. CHEST: Coarse without crackles. I do not hear wheezes. Somewhat limited air entry is noted and dullness in the base. HEART: Sounds are irregularly irregular, distant. I do not hear murmur or gallop. PMI is not palpable. ABDOMEN: Obese, benign. Bowel sounds positive. EXTREMITIES: Lower extremities without cyanosis. Some edema is noted. NEUROLOGIC: The patient is nonfocal. MUSCULOSKELETAL: No joint swelling or deformities. SKIN: Without rash. DATABASE: EKG is reviewed. Initial EKG from 01/27/2020 reveals atrial fibrillation, rate of 167 beats per minute. QRS is relatively narrow at about 80 milliseconds, QTc is 443. Subsequent telemetry strips reveal intermittent rapid rates. Heart rate is reasonably rate controlled. LABORATORY DATA: Sodium 135, potassium 3.6, BUN is 29, creatinine 0.75. AST and ALT elevated on the 9th at AST 162, then down to 120. Troponin I is 18.753 on 01/26 and on 01/27 is 23.552. BNP on admission on 01/27/2020 is 642. TSH 1.6. Carotid Doppler shows no stenosis. ASSESSMENT AND PLAN: Ms. Jessica is a 79-year-old woman with history of heavy smoking, chronic obstructive pulmonary disease, hypertension, congestive heart failure, who was presenting with an acute myocardial infarction, noted to have three vessel coronary artery disease possibly requiring bypass surgery. She also has some moderate to severe reduced LVEF. The rate control of newly found atrial fibrillation is difficult mostly due to borderline blood pressures. Despite digoxin therapy and intermittent IV diltiazem, her rates are poorly controlled. She has slightly improved pulmonary status with adequate oxygenation on nasal cannula O2 supplementation. Currently does not appear major fluid overloaded on exam and her rate since decreased from 232 peak on the down to 224. My plan is, at this point, the situation is very difficult due to the high grade coronary artery stenosis. To be able to undergo the bypass surgery, she may though need better pulmonary status and also better control of her atrial fibrillation. To achieve this, it may be reasonable to attempt addition of amiodarone therapy to the current regimen. Clearly she is not a good long-term candidate for amiodarone, hence the pulmonary disease. Once the bypass surgery is performed, she may be considered for pacemaker implantation, possibly BiV pacing implantation, AV danilo ablation. She is a poor candidate for ablative therapy. Oral anticoagulation to start after bypass surgery. In the meantime, continue Lovenox. We will discuss with Dr. Cárdenas. Thank you again for allowing me to participate in the care of this patient. Job ID: [id number] [facility]
--- NOTE | 2020-02-09 13:07 | PDOC.HOSPP ---
- Subjective Encounter Date: 02/09/20 Encounter Time: 07:30 Subjective: Patient seen in follow-up for congestive heart failure exacerbation. Reports she feels much better today. - Objective Vital Signs & Weight: Vital Signs (12 hours) Temp Pulse Resp BP Pulse Ox 02/09/20 07:40 97.5 F L 89 20 120/66 97 02/09/20 04:00 98.1 F 93 16 91/59 L 98 Weight Admit Weight 219 lb 4.8 oz Weight 224 lb 13.873 oz Most Recent Monitor Data Heart Rate from ECG 101 NIBP 119/68 NIBP BP-Mean 85 Respiration from ECG 21 SpO2 85 I&O: 02/08/20 02/09/20 02/10/20 06:59 06:59 06:59 Intake Total 1290 1460 Output Total 970 800 Balance 320 660 Result Diagrams: 02/09/20 04:27 02/09/20 04:27 Additional Labs: Accuchecks 02/09/20 02/09/20 02/08/20 11:12 05:55 21:00 POC Glucose 117 H 109 H 147 H 02/08/20 17:26 POC Glucose 179 H I reviewed patient's labs and MAR EKG Reviewed by me: Yes (Atrial fibrillation on telemetry) Hospitalist ROS - Review of Systems Constitutional: denies: fever, chills, sweats, weakness, malaise Cardiovascular: denies: chest pain, palpitations, orthopnea, paroxysmal noc. dyspnea, edema, light headedness Gastrointestinal: denies: nausea, vomiting, abdominal pain, diarrhea, constipation, melena, hematochezia - Medication Medications: Active Medications Generic Name Dose Route Start Last Admin Trade Name Freq PRN Reason Stop Dose Admin Acetaminophen 650 mg 01/28/20 00:25 02/09/20 05:01 Acetaminophen 325 Mg Tab PO 650 mg Q4H PRN Administration Headache/Fever/Mild Pain (1-3) Albuterol/Ipratropium 3 ml 01/28/20 00:25 01/28/20 21:49 Ipratropium/Albuterol Sulfate 3 Ml Neb NEB 3 ml Q2H PRN Administration SOB &/or Wheezing Albuterol/Ipratropium 3 ml 01/29/20 13:00 02/09/20 07:11 Ipratropium/Albuterol Sulfate 3 Ml Neb NEB Not Given [id number] PAULA Alprazolam 0.25 mg 02/04/20 09:00 02/09/20 09:27 Alprazolam 0.25 Mg Tab PO 0.25 mg BID PAULA Administration Aspirin 81 mg 01/28/20 09:00 02/09/20 09:27 Aspirin 81 Mg Enteric Coated Tablet PO 81 mg DAILY PAULA Administration Atorvastatin Calcium 40 mg 01/28/20 21:00 02/08/20 20:41 Atorvastatin Calcium 40 Mg Tab PO 40 mg HS PAULA Administration Bisacodyl 10 mg 02/01/20 18:00 02/09/20 09:26 Bisacodyl 10 Mg Supp DC Not Given 0200,1000,1800 [facility] Digoxin 0.25 mg 02/09/20 09:00 02/09/20 09:27 Digoxin 0.25 Mg Tab PO 0.25 mg DAILY PAULA Administration Doxycycline Hyclate 100 mg 02/02/20 21:00 02/09/20 09:27 Doxycycline 100 Mg Cap PO 02/09/20 21:01 100 mg BID [facility] Administration Enoxaparin Sodium 100 mg 02/07/20 21:00 02/09/20 09:28 Enoxaparin Sodium 100 Mg/Ml Syringe SC 100 mg 0900,2100 [facility] Administration Escitalopram Oxalate 20 mg 01/31/20 09:00 02/09/20 09:29 Escitalopram Oxalate 20 Mg Tablet PO 20 mg DAILY PAULA Administration Famotidine 20 mg 01/28/20 09:00 02/09/20 09:28 Famotidine 20 Mg Tab PO 20 mg BID PAULA Administration Furosemide 40 mg 02/01/20 06:00 02/09/20 05:01 Furosemide 40 Mg/4 Ml Vial SLOW IVP 40 mg 0600,1400 [facility] Administration Diltiazem HCl 125 mg/ Sodium 125 mls @ 5 mls/hr 02/07/20 18:30 02/08/20 16:51 Chloride IVPB 125 mls INF [facility] Administration Insulin Human Regular 0 units 01/28/20 00:26 02/08/20 17:39 Insulin Regular 300 Units/3 Ml Vial SC 2 unit .MILD SLIDING SCALE PRN Administration Mild Correctional Scale Lisinopril 10 mg 02/04/20 09:00 02/09/20 09:27 Lisinopril 10 Mg Tab PO 10 mg DAILY PAULA Administration Mometasone Furoate/Formoterol Fumar 2 puff 01/28/20 18:30 02/09/20 07:13 Mometasone 200 Mcg/Formoterol 5 Mcg 120 Puff Inhaler INH 2 puff BID-RT PAULA Administration Ondansetron HCl 4 mg 01/28/20 00:25 01/29/20 20:40 Ondansetron Pf 4 Mg/2 Ml Vial IVP 4 mg Q6H PRN Administration Nausea/Vomiting, use 1st Prednisone 20 mg 02/09/20 08:00 02/09/20 09:28 Prednisone 20 Mg Tab PO 20 mg QAM-WM PAULA Administration Senna 2 tab 01/31/20 16:36 01/31/20 17:21 Senokot 8.6 Mg Tab PO 2 tab HSPRN PRN Administration Constipation Senna/Docusate Sodium 1 tab 02/03/20 09:00 02/09/20 09:27 Senokot S 8.6-50 Mg Tab PO 1 tab BID PAULA Administration Sodium Chloride 10 ml 02/01/20 09:00 02/09/20 09:28 Flush - Normal Saline 10 Ml Syringe IVF 10 ml Q12HR PAULA Administration Sodium Chloride 10 ml 02/01/20 08:30 02/06/20 15:37 Flush - Normal Saline 10 Ml Syringe IVF 10 ml PRN PRN Administration Saline Flush - Exam General Appearance: awake alert Eye: anicteric sclera ENT: moist mucosa Neck: supple Heart: irregular Respiratory: CTAB Gastrointestinal: soft Psychiatric: normal affect, normal behavior Hosp A/P - Plan -Assessment (1) Acute exacerbation of CHF (congestive heart failure) Code(s): I50.9 - HEART FAILURE, UNSPECIFIED Status: Acute Qualifiers: Heart failure type: combined systolic and diastolic Qualified Code(s): I50.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 AHA class III (2) Acute respiratory failure with hypoxia Code(s): J96.01 - ACUTE RESPIRATORY FAILURE WITH HYPOXIA Status: Acute Plan: Continue O2 supplementation, BiPAP PRN, Duonebs/Solumedrol (3) NSTEMI (non-ST elevated myocardial infarction) Code(s): I21.4 - NON-ST ELEVATION (NSTEMI) MYOCARDIAL INFARCTION Status: Acute Plan: Plan for heart cath if able to lay supine (4) CAD Status: Acute (5) COPD exacerbation Code(s): J44.1 - CHRONIC OBSTRUCTIVE PULMONARY DISEASE W (ACUTE) EXACERBATION Status: Acute (6) Cardiomyopathy Code(s): I42.9 - CARDIOMYOPATHY, UNSPECIFIED Status: Chronic (6) Tobacco abuse Code(s): Z72.0 - TOBACCO USE Status: Chronic (7) Atrial fibrillation with RVR Code(s): I48.91 - UNSPECIFIED ATRIAL FIBRILLATION Status: Resolved, rate is controlled - Plan Coronary artery bypass graft when stable. Continue IV furosemide, oxygen, steroids and bronchodilators. Continue therapeutic Lovenox dose. Continue aspirin and statin.
--- NOTE | 2020-02-09 15:52 | PRG ---
DATE OF SERVICE: 02/09/2020 Ms. Jessica is afebrile. Still having intermittent atrial fibrillation issues. PFTs were done. Her FEV1 was only 890 mL, which is 38% predicted. Given her deconditioning and this FEV1, I do not think she is a candidate for surgery at this time. I plan to discuss with Dr. Leos. Job ID: [id number]
[2020-02-09] MEDS: Amiodarone 200 MG TAB PO SCH (21:29)
[2020-02-09] MEDS: Atorvastatin Calcium 40 MG TAB PO SCH (21:29)
[2020-02-10] MEDS: Bisacodyl 10 MG SUPP PR SCH ×3 (02:18→18:43)
[2020-02-10] MEDS: Acetaminophen/Codeine 30-300mg Tablet PO PRN (02:19)
[2020-02-10 05:11] LABS: Anion Gap 12 mmol/L (10-20); BUN (Urea Nitrogen) 26 mg/dL (9.8-20.1); Calc. Creatinine Clearance 100 mL/min (70-130); Calcium 8.3 mg/dL (7.8-10.44); Carbon Dioxide 31 mmol/L (23-31); Chloride 95 mmol/L (98-107); Estimated GFR-MDRD 74; Glucose 102 mg/dL (83-110); Potassium 3.9 mmol/L (3.5-5.1); Sodium 134 mmol/L (136-145)
[2020-02-10 05:39] LABS: Band 3 % (5-11); Hemoglobin 13.7 g/dL (12.0-16.0); Lymphocytes 12 % (21-51); MDiff Complete? YES; Mean Corpuscular HGB CONC 32.7 g/dL (32.0-36.0); Mean Corpuscular Hemoglobin 29.2 pg (27.0-31.0); Mean Corpuscular Volume 89.3 fL (78.0-98.0); Mean Platelet Volume 8.3 fL (7.4-10.4); Monocytes 8 % (0-10); Neutrophil 77 % (42-75); Platelet Count 191 thou/uL (130-400); RBC Distribution Width 14.2 % (11.5-14.5); White Blood Cell (WBC) Count 13.3 thou/uL (4.8-10.8)
[2020-02-10] MEDS: Furosemide 40 MG/4 ML VIAL SLOW IVP SCH ×2 (05:39→15:03)
[2020-02-10] MEDS: Mometasone 200 MCG/Formoterol 5 MCG 120 PUFF INHALER INH SCH ×2 (06:50→18:38)
--- NOTE | 2020-02-10 09:53 | PRG ---
DATE OF SERVICE: 02/10/2020 Ms. Jessica is stable. She is not wheezing. Her vital signs are stable. She is still weak. She is afebrile. Heart rate is 95, respiratory rate is 20, oximetry is 94% on 2 L, blood pressure 122/64. Lungs are clear. PFT showed a very severe mixed defect. At this point in time, she is not a candidate for a sternotomy. She will have to get stronger and be abstinent from tobacco and repeat PFT showing improvement in her flows. We will follow her from a distance. Prednisone can be tapered to 10 mg a day over the weekend. If she is still in the hospital next week, I will look in on her. If there are any problems over the weekend, please call us. Job ID: [id number] [facility]
[2020-02-10] MEDS: Enoxaparin Sodium 100 MG/ML SYRINGE SC SCH ×2 (09:54→20:37)
[2020-02-10] MEDS: ALPRAZolam 0.25 MG TAB PO SCH ×2 (09:55→20:39)
[2020-02-10] MEDS: Senokot S 8.6-50 MG TAB PO SCH ×2 (09:55→20:37)
[2020-02-10] MEDS: Escitalopram Oxalate 20 mg Tablet PO SCH (09:55)
[2020-02-10] MEDS: Lisinopril 10 MG TAB PO SCH (09:57)
[2020-02-10] MEDS: Famotidine 20 MG TAB PO SCH ×2 (09:57→20:37)
[2020-02-10] MEDS: Amiodarone 200 MG TAB PO SCH (09:58)
[2020-02-10] MEDS: Digoxin 0.25 MG TAB PO SCH (09:58)
[2020-02-10] MEDS: predniSONE 20 MG TAB PO SCH (09:58)
[2020-02-10] MEDS: Aspirin 81 mg Enteric Coated Tablet PO SCH (09:58)
--- NOTE | 2020-02-10 12:26 | PDOC.EP ---
- Subjective Date: 02/10/20 Time: 12:23 Interval History: Remains with no major changes. Mod dyspnea on ambulation. Slightly suboptimal rate control. - Review of Systems Respiratory: reports: SOB with excertion Musculoskeletal: reports: unstable gait - Objective Allergies/Adverse Reactions: Allergies Allergy/AdvReac Type Severity Reaction Status Date / Time diltiazem [From Cardizem] Allergy Intermediate Rash Verified 01/28/20 04:19 Penicillins Allergy Unknown Hives Verified 01/28/20 10:11 Current Medications Acetaminophen (Acetaminophen 325 Mg Tab) 650 mg PO Q4H PRN PRN Reason: Headache/Fever/Mild Pain (1-3) Last Admin: 02/09/20 05:01 Dose: 650 mg Documented by: Acetaminophen/Codeine Phosphate (Acetaminophen/Codeine 30-300mg Tablet) 1 tab PO Q4H PRN PRN Reason: Mild Pain (1-3) Last Admin: 02/10/20 02:19 Dose: 1 tab Documented by: Acetaminophen/Codeine Phosphate (Acetaminophen/Codeine 30-300mg Tablet) 2 tab PO Q4H PRN PRN Reason: Moderate Pain (4-6) Albuterol/Ipratropium (Ipratropium/Albuterol Sulfate 3 Ml Neb) 3 ml NEB Q2H PRN PRN Reason: SOB &/or Wheezing Last Admin: 01/28/20 21:49 Dose: 3 ml Documented by: Albuterol/Ipratropium (Ipratropium/Albuterol Sulfate 3 Ml Neb) 3 ml NEB [id number] Last Admin: 02/10/20 06:43 Dose: 3 ml Documented by: Alprazolam (Alprazolam 0.25 Mg Tab) 0.25 mg PO BID [facility] Last Admin: 02/10/20 09:55 Dose: 0.25 mg Documented by: Amiodarone HCl (Amiodarone 200 Mg Tab) 200 mg PO TID [facility] Last Admin: 02/10/20 09:58 Dose: 200 mg Documented by: Aspirin (Aspirin 81 Mg Enteric Coated Tablet) 81 mg PO DAILY [facility] Last Admin: 02/10/20 09:58 Dose: 81 mg Documented by: Atorvastatin Calcium (Atorvastatin Calcium 40 Mg Tab) 40 mg PO HS [facility] Last Admin: 02/09/20 21:29 Dose: 40 mg Documented by: Bisacodyl (Bisacodyl 5 Mg Tab) 10 mg PO DAILYPRN PRN PRN Reason: Constipation Bisacodyl (Bisacodyl 10 Mg Supp) 10 mg OR 0200,1000,1800 [facility] Last Admin: 02/10/20 10:01 Dose: 10 mg Documented by: Dextrose/Water (Dextrose 50% Abboject 50 Ml Syringe) 25 gm IVP PRN PRN PRN Reason: HYPOGLYCEMIA PROTOCOL Digoxin (Digoxin 0.25 Mg Tab) 0.25 mg PO DAILY [facility] Last Admin: 02/10/20 09:58 Dose: 0.25 mg Documented by: Enoxaparin Sodium (Enoxaparin Sodium 100 Mg/Ml Syringe) 100 mg SC 0900,2100 [facility] Last Admin: 02/10/20 09:54 Dose: 100 mg Documented by: Escitalopram Oxalate (Escitalopram Oxalate 20 Mg Tablet) 20 mg PO DAILY [facility] Last Admin: 02/10/20 09:55 Dose: 20 mg Documented by: Famotidine (Famotidine 20 Mg Tab) 20 mg PO BID [facility] Last Admin: 02/10/20 09:57 Dose: 20 mg Documented by: Furosemide (Furosemide 40 Mg/4 Ml Vial) 40 mg SLOW IVP 0600,1400 [facility] Last Admin: 02/10/20 05:39 Dose: 40 mg Documented by: Glucagon (Glucagon 1 Mg/Ml Vial) 1 mg IM PRN PRN PRN Reason: HYPOGLYCEMIA PROTOCOL Guaifenesin/Dextromethorphan (Guaifenesin Dm 100-10/5 Ml Udcup) 15 ml PO Q4H PRN PRN Reason: Cough Dextrose/Water (D5w) 1,000 mls @ 0 mls/hr IV INF PRN PRN Reason: HYPOGLYCEMIA PROTOCOL Diltiazem HCl 125 mg/ Sodium (Chloride) 125 mls @ 5 mls/hr IVPB INF [facility] Last Admin: 02/08/20 16:51 Dose: 125 mls Documented by: Insulin Human Regular (Insulin Regular 300 Units/3 Ml Vial) 0 units SC .MILD SLIDING SCALE PRN PRN Reason: Mild Correctional Scale Last Admin: 02/08/20 17:39 Dose: 2 unit Documented by: Laxative/Stool Softener (Laxative Of Choice) 1 each PO DAILY PRN PRN Reason: Constipation Lisinopril (Lisinopril 10 Mg Tab) 10 mg PO DAILY [facility] Last Admin: 02/10/20 09:57 Dose: 10 mg Documented by: Metoprolol Tartrate (Metoprolol Tartrate 5 Mg/5 Ml Vial) 5 mg IVP Q4H PRN PRN Reason: atrial fib w/ rate over 110 Miscellaneous Medication (Electrolyte Replacement Protoc 1 Each Each) 1 each FS ASDIR [facility] Mometasone Furoate/Formoterol Fumar (Mometasone 200 Mcg/Formoterol 5 Mcg 120 Puff Inhaler) 2 puff INH BID-RT [facility] Last Admin: 02/10/20 06:50 Dose: 2 puff Documented by: Nitroglycerin (Nitroglycerin 0.4 Mg Tab (25 Tab Bottle)) 0.4 mg SL Q5MIN PRN PRN Reason: Chest Pain Ondansetron HCl (Ondansetron Pf 4 Mg/2 Ml Vial) 4 mg IVP Q6H PRN PRN Reason: Nausea/Vomiting, use 1st Last Admin: 01/29/20 20:40 Dose: 4 mg Documented by: Prednisone (Prednisone 20 Mg Tab) 20 mg PO QAM-WM [facility] Last Admin: 02/10/20 09:58 Dose: 20 mg Documented by: Senna (Senokot 8.6 Mg Tab) 2 tab PO HSPRN PRN PRN Reason: Constipation Last Admin: 01/31/20 17:21 Dose: 2 tab Documented by: Senna/Docusate Sodium (Senokot S 8.6-50 Mg Tab) 1 tab PO BID [facility] Last Admin: 02/10/20 09:55 Dose: 1 tab Documented by: Sodium Chloride (Flush - Normal Saline 10 Ml Syringe) 10 ml IVF Q12HR [facility] Last Admin: 02/09/20 21:30 Dose: 10 ml Documented by: Sodium Chloride (Flush - Normal Saline 10 Ml Syringe) 10 ml IVF PRN PRN PRN Reason: Saline Flush Last Admin: 02/06/20 15:37 Dose: 10 ml Documented by: Vital Signs & Weight: Vital Signs Temp Pulse Pulse Pulse Resp BP BP 02/10/20 09:42 121 H 118 H 96/54 L 104/54 L 02/10/20 07:45 97.8 F 95 20 02/10/20 06:50 109 H 16 02/10/20 06:43 109 H 16 02/10/20 04:00 97.3 F L 73 14 BP Pulse Ox 02/10/20 09:42 02/10/20 07:45 122/64 94 L 02/10/20 06:50 02/10/20 06:43 02/10/20 04:00 83/53 L 95 Admit Weight 219 lb 4.8 oz Weight 231 lb 11.2 oz I/O: I/O 02/09/20 02/10/20 02/11/20 06:59 06:59 06:59 Intake Total 1460 1800 Output Total 800 Balance 660 1800 - Physical Exam General: alert & oriented x3, appears well, no apparent distress Neck: supple neck, no JVD/HJR Cardiology: irregularly irregular, tachycardia Lungs: no wheezes, decreased breath sounds, scattered rhonchi Neurology: grossly intact Abdomen: unremarkable, soft, non-tender Extremities: warm, + edema B Musculoskeletal: no pain - Chadsvasc Risk factors Congestive heart failure: 1 Hypertension: 1 Age >75: 2 Diabetes mellitus: 1 Vascular disease: 1 Female: 1 Risk Score: 7 - Labs Result Diagrams: 02/10/20 04:28 02/10/20 04:28 - EKG Interpretation EKG Method: Telemetry EKG shows: Atrial fibrillation (RVR) - Assessment/Plan Assessment/Plan: ASSESSMENT AND PLAN: Ms. Jessica is a 79-year-old woman with history of heavy smoking, chronic obstructive pulmonary disease, hypertension, congestive heart failure, who was presenting with an acute myocardial infarction, noted to have three vessel coronary artery disease possibly requiring bypass surgery. She also has some moderate to severe reduced LVEF. The rate control of newly found atrial fibrillation is difficult mostly due to borderline blood pressures. Despite digoxin therapy and intermittent IV diltiazem, her rates are poorly controlled. She has slightly improved pulmonary status with adequate oxygenation on nasal cannula O2 supplementation. Currently does not appear major fluid overloaded on exam and her rate since decreased from 232 peak on the 16 down to 224. Her problems are 1. Persistent atrial fibrillation, rapid ventricular rate. a. Difficult to control ventricular rate despite digoxin, IV diltiazem, metoprolol. 2. Subacute myocardial infarction with peak troponin I at 23. a. Left heart catheterization from 01/28/20 shows 9% proximal LAD, 25% diffuse OM, proximal subtotal RCA with LVEF 40% to 45%. b. 2D echo from 01/28/2020 shows LVEF of 20% to 25% but difficult to assess due to atrial fibrillation, moderate left atrial enlargement, trace MR. 3. Advanced COPD and bilateral pleural effusion. a. Current smoking. 4. Hypertension. My initial plan was to be able to undergo the bypass surgery, she may though need better control of her atrial fibrillation- thus it may be reasonable to attempt addition of amiodarone therapy to the current regimen. Clearly she is not a good long-term candidate for amiodarone, hence the pulmonary disease. She may be considered for pacemaker implantation, possibly BiV pacing implantation, AV danilo ablation. She is a poor candidate for PVAI ablatioin. As I gather from notes, her poor FEV1, she is not a candidate for sternotomy. Will stop amiodarone therfore and continue DIg/dilt for rate control. consider BiV pacng and AVN ablation next week. . Continue Lovenox. Oral anticoagulation to start on Discharge.
--- NOTE | 2020-02-10 16:12 | PDOC.HOSPP ---
- Subjective Encounter Date: 02/10/20 Encounter Time: 07:25 Subjective: Seen for follow-up for CHF exacerbation. Reports feeling better. Denies chest pain. - Objective Vital Signs & Weight: Vital Signs (12 hours) Temp Pulse Pulse Pulse Resp BP BP 02/10/20 15:03 97.3 F L 122 H 22 H 02/10/20 14:05 117 H 20 02/10/20 12:28 98.4 F 102 H 20 02/10/20 09:42 121 H 118 H 96/54 L 104/54 L 02/10/20 07:45 97.8 F 95 20 02/10/20 06:50 109 H 16 02/10/20 06:43 109 H 16 BP Pulse Ox 02/10/20 15:03 106/60 99 02/10/20 14:05 02/10/20 12:28 102/58 L 95 02/10/20 09:42 02/10/20 07:45 122/64 94 L 02/10/20 06:50 02/10/20 06:43 Weight Admit Weight 219 lb 4.8 oz Weight 231 lb 11.2 oz Most Recent Monitor Data Heart Rate from ECG 101 NIBP 119/68 NIBP BP-Mean 85 Respiration from ECG 21 SpO2 85 I&O: 02/09/20 02/10/20 02/11/20 06:59 06:59 06:59 Intake Total 1460 1800 Output Total 800 Balance 660 1800 Result Diagrams: 02/10/20 04:28 02/10/20 04:28 Additional Labs: Accuchecks 02/09/20 02/09/20 20:13 16:51 POC Glucose 148 H 138 H Labs and MAR reviewed by me EKG Reviewed by me: Yes (Telemetry: Atrial fibrillation, controlled ventricular response) Hospitalist ROS - Review of Systems Cardiovascular: reports: edema. denies: chest pain, palpitations, orthopnea, paroxysmal noc. dyspnea, light headedness Gastrointestinal: denies: nausea, vomiting, abdominal pain, diarrhea, constipation, melena, hematochezia - Medication Medications: Active Medications Generic Name Dose Route Start Last Admin Trade Name Freq PRN Reason Stop Dose Admin Acetaminophen 650 mg 01/28/20 00:25 02/09/20 05:01 Acetaminophen 325 Mg Tab PO 650 mg Q4H PRN Administration Headache/Fever/Mild Pain (1-3) Acetaminophen/Codeine Phosphate 1 tab 02/07/20 11:26 02/10/20 02:19 Acetaminophen/Codeine 30-300mg Tablet PO 1 tab Q4H PRN Administration Mild Pain (1-3) Albuterol/Ipratropium 3 ml 01/28/20 00:25 01/28/20 21:49 Ipratropium/Albuterol Sulfate 3 Ml Neb NEB 3 ml Q2H PRN Administration SOB &/or Wheezing Albuterol/Ipratropium 3 ml 01/29/20 13:00 02/10/20 14:05 Ipratropium/Albuterol Sulfate 3 Ml Neb NEB 3 ml [id number] PAULA Administration Alprazolam 0.25 mg 02/04/20 09:00 02/10/20 09:55 Alprazolam 0.25 Mg Tab PO 0.25 mg BID [facility] Administration Aspirin 81 mg 01/28/20 09:00 02/10/20 09:58 Aspirin 81 Mg Enteric Coated Tablet PO 81 mg DAILY [facility] Administration Atorvastatin Calcium 40 mg 01/28/20 21:00 02/09/20 21:29 Atorvastatin Calcium 40 Mg Tab PO 40 mg HS [facility] Administration Bisacodyl 10 mg 02/01/20 18:00 02/10/20 10:01 Bisacodyl 10 Mg Supp CA 10 mg 0200,1000,1800 [facility] Administration Digoxin 0.25 mg 02/09/20 09:00 02/10/20 09:58 Digoxin 0.25 Mg Tab PO 0.25 mg DAILY [facility] Administration Enoxaparin Sodium 100 mg 02/07/20 21:00 02/10/20 09:54 Enoxaparin Sodium 100 Mg/Ml Syringe SC 100 mg 0900,2100 [facility] Administration Escitalopram Oxalate 20 mg 01/31/20 09:00 02/10/20 09:55 Escitalopram Oxalate 20 Mg Tablet PO 20 mg DAILY [facility] Administration Famotidine 20 mg 01/28/20 09:00 02/10/20 09:57 Famotidine 20 Mg Tab PO 20 mg BID [facility] Administration Furosemide 40 mg 02/01/20 06:00 02/10/20 15:03 Furosemide 40 Mg/4 Ml Vial SLOW IVP 40 mg 0600,1400 [facility] Administration Insulin Human Regular 0 units 01/28/20 00:26 02/08/20 17:39 Insulin Regular 300 Units/3 Ml Vial SC 2 unit .MILD SLIDING SCALE PRN Administration Mild Correctional Scale Mometasone Furoate/Formoterol Fumar 2 puff 01/28/20 18:30 02/10/20 06:50 Mometasone 200 Mcg/Formoterol 5 Mcg 120 Puff Inhaler INH 2 puff BID-RT [facility] Administration Ondansetron HCl 4 mg 01/28/20 00:25 01/29/20 20:40 Ondansetron Pf 4 Mg/2 Ml Vial IVP 4 mg Q6H PRN Administration Nausea/Vomiting, use 1st Prednisone 20 mg 02/09/20 08:00 02/10/20 09:58 Prednisone 20 Mg Tab PO 20 mg QAM-WM [facility] Administration Senna 2 tab 01/31/20 16:36 01/31/20 17:21 Senokot 8.6 Mg Tab PO 2 tab HSPRN PRN Administration Constipation Senna/Docusate Sodium 1 tab 02/03/20 09:00 02/10/20 09:55 Senokot S 8.6-50 Mg Tab PO 1 tab BID [facility] Administration Sodium Chloride 10 ml 02/01/20 09:00 02/10/20 12:31 Flush - Normal Saline 10 Ml Syringe IVF 10 ml Q12HR [facility] Administration Sodium Chloride 10 ml 02/01/20 08:30 02/06/20 15:37 Flush - Normal Saline 10 Ml Syringe IVF 10 ml PRN PRN Administration Saline Flush - Exam General Appearance: awake alert General - other findings: Obese Eye: anicteric sclera Neck: supple Heart: no gallops, irregular Respiratory: CTAB Gastrointestinal: soft, non-tender Skin: no rashes Psychiatric: normal affect, normal behavior Hosp A/P - Plan -Assessment (1) Acute exacerbation of CHF (congestive heart failure) Code(s): I50.9 - HEART FAILURE, UNSPECIFIED Status: Acute Qualifiers: Heart failure type: combined systolic and diastolic Qualified Code(s): I50.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 AHA class III (2) Acute respiratory failure with hypoxia Code(s): J96.01 - ACUTE RESPIRATORY FAILURE WITH HYPOXIA Status: Acute Plan: Continue O2 supplementation, BiPAP PRN, Duonebs/Solumedrol (3) NSTEMI (non-ST elevated myocardial infarction) Code(s): I21.4 - NON-ST ELEVATION (NSTEMI) MYOCARDIAL INFARCTION Status: Acute Plan: Plan for heart cath if able to lay supine (4) CAD Status: Acute (5) COPD exacerbation Code(s): J44.1 - CHRONIC OBSTRUCTIVE PULMONARY DISEASE W (ACUTE) EXACERBATION Status: Acute (6) Cardiomyopathy Code(s): I42.9 - CARDIOMYOPATHY, UNSPECIFIED Status: Chronic (6) Tobacco abuse Code(s): Z72.0 - TOBACCO USE Status: Chronic (7) Atrial fibrillation with RVR Code(s): I48.91 - UNSPECIFIED ATRIAL FIBRILLATION Status: Resolved, rate is controlled - Plan Patient was admitted January 28, 2020 for severe sepsis, COPD exacerbation, acute hypoxic respiratory failure and new onset atrial fibrillation with RVR to CCU. She was treated with IV metoprolol, IV steroids and nebulizers. 2D echocardiogram showed atrial fibrillation and tachycardia, ejection fraction was 20 to 25%. She also had non-ST elevation myocardial infarction, with peak troponin of 23.5. She improved gradually in terms of orthopnea and underwent cardiac catheterization on February 07, 2020. She was found to have multivessel disease and was recommended urgent surgical coronary artery bypass graft. She was seen by cardiovascular surgery service. Plan was to optimize her prior to surgery. Pulmonary function test showed very severe mixed defect. She also is in atrial fibrillation, seen by electrophysiology service. She is rate controlled. Because of poor FEV1, she is apparently not a candidate for sternotomy. Electrophysiology service is considering biventricular pacing and AV node ablation next week. For now, continue diltiazem/digoxin for rate control.
[2020-02-10] MEDS: Diltiazem HCl SR 60 mg Capsule PO SCH ×2 (17:30→20:38)
[2020-02-10] MEDS: Atorvastatin Calcium 40 MG TAB PO SCH (20:38)
[2020-02-11] MEDS: Bisacodyl 10 MG SUPP PR SCH ×2 (02:31→09:05)
[2020-02-11 04:56] LABS: Hemoglobin 13.8 g/dL (12.0-16.0); Mean Corpuscular HGB CONC 34.5 g/dL (32.0-36.0); Mean Corpuscular Hemoglobin 30.9 pg (27.0-31.0); Mean Corpuscular Volume 89.4 fL (78.0-98.0); Mean Platelet Volume 8.1 fL (7.4-10.4); Platelet Count 164 thou/uL (130-400); RBC Distribution Width 14.4 % (11.5-14.5); Red Blood Cell (RBC) Count 4.48 mill/uL (4.20-5.40); White Blood Cell (WBC) Count 11.5 thou/uL (4.8-10.8)
[2020-02-11 05:00] LABS: Anion Gap 12 mmol/L (10-20); BUN (Urea Nitrogen) 26 mg/dL (9.8-20.1); Calc. Creatinine Clearance 109 mL/min (70-130); Calcium 8.5 mg/dL (7.8-10.44); Carbon Dioxide 28 mmol/L (23-31); Chloride 95 mmol/L (98-107); Estimated GFR-MDRD 79; Glucose 115 mg/dL (83-110); Potassium 3.5 mmol/L (3.5-5.1); Sodium 131 mmol/L (136-145)
[2020-02-11 05:05] LABS: Band 1 % (5-11); Eosinophils 4 % (0-10); Lymphocytes 14 % (21-51); MDiff Complete? YES; Monocytes 9 % (0-10); Neutrophil 71 % (42-75); Reactive Lymphocytes 1 % (0-10)
[2020-02-11] MEDS: Acetaminophen 325 MG TAB PO PRN ×2 (06:16→16:09)
[2020-02-11] MEDS: Furosemide 40 MG/4 ML VIAL SLOW IVP SCH ×2 (06:16→14:14)
[2020-02-11] MEDS ORDERED: Potassium Chloride 20 MEQ TAB PO SCH (06:30)
[2020-02-11] MEDS: Mometasone 200 MCG/Formoterol 5 MCG 120 PUFF INHALER INH SCH ×2 (07:28→18:34)
[2020-02-11] MEDS: Digoxin 0.25 MG TAB PO SCH (09:03)
[2020-02-11] MEDS: Famotidine 20 MG TAB PO SCH ×2 (09:03→21:34)
[2020-02-11] MEDS: Enoxaparin Sodium 100 MG/ML SYRINGE SC SCH ×2 (09:03→21:34)
[2020-02-11] MEDS: predniSONE 20 MG TAB PO SCH (09:03)
[2020-02-11] MEDS: Escitalopram Oxalate 20 mg Tablet PO SCH (09:03)
[2020-02-11] MEDS: ALPRAZolam 0.25 MG TAB PO SCH ×2 (09:03→21:34)
[2020-02-11] MEDS: Aspirin 81 mg Enteric Coated Tablet PO SCH (09:03)
[2020-02-11] MEDS: Senokot S 8.6-50 MG TAB PO SCH (09:05)
[2020-02-11 12:03] LABS: SARS-CoV-2 MS2 Positive; SARS-CoV-2 N Gene Negative; SARS-CoV-2 S Gene Negative; SARS-CoV-2 by NAA Not Detected (NotDetected); SARS-CoV-2 orf1ab Negative
--- NOTE | 2020-02-11 16:35 | PDOC.CPN ---
- Subjective Date: 02/11/20 Time: 16:33 Interval history: No chest pain, SOB with any exertion. - Review of Systems General: denies: fever/chills, weight/appetite/sleep changes, night sweats, fatigue Respiratory: denies: cough, congestion, shortness of breath, exercise intolerance Cardiovascular: denies: chest pain, palpitation, edema, paroxysmal nocturnal dyspnea, orthopnea Gastrointestinal: denies: nausea, vomiting, diarrhea, constipation, abd pain, GI bleeding Musculoskeletal: denies: pain, tenderness, stiffness, swelling, arthritis/arthralgias Neurological: denies: numbness, syncope, seizure, weakness - Objective Allergies/Adverse Reactions: Allergies Allergy/AdvReac Type Severity Reaction Status Date / Time diltiazem [From Cardizem] Allergy Intermediate Rash Verified 01/28/20 04:19 Penicillins Allergy Unknown Hives Verified 01/28/20 10:11 Visit Medications: Current Medications Acetaminophen (Acetaminophen 325 Mg Tab) 650 mg PO Q4H PRN PRN Reason: Headache/Fever/Mild Pain (1-3) Last Admin: 02/11/20 16:09 Dose: 650 mg Documented by: Acetaminophen/Codeine Phosphate (Acetaminophen/Codeine 30-300mg Tablet) 1 tab PO Q4H PRN PRN Reason: Mild Pain (1-3) Last Admin: 02/10/20 02:19 Dose: 1 tab Documented by: Acetaminophen/Codeine Phosphate (Acetaminophen/Codeine 30-300mg Tablet) 2 tab PO Q4H PRN PRN Reason: Moderate Pain (4-6) Albuterol/Ipratropium (Ipratropium/Albuterol Sulfate 3 Ml Neb) 3 ml NEB Q2H PRN PRN Reason: SOB &/or Wheezing Last Admin: 01/28/20 21:49 Dose: 3 ml Documented by: Albuterol/Ipratropium (Ipratropium/Albuterol Sulfate 3 Ml Neb) 3 ml NEB [id number] SCH Last Admin: 02/11/20 14:35 Dose: 3 ml Documented by: Alprazolam (Alprazolam 0.25 Mg Tab) 0.25 mg PO BID [facility] Last Admin: 02/11/20 09:03 Dose: 0.25 mg Documented by: Aspirin (Aspirin 81 Mg Enteric Coated Tablet) 81 mg PO DAILY [facility] Last Admin: 02/11/20 09:03 Dose: 81 mg Documented by: Atorvastatin Calcium (Atorvastatin Calcium 40 Mg Tab) 40 mg PO HS [facility] Last Admin: 02/10/20 20:38 Dose: 40 mg Documented by: Bisacodyl (Bisacodyl 5 Mg Tab) 10 mg PO DAILYPRN PRN PRN Reason: Constipation Bisacodyl (Bisacodyl 10 Mg Supp) 10 mg NM 0200,1000,1800 [facility] Last Admin: 02/11/20 09:05 Dose: Not Given Documented by: Dextrose/Water (Dextrose 50% Abboject 50 Ml Syringe) 25 gm IVP PRN PRN PRN Reason: HYPOGLYCEMIA PROTOCOL Digoxin (Digoxin 0.25 Mg Tab) 0.25 mg PO DAILY [facility] Last Admin: 02/11/20 09:03 Dose: 0.25 mg Documented by: Diltiazem HCl (Diltiazem Hcl 30 Mg Tablet) 30 mg PO QID [facility] Last Admin: 02/11/20 16:08 Dose: 30 mg Documented by: Enoxaparin Sodium (Enoxaparin Sodium 100 Mg/Ml Syringe) 100 mg SC 0900,2100 [facility] Last Admin: 02/11/20 09:03 Dose: 100 mg Documented by: Escitalopram Oxalate (Escitalopram Oxalate 20 Mg Tablet) 20 mg PO DAILY [facility] Last Admin: 02/11/20 09:03 Dose: 20 mg Documented by: Famotidine (Famotidine 20 Mg Tab) 20 mg PO BID [facility] Last Admin: 02/11/20 09:03 Dose: 20 mg Documented by: Furosemide (Furosemide 40 Mg/4 Ml Vial) 40 mg SLOW IVP 0600,1400 [facility] Last Admin: 02/11/20 14:14 Dose: 40 mg Documented by: Glucagon (Glucagon 1 Mg/Ml Vial) 1 mg IM PRN PRN PRN Reason: HYPOGLYCEMIA PROTOCOL Guaifenesin/Dextromethorphan (Guaifenesin Dm 100-10/5 Ml Udcup) 15 ml PO Q4H PRN PRN Reason: Cough Dextrose/Water (D5w) 1,000 mls @ 0 mls/hr IV INF PRN PRN Reason: HYPOGLYCEMIA PROTOCOL Insulin Human Regular (Insulin Regular 300 Units/3 Ml Vial) 0 units SC .MILD SLIDING SCALE PRN PRN Reason: Mild Correctional Scale Last Admin: 02/08/20 17:39 Dose: 2 unit Documented by: Laxative/Stool Softener (Laxative Of Choice) 1 each PO DAILY PRN PRN Reason: Constipation Metoprolol Tartrate (Metoprolol Tartrate 5 Mg/5 Ml Vial) 5 mg IVP Q4H PRN PRN Reason: atrial fib w/ rate over 110 Miscellaneous Medication (Electrolyte Replacement Protoc 1 Each Each) 1 each FS ASDIR [facility] Mometasone Furoate/Formoterol Fumar (Mometasone 200 Mcg/Formoterol 5 Mcg 120 Puff Inhaler) 2 puff INH BID-RT [facility] Last Admin: 02/11/20 07:28 Dose: 2 puff Documented by: Nitroglycerin (Nitroglycerin 0.4 Mg Tab (25 Tab Bottle)) 0.4 mg SL Q5MIN PRN PRN Reason: Chest Pain Ondansetron HCl (Ondansetron Pf 4 Mg/2 Ml Vial) 4 mg IVP Q6H PRN PRN Reason: Nausea/Vomiting, use 1st Last Admin: 01/29/20 20:40 Dose: 4 mg Documented by: Prednisone (Prednisone 20 Mg Tab) 20 mg PO QAM-WM [facility] Last Admin: 02/11/20 09:03 Dose: 20 mg Documented by: Senna (Senokot 8.6 Mg Tab) 2 tab PO HSPRN PRN PRN Reason: Constipation Last Admin: 01/31/20 17:21 Dose: 2 tab Documented by: Senna/Docusate Sodium (Senokot S 8.6-50 Mg Tab) 1 tab PO BID [facility] Last Admin: 02/11/20 09:05 Dose: Not Given Documented by: Sodium Chloride (Flush - Normal Saline 10 Ml Syringe) 10 ml IVF Q12HR [facility] Last Admin: 02/11/20 09:05 Dose: 10 ml Documented by: Sodium Chloride (Flush - Normal Saline 10 Ml Syringe) 10 ml IVF PRN PRN PRN Reason: Saline Flush Last Admin: 02/06/20 15:37 Dose: 10 ml Documented by: Vital Signs & Weight: Vital Signs Temp Pulse Resp BP Pulse Ox 02/11/20 14:35 109 H 16 02/11/20 11:15 98.1 F 109 H 22 H 98/70 96 02/11/20 09:03 111 H 96 02/11/20 08:17 98.4 F 127 H 24 H 92/68 100 02/11/20 07:28 110 H 14 02/11/20 07:18 110 H 14 Admit Weight 219 lb 4.8 oz Weight 232 lb - Physical Exam General: alert & oriented x3 HEENT: mucus membranes moist Neck: supple neck Cardiac: irregularly regular, tachycardia Lungs: decreased breath sounds Neuro: no lateralizing findings Abdomen: active bowel sounds Extremities: no edema Skin: clear Musculoskeletal: no pain - Labs Result Diagrams: 02/11/20 04:19 02/11/20 04:19 Troponin/CKMB CK-MB (CK-2) 206.6 ng/mL (0-6.6) H* 01/28/20 08:34 Troponin I 23.552 ng/mL (< 0.028) H* 01/28/20 03:10 - Telemetry Supraventricular conduction: atrial fibrillation - Assessment/Plan Assessment/Plan: 1. Severe miultivessel CAD. 2. Severe COPD 3. Ischemic Cardiomyopathy 4. Afib RVR 5. EF at 20-25% on Echo, closer to 40% on LHC. PLAN: - Continue medical therapy - Still not well controlled on amiodarone drip HR in the low 100's and with any exertion up to 150's. - AVJ ablation and biV PPM may be her only choice. - EP following.
[2020-02-11] MEDS ORDERED: Senokot S 8.6-50 MG TAB PO PRN (17:15)
[2020-02-11] MEDS ORDERED: Bisacodyl 10 MG SUPP PR PRN (17:15)
--- NOTE | 2020-02-11 17:32 | PDOC.HOSPP ---
- Subjective Encounter Date: 02/11/20 Encounter Time: 15:00 Subjective: F/u: afib Patient has no palpitations, no chest pain. She does have a chronic cough. Occasionally spits up blood - Objective Vital Signs & Weight: Vital Signs (12 hours) Temp Pulse Resp BP BP Pulse Ox 02/11/20 16:09 98.2 F 137 H 22 H 92/70 100 02/11/20 14:35 109 H 16 02/11/20 11:15 98.1 F 109 H 22 H 98/70 96 02/11/20 09:03 111 H 96 02/11/20 08:17 98.4 F 127 H 24 H 92/68 100 02/11/20 07:28 110 H 14 02/11/20 07:18 110 H 14 Weight Admit Weight 219 lb 4.8 oz Weight 232 lb Most Recent Monitor Data Heart Rate from ECG 101 NIBP 119/68 NIBP BP-Mean 85 Respiration from ECG 21 SpO2 85 I&O: 02/10/20 02/11/20 02/12/20 06:59 06:59 06:59 Intake Total 1800 0 1200 Output Total 400 Balance 1800 0 800 Result Diagrams: 02/11/20 04:19 02/11/20 04:19 Additional Labs: Accuchecks 02/11/20 02/11/20 02/10/20 11:10 06:13 17:04 POC Glucose 113 H 103 H 156 H 02/10/20 02/10/20 02/10/20 13:08 06:08 03:20 POC Glucose 136 H 105 H 102 H Hospitalist ROS - Review of Systems Constitutional: denies: fever, chills - Medication Medications: Active Medications Generic Name Dose Route Start Last Admin Trade Name Freq PRN Reason Stop Dose Admin Acetaminophen 650 mg 01/28/20 00:25 02/11/20 16:09 Acetaminophen 325 Mg Tab PO 650 mg Q4H PRN Administration Headache/Fever/Mild Pain (1-3) Acetaminophen/Codeine Phosphate 1 tab 02/07/20 11:26 02/10/20 02:19 Acetaminophen/Codeine 30-300mg Tablet PO 1 tab Q4H PRN Administration Mild Pain (1-3) Albuterol/Ipratropium 3 ml 01/28/20 00:25 01/28/20 21:49 Ipratropium/Albuterol Sulfate 3 Ml Neb NEB 3 ml Q2H PRN Administration SOB &/or Wheezing Albuterol/Ipratropium 3 ml 01/29/20 13:00 02/11/20 14:35 Ipratropium/Albuterol Sulfate 3 Ml Neb NEB 3 ml [id number] PAULA Administration Alprazolam 0.25 mg 02/04/20 09:00 02/11/20 09:03 Alprazolam 0.25 Mg Tab PO 0.25 mg BID PAULA Administration Aspirin 81 mg 01/28/20 09:00 02/11/20 09:03 Aspirin 81 Mg Enteric Coated Tablet PO 81 mg DAILY PAULA Administration Atorvastatin Calcium 40 mg 01/28/20 21:00 02/10/20 20:38 Atorvastatin Calcium 40 Mg Tab PO 40 mg HS PAULA Administration Digoxin 0.25 mg 02/09/20 09:00 02/11/20 09:03 Digoxin 0.25 Mg Tab PO 0.25 mg DAILY PAULA Administration Diltiazem HCl 30 mg 02/11/20 09:00 02/11/20 16:08 Diltiazem Hcl 30 Mg Tablet PO 30 mg QID PAULA Administration Enoxaparin Sodium 100 mg 02/07/20 21:00 02/11/20 09:03 Enoxaparin Sodium 100 Mg/Ml Syringe SC 100 mg 0900,2100 PAULA Administration Escitalopram Oxalate 20 mg 01/31/20 09:00 02/11/20 09:03 Escitalopram Oxalate 20 Mg Tablet PO 20 mg DAILY PAULA Administration Famotidine 20 mg 01/28/20 09:00 02/11/20 09:03 Famotidine 20 Mg Tab PO 20 mg BID PAULA Administration Furosemide 40 mg 02/01/20 06:00 02/11/20 14:14 Furosemide 40 Mg/4 Ml Vial SLOW IVP 40 mg 0600,1400 PAULA Administration Insulin Human Regular 0 units 01/28/20 00:26 02/08/20 17:39 Insulin Regular 300 Units/3 Ml Vial SC 2 unit .MILD SLIDING SCALE PRN Administration Mild Correctional Scale Mometasone Furoate/Formoterol Fumar 2 puff 01/28/20 18:30 02/11/20 07:28 Mometasone 200 Mcg/Formoterol 5 Mcg 120 Puff Inhaler INH 2 puff BID-RT PAULA Administration Ondansetron HCl 4 mg 01/28/20 00:25 01/29/20 20:40 Ondansetron Pf 4 Mg/2 Ml Vial IVP 4 mg Q6H PRN Administration Nausea/Vomiting, use 1st Prednisone 20 mg 02/09/20 08:00 02/11/20 09:03 Prednisone 20 Mg Tab PO 20 mg QAM-WM PAULA Administration Senna 2 tab 01/31/20 16:36 01/31/20 17:21 Senokot 8.6 Mg Tab PO 2 tab HSPRN PRN Administration Constipation Sodium Chloride 10 ml 02/01/20 09:00 02/11/20 09:05 Flush - Normal Saline 10 Ml Syringe IVF 10 ml Q12HR PAULA Administration Sodium Chloride 10 ml 02/01/20 08:30 02/06/20 15:37 Flush - Normal Saline 10 Ml Syringe IVF 10 ml PRN PRN Administration Saline Flush - Exam General Appearance: NAD, awake alert General - other findings: morbidly obese Eye: PERRL, anicteric sclera ENT: normocephalic atraumatic, no oropharyngeal lesions Neck: no JVD Heart: RRR, no murmur, no gallops, no rubs Respiratory: CTAB, no wheezes, no rales, no ronchi Gastrointestinal: soft, non-tender, non-distended, normal bowel sounds Extremities: no cyanosis, no clubbing, no edema Skin: normal turgor, no lesions, no rashes Neurological: cranial nerve grossly intact, normal sensation to touch, no weakness Hosp A/P - Plan ECHO: EF 20-25%, limited in assessment due to tachycardai Chest X ray 01/26: pulmonary edema CTA chest: small to moderate right greater than left pleural effusion. Pulmonary edema in bronchioles Chest X ray 01/30: enlarging pleural effusions Abd X ray: constipation Carotid doppler: no significant stenosis This is a 79 year old female with COPD who presented with shortness of breath , afib with RVR Afib with RVR - started on amiodarone - started on diltiazem 30 mg qid - cardiology is following, plan for biventricular pacemaker and ablation this week sometime - continue aspirin and therapeutic lovenox Acute hypoxic respiratory failure secondary to acute systolic heart failure - EF 20-25%, Xray showing pulmonary edema cardiology is following - continue IV lasix - repeat chest X ray today T7 compression fracture - asymptomatic, will monitor Hyponatremia - sodium down to 131, possibly from pulmonary edema, will repeat X ray Leukocytosis - improving, WBC down to 11.5 - not on antibiotics Dispo: pending ablation, pacemaker
[2020-02-11] MEDS: Insulin Regular 300 UNITS/3 ML VIAL SC PRN (18:16)
[2020-02-11] MEDS: Atorvastatin Calcium 40 MG TAB PO SCH (21:34)
[2020-02-12 04:39] LABS: Anion Gap 13 mmol/L (10-20); BUN (Urea Nitrogen) 24 mg/dL (9.8-20.1); Calc. Creatinine Clearance 100 mL/min (70-130); Calcium 8.4 mg/dL (7.8-10.44); Carbon Dioxide 29 mmol/L (23-31); Chloride 94 mmol/L (98-107); Estimated GFR-MDRD 72; Glucose 94 mg/dL (83-110); Potassium 3.9 mmol/L (3.5-5.1); Sodium 132 mmol/L (136-145)
[2020-02-12] MEDS: Furosemide 40 MG/4 ML VIAL SLOW IVP SCH ×2 (06:13→13:26)
[2020-02-12 06:26] LABS: Band 9 % (5-11); Eosinophils 1 % (0-10); Hemoglobin 13.4 g/dL (12.0-16.0); Lymphocytes 5 % (21-51); MDiff Complete? YES; Mean Corpuscular HGB CONC 33.8 g/dL (32.0-36.0); Mean Corpuscular Hemoglobin 30.3 pg (27.0-31.0); Mean Corpuscular Volume 89.7 fL (78.0-98.0); Mean Platelet Volume 8.2 fL (7.4-10.4); Monocytes 6 % (0-10); Neutrophil 79 % (42-75); Platelet Count 163 thou/uL (130-400); RBC Distribution Width 14.5 % (11.5-14.5); Red Blood Cell (RBC) Count 4.44 mill/uL (4.20-5.40); White Blood Cell (WBC) Count 13.3 thou/uL (4.8-10.8)
[2020-02-12] MEDS: Aspirin 81 mg Enteric Coated Tablet PO SCH (08:44)
[2020-02-12] MEDS: Famotidine 20 MG TAB PO SCH ×2 (08:44→20:51)
[2020-02-12] MEDS: Enoxaparin Sodium 100 MG/ML SYRINGE SC SCH ×2 (08:44→20:51)
[2020-02-12] MEDS: ALPRAZolam 0.25 MG TAB PO SCH ×2 (08:44→20:50)
[2020-02-12] MEDS: Escitalopram Oxalate 20 mg Tablet PO SCH (08:44)
[2020-02-12] MEDS: Digoxin 0.25 MG TAB PO SCH (08:44)
[2020-02-12] MEDS: predniSONE 20 MG TAB PO SCH (08:44)
[2020-02-12] MEDS: Metoprolol Tartrate 5 MG/5 ML VIAL IVP PRN (09:09)
[2020-02-12] MEDS: Mometasone 200 MCG/Formoterol 5 MCG 120 PUFF INHALER INH SCH ×2 (09:30→19:09)
--- NOTE | 2020-02-12 10:48 | PDOC.HOSPP ---
- Subjective Encounter Date: 02/12/20 Encounter Time: 10:46 Subjective: AFib - patient tachycardic this morning to 132. This self resolved on its own per nursing. Patient thinks she was agitated or anxious Rash left arm - noted last night. No itching or pain per patient Cough - patient states she has dry cough. States her throat feels sore from it and naylor some. She wants to try lozenge or cough drop Patient states she was upset she was told by someone who wasn't a nurse that she can't ambulate however she states she ambulates well and would like to go to the bathroom independently - Objective Vital Signs & Weight: Vital Signs (12 hours) Temp Pulse Resp BP Pulse Ox 02/12/20 08:44 135 H 02/12/20 08:43 98.0 F 124 H 22 H 96/66 99 02/12/20 03:30 97.7 F 78 15 115/67 94 L 02/12/20 00:00 96/65 Weight Admit Weight 219 lb 4.8 oz Weight 226 lb 3.2 oz Most Recent Monitor Data Heart Rate from ECG 101 NIBP 119/68 NIBP BP-Mean 85 Respiration from ECG 21 SpO2 85 I&O: 02/11/20 02/12/20 02/13/20 06:59 06:59 06:59 Intake Total 2049 2160 Output Total 1650 1100 Balance 2049 510 -1100 Result Diagrams: 02/12/20 04:08 02/12/20 04:08 Additional Labs: Accuchecks 02/12/20 02/11/20 02/11/20 05:42 20:08 17:32 POC Glucose 96 120 H 201 H 02/11/20 02/11/20 02/10/20 11:10 06:13 17:04 POC Glucose 113 H 103 H 156 H 02/10/20 02/10/20 02/10/20 13:08 06:08 03:20 POC Glucose 136 H 105 H 102 H Hospitalist ROS - Review of Systems Constitutional: denies: fever, chills - Medication Medications: Active Medications Generic Name Dose Route Start Last Admin Trade Name Freq PRN Reason Stop Dose Admin Acetaminophen 650 mg 01/28/20 00:25 02/11/20 16:09 Acetaminophen 325 Mg Tab PO 650 mg Q4H PRN Administration Headache/Fever/Mild Pain (1-3) Acetaminophen/Codeine Phosphate 1 tab 02/07/20 11:26 02/10/20 02:19 Acetaminophen/Codeine 30-300mg Tablet PO 1 tab Q4H PRN Administration Mild Pain (1-3) Albuterol/Ipratropium 3 ml 01/28/20 00:25 01/28/20 21:49 Ipratropium/Albuterol Sulfate 3 Ml Neb NEB 3 ml Q2H PRN Administration SOB &/or Wheezing Albuterol/Ipratropium 3 ml 01/29/20 13:00 02/11/20 18:33 Ipratropium/Albuterol Sulfate 3 Ml Neb NEB 3 ml [id number] PAULA Administration Alprazolam 0.25 mg 02/04/20 09:00 02/12/20 08:44 Alprazolam 0.25 Mg Tab PO 0.25 mg BID PAULA Administration Aspirin 81 mg 01/28/20 09:00 02/12/20 08:44 Aspirin 81 Mg Enteric Coated Tablet PO 81 mg DAILY PAULA Administration Atorvastatin Calcium 40 mg 01/28/20 21:00 02/11/20 21:34 Atorvastatin Calcium 40 Mg Tab PO 40 mg HS PAULA Administration Digoxin 0.25 mg 02/09/20 09:00 02/12/20 08:44 Digoxin 0.25 Mg Tab PO 0.25 mg DAILY PAULA Administration Diltiazem HCl 30 mg 02/11/20 09:00 02/12/20 08:44 Diltiazem Hcl 30 Mg Tablet PO 30 mg QID PAULA Administration Enoxaparin Sodium 100 mg 02/07/20 21:00 02/12/20 08:44 Enoxaparin Sodium 100 Mg/Ml Syringe SC 100 mg 0900,2100 PAULA Administration Escitalopram Oxalate 20 mg 01/31/20 09:00 02/12/20 08:44 Escitalopram Oxalate 20 Mg Tablet PO 20 mg DAILY PAULA Administration Famotidine 20 mg 01/28/20 09:00 02/12/20 08:44 Famotidine 20 Mg Tab PO 20 mg BID PAULA Administration Furosemide 40 mg 02/01/20 06:00 02/12/20 06:13 Furosemide 40 Mg/4 Ml Vial SLOW IVP 40 mg 0600,1400 PAULA Administration Insulin Human Regular 0 units 01/28/20 00:26 02/11/20 18:16 Insulin Regular 300 Units/3 Ml Vial SC 3 unit .MILD SLIDING SCALE PRN Administration Mild Correctional Scale Metoprolol Tartrate 5 mg 01/28/20 00:21 02/12/20 09:09 Metoprolol Tartrate 5 Mg/5 Ml Vial IVP 5 mg Q4H PRN Administration atrial fib w/ rate over 110 Mometasone Furoate/Formoterol Fumar 2 puff 01/28/20 18:30 02/11/20 18:34 Mometasone 200 Mcg/Formoterol 5 Mcg 120 Puff Inhaler INH 2 puff BID-RT PAULA Administration Ondansetron HCl 4 mg 01/28/20 00:25 01/29/20 20:40 Ondansetron Pf 4 Mg/2 Ml Vial IVP 4 mg Q6H PRN Administration Nausea/Vomiting, use 1st Prednisone 20 mg 02/09/20 08:00 02/12/20 08:44 Prednisone 20 Mg Tab PO 20 mg QAM-WM PAULA Administration Senna 2 tab 01/31/20 16:36 01/31/20 17:21 Senokot 8.6 Mg Tab PO 2 tab HSPRN PRN Administration Constipation Sodium Chloride 10 ml 02/01/20 09:00 02/12/20 08:45 Flush - Normal Saline 10 Ml Syringe IVF 10 ml Q12HR PAULA Administration Sodium Chloride 10 ml 02/01/20 08:30 02/06/20 15:37 Flush - Normal Saline 10 Ml Syringe IVF 10 ml PRN PRN Administration Saline Flush - Exam General Appearance: NAD, awake alert Eye: PERRL, anicteric sclera ENT: normocephalic atraumatic, no oropharyngeal lesions Neck: supple, no JVD Heart: RRR, no murmur, no gallops, no rubs Respiratory - other findings: diminished breath sounds diffusely Gastrointestinal: soft, non-tender, non-distended, normal bowel sounds, no palpable masses, no hepatomegaly, no splenomegaly, no bruit Extremities: no cyanosis, no clubbing, no edema Skin - other findings: left arm maculopapular rash, not painful Hosp A/P - Plan ECHO: EF 20-25%, limited in assessment due to tachycardai Chest X ray 01/26: pulmonary edema CTA chest: small to moderate right greater than left pleural effusion. Pulmonary edema in bronchioles Chest X ray 01/30: enlarging pleural effusions Abd X ray: constipation Carotid doppler: no significant stenosis This is a 79 year old female with COPD who presented with shortness of breath , afib with RVR Afib with RVR - started on amiodarone - continue on diltiazem 30 mg qid. Cardiology following appreciate recs. Plan for possible ablation this week and biventricular pacemaker - continue aspirin and therapeutic lovenox Acute hypoxic respiratory failure secondary to acute systolic heart failure - EF 20-25%, Xray showing pulmonary edema cardiology is following - continue IV lasix. Oxygen has been weaned down to 0.5 nasal cannula - repeat chest X ray today Cough - ordered tessalon pearls . Check chest Xray Left arm rash - ordered benadryl. Patient denies itching. Per nursing does not have allergy to diltiazem Hyponatremia - sodium improved to 132, possibly from pulmonary edema Leukocytosis - improving, WBC up to 13.3. Possibly from steroids. On oral prednisone - no fevers, not on antibiotics. CXR to be repeated today T7 compression fracture - asymptomatic, will monitor - check vitamin D level in am Dispo: pending ablation, pacemaker
--- NOTE | 2020-02-12 10:57 | RAD ---
XR Chest 1 View Portable History: Tachycardia Comparison: Radiograph January 31, 2020 Findings: Heart size mildly enlarged. Mild pulmonary venous congestion. Possible right lower lobe inf iltrate. Impression: Possible right lower lobe pneumonia.
--- NOTE | 2020-02-12 11:21 | PDOC.EVN ---
Event Note - Event Note Event Note: Reviewed CXR findings: noted to have mild pulmonary edema still, will continue with IV lasix. THere is also possible right lower lobe pneumonia. Will start IV levaquin
--- NOTE | 2020-02-12 12:05 | EKG ---
Test Reason : Blood Pressure : / mmHG Vent. Rate : 111 BPM Atrial Rate : 234 BPM P-R Int : 000 ms QRS Dur : 080 ms QT Int : 332 ms P-R-T Axes : 000 062 069 degrees QTc Int : 451 ms Atrial fibrillation with rapid ventricular response Anteroseptal infarct (cited on or before 27-JAN-2020) Abnormal ECG When compared with ECG of 27-JAN-2020 20:57, (Unconfirmed) Vent. rate has decreased BY 56 BPM Confirmed by DANIELE SANDOVAL (2) on 02/12/2020 12:04:38 PM Referred By: DANDRE Confirmed By:DANIELE SANDOVAL
[2020-02-12] MEDS: Benzonatate 100 MG CAP PO PRN (13:26)
[2020-02-12] MEDS: Acetaminophen 325 MG TAB PO PRN (13:26)
[2020-02-12] MEDS: Acetaminophen/Codeine 30-300mg Tablet PO PRN (15:43)
--- NOTE | 2020-02-12 16:12 | PDOC.CPN ---
- Subjective Date: 02/12/20 Time: 16:10 Interval history: She feels well today. Denies angina. breathing at baseline. - Review of Systems General: denies: fever/chills, weight/appetite/sleep changes, night sweats, fatigue Respiratory: denies: cough, congestion, shortness of breath, exercise intolerance Cardiovascular: denies: chest pain, palpitation, edema, paroxysmal nocturnal dyspnea, orthopnea Gastrointestinal: denies: nausea, vomiting, diarrhea, constipation, abd pain, GI bleeding Musculoskeletal: denies: pain, tenderness, stiffness, swelling, ar thritis/arthralgias Neurological: denies: numbness, syncope, seizure, weakness - Objective Allergies/Adverse Reactions: Allergies Allergy/AdvReac Type Severity Reaction Status Date / Time diltiazem [From Cardizem] Allergy Intermediate Rash Verified 01/28/20 04:19 Penicillins Allergy Unknown Hives Verified 01/28/20 10:11 Visit Medications: Current Medications Acetaminophen (Acetaminophen 325 Mg Tab) 650 mg PO Q4H PRN PRN Reason: Headache/Fever/Mild Pain (1-3) Last Admin: 02/12/20 13:26 Dose: 650 mg Documented by: Acetaminophen/Codeine Phosphate (Acetaminophen/Codeine 30-300mg Tablet) 1 tab PO Q4H PRN PRN Reason: Mild Pain (1-3) Last Admin: 02/12/20 15:43 Dose: 1 tab Documented by: Acetaminophen/Codeine Phosphate (Acetaminophen/Codeine 30-300mg Tablet) 2 tab PO Q4H PRN PRN Reason: Moderate Pain (4-6) Albuterol/Ipratropium (Ipratropium/Albuterol Sulfate 3 Ml Neb) 3 ml NEB Q2H PRN PRN Reason: SOB &/or Wheezing Last Admin: 01/28/20 21:49 Dose: 3 ml Documented by: Albuterol/Ipratropium (Ipratropium/Albuterol Sulfate 3 Ml Neb) 3 ml NEB [id number] Last Admin: 02/12/20 13:46 Dose: 3 ml Documented by: Alprazolam (Alprazolam 0.25 Mg Tab) 0.25 mg PO BID [facility] Last Admin: 02/12/20 08:44 Dose: 0.25 mg Documented by: Aspirin (Aspirin 81 Mg Enteric Coated Tablet) 81 mg PO DAILY [facility] Last Admin: 02/12/20 08:44 Dose: 81 mg Documented by: Atorvastatin Calcium (Atorvastatin Calcium 40 Mg Tab) 40 mg PO HS [facility] Last Admin: 02/11/20 21:34 Dose: 40 mg Documented by: Benzonatate (Benzonatate 100 Mg Cap) 100 mg PO TIDPRN PRN PRN Reason: Cough Last Admin: 02/12/20 13:26 Dose: 100 mg Documented by: Bisacodyl (Bisacodyl 5 Mg Tab) 10 mg PO DAILYPRN PRN PRN Reason: Constipation Bisacodyl (Bisacodyl 10 Mg Supp) 10 mg OK TIDPRN PRN PRN Reason: Constipation Dextrose/Water (Dextrose 50% Abboject 50 Ml Syringe) 25 gm IVP PRN PRN PRN Reason: HYPOGLYCEMIA PROTOCOL Digoxin (Digoxin 0.25 Mg Tab) 0.25 mg PO DAILY [facility] Last Admin: 02/12/20 08:44 Dose: 0.25 mg Documented by: Diltiazem HCl (Diltiazem Hcl 30 Mg Tablet) 30 mg PO QID [facility] Last Admin: 02/12/20 13:26 Dose: 30 mg Documented by: Diphenhydramine HCl (Diphenhydramine 25 Mg Cap) 25 mg PO Q6H PRN PRN Reason: Itching & Insomnia Enoxaparin Sodium (Enoxaparin Sodium 100 Mg/Ml Syringe) 100 mg SC 0900,2100 [facility] Last Admin: 02/12/20 08:44 Dose: 100 mg Documented by: Escitalopram Oxalate (Escitalopram Oxalate 20 Mg Tablet) 20 mg PO DAILY [facility] Last Admin: 02/12/20 08:44 Dose: 20 mg Documented by: Famotidine (Famotidine 20 Mg Tab) 20 mg PO BID [facility] Last Admin: 02/12/20 08:44 Dose: 20 mg Documented by: Furosemide (Furosemide 40 Mg/4 Ml Vial) 40 mg SLOW IVP 0600,1400 [facility] Last Admin: 02/12/20 13:26 Dose: 40 mg Documented by: Glucagon (Glucagon 1 Mg/Ml Vial) 1 mg IM PRN PRN PRN Reason: HYPOGLYCEMIA PROTOCOL Guaifenesin/Dextromethorphan (Guaifenesin Dm 100-10/5 Ml Udcup) 15 ml PO Q4H PRN PRN Reason: Cough Dextrose/Water (D5w) 1,000 mls @ 0 mls/hr IV INF PRN PRN Reason: HYPOGLYCEMIA PROTOCOL Levofloxacin 750 mg/ Device 150 mls @ 100 mls/hr IVPB Q24HR [facility] Last Admin: 02/12/20 13:27 Dose: 150 mls Documented by: Insulin Human Regular (Insulin Regular 300 Units/3 Ml Vial) 0 units SC .MILD SLIDING SCALE PRN PRN Reason: Mild Correctional Scale Last Admin: 02/11/20 18:16 Dose: 3 unit Documented by: Laxative/Stool Softener (Laxative Of Choice) 1 each PO DAILY PRN PRN Reason: Constipation Metoprolol Tartrate (Metoprolol Tartrate 5 Mg/5 Ml Vial) 5 mg IVP Q4H PRN PRN Reason: atrial fib w/ rate over 110 Last Admin: 02/12/20 09:09 Dose: 5 mg Documented by: Miscellaneous Medication (Electrolyte Replacement Protoc 1 Each Each) 1 each FS ASDIR [facility] Mometasone Furoate/Formoterol Fumar (Mometasone 200 Mcg/Formoterol 5 Mcg 120 Puff Inhaler) 2 puff INH BID-RT [facility] Last Admin: 02/12/20 09:30 Dose: 2 puff Documented by: Nitroglycerin (Nitroglycerin 0.4 Mg Tab (25 Tab Bottle)) 0.4 mg SL Q5MIN PRN PRN Reason: Chest Pain Ondansetron HCl (Ondansetron Pf 4 Mg/2 Ml Vial) 4 mg IVP Q6H PRN PRN Reason: Nausea/Vomiting, use 1st Last Admin: 01/29/20 20:40 Dose: 4 mg Documented by: Prednisone (Prednisone 20 Mg Tab) 20 mg PO QAM-WM [facility] Last Admin: 02/12/20 08:44 Dose: 20 mg Documented by: Senna (Senokot 8.6 Mg Tab) 2 tab PO HSPRN PRN PRN Reason: Constipation Last Admin: 01/31/20 17:21 Dose: 2 tab Documented by: Senna/Docusate Sodium (Senokot S 8.6-50 Mg Tab) 1 tab PO BIDPRN PRN PRN Reason: Constipation Sodium Chloride (Flush - Normal Saline 10 Ml Syringe) 10 ml IVF Q12HR [facility] Last Admin: 02/12/20 08:45 Dose: 10 ml Documented by: Sodium Chloride (Flush - Normal Saline 10 Ml Syringe) 10 ml IVF PRN PRN PRN Reason: Saline Flush Last Admin: 02/06/20 15:37 Dose: 10 ml Documented by: Vital Signs & Weight: Vital Signs Temp Pulse Resp BP Pulse Ox 02/12/20 13:46 117 H 20 02/12/20 09:30 103 H 16 02/12/20 09:20 103 H 16 02/12/20 08:44 135 H 02/12/20 08:43 98.0 F 124 H 22 H 96/66 99 Admit Weight 219 lb 4.8 oz Weight 226 lb 3.2 oz - Physical Exam General: alert & oriented x3 HEENT: mucus membranes moist Neck: supple neck Cardiac: irregularly regular Lungs: decreased breath sounds Neuro: no lateralizing findings Abdomen: active bowel sounds Extremities: no edema Skin: clear Musculoskeletal: no pain - Labs Result Diagrams: 02/12/20 04:08 02/12/20 04:08 Troponin/CKMB CK-MB (CK-2) 206.6 ng/mL (0-6.6) H* 01/28/20 08:34 Troponin I 23.552 ng/mL (< 0.028) H* 01/28/20 03:10 - Telemetry Supraventricular conduction: atrial fibrillation - Assessment/Plan Assessment/Plan: 1. Severe miultivessel CAD. 2. Severe COPD 3. Ischemic Cardiomyopathy 4. Afib RVR 5. EF at 20-25% on Echo, closer to 40% on LHC. PLAN: - Continue medical therapy - Still not well controlled on amiodarone drip HR, BP too low to increase BB. - AVJ ablation and biV PPM may be her only choice. - EP following.
[2020-02-12] MEDS: Atorvastatin Calcium 40 MG TAB PO SCH (20:51)
[2020-02-12] MEDS: diphenhydrAMINE 25 MG CAP PO PRN (20:51)
[2020-02-13 04:39] LABS: Eosinophils 1 % (0-10); Hemoglobin 13.6 g/dL (12.0-16.0); Lymphocytes 10 % (21-51); MDiff Complete? YES; Mean Corpuscular HGB CONC 34.1 g/dL (32.0-36.0); Mean Corpuscular Hemoglobin 30.9 pg (27.0-31.0); Mean Corpuscular Volume 90.6 fL (78.0-98.0); Monocytes 9 % (0-10); Neutrophil 80 % (42-75); Platelet Count 138 thou/uL (130-400); RBC Distribution Width 14.7 % (11.5-14.5); Red Blood Cell (RBC) Count 4.42 mill/uL (4.20-5.40); White Blood Cell (WBC) Count 10.9 thou/uL (4.8-10.8)
[2020-02-13 04:44] LABS: Anion Gap 13 mmol/L (10-20); BUN (Urea Nitrogen) 25 mg/dL (9.8-20.1); Calc. Creatinine Clearance 93 mL/min (70-130); Calcium 8.6 mg/dL (7.8-10.44); Carbon Dioxide 27 mmol/L (23-31); Chloride 97 mmol/L (98-107); Estimated GFR-MDRD 68; Glucose 105 mg/dL (83-110); Potassium 3.6 mmol/L (3.5-5.1); Sodium 133 mmol/L (136-145)
[2020-02-13] MEDS: Furosemide 40 MG/4 ML VIAL SLOW IVP SCH ×2 (06:12→15:09)
[2020-02-13] MEDS: Mometasone 200 MCG/Formoterol 5 MCG 120 PUFF INHALER INH SCH ×2 (07:16→19:20)
[2020-02-13] MEDS: Digoxin 0.25 MG TAB PO SCH (09:11)
[2020-02-13] MEDS: Escitalopram Oxalate 20 mg Tablet PO SCH (09:11)
[2020-02-13] MEDS: ALPRAZolam 0.25 MG TAB PO SCH ×2 (09:11→21:34)
[2020-02-13] MEDS: Famotidine 20 MG TAB PO SCH ×2 (09:12→21:34)
[2020-02-13] MEDS: Aspirin 81 mg Enteric Coated Tablet PO SCH (09:12)
[2020-02-13] MEDS: predniSONE 20 MG TAB PO SCH (09:12)
[2020-02-13] MEDS: Acetaminophen 325 MG TAB PO PRN (09:19)
[2020-02-13] MEDS: Enoxaparin Sodium 100 MG/ML SYRINGE SC SCH ×2 (09:29→21:36)
[2020-02-13] MEDS ORDERED: Enoxaparin Sodium 100 MG/ML SYRINGE SC SCH (09:30)
[2020-02-13] MEDS: Benzonatate 100 MG CAP PO PRN ×2 (09:34→21:34)
--- NOTE | 2020-02-13 10:45 | PDOC.EP ---
- Subjective Date: 02/13/20 Time: 09:00 Interval History: Feels fair today. She is reporting [place], especially with ambulation. No stroke like symptoms. No palpitations or major cardiac events. - Review of Systems Constitutional: reports: weakness. denies: chills, fever, malaise, sweats Respiratory: reports: cough, shortness of breath, SOB with excertion, wheezing. denies: dry, hemoptysis, pleuritic pain, sputum Cardiology: denies: chest pain, edema, heart racing, light headedness, palpitations, passing out Gastrointestinal: denies: abdominal pain, constipation, nausea, vomitting Musculoskeletal: denies: unstable gait, falls, leg pain - Objective Allergies/Adverse Reactions: Allergies Allergy/AdvReac Type Severity Reaction Status Date / Time diltiazem [From Cardizem] Allergy Intermediate Rash Verified 01/28/20 04:19 Penicillins Allergy Unknown Hives Verified 01/28/20 10:11 Current Medications Acetaminophen (Acetaminophen 325 Mg Tab) 650 mg PO Q4H PRN PRN Reason: Headache/Fever/Mild Pain (1-3) Last Admin: 02/13/20 09:19 Dose: 650 mg Documented by: Acetaminophen/Codeine Phosphate (Acetaminophen/Codeine 30-300mg Tablet) 1 tab PO Q4H PRN PRN Reason: Mild Pain (1-3) Last Admin: 02/12/20 15:43 Dose: 1 tab Documented by: Acetaminophen/Codeine Phosphate (Acetaminophen/Codeine 30-300mg Tablet) 2 tab PO Q4H PRN PRN Reason: Moderate Pain (4-6) Albuterol/Ipratropium (Ipratropium/Albuterol Sulfate 3 Ml Neb) 3 ml NEB Q2H PRN PRN Reason: SOB &/or Wheezing Last Admin: 01/28/20 21:49 Dose: 3 ml Documented by: Albuterol/Ipratropium (Ipratropium/Albuterol Sulfate 3 Ml Neb) 3 ml NEB [id number] SCH Last Admin: 02/13/20 07:15 Dose: 3 ml Documented by: Alprazolam (Alprazolam 0.25 Mg Tab) 0.25 mg PO BID [facility] Last Admin: 02/13/20 09:11 Dose: 0.25 mg Documented by: Aspirin (Aspirin 81 Mg Enteric Coated Tablet) 81 mg PO DAILY [facility] Last Admin: 02/13/20 09:12 Dose: 81 mg Documented by: Atorvastatin Calcium (Atorvastatin Calcium 40 Mg Tab) 40 mg PO HS [facility] Last Admin: 02/12/20 20:51 Dose: 40 mg Documented by: Benzonatate (Benzonatate 100 Mg Cap) 100 mg PO TIDPRN PRN PRN Reason: Cough Last Admin: 02/13/20 09:34 Dose: 100 mg Documented by: Bisacodyl (Bisacodyl 5 Mg Tab) 10 mg PO DAILYPRN PRN PRN Reason: Constipation Bisacodyl (Bisacodyl 10 Mg Supp) 10 mg MA TIDPRN PRN PRN Reason: Constipation Cholecalciferol (Cholecalciferol 1,000 Units (25 Mcg) Tab) 2,000 units PO DAILY [facility] Dextrose/Water (Dextrose 50% Abboject 50 Ml Syringe) 25 gm IVP PRN PRN PRN Reason: HYPOGLYCEMIA PROTOCOL Digoxin (Digoxin 0.25 Mg Tab) 0.25 mg PO DAILY [facility] Last Admin: 02/13/20 09:11 Dose: 0.25 mg Documented by: Diltiazem HCl (Diltiazem Hcl 30 Mg Tablet) 30 mg PO QID [facility] Last Admin: 02/13/20 09:12 Dose: 30 mg Documented by: Diphenhydramine HCl (Diphenhydramine 25 Mg Cap) 25 mg PO Q6H PRN PRN Reason: Itching & Insomnia Last Admin: 02/12/20 20:51 Dose: 25 mg Documented by: Enoxaparin Sodium (Enoxaparin Sodium 100 Mg/Ml Syringe) 100 mg SC 0900,2100 [facility] Enoxaparin Sodium (Enoxaparin Sodium 100 Mg/Ml Syringe) 100 mg SC NOW [facility] Stop: 02/13/20 12:00 Last Admin: 02/13/20 09:32 Dose: 100 mg Documented by: Escitalopram Oxalate (Escitalopram Oxalate 20 Mg Tablet) 20 mg PO DAILY [facility] Last Admin: 02/13/20 09:11 Dose: 20 mg Documented by: Famotidine (Famotidine 20 Mg Tab) 20 mg PO BID [facility] Last Admin: 02/13/20 09:12 Dose: 20 mg Documented by: Furosemide (Furosemide 40 Mg/4 Ml Vial) 40 mg SLOW IVP 0600,1400 [facility] Last Admin: 02/13/20 06:12 Dose: 40 mg Documented by: Glucagon (Glucagon 1 Mg/Ml Vial) 1 mg IM PRN PRN PRN Reason: HYPOGLYCEMIA PROTOCOL Guaifenesin/Dextromethorphan (Guaifenesin Dm 100-10/5 Ml Udcup) 15 ml PO Q4H PRN PRN Reason: Cough Dextrose/Water (D5w) 1,000 mls @ 0 mls/hr IV INF PRN PRN Reason: HYPOGLYCEMIA PROTOCOL Levofloxacin 750 mg/ Device 150 mls @ 100 mls/hr IVPB Q24HR [facility] Last Admin: 02/12/20 13:27 Dose: 150 mls Documented by: Insulin Human Regular (Insulin Regular 300 Units/3 Ml Vial) 0 units SC .MILD SLIDING SCALE PRN PRN Reason: Mild Correctional Scale Last Admin: 02/11/20 18:16 Dose: 3 unit Documented by: Laxative/Stool Softener (Laxative Of Choice) 1 each PO DAILY PRN PRN Reason: Constipation Metoprolol Tartrate (Metoprolol Tartrate 5 Mg/5 Ml Vial) 5 mg IVP Q4H PRN PRN Reason: atrial fib w/ rate over 110 Last Admin: 02/12/20 09:09 Dose: 5 mg Documented by: Miscellaneous Medication (Electrolyte Replacement Protoc 1 Each Each) 1 each FS ASDIR [facility] Mometasone Furoate/Formoterol Fumar (Mometasone 200 Mcg/Formoterol 5 Mcg 120 Puff Inhaler) 2 puff INH BID-RT [facility] Last Admin: 02/13/20 07:16 Dose: 2 puff Documented by: Nitroglycerin (Nitroglycerin 0.4 Mg Tab (25 Tab Bottle)) 0.4 mg SL Q5MIN PRN PRN Reason: Chest Pain Ondansetron HCl (Ondansetron Pf 4 Mg/2 Ml Vial) 4 mg IVP Q6H PRN PRN Reason: Nausea/Vomiting, use 1st Last Admin: 01/29/20 20:40 Dose: 4 mg Documented by: Prednisone (Prednisone 20 Mg Tab) 20 mg PO QAM-WM [facility] Last Admin: 02/13/20 09:12 Dose: 20 mg Documented by: Senna (Senokot 8.6 Mg Tab) 2 tab PO HSPRN PRN PRN Reason: Constipation Last Admin: 01/31/20 17:21 Dose: 2 tab Documented by: Senna/Docusate Sodium (Senokot S 8.6-50 Mg Tab) 1 tab PO BIDPRN PRN PRN Reason: Constipation Sodium Chloride (Flush - Normal Saline 10 Ml Syringe) 10 ml IVF Q12HR [facility] Last Admin: 02/13/20 09:12 Dose: 10 ml Documented by: Sodium Chloride (Flush - Normal Saline 10 Ml Syringe) 10 ml IVF PRN PRN PRN Reason: Saline Flush Last Admin: 02/06/20 15:37 Dose: 10 ml Documented by: Vital Signs & Weight: Vital Signs Temp Pulse Resp BP BP Pulse Ox 02/13/20 08:55 97.6 F 127 H 20 115/73 98 02/13/20 07:15 80 18 99 02/13/20 03:55 97.4 F L 87 15 108/59 L 98 Admit Weight 219 lb 4.8 oz Weight 225 lb 14.4 oz I/O: I/O 02/12/20 02/13/20 02/14/20 06:59 06:59 06:59 Intake Total 2160 2150 Output Total 1650 2200 Balance 510 -50 - Physical Exam General: alert & oriented x3, no apparent distress, speech clear, affect appropriate. negative: appears well HEENT: mucus membranes moist, normocephaly Neck: supple neck, midline trachea, no JVD/HJR, no lymphadenopathy Cardiology: irregularly irregular, tachycardia Lungs: no rhonchi, decreased breath sounds, wheezes. negative: normal exam Neurology: cranial nerve 2-12 intact, grossly intact, no lateralizing findings Abdomen: unremarkable, active bowel sounds, no pulsations/bruits - Chadsvasc Risk factors Age >75: 2 Vascular disease: 1 Female: 1 Risk Score: 4 - Labs Result Diagrams: 02/15/20 04:37 02/15/20 04:37 - EKG Interpretation EKG Method: Telemetry EKG shows: Atrial fibrillation - Assessment/Plan Assessment/Plan: ASSESSMENT AND PLAN: Ms. Jessica is a 79-year-old woman with history of heavy smoking, chronic obstructive pulmonary disease, hypertension, congestive heart failure, who was presenting with an acute myocardial infarction, noted to have three vessel coronary artery disease possibly requiring bypass surgery. She also has some moderate to severe reduced LVEF. The rate control of newly found atrial fibrillation is difficult mostly due to borderline blood pressures. Despite digoxin therapy and intermittent IV diltiazem, her rates are poorly controlled prompting EP consultation. She has slightly improved pulmonary status with adequate oxygenation on nasal cannula O2 supplementation. Currently does not appear major fluid overloaded on exam and her rate control has improved. \ Her problems are 1. Persistent atrial fibrillation, rapid ventricular rate. a. Difficult to control ventricular rate despite digoxin, IV diltiazem, metoprolol. 2. Subacute myocardial infarction with peak troponin I at 23. a. Left heart catheterization from 01/28/20 shows 90% proximal LAD, 25% diffuse OM, proximal RCA 100% with LVEF 40% to 45%. b. 2D echo from 01/28/2020 shows LVEF of 20% to 25% but difficult to assess due to atrial fibrillation, moderate left atrial enlargement, trace MR. 3. Advanced COPD and bilateral pleural effusion. a. Current smoking. 4. Hypertension. My initial plan was to be able to undergo the bypass surgery, she may though need better control of her atrial fibrillation. Given her advanced COPD, CAD, and cardiomyopathy she has no ideal antiarrhythmic options. She may be considered for pacemaker implantation, possibly BiV pacing implantation, AV danilo ablation. She is not a candidate for PVAI ablation in her tenuous medical condition. She has had some hypotension over the weekend on her digoxin and diltiazem regimen. Activity results in RVR up to 150bpm. I recommend continuing medical management, as she is high risk for complications with any invasive procedures but she may ultimately require BiV PPM implant with AV node ablation. Continue Lovenox. Oral anticoagulation to start on Discharge.
--- NOTE | 2020-02-13 11:45 | PRG ---
DATE OF SERVICE: 02/13/2020 SUBJECTIVE: Leanne Jessica is a 79-year-old, morbidly obese female, who is doing well. OBJECTIVE: VITAL SIGNS: Temperature 97, pulse 127, respiratory rate 20, saturations on room air, blood pressure 115/73. Denies any chest pain, difficulty breathing, or wheezing. CHEST: Decreased breath sounds. No wheezing. CARDIAC: Normal S1 and S2. No gallops. ABDOMEN: Soft. LABORATORY DATA: Unremarkable. Sodium 133. ASSESSMENT: Chronic obstructive pulmonary disease, sleep apnea, supraventricular tachycardia, multivessel disease. PLAN: Pulmonary parks, she appears to be stable. Disposition as per Cardiology. In the meantime, we will continue present neb treatments, supportive care. We will discuss with Cardiac Surgery regarding optimum time for surgery. Job ID: [id number]
[2020-02-13] MEDS: diphenhydrAMINE 25 MG CAP PO PRN (15:14)
--- NOTE | 2020-02-13 17:23 | PDOC.HOSPP ---
- Subjective Encounter Date: 02/13/20 Encounter Time: 10:00 Subjective: F/u: cough, tachycardia The patient states her cough is unchanged. She was started on antibiotics yesterday for possible pneumonia. She noted no improvement until she got some tessalon pearls Atrial fib: patient's heart rate still ranges from 115 to 132. EP stated medical management for now. Patient was given a dose of therapeutic lovenox this morning. Lower extremity rash: I was notified by nurse of lower extremity rash on legs which appears petechial. She was started on anticoagulation this morning - Objective Vital Signs & Weight: Vital Signs (12 hours) Temp Pulse Resp BP BP Pulse Ox 02/13/20 15:07 97.6 F 115 H 20 97/62 95 02/13/20 13:53 132 H 14 94 L 02/13/20 12:35 97.6 F 137 H 20 105/53 L 95 02/13/20 08:55 97.6 F 127 H 20 115/73 98 02/13/20 07:15 80 18 99 Weight Admit Weight 219 lb 4.8 oz Weight 225 lb 14.4 oz Most Recent Monitor Data Heart Rate from ECG 101 NIBP 119/68 NIBP BP-Mean 85 Respiration from ECG 21 SpO2 85 I&O: 02/12/20 02/13/20 02/14/20 06:59 06:59 06:59 Intake Total 2160 2150 Output Total 1650 2200 Balance 510 -50 Result Diagrams: 02/13/20 04:09 02/13/20 04:09 Additional Labs: Accuchecks 02/13/20 02/13/20 02/13/20 16:44 10:42 05:50 POC Glucose 157 H 101 H 105 H 02/12/20 02/12/20 20:30 16:58 POC Glucose 100 139 H Hospitalist ROS - Review of Systems Constitutional: denies: fever, chills - Medication Medications: Active Medications Generic Name Dose Route Start Last Admin Trade Name Freq PRN Reason Stop Dose Admin Acetaminophen 650 mg 01/28/20 00:25 02/13/20 09:19 Acetaminophen 325 Mg Tab PO 650 mg Q4H PRN Administration Headache/Fever/Mild Pain (1-3) Acetaminophen/Codeine Phosphate 1 tab 02/07/20 11:26 02/12/20 15:43 Acetaminophen/Codeine 30-300mg Tablet PO 1 tab Q4H PRN Administration Mild Pain (1-3) Albuterol/Ipratropium 3 ml 01/28/20 00:25 01/28/20 21:49 Ipratropium/Albuterol Sulfate 3 Ml Neb NEB 3 ml Q2H PRN Administration SOB &/or Wheezing Albuterol/Ipratropium 3 ml 01/29/20 13:00 02/13/20 13:53 Ipratropium/Albuterol Sulfate 3 Ml Neb NEB 3 ml [id number] [facility] Administration Alprazolam 0.25 mg 02/04/20 09:00 02/13/20 09:11 Alprazolam 0.25 Mg Tab PO 0.25 mg BID [facility] Administration Aspirin 81 mg 01/28/20 09:00 02/13/20 09:12 Aspirin 81 Mg Enteric Coated Tablet PO 81 mg DAILY [facility] Administration Atorvastatin Calcium 40 mg 01/28/20 21:00 02/12/20 20:51 Atorvastatin Calcium 40 Mg Tab PO 40 mg HS [facility] Administration Benzonatate 100 mg 02/12/20 09:35 02/13/20 09:34 Benzonatate 100 Mg Cap PO 100 mg TIDPRN PRN Administration Cough Digoxin 0.25 mg 02/09/20 09:00 02/13/20 09:11 Digoxin 0.25 Mg Tab PO 0.25 mg DAILY [facility] Administration Diltiazem HCl 30 mg 02/11/20 09:00 02/13/20 16:15 Diltiazem Hcl 30 Mg Tablet PO 30 mg QID [facility] Administration Diphenhydramine HCl 25 mg 02/12/20 09:35 02/13/20 15:14 Diphenhydramine 25 Mg Cap PO 25 mg Q6H PRN Administration Itching & Insomnia Escitalopram Oxalate 20 mg 01/31/20 09:00 02/13/20 09:11 Escitalopram Oxalate 20 Mg Tablet PO 20 mg DAILY [facility] Administration Famotidine 20 mg 01/28/20 09:00 02/13/20 09:12 Famotidine 20 Mg Tab PO 20 mg BID [facility] Administration Furosemide 40 mg 02/01/20 06:00 02/13/20 15:09 Furosemide 40 Mg/4 Ml Vial SLOW IVP 40 mg 0600,1400 [facility] Administration Levofloxacin 750 mg/ Device 150 mls @ 100 mls/hr 02/12/20 12:00 02/13/20 12:32 IVPB 150 mls Q24HR [facility] Administration Insulin Human Regular 0 units 01/28/20 00:26 02/11/20 18:16 Insulin Regular 300 Units/3 Ml Vial SC 3 unit .MILD SLIDING SCALE PRN Administration Mild Correctional Scale Metoprolol Tartrate 5 mg 01/28/20 00:21 02/12/20 09:09 Metoprolol Tartrate 5 Mg/5 Ml Vial IVP 5 mg Q4H PRN Administration atrial fib w/ rate over 110 Mometasone Furoate/Formoterol Fumar 2 puff 01/28/20 18:30 02/13/20 07:16 Mometasone 200 Mcg/Formoterol 5 Mcg 120 Puff Inhaler INH 2 puff BID-RT [facility] Administration Ondansetron HCl 4 mg 01/28/20 00:25 01/29/20 20:40 Ondansetron Pf 4 Mg/2 Ml Vial IVP 4 mg Q6H PRN Administration Nausea/Vomiting, use 1st Prednisone 20 mg 02/09/20 08:00 02/13/20 09:12 Prednisone 20 Mg Tab PO 20 mg QAM-WM [facility] Administration Senna 2 tab 01/31/20 16:36 01/31/20 17:21 Senokot 8.6 Mg Tab PO 2 tab HSPRN PRN Administration Constipation Sodium Chloride 10 ml 02/01/20 09:00 02/13/20 09:12 Flush - Normal Saline 10 Ml Syringe IVF 10 ml Q12HR [facility] Administration Sodium Chloride 10 ml 02/01/20 08:30 02/06/20 15:37 Flush - Normal Saline 10 Ml Syringe IVF 10 ml PRN PRN Administration Saline Flush - Exam General Appearance: NAD, awake alert Eye: PERRL, anicteric sclera ENT: normocephalic atraumatic, no oropharyngeal lesions Neck: no JVD Heart: no murmur, no gallops, no rubs Heart - other findings: irregularly irregular Respiratory: CTAB, no wheezes, no rales, no ronchi Gastrointestinal: soft, non-tender, non-distended, normal bowel sounds Extremities: no cyanosis, no clubbing, no edema Skin: normal turgor, no lesions, no rashes Neurological: cranial nerve grossly intact, normal sensation to touch, no new deficit Musculoskeletal: normal tone, normal strength, no muscle wasting Psychiatric: normal affect, normal behavior, A&O x 3, oriented to person Hosp A/P - Plan ECHO: EF 20-25%, limited in assessment due to tachycardai Chest X ray 01/26: pulmonary edema CTA chest: small to moderate right greater than left pleural effusion. Pulmonary edema in bronchioles Chest X ray 01/30: enlarging pleural effusions Abd X ray: constipation Carotid doppler: no significant stenosis Chest X ray 02/12: mild pulmonary venous congestion . RLL pneumonia This is a 79 year old female with COPD who presented with shortness of breath , afib with RVR Afib with RVR - she is on amiodarone, diltiazem 30 mg qid and digoxin 0.25 mg daily. Metoprolol 12.5 mg bid added today - she is on aspirin. She was also started on lovenox but developed some purpura on legs so may need to hold -Dr. Ragsdale consulted, recommended no ablation at this time Right lower lobe pneumonia - started on IV levaquin due to allergy to penicillin - will continue for now - added tessalon pearls for cough Acute hypoxic respiratory failure secondary to acute systolic heart failure - EF 20-25%, Xray showing pulmonary edema . She was on IV lasix 40 mg IV Bid and weaned to room air. Repeat chest Xray 02/11 shows only mild congestion - will switch lasix to oral lasix Left arm rash - resolved with benadryl Petechial/purpural rash on lower extremities - likely from lovenox. If continues to worsen may need to d/c Hyponatremia - sodium improved to 133 Leukocytosis - improved to 10.9, continue levaquin. Chest X ray showed RLL pneumonia T7 compression fracture - asymptomatic, will monitor Vitamin D deficiency - vitamin D level 12, started on vitamin D supplementation Physical deconditioning - patient has been refusing cardiac rehab multiple days in a row, encourage ambulation Dispo: pending ablation, pacemaker
--- NOTE | 2020-02-13 17:23 | PDOC.CPN ---
- Subjective Date: 02/13/20 Time: 17:00 - Review of Systems General: reports: fatigue. denies: fever/chills, weight/appetite/sleep changes, night sweats Respiratory: reports: shortness of breath Cardiovascular: denies: chest pain, palpitation, edema, paroxysmal nocturnal dyspnea, orthopnea Gastrointestinal: denies: nausea, vomiting, diarrhea, constipation, abd pain, GI bleeding Neurological: denies: numbness, syncope, seizure, weakness - Objective Allergies/Adverse Reactions: Allergies Allergy/AdvReac Type Severity Reaction Status Date / Time diltiazem [From Cardizem] Allergy Intermediate Rash Verified 01/28/20 04:19 Penicillins Allergy Unknown Hives Verified 01/28/20 10:11 Visit Medications: Current Medications Acetaminophen (Acetaminophen 325 Mg Tab) 650 mg PO Q4H PRN PRN Reason: Headache/Fever/Mild Pain (1-3) Last Admin: 02/13/20 09:19 Dose: 650 mg Documented by: Acetaminophen/Codeine Phosphate (Acetaminophen/Codeine 30-300mg Tablet) 1 tab PO Q4H PRN PRN Reason: Mild Pain (1-3) Last Admin: 02/12/20 15:43 Dose: 1 tab Documented by: Acetaminophen/Codeine Phosphate (Acetaminophen/Codeine 30-300mg Tablet) 2 tab PO Q4H PRN PRN Reason: Moderate Pain (4-6) Albuterol/Ipratropium (Ipratropium/Albuterol Sulfate 3 Ml Neb) 3 ml NEB Q2H PRN PRN Reason: SOB &/or Wheezing Last Admin: 01/28/20 21:49 Dose: 3 ml Documented by: Albuterol/Ipratropium (Ipratropium/Albuterol Sulfate 3 Ml Neb) 3 ml NEB [id number] SCH Last Admin: 02/13/20 13:53 Dose: 3 ml Documented by: Alprazolam (Alprazolam 0.25 Mg Tab) 0.25 mg PO BID [facility] Last Admin: 02/13/20 09:11 Dose: 0.25 mg Documented by: Aspirin (Aspirin 81 Mg Enteric Coated Tablet) 81 mg PO DAILY [facility] Last Admin: 02/13/20 09:12 Dose: 81 mg Documented by: Atorvastatin Calcium (Atorvastatin Calcium 40 Mg Tab) 40 mg PO [facility] Last Admin: 02/12/20 20:51 Dose: 40 mg Documented by: Benzonatate (Benzonatate 100 Mg Cap) 100 mg PO TIDPRN PRN PRN Reason: Cough Last Admin: 02/13/20 09:34 Dose: 100 mg Documented by: Bisacodyl (Bisacodyl 5 Mg Tab) 10 mg PO DAILYPRN PRN PRN Reason: Constipation Bisacodyl (Bisacodyl 10 Mg Supp) 10 mg TN TIDPRN PRN PRN Reason: Constipation Cholecalciferol (Cholecalciferol 1,000 Units (25 Mcg) Tab) 2,000 units PO DAILY [facility] Dextrose/Water (Dextrose 50% Abboject 50 Ml Syringe) 25 gm IVP PRN PRN PRN Reason: HYPOGLYCEMIA PROTOCOL Digoxin (Digoxin 0.25 Mg Tab) 0.25 mg PO DAILY [facility] Last Admin: 02/13/20 09:11 Dose: 0.25 mg Documented by: Diltiazem HCl (Diltiazem Hcl 30 Mg Tablet) 30 mg PO QID [facility] Last Admin: 02/13/20 16:15 Dose: 30 mg Documented by: Diphenhydramine HCl (Diphenhydramine 25 Mg Cap) 25 mg PO Q6H PRN PRN Reason: Itching & Insomnia Last Admin: 02/13/20 15:14 Dose: 25 mg Documented by: Enoxaparin Sodium (Enoxaparin Sodium 100 Mg/Ml Syringe) 100 mg SC 0900,2100 [facility] Escitalopram Oxalate (Escitalopram Oxalate 20 Mg Tablet) 20 mg PO DAILY [facility] Last Admin: 02/13/20 09:11 Dose: 20 mg Documented by: Famotidine (Famotidine 20 Mg Tab) 20 mg PO BID [facility] Last Admin: 02/13/20 09:12 Dose: 20 mg Documented by: Furosemide (Furosemide 40 Mg/4 Ml Vial) 40 mg SLOW IVP 0600,1400 [facility] Last Admin: 02/13/20 15:09 Dose: 40 mg Documented by: Glucagon (Glucagon 1 Mg/Ml Vial) 1 mg IM PRN PRN PRN Reason: HYPOGLYCEMIA PROTOCOL Guaifenesin/Dextromethorphan (Guaifenesin Dm 100-10/5 Ml Udcup) 15 ml PO Q4H PRN PRN Reason: Cough Dextrose/Water (D5w) 1,000 mls @ 0 mls/hr IV INF PRN PRN Reason: HYPOGLYCEMIA PROTOCOL Levofloxacin 750 mg/ Device 150 mls @ 100 mls/hr IVPB Q24HR [facility] Last Admin: 02/13/20 12:32 Dose: 150 mls Documented by: Insulin Human Regular (Insulin Regular 300 Units/3 Ml Vial) 0 units SC .MILD SLIDING SCALE PRN PRN Reason: Mild Correctional Scale Last Admin: 02/11/20 18:16 Dose: 3 unit Documented by: Laxative/Stool Softener (Laxative Of Choice) 1 each PO DAILY PRN PRN Reason: Constipation Metoprolol Tartrate (Metoprolol Tartrate 5 Mg/5 Ml Vial) 5 mg IVP Q4H PRN PRN Reason: atrial fib w/ rate over 110 Last Admin: 02/12/20 09:09 Dose: 5 mg Documented by: Miscellaneous Medication (Electrolyte Replacement Protoc 1 Each Each) 1 each FS ASDIR [facility] Mometasone Furoate/Formoterol Fumar (Mometasone 200 Mcg/Formoterol 5 Mcg 120 Puff Inhaler) 2 puff INH BID-RT [facility] Last Admin: 02/13/20 07:16 Dose: 2 puff Documented by: Nitroglycerin (Nitroglycerin 0.4 Mg Tab (25 Tab Bottle)) 0.4 mg SL Q5MIN PRN PRN Reason: Chest Pain Ondansetron HCl (Ondansetron Pf 4 Mg/2 Ml Vial) 4 mg IVP Q6H PRN PRN Reason: Nausea/Vomiting, use 1st Last Admin: 01/29/20 20:40 Dose: 4 mg Documented by: Prednisone (Prednisone 20 Mg Tab) 20 mg PO QAM-WM [facility] Last Admin: 02/13/20 09:12 Dose: 20 mg Documented by: Senna (Senokot 8.6 Mg Tab) 2 tab PO HSPRN PRN PRN Reason: Constipation Last Admin: 01/31/20 17:21 Dose: 2 tab Documented by: Senna/Docusate Sodium (Senokot S 8.6-50 Mg Tab) 1 tab PO BIDPRN PRN PRN Reason: Constipation Sodium Chloride (Flush - Normal Saline 10 Ml Syringe) 10 ml IVF Q12HR [facility] Last Admin: 02/13/20 09:12 Dose: 10 ml Documented by: Sodium Chloride (Flush - Normal Saline 10 Ml Syringe) 10 ml IVF PRN PRN PRN Reason: Saline Flush Last Admin: 02/06/20 15:37 Dose: 10 ml Documented by: Vital Signs & Weight: Vital Signs Temp Pulse Resp BP BP Pulse Ox 02/13/20 15:07 97.6 F 115 H 20 97/62 95 02/13/20 13:53 132 H 14 94 L 02/13/20 12:35 97.6 F 137 H 20 105/53 L 95 02/13/20 08:55 97.6 F 127 H 20 115/73 98 02/13/20 07:15 80 18 99 Admit Weight 219 lb 4.8 oz Weight 225 lb 14.4 oz - Quality Measures Condition: Atrial Fibrillation/Flutter (hx or current) (HR up to 150-160bpm) - Physical Exam HEENT: normocephaly Neck: no JVD/HJR Cardiac: irregularly regular Lungs: no wheezes, decreased breath sounds Neuro: grossly intact Abdomen: active bowel sounds, non-tender Extremities: no cyanosis, 1+ LE edema, other: (petechial rash this aftewrnoon that she says was not present this AM) Skin: rash Musculoskeletal: normal range of motion - Labs Result Diagrams: 02/13/20 04:09 02/13/20 04:09 Troponin/CKMB CK-MB (CK-2) 206.6 ng/mL (0-6.6) H* 01/28/20 08:34 Troponin I 23.552 ng/mL (< 0.028) H* 01/28/20 03:10 - Telemetry Supraventricular conduction: atrial fibrillation - Assessment/Plan Assessment/Plan: 1. Severe miultivessel CAD. High risk for CABG at this time.May need to consider high risk ptca/stent to the LAD.Can not revascularize other vessels by ptca. 2. Severe COPD.Sounds better ,off oxygen this afternoon. 3. Ischemic Cardiomyopathy 4. Afib RVR. Rate stillnot controlled despite multiple meds. This tachycardia is not good for the CAD/ischemia or for the CMY. EP assisting with the care. She may need an ablation and a bi-V device.Another option may be REX and early cardioversion of the atrial fib. 5. EF at 20-25% on Echo, closer to 40% on LHC. 6.Lower extremity petechial rash,could be due to medications/anti-biotics.
[2020-02-13] MEDS: Insulin Regular 300 UNITS/3 ML VIAL SC PRN (17:39)
[2020-02-13] MEDS: Senokot 8.6 MG TAB PO PRN (21:33)
[2020-02-13] MEDS: Atorvastatin Calcium 40 MG TAB PO SCH (21:34)
[2020-02-13] MEDS: Metoprolol Tartrate 25 MG TAB PO SCH (21:34)
[2020-02-14 04:22] LABS: Anion Gap 15 mmol/L (10-20); BUN (Urea Nitrogen) 26 mg/dL (9.8-20.1); Calc. Creatinine Clearance 85 mL/min (70-130); Carbon Dioxide 24 mmol/L (23-31); Chloride 98 mmol/L (98-107); Estimated GFR-MDRD 61; Glucose 100 mg/dL (83-110); Potassium 3.6 mmol/L (3.5-5.1); Sodium 133 mmol/L (136-145)
[2020-02-14 05:12] LABS: Band 4 % (5-11); Eosinophils 4 % (0-10); Hemoglobin 12.6 g/dL (12.0-16.0); Lymphocytes 10 % (21-51); MDiff Complete? YES; Mean Corpuscular HGB CONC 32.7 g/dL (32.0-36.0); Mean Corpuscular Hemoglobin 29.3 pg (27.0-31.0); Mean Corpuscular Volume 89.6 fL (78.0-98.0); Mean Platelet Volume 8.9 fL (7.4-10.4); Monocytes 1 % (0-10); Neutrophil 81 % (42-75); Platelet Count 143 thou/uL (130-400); RBC Distribution Width 14.8 % (11.5-14.5); Red Blood Cell (RBC) Count 4.31 mill/uL (4.20-5.40); White Blood Cell (WBC) Count 11.9 thou/uL (4.8-10.8)
[2020-02-14] MEDS: ALPRAZolam 0.25 MG TAB PO SCH (08:09)
[2020-02-14] MEDS: predniSONE 20 MG TAB PO SCH (08:09)
[2020-02-14] MEDS: Aspirin 81 mg Enteric Coated Tablet PO SCH (08:09)
[2020-02-14] MEDS: Famotidine 20 MG TAB PO SCH ×2 (08:10→22:03)
[2020-02-14] MEDS: Enoxaparin Sodium 100 MG/ML SYRINGE SC SCH (08:10)
[2020-02-14] MEDS: Digoxin 0.25 MG TAB PO SCH (08:10)
[2020-02-14] MEDS: Cholecalciferol 1,000 UNITS (25 MCG) TAB PO SCH (08:10)
[2020-02-14] MEDS: Escitalopram Oxalate 20 mg Tablet PO SCH (08:10)
[2020-02-14] MEDS: Metoprolol Tartrate 25 MG TAB PO SCH ×2 (08:11→22:04)
[2020-02-14] MEDS: Mometasone 200 MCG/Formoterol 5 MCG 120 PUFF INHALER INH SCH ×2 (08:48→19:10)
--- NOTE | 2020-02-14 10:15 | PRG ---
DATE OF SERVICE: 02/14/2020 SUBJECTIVE: This morning, she is sitting on the side of the bed without any oxygen and is doing well. She has 1+ ankle edema. Denies any coughing or chest pain. OBJECTIVE: VITAL SIGNS: Saturations are 94% on room air, pulse 80, respirations 18, blood pressure 120/80. CHEST: Decreased breath sounds. No wheezing. CARDIAC: Normal S1 and S2. No gallops. ABDOMEN: Soft. ASSESSMENT AND PLAN: 1. Chronic obstructive pulmonary disease. 2. Sleep apnea. 3. Cardiomyopathy. 4. SVT. Pulmonary parks, she is stable. Disposition as per Cardiology. Job ID: [id number]
--- NOTE | 2020-02-14 13:29 | PDOC.CPN ---
- Subjective Date: 02/14/20 Time: 13:00 - Review of Systems General: denies: fever/chills, weight/appetite/sleep changes, night sweats, fatigue Respiratory: denies: cough, congestion, shortness of breath, exercise intolerance Cardiovascular: denies: chest pain, palpitation, edema, paroxysmal nocturnal dyspnea, orthopnea Gastrointestinal: denies: nausea, vomiting, diarrhea, constipation, abd pain, GI bleeding Musculoskeletal: denies: pain, tenderness, stiffness, swelling, arthriti s/arthralgias Neurological: denies: numbness, syncope, seizure, weakness - Objective Allergies/Adverse Reactions: Allergies Allergy/AdvReac Type Severity Reaction Status Date / Time diltiazem [From Cardizem] Allergy Intermediate Rash Verified 01/28/20 04:19 Penicillins Allergy Unknown Hives Verified 01/28/20 10:11 Visit Medications: Current Medications Acetaminophen (Acetaminophen 325 Mg Tab) 650 mg PO Q4H PRN PRN Reason: Headache/Fever/Mild Pain (1-3) Last Admin: 02/13/20 09:19 Dose: 650 mg Documented by: Acetaminophen/Codeine Phosphate (Acetaminophen/Codeine 30-300mg Tablet) 1 tab PO Q4H PRN PRN Reason: Mild Pain (1-3) Last Admin: 02/12/20 15:43 Dose: 1 tab Documented by: Acetaminophen/Codeine Phosphate (Acetaminophen/Codeine 30-300mg Tablet) 2 tab PO Q4H PRN PRN Reason: Moderate Pain (4-6) Albuterol/Ipratropium (Ipratropium/Albuterol Sulfate 3 Ml Neb) 3 ml NEB Q2H PRN PRN Reason: SOB &/or Wheezing Last Admin: 01/28/20 21:49 Dose: 3 ml Documented by: Albuterol/Ipratropium (Ipratropium/Albuterol Sulfate 3 Ml Neb) 3 ml NEB [id number] SCH Last Admin: 02/14/20 08:45 Dose: 3 ml Documented by: Aspirin (Aspirin 81 Mg Enteric Coated Tablet) 81 mg PO DAILY [facility] Last Admin: 02/14/20 08:09 Dose: 81 mg Documented by: Atorvastatin Calcium (Atorvastatin Calcium 40 Mg Tab) 40 mg PO HS [facility] Last Admin: 02/13/20 21:34 Dose: 40 mg Documented by: Benzonatate (Benzonatate 100 Mg Cap) 100 mg PO TIDPRN PRN PRN Reason: Cough Last Admin: 02/13/20 21:34 Dose: 100 mg Documented by: Bisacodyl (Bisacodyl 5 Mg Tab) 10 mg PO DAILYPRN PRN PRN Reason: Constipation Bisacodyl (Bisacodyl 10 Mg Supp) 10 mg OK TIDPRN PRN PRN Reason: Constipation Cholecalciferol (Cholecalciferol 1,000 Units (25 Mcg) Tab) 2,000 units PO DAILY [facility] Last Admin: 02/14/20 08:10 Dose: 2,000 units Documented by: Dextrose/Water (Dextrose 50% Abboject 50 Ml Syringe) 25 gm IVP PRN PRN PRN Reason: HYPOGLYCEMIA PROTOCOL Digoxin (Digoxin 0.25 Mg Tab) 0.25 mg PO DAILY [facility] Last Admin: 02/14/20 08:10 Dose: 0.25 mg Documented by: Diltiazem HCl (Diltiazem Hcl 30 Mg Tablet) 30 mg PO QID [facility] Last Admin: 02/14/20 12:10 Dose: 30 mg Documented by: Diphenhydramine HCl (Diphenhydramine 25 Mg Cap) 25 mg PO Q6H PRN PRN Reason: Itching & Insomnia Last Admin: 02/13/20 15:14 Dose: 25 mg Documented by: Enoxaparin Sodium (Enoxaparin Sodium 100 Mg/Ml Syringe) 100 mg SC 0900,2100 [facility] Last Admin: 02/14/20 08:10 Dose: 100 mg Documented by: Escitalopram Oxalate (Escitalopram Oxalate 20 Mg Tablet) 20 mg PO DAILY [facility] Last Admin: 02/14/20 08:10 Dose: 20 mg Documented by: Famotidine (Famotidine 20 Mg Tab) 20 mg PO BID [facility] Last Admin: 02/14/20 08:10 Dose: 20 mg Documented by: Glucagon (Glucagon 1 Mg/Ml Vial) 1 mg IM PRN PRN PRN Reason: HYPOGLYCEMIA PROTOCOL Guaifenesin/Dextromethorphan (Guaifenesin Dm 100-10/5 Ml Udcup) 15 ml PO Q4H PRN PRN Reason: Cough Dextrose/Water (D5w) 1,000 mls @ 0 mls/hr IV INF PRN PRN Reason: HYPOGLYCEMIA PROTOCOL Levofloxacin 750 mg/ Device 150 mls @ 100 mls/hr IVPB Q24HR [facility] Last Admin: 02/14/20 12:10 Dose: 150 mls Documented by: Insulin Human Regular (Insulin Regular 300 Units/3 Ml Vial) 0 units SC .MILD SLIDING SCALE PRN PRN Reason: Mild Correctional Scale Last Admin: 02/13/20 17:39 Dose: 2 unit Documented by: Laxative/Stool Softener (Laxative Of Choice) 1 each PO DAILY PRN PRN Reason: Constipation Metoprolol Tartrate (Metoprolol Tartrate 5 Mg/5 Ml Vial) 5 mg IVP Q4H PRN PRN Reason: atrial fib w/ rate over 110 Last Admin: 02/12/20 09:09 Dose: 5 mg Documented by: Metoprolol Tartrate (Metoprolol Tartrate 25 Mg Tab) 25 mg PO BID [facility] Metoprolol Tartrate (Metoprolol Tartrate 25 Mg Tab) 12.5 mg PO NOW [facility] Stop: 02/14/20 15:30 Miscellaneous Medication (Electrolyte Replacement Protoc 1 Each Each) 1 each FS ASDIR [facility] Mometasone Furoate/Formoterol Fumar (Mometasone 200 Mcg/Formoterol 5 Mcg 120 Puff Inhaler) 2 puff INH BID-RT [facility] Last Admin: 02/14/20 08:48 Dose: 2 puff Documented by: Nitroglycerin (Nitroglycerin 0.4 Mg Tab (25 Tab Bottle)) 0.4 mg SL Q5MIN PRN PRN Reason: Chest Pain Ondansetron HCl (Ondansetron Pf 4 Mg/2 Ml Vial) 4 mg IVP Q6H PRN PRN Reason: Nausea/Vomiting, use 1st Last Admin: 01/29/20 20:40 Dose: 4 mg Documented by: Prednisone (Prednisone 20 Mg Tab) 20 mg PO QAM-WM [facility] Last Admin: 02/14/20 08:09 Dose: 20 mg Documented by: Senna (Senokot 8.6 Mg Tab) 2 tab PO HSPRN PRN PRN Reason: Constipation Last Admin: 02/13/20 21:33 Dose: 2 tab Documented by: Senna/Docusate Sodium (Senokot S 8.6-50 Mg Tab) 1 tab PO BIDPRN PRN PRN Reason: Constipation Sodium Chloride (Flush - Normal Saline 10 Ml Syringe) 10 ml IVF Q12HR [facility] Last Admin: 02/14/20 08:17 Dose: 10 ml Documented by: Sodium Chloride (Flush - Normal Saline 10 Ml Syringe) 10 ml IVF PRN PRN PRN Reason: Saline Flush Last Admin: 02/06/20 15:37 Dose: 10 ml Documented by: Vital Signs & Weight: Vital Signs Temp Pulse Resp BP BP BP BP 02/14/20 11:58 98.0 F 88 18 120/59 L 02/14/20 10:01 92/57 L 117/56 L 02/14/20 08:45 106 H 18 02/14/20 08:10 86 02/14/20 08:04 98.4 F 84 16 99/54 L 02/14/20 04:00 98.9 F 88 15 97/63 02/14/20 03:31 98.1 F 83 18 83/54 L Pulse Ox 02/14/20 11:58 96 02/14/20 10:01 02/14/20 08:45 98 02/14/20 08:10 02/14/20 08:04 94 L 02/14/20 04:00 93 L 02/14/20 03:31 91 L Admit Weight 219 lb 4.8 oz Weight 225 lb 14.4 oz - Quality Measures Condition: Atrial Fibrillation/Flutter (hx or current) (HR up to 150-160bpm) CV meds: Beta Anyi: Yes - Physical Exam General: alert & oriented x3 HEENT: mucus membranes moist Neck: no JVD/HJR, no lymphadenopathy Cardiac: irregularly regular Lungs: no wheeze, rales, rhonchi, decreased breath sounds Neuro: grossly intact Abdomen: unremarkable Extremities: 1+ LE edema Skin: rash Musculoskeletal: normal range of motion - Labs Result Diagrams: 02/14/20 03:31 02/14/20 03:31 Troponin/CKMB CK-MB (CK-2) 206.6 ng/mL (0-6.6) H* 01/28/20 08:34 Troponin I 23.552 ng/mL (< 0.028) H* 01/28/20 03:10 - Telemetry Supraventricular conduction: atrial fibrillation (rate is better controlled.) - Assessment/Plan Assessment/Plan: 1. Severe miultivessel CAD. High risk for CABG at this time.May need to consider high risk ptca/stent to the LAD.Can not revascularize other vessels by ptca. 2. Severe COPD.Sounds better ,off oxygen this afternoon. Ambulating in the halls. 3. Ischemic Cardiomyopathy 4. Afib RVR. Rate better controlled despite after adding low dose metoprolol. tolerating betablocker thus far. Will increASE TO 25MG BID.. Tachycardia is not good for the CAD/ischemia or for the CMY. EP assisting with the care. She may need an ablation and a bi-V device.Another option may be REX and early cardioversion of the atrial fib. 5. EF at 20-25% on Echo, closer to 40% on LHC. 6.Lower extremity petechial rash,could be due to medications/anti-biotics. Overall looks better. Slow progress. May eventually be a candidate for CABG if pulmonary function allows. Will need MAZE procedure an ARCHIE ligation if she becomes a surgical candidate. ramos
[2020-02-14] MEDS ORDERED: Metoprolol Tartrate 25 MG TAB PO SCH (13:30)
--- NOTE | 2020-02-14 15:33 | PDOC.EP ---
- Subjective Date: 02/14/20 Time: 15:33 Interval History: no significant changes overnight. she feels fair today but continues to have tachycardia with even minimal activity - Objective Allergies/Adverse Reactions: Allergies Allergy/AdvReac Type Severity Reaction Status Date / Time diltiazem [From Cardizem] Allergy Intermediate Rash Verified 01/28/20 04:19 Penicillins Allergy Unknown Hives Verified 01/28/20 10:11 Current Medications Acetaminophen (Acetaminophen 325 Mg Tab) 650 mg PO Q4H PRN PRN Reason: Headache/Fever/Mild Pain (1-3) Last Admin: 02/13/20 09:19 Dose: 650 mg Documented by: Acetaminophen/Codeine Phosphate (Acetaminophen/Codeine 30-300mg Tablet) 1 tab PO Q4H PRN PRN Reason: Mild Pain (1-3) Last Admin: 02/12/20 15:43 Dose: 1 tab Documented by: Acetaminophen/Codeine Phosphate (Acetaminophen/Codeine 30-300mg Tablet) 2 tab PO Q4H PRN PRN Reason: Moderate Pain (4-6) Albuterol/Ipratropium (Ipratropium/Albuterol Sulfate 3 Ml Neb) 3 ml NEB Q2H PRN PRN Reason: SOB &/or Wheezing Last Admin: 01/28/20 21:49 Dose: 3 ml Documented by: Albuterol/Ipratropium (Ipratropium/Albuterol Sulfate 3 Ml Neb) 3 ml NEB [id number] SCH Last Admin: 02/14/20 13:32 Dose: 3 ml Documented by: Aspirin (Aspirin 81 Mg Enteric Coated Tablet) 81 mg PO DAILY [facility] Last Admin: 02/14/20 08:09 Dose: 81 mg Documented by: Atorvastatin Calcium (Atorvastatin Calcium 40 Mg Tab) 40 mg PO HS [facility] Last Admin: 02/13/20 21:34 Dose: 40 mg Documented by: Benzonatate (Benzonatate 100 Mg Cap) 100 mg PO TIDPRN PRN PRN Reason: Cough Last Admin: 02/13/20 21:34 Dose: 100 mg Documented by: Bisacodyl (Bisacodyl 5 Mg Tab) 10 mg PO DAILYPRN PRN PRN Reason: Constipation Bisacodyl (Bisacodyl 10 Mg Supp) 10 mg [place] TIDPRN PRN PRN Reason: Constipation Cholecalciferol (Cholecalciferol 1,000 Units (25 Mcg) Tab) 2,000 units PO DAILY [facility] Last Admin: 02/14/20 08:10 Dose: 2,000 units Documented by: Dextrose/Water (Dextrose 50% Abboject 50 Ml Syringe) 25 gm IVP PRN PRN PRN Reason: HYPOGLYCEMIA PROTOCOL Digoxin (Digoxin 0.25 Mg Tab) 0.25 mg PO DAILY [facility] Last Admin: 02/14/20 08:10 Dose: 0.25 mg Documented by: Diltiazem HCl (Diltiazem Hcl 30 Mg Tablet) 30 mg PO QID [facility] Last Admin: 02/14/20 12:10 Dose: 30 mg Documented by: Diphenhydramine HCl (Diphenhydramine 25 Mg Cap) 25 mg PO Q6H PRN PRN Reason: Itching & Insomnia Last Admin: 02/13/20 15:14 Dose: 25 mg Documented by: Enoxaparin Sodium (Enoxaparin Sodium 100 Mg/Ml Syringe) 100 mg SC 0900,2100 [facility] Last Admin: 02/14/20 08:10 Dose: 100 mg Documented by: Escitalopram Oxalate (Escitalopram Oxalate 20 Mg Tablet) 20 mg PO DAILY [facility] Last Admin: 02/14/20 08:10 Dose: 20 mg Documented by: Famotidine (Famotidine 20 Mg Tab) 20 mg PO BID [facility] Last Admin: 02/14/20 08:10 Dose: 20 mg Documented by: Glucagon (Glucagon 1 Mg/Ml Vial) 1 mg IM PRN PRN PRN Reason: HYPOGLYCEMIA PROTOCOL Guaifenesin/Dextromethorphan (Guaifenesin Dm 100-10/5 Ml Udcup) 15 ml PO Q4H PRN PRN Reason: Cough Dextrose/Water (D5w) 1,000 mls @ 0 mls/hr IV INF PRN PRN Reason: HYPOGLYCEMIA PROTOCOL Levofloxacin 750 mg/ Device 150 mls @ 100 mls/hr IVPB Q24HR [facility] Last Admin: 02/14/20 12:10 Dose: 150 mls Documented by: Insulin Human Regular (Insulin Regular 300 Units/3 Ml Vial) 0 units SC .MILD SLIDING SCALE PRN PRN Reason: Mild Correctional Scale Last Admin: 02/13/20 17:39 Dose: 2 unit Documented by: Laxative/Stool Softener (Laxative Of Choice) 1 each PO DAILY PRN PRN Reason: Constipation Metoprolol Tartrate (Metoprolol Tartrate 5 Mg/5 Ml Vial) 5 mg IVP Q4H PRN PRN Reason: atrial fib w/ rate over 110 Last Admin: 02/12/20 09:09 Dose: 5 mg Documented by: Metoprolol Tartrate (Metoprolol Tartrate 25 Mg Tab) 25 mg PO BID [facility] Miscellaneous Medication (Electrolyte Replacement Protoc 1 Each Each) 1 each FS ASDIR [facility] Mometasone Furoate/Formoterol Fumar (Mometasone 200 Mcg/Formoterol 5 Mcg 120 Puff Inhaler) 2 puff INH BID-RT [facility] Last Admin: 02/14/20 08:48 Dose: 2 puff Documented by: Nitroglycerin (Nitroglycerin 0.4 Mg Tab (25 Tab Bottle)) 0.4 mg SL Q5MIN PRN PRN Reason: Chest Pain Ondansetron HCl (Ondansetron Pf 4 Mg/2 Ml Vial) 4 mg IVP Q6H PRN PRN Reason: Nausea/Vomiting, use 1st Last Admin: 01/29/20 20:40 Dose: 4 mg Documented by: Prednisone (Prednisone 20 Mg Tab) 20 mg PO QAM-WM [facility] Last Admin: 02/14/20 08:09 Dose: 20 mg Documented by: Senna (Senokot 8.6 Mg Tab) 2 tab PO HSPRN PRN PRN Reason: Constipation Last Admin: 02/13/20 21:33 Dose: 2 tab Documented by: Senna/Docusate Sodium (Senokot S 8.6-50 Mg Tab) 1 tab PO BIDPRN PRN PRN Reason: Constipation Sodium Chloride (Flush - Normal Saline 10 Ml Syringe) 10 ml IVF Q12HR [facility] Last Admin: 02/14/20 08:17 Dose: 10 ml Documented by: Sodium Chloride (Flush - Normal Saline 10 Ml Syringe) 10 ml IVF PRN PRN PRN Reason: Saline Flush Last Admin: 02/06/20 15:37 Dose: 10 ml Documented by: Vital Signs & Weight: Vital Signs Temp Pulse Resp BP BP BP BP 02/14/20 13:32 82 20 02/14/20 11:58 98.0 F 88 18 120/59 L 02/14/20 10:01 92/57 L 117/56 L 02/14/20 08:45 106 H 18 10/27/20 08:10 86 02/14/20 08:04 98.4 F 84 16 99/54 L 02/14/20 04:00 98.9 F 88 15 97/63 Pulse Ox 02/14/20 13:32 97 02/14/20 11:58 96 02/14/20 10:01 02/14/20 08:45 98 02/14/20 08:10 02/14/20 08:04 94 L 02/14/20 04:00 93 L Admit Weight 219 lb 4.8 oz Weight 225 lb 14.4 oz I/O: I/O 02/13/20 02/14/20 02/15/20 06:59 06:59 06:59 Intake Total 2150 1440 Output Total 2200 1925 Balance -50 -485 - Labs Result Diagrams: 02/14/20 03:31 02/14/20 03:31 - Assessment/Plan Assessment/Plan: ASSESSMENT AND PLAN: Ms. Jessica is a 79-year-old woman with history of heavy smoking, chronic obstructive pulmonary disease, hypertension, congestive heart failure, who was presenting with an acute myocardial infarction, noted to have three vessel coronary artery disease possibly requiring bypass surgery. She also has some moderate to severe reduced LVEF. The rate control of newly found atrial fibrillation is difficult mostly due to borderline blood pressures. Despite digoxin therapy and intermittent IV diltiazem, her rates are poorly controlled prompting EP consultation. She has slightly improved pulmonary status with adequate oxygenation on nasal cannula O2 supplementation. Currently does not appear major fluid overloaded on exam and her rate control has improved. \ Her problems are 1. Persistent atrial fibrillation, rapid ventricular rate. a. Difficult to control ventricular rate despite digoxin, IV diltiazem, metoprolol. 2. Subacute myocardial infarction with peak troponin I at 23. a. Left heart catheterization from 01/28/20 shows 9% proximal LAD, 25% diffuse OM, proximal subtotal RCA with LVEF 40% to 45%. b. 2D echo from 01/28/2020 shows LVEF of 20% to 25% but difficult to assess due to atrial fibrillation, moderate left atrial enlargement, trace MR. 3. Advanced COPD and bilateral pleural effusion. a. Current smoking. 4. Hypertension. My initial plan was to be able to undergo the bypass surgery, she may though need better control of her atrial fibrillation. Given her advanced COPD, CAD, and cardiomyopathy she has no ideal antiarrhythmic options. She is not a candidate for PVAI ablation in her tenuous medical condition. With the addition of metoprolol there has been some improved rate control and we will hold off on pacemaker /AV node ablation for now. I have discussed this with Dr. Cárdenas as well.
[2020-02-14] MEDS: Acetaminophen 325 MG TAB PO PRN (16:22)
[2020-02-14] MEDS: Clindamycin 150 MG CAP PO SCH ×2 (16:22→22:04)
--- NOTE | 2020-02-14 18:23 | PDOC.HOSPP ---
- Subjective Encounter Date: 02/14/20 Encounter Time: 09:00 Subjective: The patient states her cough is improved and she has no significant cough. She denies any chest pain. It seems to be better controlled today This morning when I evaluated the patient at 9 AM the patient was noted to have worsening petechial rash on the right lower extremity, but the left lower extremity seem to have improved. She denied itching. I discussed the possibility that this could be from anticoagulation and the patient decided to continue with anticoagulation given that the rash was not bothering her and see what happens. Around 12:00 pm, the patient and developed a worsening rash on her left leg and a mild rash on her left arm. Nursing staff informed me that the patient's Levaquin had been infusing 30 minutes previously. Patient denied any itching but was noted to have worsening petechiae on the left leg. - Objective Vital Signs & Weight: Vital Signs (12 hours) Temp Pulse Resp BP BP BP Pulse Ox 02/14/20 13:32 82 20 97 02/14/20 11:58 98.0 F 88 18 120/59 L 96 02/14/20 10:01 92/57 L 117/56 L 02/14/20 08:45 106 H 18 98 02/14/20 08:10 86 02/14/20 08:04 98.4 F 84 16 99/54 L 94 L Weight Admit Weight 219 lb 4.8 oz Weight 225 lb 14.4 oz Most Recent Monitor Data Heart Rate from ECG 101 NIBP 119/68 NIBP BP-Mean 85 Respiration from ECG 21 SpO2 85 I&O: 02/13/20 02/14/20 02/15/20 06:59 06:59 06:59 Intake Total 2150 1440 Output Total 2200 1925 Balance -50 -485 Result Diagrams: 02/14/20 03:31 02/14/20 03:31 Additional Labs: Accuchecks 02/14/20 02/14/20 02/13/20 17:10 05:40 20:09 POC Glucose 163 H 107 H 145 H Hospitalist ROS - Review of Systems Constitutional: denies: fever, chills - Medication Medications: Active Medications Generic Name Dose Route Start Last Admin Trade Name Freq PRN Reason Stop Dose Admin Acetaminophen 650 mg 01/28/20 00:25 02/14/20 16:22 Acetaminophen 325 Mg Tab PO 650 mg Q4H PRN Administration Headache/Fever/Mild Pain (1-3) Acetaminophen/Codeine Phosphate 1 tab 02/07/20 11:26 02/12/20 15:43 Acetaminophen/Codeine 30-300mg Tablet PO 1 tab Q4H PRN Administration Mild Pain (1-3) Albuterol/Ipratropium 3 ml 01/28/20 00:25 01/28/20 21:49 Ipratropium/Albuterol Sulfate 3 Ml Neb NEB 3 ml Q2H PRN Administration SOB &/or Wheezing Albuterol/Ipratropium 3 ml 01/29/20 13:00 02/14/20 13:32 Ipratropium/Albuterol Sulfate 3 Ml Neb NEB 3 ml [id number] [facility] Administration Aspirin 81 mg 01/28/20 09:00 02/14/20 08:09 Aspirin 81 Mg Enteric Coated Tablet PO 81 mg DAILY [facility] Administration Atorvastatin Calcium 40 mg 01/28/20 21:00 02/13/20 21:34 Atorvastatin Calcium 40 Mg Tab PO 40 mg HS [facility] Administration Benzonatate 100 mg 02/12/20 09:35 02/13/20 21:34 Benzonatate 100 Mg Cap PO 100 mg TIDPRN PRN Administration Cough Cholecalciferol 2,000 units 02/14/20 09:00 02/14/20 08:10 Cholecalciferol 1,000 Units (25 Mcg) Tab PO 2,000 units DAILY [facility] Administration Clindamycin HCl 300 mg 02/14/20 16:00 02/14/20 16:22 Clindamycin 150 Mg Cap PO 300 mg Q6H [facility] Administration Digoxin 0.25 mg 02/09/20 09:00 02/14/20 08:10 Digoxin 0.25 Mg Tab PO 0.25 mg DAILY [facility] Administration Diltiazem HCl 30 mg 02/11/20 09:00 02/14/20 16:22 Diltiazem Hcl 30 Mg Tablet PO 30 mg QID [facility] Administration Diphenhydramine HCl 25 mg 02/12/20 09:35 02/13/20 15:14 Diphenhydramine 25 Mg Cap PO 25 mg Q6H PRN Administration Itching & Insomnia Escitalopram Oxalate 20 mg 01/31/20 09:00 02/14/20 08:10 Escitalopram Oxalate 20 Mg Tablet PO 20 mg DAILY [facility] Administration Famotidine 20 mg 01/28/20 09:00 02/14/20 08:10 Famotidine 20 Mg Tab PO 20 mg BID [facility] Administration Insulin Human Regular 0 units 01/28/20 00:26 02/13/20 17:39 Insulin Regular 300 Units/3 Ml Vial SC 2 unit .MILD SLIDING SCALE PRN Administration Mild Correctional Scale Metoprolol Tartrate 5 mg 01/28/20 00:21 02/12/20 09:09 Metoprolol Tartrate 5 Mg/5 Ml Vial IVP 5 mg Q4H PRN Administration atrial fib w/ rate over 110 Mometasone Furoate/Formoterol Fumar 2 puff 01/28/20 18:30 02/14/20 08:48 Mometasone 200 Mcg/Formoterol 5 Mcg 120 Puff Inhaler INH 2 puff BID-RT [facility] Administration Ondansetron HCl 4 mg 01/28/20 00:25 01/29/20 20:40 Ondansetron Pf 4 Mg/2 Ml Vial IVP 4 mg Q6H PRN Administration Nausea/Vomiting, use 1st Prednisone 20 mg 02/09/20 08:00 02/14/20 08:09 Prednisone 20 Mg Tab PO 20 mg QAM-WM [facility] Administration Senna 2 tab 01/31/20 16:36 02/13/20 21:33 Senokot 8.6 Mg Tab PO 2 tab HSPRN PRN Administration Constipation Sodium Chloride 10 ml 02/01/20 09:00 02/14/20 08:17 Flush - Normal Saline 10 Ml Syringe IVF 10 ml Q12HR [facility] Administration Sodium Chloride 10 ml 02/01/20 08:30 02/06/20 15:37 Flush - Normal Saline 10 Ml Syringe IVF 10 ml PRN PRN Administration Saline Flush - Exam General Appearance: NAD, awake alert Eye: anicteric sclera ENT: normocephalic atraumatic, no oropharyngeal lesions Neck: no JVD Heart: RRR, no murmur, no gallops, no rubs Respiratory - other findings: Diminished breath sounds bilaterally Gastrointestinal: soft, non-tender, non-distended, normal bowel sounds Gastrointestinal - other findings: Extensive bruising noted around the abdomen Extremities: no cyanosis, no clubbing, no edema Skin: normal turgor, no lesions Skin - other findings: Worsening petechial rash on bilateral lower extremities. Neurological: cranial nerve grossly intact, normal sensation to touch, no weakness, no new deficit Musculoskeletal: normal tone, normal strength, no muscle wasting Hosp A/P - Plan ECHO: EF 20-25%, limited in assessment due to tachycardai Chest X ray 01/26: pulmonary edema CTA chest: small to moderate right greater than left pleural effusion. Pulmonary edema in bronchioles Chest X ray 01/30: enlarging pleural effusions Abd X ray: constipation Carotid doppler: no significant stenosis Chest X ray 02/12: mild pulmonary venous congestion . RLL pneumonia This is a 79 year old female with COPD who presented with shortness of breath , afib with RVR Afib with RVR - she is on amiodarone, diltiazem 30 mg qid and digoxin 0.25 mg daily. Toprol increased to 25 mg twice daily - she is on aspirin. She was also started on lovenox but due to extensive bruising will switch to Eliquis 5 mg twice daily -Dr. Ragsdale consulted. Initially recommended medical management but keeping n.p.o. in the event that she may need an ablation Right lower lobe pneumonia - started on IV levaquin due to allergy to penicillin. However due to worsening petechial rash on lower extremities, this will be discontinued and switched to clindamycin -continue tesgreer tran Acute hypoxic respiratory failure secondary to acute systolic heart failure - resolved - EF 20-25%, Xray showing pulmonary edema . She was on IV lasix 40 mg IV Bid and weaned to room air. Repeat chest Xray 02/11 shows only mild congestion -She was switched to oral Lasix this was discontinued due to hypotension Petechial/purpural rash on lower extremities -Possibly secondary to Levaquin versus anticoagulation. Will discontinue IV Levaquin and Lovenox will be switched to Eliquis Leukocytosis - increased to 11, will switch antibiotic to clindamycin. Could be stress response Hyponatremia - sodium improved to 133. WIll monitor. Currently asymptomatic T7 compression fracture - asymptomatic, will monitor Vitamin D deficiency - vitamin D level 12, started on vitamin D supplementation Physical deconditioning - patient has been refusing cardiac rehab multiple days in a row, encourage ambulation Dispo: monitor for improvement in rash and if heart rate controlled, can discontinue
[2020-02-14] MEDS: Apixaban 5 MG TAB PO SCH (22:04)
[2020-02-14] MEDS: Atorvastatin Calcium 40 MG TAB PO SCH (22:04)
[2020-02-14] MEDS: Acetaminophen/Codeine 30-300mg Tablet PO PRN (22:05)
[2020-02-15] MEDS: Clindamycin 150 MG CAP PO SCH ×4 (04:59→21:25)
[2020-02-15 05:18] LABS: Anion Gap 14 mmol/L (10-20); BUN (Urea Nitrogen) 23 mg/dL (9.8-20.1); Calc. Creatinine Clearance 103 mL/min (70-130); Carbon Dioxide 25 mmol/L (23-31); Chloride 97 mmol/L (98-107); Estimated GFR-MDRD 76; Glucose 102 mg/dL (83-110); Potassium 3.6 mmol/L (3.5-5.1); Sodium 132 mmol/L (136-145)
[2020-02-15 05:52] LABS: Band 3 % (5-11); Hemoglobin 12.7 g/dL (12.0-16.0); Lymphocytes 18 % (21-51); MDiff Complete? YES; Mean Corpuscular HGB CONC 34.3 g/dL (32.0-36.0); Mean Corpuscular Hemoglobin 30.7 pg (27.0-31.0); Mean Corpuscular Volume 89.6 fL (78.0-98.0); Mean Platelet Volume 8.1 fL (7.4-10.4); Monocytes 2 % (0-10); Myelocyte 1 % (0-0); Neutrophil 76 % (42-75); Platelet Count 130 thou/uL (130-400); RBC Distribution Width 15.1 % (11.5-14.5); Red Blood Cell (RBC) Count 4.13 mill/uL (4.20-5.40); White Blood Cell (WBC) Count 9.8 thou/uL (4.8-10.8)
[2020-02-15] MEDS: Mometasone 200 MCG/Formoterol 5 MCG 120 PUFF INHALER INH SCH ×2 (07:00→18:32)
[2020-02-15] MEDS: Metoprolol Tartrate 25 MG TAB PO SCH ×2 (08:11→21:25)
[2020-02-15] MEDS: Digoxin 0.25 MG TAB PO SCH (08:11)
[2020-02-15] MEDS: Apixaban 5 MG TAB PO SCH ×2 (08:11→21:24)
[2020-02-15] MEDS: Famotidine 20 MG TAB PO SCH ×2 (08:11→21:24)
[2020-02-15] MEDS: Cholecalciferol 1,000 UNITS (25 MCG) TAB PO SCH (08:11)
[2020-02-15] MEDS: predniSONE 20 MG TAB PO SCH (08:11)
[2020-02-15] MEDS: Escitalopram Oxalate 20 mg Tablet PO SCH (08:11)
[2020-02-15] MEDS: Aspirin 81 mg Enteric Coated Tablet PO SCH (08:11)
--- NOTE | 2020-02-15 08:17 | EKG ---
Test Reason : Blood Pressure : / mmHG Vent. Rate : 110 BPM Atrial Rate : 000 BPM P-R Int : 000 ms QRS Dur : 080 ms QT Int : 290 ms P-R-T Axes : 000 055 183 degrees QTc Int : 392 ms Atrial fibrillation with rapid ventricular response Low voltage QRS Cannot rule out Anteroseptal infarct (cited on or before 27-JAN-2020) Abnormal ECG When compared with ECG of 10-FEB-2020 07:14, Non-specific change in ST segment in Anterior leads T wave inversion more evident in Anterolateral leads Confirmed by DANIELE SANDOVAL (2) on 02/15/2020 8:16:38 AM Referred By: ERMIAS Confirmed By:DANIELE SANDOVAL
--- NOTE | 2020-02-15 12:12 | CON ---
DATE OF CONSULTATION: HISTORY OF PRESENT ILLNESS: Leanne Jessica is a 79-year-old female, who has been in the hospital numerous times. Unfortunately, medical record number has been changed. She now presented to the ER yesterday with apparently shortness of breath without any chest pain, chills, or sweats. An x-ray showed right pleural effusion, which underwent a thoracentesis. It is unclear why it was done, but I reviewed several x-rays, which had showed the effusion since 2017 at least three years ago. She is being dialyzed this morning, appears to be in no distress. No chest pain. No chills or sweats. PAST MEDICAL HISTORY: Pertinent for end-stage coronary artery disease, chronic renal failure on dialysis, severe deconditioning, advanced age, and previous [place]. PREVIOUS SURGERIES: Hemorrhoid, tonsils, access, and cardiac stent. SOCIAL HISTORY: No recent smoking history. HOME MEDICATIONS: Includes; 1. Hydralazine. 2. . 3. Melatonin. 4. Cozaar 50. 5. Lactulose. 6. . 7. Coreg 12.5. 8. Tylenol. 9. Prozac. ALLERGIES: MULTIPLE; IODINE, LATEX, AND TETRACYCLINE. PHYSICAL EXAMINATION: GENERAL: She is in no distress. VITAL SIGNS: Temperature 98, pulse 70, respirations 20, saturations are 100% on 4 L, and blood pressure 160/72. CHEST: No wheezing. No crackles. CARDIAC: Normal S1 and S2. No gallops. ABDOMEN: Soft. LABORATORY DATA: White count 10,000, , and platelet count . Creatinine 3.7, BUN 34, and sodium 133. Troponin is and BNP is 1772. ASSESSMENT AND PLAN: 1. Chronic right pleural effusion, previous thoracentesis with reaccumulation appears to be relatively small. 2. Renal failure. 3. Congestive heart failure and diabetes. At this stage, I do not think there is a need to do a thoracentesis. Continue aggressive dialysis. Supportive care. We will discuss with primary care physician. Consultation note, 70 minutes, 50% direct patient care. Job ID: [id number]
--- NOTE | 2020-02-15 12:24 | PDOC.EP ---
- Subjective Date: 02/15/20 Time: 12:24 Interval History: no new events overnight. She feels fair.Reports progressive rash to BLE, possible medication reaction being investigated by hospitalist - Review of Systems Constitutional: denies: chills, fever, malaise, sweats, weakness Respiratory: reports: shortness of breath. denies: cough, dry, hemoptysis, pleuritic pain, SOB with excertion, sputum, wheezing Cardiology: denies: chest pain, edema, heart racing, light headedness, palpitations, passing out Gastrointestinal: denies: abdominal pain, constipation, diarrhea Musculoskeletal: denies: unstable gait, falls, leg pain - Objective Allergies/Adverse Reactions: Allergies Allergy/AdvReac Type Severity Reaction Status Date / Time diltiazem [From Cardizem] Allergy Intermediate Rash Verified 01/28/20 04:19 Penicillins Allergy Unknown Hives Verified 01/28/20 10:11 Current Medications Acetaminophen (Acetaminophen 325 Mg Tab) 650 mg PO Q4H PRN PRN Reason: Headache/Fever/Mild Pain (1-3) Last Admin: 02/14/20 16:22 Dose: 650 mg Documented by: Acetaminophen/Codeine Phosphate (Acetaminophen/Codeine 30-300mg Tablet) 1 tab PO Q4H PRN PRN Reason: Mild Pain (1-3) Last Admin: 02/14/20 22:05 Dose: 1 tab Documented by: Acetaminophen/Codeine Phosphate (Acetaminophen/Codeine 30-300mg Tablet) 2 tab PO Q4H PRN PRN Reason: Moderate Pain (4-6) Albuterol/Ipratropium (Ipratropium/Albuterol Sulfate 3 Ml Neb) 3 ml NEB Q2H PRN PRN Reason: SOB &/or Wheezing Last Admin: 01/28/20 21:49 Dose: 3 ml Documented by: Albuterol/Ipratropium (Ipratropium/Albuterol Sulfate 3 Ml Neb) 3 ml NEB [id number] Last Admin: 02/15/20 07:01 Dose: 3 ml Documented by: Apixaban (Apixaban 5 Mg Tab) 5 mg PO BID [facility] Last Admin: 02/15/20 08:11 Dose: 5 mg Documented by: Aspirin (Aspirin 81 Mg Enteric Coated Tablet) 81 mg PO DAILY [facility] Last Admin: 02/15/20 08:11 Dose: 81 mg Documented by: Atorvastatin Calcium (Atorvastatin Calcium 40 Mg Tab) 40 mg PO HS [facility] Last Admin: 02/14/20 22:04 Dose: 40 mg Documented by: Benzonatate (Benzonatate 100 Mg Cap) 100 mg PO TIDPRN PRN PRN Reason: Cough Last Admin: 02/13/20 21:34 Dose: 100 mg Documented by: Bisacodyl (Bisacodyl 5 Mg Tab) 10 mg PO DAILYPRN PRN PRN Reason: Constipation Last Admin: 02/15/20 10:34 Dose: 10 mg Documented by: Bisacodyl (Bisacodyl 10 Mg Supp) 10 mg GA TIDPRN PRN PRN Reason: Constipation Cholecalciferol (Cholecalciferol 1,000 Units (25 Mcg) Tab) 2,000 units PO DAILY [facility] Last Admin: 02/15/20 08:11 Dose: 2,000 units Documented by: Clindamycin HCl (Clindamycin 150 Mg Cap) 300 mg PO Q6H [facility] Last Admin: 02/15/20 10:31 Dose: 300 mg Documented by: Dextrose/Water (Dextrose 50% Abboject 50 Ml Syringe) 25 gm IVP PRN PRN PRN Reason: HYPOGLYCEMIA PROTOCOL Digoxin (Digoxin 0.25 Mg Tab) 0.25 mg PO DAILY [facility] Last Admin: 02/15/20 08:11 Dose: 0.25 mg Documented by: Diltiazem HCl (Diltiazem Hcl 30 Mg Tablet) 30 mg PO QID [facility] Last Admin: 02/15/20 08:11 Dose: 30 mg Documented by: Diphenhydramine HCl (Diphenhydramine 25 Mg Cap) 25 mg PO Q6H PRN PRN Reason: Itching & Insomnia Last Admin: 02/13/20 15:14 Dose: 25 mg Documented by: Escitalopram Oxalate (Escitalopram Oxalate 20 Mg Tablet) 20 mg PO DAILY [facility] Last Admin: 02/15/20 08:11 Dose: 20 mg Documented by: Famotidine (Famotidine 20 Mg Tab) 20 mg PO BID [facility] Last Admin: 02/15/20 08:11 Dose: 20 mg Documented by: Glucagon (Glucagon 1 Mg/Ml Vial) 1 mg IM PRN PRN PRN Reason: HYPOGLYCEMIA PROTOCOL Guaifenesin/Dextromethorphan (Guaifenesin Dm 100-10/5 Ml Udcup) 15 ml PO Q4H PRN PRN Reason: Cough Dextrose/Water (D5w) 1,000 mls @ 0 mls/hr IV INF PRN PRN Reason: HYPOGLYCEMIA PROTOCOL Insulin Human Regular (Insulin Regular 300 Units/3 Ml Vial) 0 units SC .MILD SLIDING SCALE PRN PRN Reason: Mild Correctional Scale Last Admin: 02/13/20 17:39 Dose: 2 unit Documented by: Laxative/Stool Softener (Laxative Of Choice) 1 each PO DAILY PRN PRN Reason: Constipation Metoprolol Tartrate (Metoprolol Tartrate 5 Mg/5 Ml Vial) 5 mg IVP Q4H PRN PRN Reason: atrial fib w/ rate over 110 Last Admin: 02/12/20 09:09 Dose: 5 mg Documented by: Metoprolol Tartrate (Metoprolol Tartrate 25 Mg Tab) 25 mg PO BID [facility] Last Admin: 02/15/20 08:11 Dose: 25 mg Documented by: Miscellaneous Medication (Electrolyte Replacement Protoc 1 Each Each) 1 each FS ASDIR [facility] Mometasone Furoate/Formoterol Fumar (Mometasone 200 Mcg/Formoterol 5 Mcg 120 Puff Inhaler) 2 puff INH BID-RT [facility] Last Admin: 02/15/20 07:00 Dose: 2 puff Documented by: Nitroglycerin (Nitroglycerin 0.4 Mg Tab (25 Tab Bottle)) 0.4 mg SL Q5MIN PRN PRN Reason: Chest Pain Ondansetron HCl (Ondansetron Pf 4 Mg/2 Ml Vial) 4 mg IVP Q6H PRN PRN Reason: Nausea/Vomiting, use 1st Last Admin: 01/29/20 20:40 Dose: 4 mg Documented by: Prednisone (Prednisone 20 Mg Tab) 20 mg PO QAM-WM [facility] Last Admin: 02/15/20 08:11 Dose: 20 mg Documented by: Senna (Senokot 8.6 Mg Tab) 2 tab PO HSPRN PRN PRN Reason: Constipation Last Admin: 02/13/20 21:33 Dose: 2 tab Documented by: Senna/Docusate Sodium (Senokot S 8.6-50 Mg Tab) 1 tab PO BIDPRN PRN PRN Reason: Constipation Sodium Chloride (Flush - Normal Saline 10 Ml Syringe) 10 ml IVF Q12HR [facility]UL[facility] Last Admin: 02/15/20 08:12 Dose: 10 ml Documented by: Sodium Chloride (Flush - Normal Saline 10 Ml Syringe) 10 ml IVF PRN PRN PRN Reason: Saline Flush Last Admin: 02/06/20 15:37 Dose: 10 ml Documented by: Vital Signs & Weight: Vital Signs Temp Pulse Resp BP BP Pulse Ox 02/15/20 12:13 98.1 F 88 20 110/68 93 L 02/15/20 07:50 97.3 F L 90 17 101/65 93 L 02/15/20 07:01 95 16 02/15/20 04:00 98.5 F 80 18 132/68 96 02/15/20 00:44 19 97/53 L 93 L Admit Weight 219 lb 4.8 oz Weight 224 lb 9.6 oz I/O: I/O 02/14/20 02/15/20 02/16/20 06:59 06:59 06:59 Intake Total 1440 805 Output Total 1925 200 Balance -485 605 - Quality Measures Condition: Atrial Fibrillation/Flutter (hx or current) CV meds: Eliquis: Yes - Physical Exam General: alert & oriented x3, appears well, no apparent distress, speech clear, affect appropriate HEENT: mucus membranes moist, normocephaly Neck: supple neck, midline trachea, no lymphadenopathy Cardiology: no murmur, PMI nondisplaced, irregularly irregular Lungs: decreased breath sounds, wheezes Neurology: cranial nerve 2-12 intact, grossly intact, no lateralizing findings Extremities: dry, strong pulses, warm, other: (rash/purpura BLE) - Chadsvasc Risk factors Hypertension: 1 Age >75: 2 Vascular disease: 1 Female: 1 Risk Score: 5 - Labs Result Diagrams: 02/15/20 04:37 02/15/20 04:37 - EKG Interpretation EKG Method: Telemetry EKG shows: Atrial fibrillation - Assessment/Plan Assessment/Plan: Her problems are 1. Persistent atrial fibrillation, rapid ventricular rate. a. Difficult to control ventricular rate despite digoxin, IV diltiazem, metoprolol. 2. Subacute myocardial infarction with peak troponin I at 23. a.Left heart catheterization from 01/28/20 shows 90% proximal LAD, 25% diffuse OM, proximal RCA 100% with LVEF 40% to 45%. . b. 2D echo from 01/28/2020 shows LVEF of 20% to 25% but difficult to assess due to atrial fibrillation, moderate left atrial enlargement, trace MR. 3. Advanced COPD and bilateral pleural effusion. a. Current smoking. 4. Hypertension. Given her advanced COPD, CAD, and cardiomyopathy she has no ideal antiarrhythmic options. She is not a candidate for PVAI ablation in her tenuous medical condition. With the addition of metoprolol there has been some improved rate control and we will hold off on pacemaker /AV node ablation for now. I have discussed this with Dr. Cárdenas as well. Could consider outpatient CV after 30 days OAC. Continue eliquis 5mg BID unless it's felt to be the source of her recent allergic reaction. If not eliquis, then Xarelto 20mg QPM. Rate control is adequate at this time at ~100bpm while awake and 70-80 while asleep Continue rate control with: 1. metoprolol tartrate 25mg BID 2. Digoxin 250mcg daily 3. Dilt HCl 30mg QID. Can change to Diltiazem CD 120mg daily upon DC to simplify pill regimen.
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
--- NOTE | 2020-02-15 18:23 | PDOC.CPN ---
- Subjective Date: 02/15/20 Time: 13:00 - Review of Systems General: denies: fever/chills, weight/appetite/sleep changes, night sweats, fatigue Respiratory: reports: shortness of breath Cardiovascular: denies: chest pain, palpitation, edema, paroxysmal nocturnal dyspnea, orthopnea Gastrointestinal: denies: nausea, vomiting, diarrhea, constipation, abd pain, GI bleeding Musculoskeletal: denies: pain, tenderness, stiffness, swelling, arthritis/arthralgias Neurological: denies: numbness, syncope, seizure, weakness - Objective Allergies/Adverse Reactions: Allergies Allergy/AdvReac Type Severity Reaction Status Date / Time diltiazem [From Cardizem] Allergy Intermediate Rash Verified 01/28/20 04:19 Penicillins Allergy Unknown Hives Verified 01/28/20 10:11 Visit Medications: Current Medications Acetaminophen (Acetaminophen 325 Mg Tab) 650 mg PO Q4H PRN PRN Reason: Headache/Fever/Mild Pain (1-3) Last Admin: 02/14/20 16:22 Dose: 650 mg Documented by: Acetaminophen/Codeine Phosphate (Acetaminophen/Codeine 30-300mg Tablet) 1 tab PO Q4H PRN PRN Reason: Mild Pain (1-3) Last Admin: 02/14/20 22:05 Dose: 1 tab Documented by: Acetaminophen/Codeine Phosphate (Acetaminophen/Codeine 30-300mg Tablet) 2 tab PO Q4H PRN PRN Reason: Moderate Pain (4-6) Albuterol/Ipratropium (Ipratropium/Albuterol Sulfate 3 Ml Neb) 3 ml NEB Q2H PRN PRN Reason: SOB &/or Wheezing Last Admin: 01/28/20 21:49 Dose: 3 ml Documented by: Albuterol/Ipratropium (Ipratropium/Albuterol Sulfate 3 Ml Neb) 3 ml NEB [id number] SCH Last Admin: 02/15/20 12:36 Dose: 3 ml Documented by: Apixaban (Apixaban 5 Mg Tab) 5 mg PO BID [facility] Last Admin: 02/15/20 08:11 Dose: 5 mg Documented by: Aspirin (Aspirin 81 Mg Enteric Coated Tablet) 81 mg PO DAILY [facility] Last Admin: 02/15/20 08:11 Dose: 81 mg Documented by: Atorvastatin Calcium (Atorvastatin Calcium 40 Mg Tab) 40 mg PO [facility] Last Admin: 02/14/20 22:04 Dose: 40 mg Documented by: Benzonatate (Benzonatate 100 Mg Cap) 100 mg PO TIDPRN PRN PRN Reason: Cough Last Admin: 02/13/20 21:34 Dose: 100 mg Documented by: Bisacodyl (Bisacodyl 5 Mg Tab) 10 mg PO DAILYPRN PRN PRN Reason: Constipation Last Admin: 02/15/20 10:34 Dose: 10 mg Documented by: Bisacodyl (Bisacodyl 10 Mg Supp) 10 mg OK TIDPRN PRN PRN Reason: Constipation Cholecalciferol (Cholecalciferol 1,000 Units (25 Mcg) Tab) 2,000 units PO DAILY [facility] Last Admin: 02/15/20 08:11 Dose: 2,000 units Documented by: Clindamycin HCl (Clindamycin 150 Mg Cap) 300 mg PO Q6H [facility] Last Admin: 02/15/20 16:07 Dose: 300 mg Documented by: Dextrose/Water (Dextrose 50% Abboject 50 Ml Syringe) 25 gm IVP PRN PRN PRN Reason: HYPOGLYCEMIA PROTOCOL Digoxin (Digoxin 0.25 Mg Tab) 0.25 mg PO DAILY [facility] Last Admin: 02/15/20 08:11 Dose: 0.25 mg Documented by: Diltiazem HCl (Diltiazem Hcl 30 Mg Tablet) 30 mg PO QID [facility] Last Admin: 02/15/20 16:08 Dose: 30 mg Documented by: Diphenhydramine HCl (Diphenhydramine 25 Mg Cap) 25 mg PO Q6H PRN PRN Reason: Itching & Insomnia Last Admin: 02/13/20 15:14 Dose: 25 mg Documented by: Escitalopram Oxalate (Escitalopram Oxalate 20 Mg Tablet) 20 mg PO DAILY [facility] Last Admin: 02/15/20 08:11 Dose: 20 mg Documented by: Famotidine (Famotidine 20 Mg Tab) 20 mg PO BID [facility] Last Admin: 02/15/20 08:11 Dose: 20 mg Documented by: Glucagon (Glucagon 1 Mg/Ml Vial) 1 mg IM PRN PRN PRN Reason: HYPOGLYCEMIA PROTOCOL Guaifenesin/Dextromethorphan (Guaifenesin Dm 100-10/5 Ml Udcup) 15 ml PO Q4H PRN PRN Reason: Cough Dextrose/Water (D5w) 1,000 mls @ 0 mls/hr IV INF PRN PRN Reason: HYPOGLYCEMIA PROTOCOL Insulin Human Regular (Insulin Regular 300 Units/3 Ml Vial) 0 units SC .MILD SLIDING SCALE PRN PRN Reason: Mild Correctional Scale Last Admin: 02/13/20 17:39 Dose: 2 unit Documented by: Laxative/Stool Softener (Laxative Of Choice) 1 each PO DAILY PRN PRN Reason: Constipation Metoprolol Tartrate (Metoprolol Tartrate 5 Mg/5 Ml Vial) 5 mg IVP Q4H PRN PRN Reason: atrial fib w/ rate over 110 Last Admin: 02/12/20 09:09 Dose: 5 mg Documented by: Metoprolol Tartrate (Metoprolol Tartrate 25 Mg Tab) 25 mg PO BID [facility] Last Admin: 02/15/20 08:11 Dose: 25 mg Documented by: Miscellaneous Medication (Electrolyte Replacement Protoc 1 Each Each) 1 each FS ASDIR [facility] Mometasone Furoate/Formoterol Fumar (Mometasone 200 Mcg/Formoterol 5 Mcg 120 Puff Inhaler) 2 puff INH BID-RT [facility] Last Admin: 02/15/20 07:00 Dose: 2 puff Documented by: Nitroglycerin (Nitroglycerin 0.4 Mg Tab (25 Tab Bottle)) 0.4 mg SL Q5MIN PRN PRN Reason: Chest Pain Ondansetron HCl (Ondansetron Pf 4 Mg/2 Ml Vial) 4 mg IVP Q6H PRN PRN Reason: Nausea/Vomiting, use 1st Last Admin: 01/29/20 20:40 Dose: 4 mg Documented by: Prednisone (Prednisone 20 Mg Tab) 20 mg PO QAM-WM [facility] Last Admin: 02/15/20 08:11 Dose: 20 mg Documented by: Senna (Senokot 8.6 Mg Tab) 2 tab PO HSPRN PRN PRN Reason: Constipation Last Admin: 02/13/20 21:33 Dose: 2 tab Documented by: Senna/Docusate Sodium (Senokot S 8.6-50 Mg Tab) 1 tab PO BIDPRN PRN PRN Reason: Constipation Sodium Chloride (Flush - Normal Saline 10 Ml Syringe) 10 ml IVF Q12HR [facility] Last Admin: 02/15/20 08:12 Dose: 10 ml Documented by: Sodium Chloride (Flush - Normal Saline 10 Ml Syringe) 10 ml IVF PRN PRN PRN Reason: Saline Flush Last Admin: 02/06/20 15:37 Dose: 10 ml Documented by: Vital Signs & Weight: Vital Signs Temp Pulse Pulse Pulse Resp BP BP 02/15/20 16:08 02/15/20 16:04 97.7 F 96 20 02/15/20 12:36 100 16 02/15/20 12:13 98.1 F 88 20 02/15/20 11:05 135 H 99 109/63 86/51 L 02/15/20 07:50 97.3 F L 90 17 02/15/20 07:01 95 16 BP BP Pulse Ox Pulse Ox Pulse Ox 02/15/20 16:08 118/68 02/15/20 16:04 92/62 97 02/15/20 12:36 02/15/20 12:13 110/68 93 L 02/15/20 11:05 91 L 90 L 02/15/20 07:50 101/65 93 L 02/15/20 07:01 Admit Weight 219 lb 4.8 oz Weight 224 lb 9.6 oz - Quality Measures Condition: Atrial Fibrillation/Flutter (hx or current) (HR up to 80-110bpm), Coronary Artery Disease, Heart Failure, Myocardial Infarction CV meds: Beta Anyi: Yes - Physical Exam General: alert & oriented x3 HEENT: mucus membranes moist Neck: supple neck Cardiac: irregularly regular Lungs: decreased breath sounds Neuro: grossly intact Abdomen: unremarkable Extremities: other: (petechial rash on lower legs) Musculoskeletal: normal range of motion - Labs Result Diagrams: 02/15/20 04:37 02/15/20 04:37 Troponin/CKMB CK-MB (CK-2) 206.6 ng/mL (0-6.6) H* 01/28/20 08:34 Troponin I 23.552 ng/mL (< 0.028) H* 01/28/20 03:10 - Telemetry Supraventricular conduction: atrial fibrillation - Assessment/Plan Assessment/Plan: 1. Severe miultivessel CAD. High risk for CABG at this time.May need to consider high risk ptca/stent to the LAD.Can not revascularize other vessels by ptca. 2. Severe COPD.Sounds better ,off oxygen . Ambulating in the halls. 3. Ischemic Cardiomyopathy 4. Afib RVR. Rate better controlled despite after adding low dose metoprolol. tolerating betablocker thus far. Increased TO 25MG BID.. Tachycardia is not good for the CAD/ischemia or for the CMY. EP assisting with the care. She may need an ablation and a bi-V device.Another option may be REX and early cardioversion of the atrial fib.EP feels that HR is under reasonable control. Increased risk of ablation or AVJ ablation and device implant. Will continue meds and if HR increases further and can not be controlled then reconsider. 5. EF at 20-25% on Echo, closer to 40% on LHC. 6.Lower extremity petechial rash,could be due to medications/anti-biotics. Overall looks better. Slow progress. May eventually be a candidate for CABG if pulmonary function allows. Will need MAZE procedure an ARCHIE ligation if she b ecomes a surgical candidate. She should go to rehab for a few weeks and then reassess if she is a candidate for CABG.ramos
[2020-02-15] MEDS: Atorvastatin Calcium 40 MG TAB PO SCH (21:24)
[2020-02-15] MEDS: Acetaminophen 325 MG TAB PO PRN (21:31)
[2020-02-16] MEDS: Clindamycin 150 MG CAP PO SCH ×4 (03:57→22:10)
[2020-02-16 04:45] LABS: Anion Gap 15 mmol/L (10-20); BUN (Urea Nitrogen) 19 mg/dL (9.8-20.1); Calc. Creatinine Clearance 102 mL/min (70-130); Calcium 8.7 mg/dL (7.8-10.44); Carbon Dioxide 19 mmol/L (23-31); Chloride 101 mmol/L (98-107); Estimated GFR-MDRD 76; Glucose 100 mg/dL (83-110); Potassium 4.1 mmol/L (3.5-5.1); Sodium 131 mmol/L (136-145)
[2020-02-16 05:32] LABS: Band 9 % (5-11); Hemoglobin 12.3 g/dL (12.0-16.0); Lymphocytes 13 % (21-51); MDiff Complete? YES; Mean Corpuscular HGB CONC 33.6 g/dL (32.0-36.0); Mean Corpuscular Volume 92.2 fL (78.0-98.0); Mean Platelet Volume 9.2 fL (7.4-10.4); Monocytes 2 % (0-10); Neutrophil 76 % (42-75); Platelet Count 133 thou/uL (130-400); RBC Distribution Width 15.5 % (11.5-14.5); Red Blood Cell (RBC) Count 3.96 mill/uL (4.20-5.40); White Blood Cell (WBC) Count 9.7 thou/uL (4.8-10.8)
[2020-02-16] MEDS: Mometasone 200 MCG/Formoterol 5 MCG 120 PUFF INHALER INH SCH ×2 (07:00→19:21)
[2020-02-16] MEDS ORDERED: predniSONE 20 MG TAB PO SCH (09:02)
[2020-02-16] MEDS: Digoxin 0.25 MG TAB PO SCH (09:04)
[2020-02-16] MEDS: Apixaban 5 MG TAB PO SCH (09:04)
[2020-02-16] MEDS: Cholecalciferol 1,000 UNITS (25 MCG) TAB PO SCH (09:04)
[2020-02-16] MEDS: Aspirin 81 mg Enteric Coated Tablet PO SCH (09:04)
[2020-02-16] MEDS: Escitalopram Oxalate 20 mg Tablet PO SCH (09:04)
[2020-02-16] MEDS: Famotidine 20 MG TAB PO SCH ×2 (09:04→22:10)
[2020-02-16] MEDS: Metoprolol Tartrate 25 MG TAB PO SCH ×2 (09:05→22:13)
[2020-02-16] MEDS: Benzonatate 100 MG CAP PO PRN (09:05)
[2020-02-16] MEDS: diphenhydrAMINE 25 MG CAP PO PRN ×2 (09:05→22:10)
[2020-02-16] MEDS: predniSONE 20 MG TAB PO SCH (09:10)
[2020-02-16] MEDS ORDERED: predniSONE 5 MG TAB PO SCH (09:15)
--- NOTE | 2020-02-16 09:36 | PRG ---
DATE OF SERVICE: 02/16/2020 SUBJECTIVE: The patient is having no difficulty breathing this morning, though she has developed some kind of hemorrhagic eruption of both legs, some kind of reaction. Unclear what the reaction is. She is apparently started on clindamycin. It is unclear why she was started. She is going to have a cardiac procedure. I am not so sure what, but she is very anxious. OBJECTIVE: VITAL SIGNS: This morning, temperature is 97, pulse 89, sats 100% on room air, and blood pressure 180/59. CHEST: Decreased breath sounds. No wheezing. CARDIAC: Normal S1, S2. No gallops. ABDOMEN: No masses. ASSESSMENT AND PLAN: Severe chronic obstructive pulmonary disease, SVT, cardiomyopathy. I have decreased the prednisone to 10 a day. Continue neb treatments, supportive care. Job ID: [id number]
[2020-02-16] MEDS: Acetaminophen/Codeine 30-300mg Tablet PO PRN ×2 (13:29→22:11)
--- NOTE | 2020-02-16 16:25 | PDOC.EP ---
- Subjective Date: 02/16/20 Time: 08:00 Interval History: No new events overnight. The allergic reaction on her legs is visually disturbing to her but not physically bothersome. - Review of Systems Constitutional: reports: weakness. denies: chills, fever, sweats Respiratory: reports: shortness of breath, SOB with excertion, wheezing. denies: cough, dry, hemoptysis, sputum Cardiology: denies: chest pain, edema, heart racing, light headedness, palpitations, passing out Gastrointestinal: denies: abdominal pain, nausea, vomitting - Objective Allergies/Adverse Reactions: Allergies Allergy/AdvReac Type Severity Reaction Status Date / Time diltiazem [From Cardizem] Allergy Intermediate Rash Verified 01/28/20 04:19 Penicillins Allergy Unknown Hives Verified 01/28/20 10:11 Current Medications Acetaminophen (Acetaminophen 325 Mg Tab) 650 mg PO Q4H PRN PRN Reason: Headache/Fever/Mild Pain (1-3) Last Admin: 02/15/20 21:31 Dose: 650 mg Documented by: Acetaminophen/Codeine Phosphate (Acetaminophen/Codeine 30-300mg Tablet) 1 tab PO Q4H PRN PRN Reason: Mild Pain (1-3) Last Admin: 02/16/20 13:29 Dose: 1 tab Documented by: Acetaminophen/Codeine Phosphate (Acetaminophen/Codeine 30-300mg Tablet) 2 tab PO Q4H PRN PRN Reason: Moderate Pain (4-6) Albuterol/Ipratropium (Ipratropium/Albuterol Sulfate 3 Ml Neb) 3 ml NEB Q2H PRN PRN Reason: SOB &/or Wheezing Last Admin: 02/16/20 04:33 Dose: 3 ml Documented by: Albuterol/Ipratropium (Ipratropium/Albuterol Sulfate 3 Ml Neb) 3 ml NEB [id number] SCH Last Admin: 02/16/20 14:05 Dose: 3 ml Documented by: Aspirin (Aspirin 81 Mg Enteric Coated Tablet) 81 mg PO DAILY [facility] Last Admin: 02/16/20 09:04 Dose: 81 mg Documented by: Atorvastatin Calcium (Atorvastatin Calcium 40 Mg Tab) 40 mg PO [facility] Last Admin: 02/15/20 21:24 Dose: 40 mg Documented by: Benzonatate (Benzonatate 100 Mg Cap) 100 mg PO TIDPRN PRN PRN Reason: Cough Last Admin: 02/16/20 09:05 Dose: 100 mg Documented by: Bisacodyl (Bisacodyl 5 Mg Tab) 10 mg PO DAILYPRN PRN PRN Reason: Constipation Last Admin: 02/15/20 10:34 Dose: 10 mg Documented by: Bisacodyl (Bisacodyl 10 Mg Supp) 10 mg CO TIDPRN PRN PRN Reason: Constipation Cholecalciferol (Cholecalciferol 1,000 Units (25 Mcg) Tab) 2,000 units PO DAILY [facility] Last Admin: 02/16/20 09:04 Dose: 2,000 units Documented by: Clindamycin HCl (Clindamycin 150 Mg Cap) 300 mg PO Q6H [facility] Last Admin: 02/16/20 16:15 Dose: 300 mg Documented by: Dextrose/Water (Dextrose 50% Abboject 50 Ml Syringe) 25 gm IVP PRN PRN PRN Reason: HYPOGLYCEMIA PROTOCOL Digoxin (Digoxin 0.25 Mg Tab) 0.25 mg PO DAILY [facility] Last Admin: 02/16/20 09:04 Dose: 0.25 mg Documented by: Diltiazem HCl (Diltiazem Hcl 30 Mg Tablet) 30 mg PO QID [facility] Last Admin: 02/16/20 16:14 Dose: 30 mg Documented by: Diphenhydramine HCl (Diphenhydramine 25 Mg Cap) 25 mg PO Q6H PRN PRN Reason: Itching & Insomnia Last Admin: 02/16/20 09:05 Dose: 25 mg Documented by: Escitalopram Oxalate (Escitalopram Oxalate 20 Mg Tablet) 20 mg PO DAILY [facility] Last Admin: 02/16/20 09:04 Dose: 20 mg Documented by: Famotidine (Famotidine 20 Mg Tab) 20 mg PO BID [facility] Last Admin: 02/16/20 09:04 Dose: 20 mg Documented by: Glucagon (Glucagon 1 Mg/Ml Vial) 1 mg IM PRN PRN PRN Reason: HYPOGLYCEMIA PROTOCOL Guaifenesin/Dextromethorphan (Guaifenesin Dm 100-10/5 Ml Udcup) 15 ml PO Q4H PRN PRN Reason: Cough Dextrose/Water (D5w) 1,000 mls @ 0 mls/hr IV INF PRN PRN Reason: HYPOGLYCEMIA PROTOCOL Insulin Human Regular (Insulin Regular 300 Units/3 Ml Vial) 0 units SC .MILD SLIDING SCALE PRN PRN Reason: Mild Correctional Scale Last Admin: 02/13/20 17:39 Dose: 2 unit Documented by: Laxative/Stool Softener (Laxative Of Choice) 1 each PO DAILY PRN PRN Reason: Constipation Metoprolol Tartrate (Metoprolol Tartrate 5 Mg/5 Ml Vial) 5 mg IVP Q4H PRN PRN Reason: atrial fib w/ rate over 110 Last Admin: 02/12/20 09:09 Dose: 5 mg Documented by: Metoprolol Tartrate (Metoprolol Tartrate 25 Mg Tab) 25 mg PO BID [facility] Last Admin: 02/16/20 09:05 Dose: 25 mg Documented by: Miscellaneous Medication (Electrolyte Replacement Protoc 1 Each Each) 1 each FS ASDIR [facility] Mometasone Furoate/Formoterol Fumar (Mometasone 200 Mcg/Formoterol 5 Mcg 120 Puff Inhaler) 2 puff INH BID-RT [facility] Last Admin: 02/16/20 07:00 Dose: 2 puff Documented by: Nitroglycerin (Nitroglycerin 0.4 Mg Tab (25 Tab Bottle)) 0.4 mg SL Q5MIN PRN PRN Reason: Chest Pain Ondansetron HCl (Ondansetron Pf 4 Mg/2 Ml Vial) 4 mg IVP Q6H PRN PRN Reason: Nausea/Vomiting, use 1st Last Admin: 01/29/20 20:40 Dose: 4 mg Documented by: Prednisone (Prednisone 5 Mg Tab) 10 mg PO QAM-[facility] Senna (Senokot 8.6 Mg Tab) 2 tab PO HSPRN PRN PRN Reason: Constipation Last Admin: 02/13/20 21:33 Dose: 2 tab Documented by: Senna/Docusate Sodium (Senokot S 8.6-50 Mg Tab) 1 tab PO BIDPRN PRN PRN Reason: Constipation Sodium Chloride (Flush - Normal Saline 10 Ml Syringe) 10 ml IVF Q12HR [facility] Last Admin: 02/16/20 09:05 Dose: 10 ml Documented by: Sodium Chloride (Flush - Normal Saline 10 Ml Syringe) 10 ml IVF PRN PRN PRN Reason: Saline Flush Last Admin: 02/06/20 15:37 Dose: 10 ml Documented by: Vital Signs & Weight: Vital Signs Temp Pulse Resp BP Pulse Ox 02/16/20 14:59 98.0 F 100 18 105/67 95 02/16/20 11:06 97.9 F 98 16 106/59 L 97 02/16/20 07:03 97.8 F 89 14 108/59 L 100 02/16/20 07:01 102 H 14 02/16/20 04:33 106 H 16 96 Admit Weight 219 lb 4.8 oz Weight 226 lb 12.8 oz I/O: I/O 02/15/20 02/16/20 02/17/20 06:59 06:59 06:59 Intake Total 805 2090 Output Total 200 450 Balance 605 1640 - Quality Measures Condition: Atrial Fibrillation/Flutter (hx or current) CV meds: Eliquis: Yes - Physical Exam General: alert & oriented x3, appears well, no apparent distress, speech clear, affect appropriate HEENT: mucus membranes moist, normocephaly Neck: supple neck, midline trachea, no lymphadenopathy Cardiology: regular rate, irregularly irregular Lungs: decreased breath sounds, wheezes. negative: no rales, no rhonchi Neurology: cranial nerve 2-12 intact, grossly intact, no lateralizing findings Abdomen: unremarkable, active bowel sounds, no pulsations/bruits - Labs Result Diagrams: 02/16/20 03:46 02/16/20 03:46 - EKG Interpretation EKG Method: Telemetry EKG shows: Atrial fibrillation - Assessment/Plan Assessment/Plan: Her problems are 1. Persistent atrial fibrillation, rapid ventricular rate. a. Difficult to control ventricular rate despite digoxin, IV diltiazem, metoprolol. 2. Subacute myocardial infarction with peak troponin I at 23. a.Left heart catheterization from 01/28/20 shows 90% proximal LAD, 25% diffuse OM, proximal RCA 100% with LVEF 40% to 45%. . b. 2D echo from 01/28/2020 shows LVEF of 20% to 25% but difficult to assess due to atrial fibrillation, moderate left atrial enlargement, trace MR. 3. Advanced COPD and bilateral pleural effusion. a. Current smoking. 4. Hypertension. 5. Purpura - possible medication reaction Given her advanced COPD, CAD, and cardiomyopathy she has no ideal antiarrhythmic options. She is not a candidate for PVAI ablation in her tenuous medical condition. With the addition of metoprolol there has been some improved rate control and we will hold off on pacemaker /AV node ablation for now. I have discussed this with Dr. Cárdenas as well. Could consider outpatient CV after 30 days OAC. Eliquis was stopped this AM, maybe due to purpura Could try Xarelto 20mg QPM instead. Rate control is adequate at this time at 100-110 bpm while awake and 70-80 while asleep Continue rate control with: (Amiodarone was stopped 02/09 AM. ) 1. metoprolol tartrate 25mg BID 2. Digoxin 250mcg daily 3. Dilt HCl 30mg QID. Can change to Diltiazem CD 120mg daily upon DC to simplify pill regimen.
--- NOTE | 2020-02-16 17:00 | PDOC.HOSPP ---
- Subjective Encounter Date: 02/16/20 Encounter Time: 09:00 Subjective: THe patient was very upset , states that she is frustrated with people taking a long time to bring her food and for nurses to respond when she calls. She had some itching and pain in her right lower extremities. Still frustrated that her purpura on lower extremities not resolving fast enough Discussed with cardiology, okay with holding for two days to see if there is improvement, but not longer than that due to 99% lesion on LAd. Dr Hadley discussed on the phone with the son who wants patient to go to rehab. Insurance doesn't cover rehab, so referrals will be sent to skilled Pneumonia: patient has no significant cough. She is ambulating with physical therapy. - Objective Vital Signs & Weight: Vital Signs (12 hours) Temp Pulse Resp BP Pulse Ox 02/16/20 14:59 98.0 F 100 18 105/67 95 02/16/20 11:06 97.9 F 98 16 106/59 L 97 02/16/20 07:03 97.8 F 89 14 108/59 L 100 02/16/20 07:01 102 H 14 Weight Admit Weight 219 lb 4.8 oz Weight 226 lb 12.8 oz Most Recent Monitor Data Heart Rate from ECG 101 NIBP 119/68 NIBP BP-Mean 85 Respiration from ECG 21 SpO2 85 I&O: 02/15/20 02/16/20 02/17/20 06:59 06:59 06:59 Intake Total 805 2090 Output Total 200 450 Balance 605 1640 Result Diagrams: 02/16/20 03:46 02/16/20 03:46 Additional Labs: Accuchecks 02/16/20 02/15/20 05:28 20:44 POC Glucose 108 H 132 H Hospitalist ROS - Review of Systems Constitutional: denies: fever, chills - Medication Medications: Active Medications Generic Name Dose Route Start Last Admin Trade Name Freq PRN Reason Stop Dose Admin Acetaminophen 650 mg 01/28/20 00:25 02/15/20 21:31 Acetaminophen 325 Mg Tab PO 650 mg Q4H PRN Administration Headache/Fever/Mild Pain (1-3) Acetaminophen/Codeine Phosphate 1 tab 02/07/20 11:26 02/16/20 13:29 Acetaminophen/Codeine 30-300mg Tablet PO 1 tab Q4H PRN Administration Mild Pain (1-3) Albuterol/Ipratropium 3 ml 01/28/20 00:25 02/16/20 04:33 Ipratropium/Albuterol Sulfate 3 Ml Neb NEB 3 ml Q2H PRN Administration SOB &/or Wheezing Albuterol/Ipratropium 3 ml 01/29/20 13:00 02/16/20 14:05 Ipratropium/Albuterol Sulfate 3 Ml Neb NEB 3 ml [id number] PAULA Administration Aspirin 81 mg 01/28/20 09:00 02/16/20 09:04 Aspirin 81 Mg Enteric Coated Tablet PO 81 mg DAILY [facility] Administration Atorvastatin Calcium 40 mg 01/28/20 21:00 02/15/20 21:24 Atorvastatin Calcium 40 Mg Tab PO 40 mg HS [facility] Administration Benzonatate 100 mg 02/12/20 09:35 02/16/20 09:05 Benzonatate 100 Mg Cap PO 100 mg TIDPRN PRN Administration Cough Bisacodyl 10 mg 01/31/20 16:36 02/15/20 10:34 Bisacodyl 5 Mg Tab PO 10 mg DAILYPRN PRN Administration Constipation Cholecalciferol 2,000 units 02/14/20 09:00 02/16/20 09:04 Cholecalciferol 1,000 Units (25 Mcg) Tab PO 2,000 units DAILY [facility] Administration Clindamycin HCl 300 mg 02/14/20 16:00 02/16/20 16:15 Clindamycin 150 Mg Cap PO 300 mg Q6H [facility] Administration Digoxin 0.25 mg 02/09/20 09:00 02/16/20 09:04 Digoxin 0.25 Mg Tab PO 0.25 mg DAILY [facility] Administration Diltiazem HCl 30 mg 02/11/20 09:00 02/16/20 16:14 Diltiazem Hcl 30 Mg Tablet PO 30 mg QID [facility] Administration Diphenhydramine HCl 25 mg 02/12/20 09:35 02/16/20 09:05 Diphenhydramine 25 Mg Cap PO 25 mg Q6H PRN Administration Itching & Insomnia Escitalopram Oxalate 20 mg 01/31/20 09:00 02/16/20 09:04 Escitalopram Oxalate 20 Mg Tablet PO 20 mg DAILY [facility] Administration Famotidine 20 mg 01/28/20 09:00 02/16/20 09:04 Famotidine 20 Mg Tab PO 20 mg BID [facility] Administration Insulin Human Regular 0 units 01/28/20 00:26 02/13/20 17:39 Insulin Regular 300 Units/3 Ml Vial SC 2 unit .MILD SLIDING SCALE PRN Administration Mild Correctional Scale Metoprolol Tartrate 5 mg 01/28/20 00:21 02/12/20 09:09 Metoprolol Tartrate 5 Mg/5 Ml Vial IVP 5 mg Q4H PRN Administration atrial fib w/ rate over 110 Metoprolol Tartrate 25 mg 02/14/20 21:00 02/16/20 09:05 Metoprolol Tartrate 25 Mg Tab PO 25 mg BID [facility] Administration Mometasone Furoate/Formoterol Fumar 2 puff 01/28/20 18:30 02/16/20 07:00 Mometasone 200 Mcg/Formoterol 5 Mcg 120 Puff Inhaler INH 2 puff BID-RT [facility] Administration Ondansetron HCl 4 mg 01/28/20 00:25 01/29/20 20:40 Ondansetron Pf 4 Mg/2 Ml Vial IVP 4 mg Q6H PRN Administration Nausea/Vomiting, use 1st Senna 2 tab 01/31/20 16:36 02/13/20 21:33 Senokot 8.6 Mg Tab PO 2 tab HSPRN PRN Administration Constipation Sodium Chloride 10 ml 02/01/20 09:00 02/16/20 09:05 Flush - Normal Saline 10 Ml Syringe IVF 10 ml Q12HR [facility] Administration Sodium Chloride 10 ml 02/01/20 08:30 02/06/20 15:37 Flush - Normal Saline 10 Ml Syringe IVF 10 ml PRN PRN Administration Saline Flush - Exam General Appearance: NAD, awake alert Eye: PERRL, anicteric sclera ENT: normocephalic atraumatic, no oropharyngeal lesions Neck: no JVD Heart: RRR, no murmur, no gallops, no rubs Respiratory - other findings: diminished breath sounds bilaterally Gastrointestinal: soft, non-tender Extremities: no cyanosis, 2+ LE edema Extremities - other findings: pain palpating lower extremities, diminished pulse Skin - other findings: purpura bilateral lower extremities, mostly same but borders ill defined Hosp A/P - Plan ECHO: EF 20-25%, limited in assessment due to tachycardai Chest X ray 01/26: pulmonary edema CTA chest: small to moderate right greater than left pleural effusion. Pulmonary edema in bronchioles Chest X ray 01/30: enlarging pleural effusions Abd X ray: constipation Carotid doppler: no significant stenosis Chest X ray 02/12: mild pulmonary venous congestion . RLL pneumonia This is a 79 year old female with COPD who presented with shortness of breath , afib with RVR Afib with RVR - she is on amiodarone, diltiazem 30 mg qid and digoxin 0.25 mg daily, toprol 25 mg bid - she is on aspirin and eliquis 5 mg bid - EP is following, conservative management for now Right lower lobe pneumonia - started on IV levaquin due to allergy to penicillin. However due to worsening petechial rash on lower extremities, she was switched to clindamycin 02/14 - she will complete five day course of antibiotics today Acute hypoxic respiratory failure secondary to acute systolic heart failure - resolved - EF 20-25%, Xray showing pulmonary edema . She was diuresed and weaned to room air - she is off lasix due to hypotension Petechial/purpural rash on lower extremities -Possibly secondary to Levaquin versus anticoagulation. Levaquin discontinued 02/13. Rash on lower extremities appears unchanged, possibly slightly improved in the left leg -continue benadryl prn Physical deconditioning - patient is going to be sent to SNF Leukocytosis - WBC down to 9.7 Hyponatremia - sodium is 131, likely fluid retention T7 compression fracture - asymptomatic, will monitor Vitamin D deficiency - vitamin D level 12, started on vitamin D supplementation Dispo: monitor for improvement in rash and if heart rate controlled, can discontinue
--- NOTE | 2020-02-16 17:40 | PDOC.CPN ---
- Subjective Date: 02/16/20 Time: 17:32 - Review of Systems General: denies: fever/chills, weight/appetite/sleep changes, night sweats, fatigue Respiratory: reports: shortness of breath Cardiovascular: reports: edema. denies: chest pain, palpitation, paroxysmal nocturnal dyspnea, orthopnea Gastrointestinal: denies: nausea, vomiting, diarrhea, constipation, abd pain, GI bleeding Musculoskeletal: reports: pain, swelling Neurological: denies: numbness, syncope, seizure, weakness - Objective Allergies/Adverse Reactions: Allergies Allergy/AdvReac Type Severity Reaction Status Date / Time diltiazem [From Cardizem] Allergy Intermediate Rash Verified 01/28/20 04:19 Penicillins Allergy Unknown Hives Verified 01/28/20 10:11 Visit Medications: Current Medications Acetaminophen (Acetaminophen 325 Mg Tab) 650 mg PO Q4H PRN PRN Reason: Headache/Fever/Mild Pain (1-3) Last Admin: 02/15/20 21:31 Dose: 650 mg Documented by: Acetaminophen/Codeine Phosphate (Acetaminophen/Codeine 30-300mg Tablet) 1 tab PO Q4H PRN PRN Reason: Mild Pain (1-3) Last Admin: 02/16/20 13:29 Dose: 1 tab Documented by: Acetaminophen/Codeine Phosphate (Acetaminophen/Codeine 30-300mg Tablet) 2 tab PO Q4H PRN PRN Reason: Moderate Pain (4-6) Albuterol/Ipratropium (Ipratropium/Albuterol Sulfate 3 Ml Neb) 3 ml NEB Q2H PRN PRN Reason: SOB &/or Wheezing Last Admin: 02/16/20 04:33 Dose: 3 ml Documented by: Albuterol/Ipratropium (Ipratropium/Albuterol Sulfate 3 Ml Neb) 3 ml NEB [id number] SCH Last Admin: 02/16/20 14:05 Dose: 3 ml Documented by: Aspirin (Aspirin 81 Mg Enteric Coated Tablet) 81 mg PO DAILY [facility] Last Admin: 02/16/20 09:04 Dose: 81 mg Documented by: Atorvastatin Calcium (Atorvastatin Calcium 40 Mg Tab) 40 mg PO HS [facility] Last Admin: 02/15/20 21:24 Dose: 40 mg Documented by: Benzonatate (Benzonatate 100 Mg Cap) 100 mg PO TIDPRN PRN PRN Reason: Cough Last Admin: 02/16/20 09:05 Dose: 100 mg Documented by: Bisacodyl (Bisacodyl 5 Mg Tab) 10 mg PO DAILYPRN PRN PRN Reason: Constipation Last Admin: 02/15/20 10:34 Dose: 10 mg Documented by: Bisacodyl (Bisacodyl 10 Mg Supp) 10 mg GA TIDPRN PRN PRN Reason: Constipation Cholecalciferol (Cholecalciferol 1,000 Units (25 Mcg) Tab) 2,000 units PO DAILY [facility] Last Admin: 02/16/20 09:04 Dose: 2,000 units Documented by: Clindamycin HCl (Clindamycin 150 Mg Cap) 300 mg PO Q6H [facility] Stop: 02/17/20 05:00 Last Admin: 02/16/20 16:15 Dose: 300 mg Documented by: Dextrose/Water (Dextrose 50% Abboject 50 Ml Syringe) 25 gm IVP PRN PRN PRN Reason: HYPOGLYCEMIA PROTOCOL Digoxin (Digoxin 0.25 Mg Tab) 0.25 mg PO DAILY [facility] Last Admin: 02/16/20 09:04 Dose: 0.25 mg Documented by: Diltiazem HCl (Diltiazem Hcl 30 Mg Tablet) 30 mg PO QID [facility] Last Admin: 02/16/20 16:14 Dose: 30 mg Documented by: Diphenhydramine HCl (Diphenhydramine 25 Mg Cap) 25 mg PO Q6H PRN PRN Reason: Itching & Insomnia Last Admin: 02/16/20 09:05 Dose: 25 mg Documented by: Escitalopram Oxalate (Escitalopram Oxalate 20 Mg Tablet) 20 mg PO DAILY [facility] Last Admin: 02/16/20 09:04 Dose: 20 mg Documented by: Famotidine (Famotidine 20 Mg Tab) 20 mg PO BID [facility] Last Admin: 02/16/20 09:04 Dose: 20 mg Documented by: Glucagon (Glucagon 1 Mg/Ml Vial) 1 mg IM PRN PRN PRN Reason: HYPOGLYCEMIA PROTOCOL Guaifenesin/Dextromethorphan (Guaifenesin Dm 100-10/5 Ml Udcup) 15 ml PO Q4H PRN PRN Reason: Cough Dextrose/Water (D5w) 1,000 mls @ 0 mls/hr IV INF PRN PRN Reason: HYPOGLYCEMIA PROTOCOL Insulin Human Regular (Insulin Regular 300 Units/3 Ml Vial) 0 units SC .MILD SLIDING SCALE PRN PRN Reason: Mild Correctional Scale Last Admin: 02/13/20 17:39 Dose: 2 unit Documented by: Laxative/Stool Softener (Laxative Of Choice) 1 each PO DAILY PRN PRN Reason: Constipation Metoprolol Tartrate (Metoprolol Tartrate 5 Mg/5 Ml Vial) 5 mg IVP Q4H PRN PRN Reason: atrial fib w/ rate over 110 Last Admin: 02/12/20 09:09 Dose: 5 mg Documented by: Metoprolol Tartrate (Metoprolol Tartrate 25 Mg Tab) 25 mg PO BID [facility] Last Admin: 02/16/20 09:05 Dose: 25 mg Documented by: Miscellaneous Medication (Electrolyte Replacement Protoc 1 Each Each) 1 each FS ASDIR [facility] Mometasone Furoate/Formoterol Fumar (Mometasone 200 Mcg/Formoterol 5 Mcg 120 Puff Inhaler) 2 puff INH BID-RT [facility] Last Admin: 02/16/20 07:00 Dose: 2 puff Documented by: Nitroglycerin (Nitroglycerin 0.4 Mg Tab (25 Tab Bottle)) 0.4 mg SL Q5MIN PRN PRN Reason: Chest Pain Ondansetron HCl (Ondansetron Pf 4 Mg/2 Ml Vial) 4 mg IVP Q6H PRN PRN Reason: Nausea/Vomiting, use 1st Last Admin: 01/29/20 20:40 Dose: 4 mg Documented by: Prednisone (Prednisone 5 Mg Tab) 10 mg PO QA-[facility] Senna (Senokot 8.6 Mg Tab) 2 tab PO HSPRN PRN PRN Reason: Constipation Last Admin: 02/13/20 21:33 Dose: 2 tab Documented by: Senna/Docusate Sodium (Senokot S 8.6-50 Mg Tab) 1 tab PO BIDPRN PRN PRN Reason: Constipation Sodium Chloride (Flush - Normal Saline 10 Ml Syringe) 10 ml IVF Q12HR [facility] Last Admin: 02/16/20 09:05 Dose: 10 ml Documented by: Sodium Chloride (Flush - Normal Saline 10 Ml Syringe) 10 ml IVF PRN PRN PRN Reason: Saline Flush Last Admin: 02/06/20 15:37 Dose: 10 ml Documented by: Vital Signs & Weight: Vital Signs Temp Pulse Resp BP Pulse Ox 02/16/20 14:59 98.0 F 100 18 105/67 95 02/16/20 11:06 97.9 F 98 16 106/59 L 97 02/16/20 07:03 97.8 F 89 14 108/59 L 100 02/16/20 07:01 102 H 14 Admit Weight 219 lb 4.8 oz Weight 226 lb 12.8 oz - Quality Measures Condition: Atrial Fibrillation/Flutter (hx or current) (HR up to 80-110bpm), Coronary Artery Disease, Heart Failure, Myocardial Infarction CV meds: Beta Anyi: Yes, TERRELL/ARB: Yes - Physical Exam HEENT: normocephaly Neck: supple neck, no JVD/HJR Cardiac: irregularly regular Lungs: scattered rhonchi Neuro: grossly intact Abdomen: unremarkable Extremities: other: (diffuse purpura in lower legs and started to spread to entire body.) - Labs Result Diagrams: 02/16/20 03:46 02/16/20 03:46 Troponin/CKMB CK-MB (CK-2) 206.6 ng/mL (0-6.6) H* 01/28/20 08:34 Troponin I 23.552 ng/mL (< 0.028) H* 01/28/20 03:10 - Telemetry Supraventricular conduction: atrial fibrillation - Assessment/Plan Assessment/Plan: 1. Severe miultivessel CAD. High risk for CABG at this time.May need to consider high risk ptca/stent to the LAD.Can not revascularize other vessels by ptca. 2. Severe COPD.Sounds better ,off oxygen . Ambulating in the halls. 3. Ischemic Cardiomyopathy 4. Afib RVR. Rate better controlled despite after adding metoprolol. tolerating betablocker thus far. Increased TO 25MG BID.. Tachycardia is not good for the CAD/ischemia or for the CMY. EP assisting with the care. She may need an ablation and a bi-V device.Another option may be REX and early cardioversion of the atrial fib.EP feels that HR is under reasonable control. Increased risk of a blation or AVJ ablation and device implant. Will continue meds and if HR increases further and can not be controlled then reconsider. 5. EF at 20-25% on Echo, closer to 40% on LHC. 6.Lower extremity purpura rash,could be due to medications/anti-biotics or OAC. Eliquis stopped.. Overall looks better. Slow progress. May eventually be a candidate for CABG if pulmonary function allows. Will need MAZE procedure an ARCHIE ligation if she becomes a surgical candidate. She should go to rehab for a few weeks and then reassess if she is a candidate for CABG.ramos
--- NOTE | 2020-02-16 22:06 | ULT ---
BILATERAL LOWER EXTREMITY VENOUS DUPLEX EXAM: 02/16/20 INDICATIONS: Bilateral lower extremity pain and edema. Deep veins of both lower extremities evaluated with ultrasound and Doppler with color Doppler and spe ctral analysis. Deep veins show normal blood flow and compression. No evidence of DVT. IMPRESSION: Negative bilateral lower extremity venous duplex exam. POS: AGW
[2020-02-16] MEDS: Atorvastatin Calcium 40 MG TAB PO SCH (22:13)
[2020-02-17] MEDS: Clindamycin 150 MG CAP PO SCH (04:18)
[2020-02-17] MEDS: Cholecalciferol 1,000 UNITS (25 MCG) TAB PO SCH (08:22)
[2020-02-17] MEDS: Aspirin 81 mg Enteric Coated Tablet PO SCH (08:22)
[2020-02-17] MEDS: predniSONE 5 MG TAB PO SCH (08:22)
[2020-02-17] MEDS: Digoxin 0.25 MG TAB PO SCH (08:22)
[2020-02-17] MEDS: Escitalopram Oxalate 20 mg Tablet PO SCH (08:23)
[2020-02-17] MEDS: Metoprolol Tartrate 25 MG TAB PO SCH ×2 (08:23→21:15)
[2020-02-17] MEDS: Furosemide 20 MG TAB PO SCH (08:23)
[2020-02-17] MEDS: Lisinopril 5 MG TAB PO SCH (08:23)
[2020-02-17] MEDS: Famotidine 20 MG TAB PO SCH ×2 (08:23→21:14)
[2020-02-17] MEDS: Mometasone 200 MCG/Formoterol 5 MCG 120 PUFF INHALER INH SCH ×2 (08:45→20:01)
[2020-02-17] MEDS: Acetaminophen 325 MG TAB PO PRN ×2 (11:33→21:20)
--- NOTE | 2020-02-17 11:41 | PRG ---
DATE OF SERVICE: 02/17/2020 SUBJECTIVE: Leanne Jessica, this morning, she is awake, alert, and responsive. She is complaining of her legs, pain, discomfort, swelling, discoloration. OBJECTIVE: VITAL SIGNS: Temperature 97.0, pulse 90, respirations 20, sats 93% on room air, blood pressure 127/59. CHEST: No wheezing. No crackles. CARDIAC: Normal S1 and S2. ABDOMEN: No masses. IMPRESSION: 1. Cardiomyopathy. 2. Coronary artery disease. 3. Supraventricular tachycardia. 4. Chronic obstructive pulmonary disease, improved. Taper and discontinue steroids. Otherwise, continue present neb treatments, eventually placement. Job ID: [id number]
--- NOTE | 2020-02-17 12:37 | PDOC.CPN ---
- Subjective Date: 02/17/20 Time: 09:00 Interval history: No new overnight events.HR is relatively stable. - Review of Systems General: denies: fever/chills, weight/appetite/sleep changes, night sweats, fatigue Respiratory: reports: shortness of breath Cardiovascular: reports: edema. denies: chest pain, palpitation, paroxysmal nocturnal dyspnea, orthopnea Gastrointestinal: denies: nausea, vomiting, diarrhea, constipation, abd pain, GI bleeding Musculoskeletal: reports: tenderness, swelling Neurological: denies: numbness, syncope, seizure, weakness - Objective Allergies/Adverse Reactions: Allergies Allergy/AdvReac Type Severity Reaction Status Date / Time diltiazem [From Cardizem] Allergy Intermediate Rash Verified 01/28/20 04:19 Penicillins Allergy Unknown Hives Verified 01/28/20 10:11 Visit Medications: Current Medications Acetaminophen (Acetaminophen 325 Mg Tab) 650 mg PO Q4H PRN PRN Reason: Headache/Fever/Mild Pain (1-3) Last Admin: 02/17/20 11:33 Dose: 650 mg Documented by: Albuterol/Ipratropium (Ipratropium/Albuterol Sulfate 3 Ml Neb) 3 ml NEB Q2H PRN PRN Reason: SOB &/or Wheezing Last Admin: 02/16/20 04:33 Dose: 3 ml Documented by: Albuterol/Ipratropium (Ipratropium/Albuterol Sulfate 3 Ml Neb) 3 ml NEB [id number] SCH Last Admin: 02/17/20 08:44 Dose: 3 ml Documented by: Aspirin (Aspirin 81 Mg Enteric Coated Tablet) 81 mg PO DAILY [facility] Last Admin: 02/17/20 08:22 Dose: 81 mg Documented by: Atorvastatin Calcium (Atorvastatin Calcium 40 Mg Tab) 40 mg PO HS [facility] Last Admin: 02/16/20 22:13 Dose: 40 mg Documented by: Benzonatate (Benzonatate 100 Mg Cap) 100 mg PO TIDPRN PRN PRN Reason: Cough Last Admin: 02/16/20 09:05 Dose: 100 mg Documented by: Bisacodyl (Bisacodyl 5 Mg Tab) 10 mg PO DAILYPRN PRN PRN Reason: Constipation Last Admin: 02/15/20 10:34 Dose: 10 mg Documented by: Bisacodyl (Bisacodyl 10 Mg Supp) 10 mg TX TIDPRN PRN PRN Reason: Constipation Cholecalciferol (Cholecalciferol 1,000 Units (25 Mcg) Tab) 2,000 units PO DAILY [facility] Last Admin: 02/17/20 08:22 Dose: 2,000 units Documented by: Dextrose/Water (Dextrose 50% Abboject 50 Ml Syringe) 25 gm IVP PRN PRN PRN Reason: HYPOGLYCEMIA PROTOCOL Digoxin (Digoxin 0.25 Mg Tab) 0.25 mg PO DAILY [facility] Last Admin: 02/17/20 08:22 Dose: 0.25 mg Documented by: Diltiazem HCl (Diltiazem Hcl 30 Mg Tablet) 30 mg PO QID [facility] Last Admin: 02/17/20 08:23 Dose: 30 mg Documented by: Diphenhydramine HCl (Diphenhydramine 25 Mg Cap) 25 mg PO Q6H PRN PRN Reason: Itching & Insomnia Last Admin: 02/16/20 22:10 Dose: 25 mg Documented by: Escitalopram Oxalate (Escitalopram Oxalate 20 Mg Tablet) 20 mg PO DAILY [facility] Last Admin: 02/17/20 08:23 Dose: 20 mg Documented by: Famotidine (Famotidine 20 Mg Tab) 20 mg PO BID [facility] Last Admin: 02/17/20 08:23 Dose: 20 mg Documented by: Furosemide (Furosemide 20 Mg Tab) 20 mg PO DAILY [facility] Last Admin: 02/17/20 08:23 Dose: 20 mg Documented by: Glucagon (Glucagon 1 Mg/Ml Vial) 1 mg IM PRN PRN PRN Reason: HYPOGLYCEMIA PROTOCOL Guaifenesin/Dextromethorphan (Guaifenesin Dm 100-10/5 Ml Udcup) 15 ml PO Q4H PRN PRN Reason: Cough Dextrose/Water (D5w) 1,000 mls @ 0 mls/hr IV INF PRN PRN Reason: HYPOGLYCEMIA PROTOCOL Insulin Human Regular (Insulin Regular 300 Units/3 Ml Vial) 0 units SC .MILD SLIDING SCALE PRN PRN Reason: Mild Correctional Scale Last Admin: 02/13/20 17:39 Dose: 2 unit Documented by: Laxative/Stool Softener (Laxative Of Choice) 1 each PO DAILY PRN PRN Reason: Constipation Lisinopril (Lisinopril 5 Mg Tab) 5 mg PO DAILY [facility] Last Admin: 02/17/20 08:23 Dose: 5 mg Documented by: Metoprolol Tartrate (Metoprolol Tartrate 5 Mg/5 Ml Vial) 5 mg IVP Q4H PRN PRN Reason: atrial fib w/ rate over 110 Last Admin: 02/12/20 09:09 Dose: 5 mg Documented by: Metoprolol Tartrate (Metoprolol Tartrate 25 Mg Tab) 25 mg PO BID [facility] Last Admin: 02/17/20 08:23 Dose: 25 mg Documented by: Miscellaneous Medication (Electrolyte Replacement Protoc 1 Each Each) 1 each FS ASDIR [facility] Mometasone Furoate/Formoterol Fumar (Mometasone 200 Mcg/Formoterol 5 Mcg 120 Puff Inhaler) 2 puff INH BID-RT [facility] Last Admin: 02/17/20 08:45 Dose: 2 puff Documented by: Nitroglycerin (Nitroglycerin 0.4 Mg Tab (25 Tab Bottle)) 0.4 mg SL Q5MIN PRN PRN Reason: Chest Pain Ondansetron HCl (Ondansetron Pf 4 Mg/2 Ml Vial) 4 mg IVP Q6H PRN PRN Reason: Nausea/Vomiting, use 1st Last Admin: 01/29/20 20:40 Dose: 4 mg Documented by: Prednisone (Prednisone 5 Mg Tab) 10 mg PO QAM-[facility] Stop: 02/19/20 08:01 Last Admin: 02/17/20 08:22 Dose: 10 mg Documented by: Senna (Senokot 8.6 Mg Tab) 2 tab PO HSPRN PRN PRN Reason: Constipation Last Admin: 02/13/20 21:33 Dose: 2 tab Documented by: Senna/Docusate Sodium (Senokot S 8.6-50 Mg Tab) 1 tab PO BIDPRN PRN PRN Reason: Constipation Sodium Chloride (Flush - Normal Saline 10 Ml Syringe) 10 ml IVF Q12HR [facility] Last Admin: 02/17/20 08:24 Dose: 10 ml Documented by: Sodium Chloride (Flush - Normal Saline 10 Ml Syringe) 10 ml IVF PRN PRN PRN Reason: Saline Flush Last Admin: 02/06/20 15:37 Dose: 10 ml Documented by: Vital Signs & Weight: Vital Signs Temp Pulse Resp BP Pulse Ox 02/17/20 07:32 97.6 F 91 20 127/59 L 93 L 02/17/20 04:00 98.0 F 104 H 22 H 95/51 L 95 02/17/20 02:00 95 Admit Weight 219 lb 4.8 oz Weight 231 lb 6.4 oz - Quality Measures Condition: Atrial Fibrillation/Flutter (hx or current) (HR up to 80-110bpm), Coronary Artery Disease, Heart Failure, Myocardial Infarction CV meds: Beta Anyi: Yes, TERRELL/ARB: Yes - Physical Exam General: alert & oriented x3 HEENT: normocephaly Neck: midline trachea, no JVD/HJR Cardiac: irregularly regular Lungs: wheezes, scattered rhonchi Neuro: grossly intact Abdomen: unremarkable Extremities: 1+ LE edema, other: (diffuse pupura) Skin: rash - Labs Result Diagrams: 02/16/20 03:46 02/16/20 03:46 Troponin/CKMB CK-MB (CK-2) 206.6 ng/mL (0-6.6) H* 01/28/20 08:34 Troponin I 23.552 ng/mL (< 0.028) H* 01/28/20 03:10 - Telemetry Supraventricular conduction: atrial fibrillation - Assessment/Plan Assessment/Plan: 1. Severe miultivessel CAD. High risk for CABG at this time.May need to consider high risk ptca/stent to the LAD.Can not revascularize other vessels by ptca. 2. Severe COPD.Sounds better ,off oxygen . Ambulating in the halls. 3. Ischemic Cardiomyopathy 4. Afib RVR. Rate better controlled despite after adding metoprolol. tolerating betablocker thus far. Increased TO 25MG BID.. Tachycardia is not good for the CAD/ischemia or for the CMY. Occasionally still tachycardic but overall reasonably controlled.EP assisting with the care. She may need an ablation and a bi-V device.Another option may be REX and early cardioversion of the atrial fib.EP feels that HR is under reasonable control. Increased risk of ablation or AVJ ablation and device implant. Will continue meds and if HR increases further and can not be controlled then reconsider. 5. EF at 20-25% on Echo, closer to 40% on LHC. 6.Lower extremity purpura rash,could be due to medications/anti-biotics or OAC. Eliquis stopped.. The rash is extending to entire body. May need dermatology to see. Overall looks better. Slow progress. May eventually be a candidate for CABG if pulmonary function allows. Will need MAZE procedure an ARCHIE ligation if she becomes a surgical candidate. She should go to rehab for a few weeks and then reassess if she is a candidate for CABG.ramos
--- NOTE | 2020-02-17 14:07 | PDOC.EP ---
- Subjective Date: 02/17/20 Time: 14:05 Interval History: Complaining of rash. Limb pain. - Review of Systems Constitutional: reports: weakness. denies: chills, fever, malaise, sweats, other Respiratory: reports: SOB with excertion. denies: cough, pleuritic pain, wheezing Cardiology: denies: chest pain, edema, heart racing, light headedness, paroxysmal noc. dyspnea, orthopnea, palpitations, passing out, pleuritic pain, pressure, swelling, other Gastrointestinal: denies: abdominal pain, diarrhea Musculoskeletal: reports: leg pain Neurological: denies: headache, vision changes, other - Objective Allergies/Adverse Reactions: Allergies Allergy/AdvReac Type Severity Reaction Status Date / Time diltiazem [From Cardizem] Allergy Intermediate Rash Verified 01/28/20 04:19 Penicillins Allergy Unknown Hives Verified 01/28/20 10:11 Current Medications Acetaminophen (Acetaminophen 325 Mg Tab) 650 mg PO Q4H PRN PRN Reason: Headache/Fever/Mild Pain (1-3) Last Admin: 02/17/20 11:33 Dose: 650 mg Documented by: Albuterol/Ipratropium (Ipratropium/Albuterol Sulfate 3 Ml Neb) 3 ml NEB Q2H PRN PRN Reason: SOB &/or Wheezing Last Admin: 02/16/20 04:33 Dose: 3 ml Documented by: Albuterol/Ipratropium (Ipratropium/Albuterol Sulfate 3 Ml Neb) 3 ml NEB [id number] Last Admin: 02/17/20 13:40 Dose: 3 ml Documented by: Aspirin (Aspirin 81 Mg Enteric Coated Tablet) 81 mg PO DAILY [facility] Last Admin: 02/17/20 08:22 Dose: 81 mg Documented by: Atorvastatin Calcium (Atorvastatin Calcium 40 Mg Tab) 40 mg PO [facility] Last Admin: 02/16/20 22:13 Dose: 40 mg Documented by: Benzonatate (Benzonatate 100 Mg Cap) 100 mg PO TIDPRN PRN PRN Reason: Cough Last Admin: 02/16/20 09:05 Dose: 100 mg Documented by: Bisacodyl (Bisacodyl 5 Mg Tab) 10 mg PO DAILYPRN PRN PRN Reason: Constipation Last Admin: 02/15/20 10:34 Dose: 10 mg Documented by: Bisacodyl (Bisacodyl 10 Mg Supp) 10 mg OK TIDPRN PRN PRN Reason: Constipation Cholecalciferol (Cholecalciferol 1,000 Units (25 Mcg) Tab) 2,000 units PO DAILY [facility] Last Admin: 02/17/20 08:22 Dose: 2,000 units Documented by: Dextrose/Water (Dextrose 50% Abboject 50 Ml Syringe) 25 gm IVP PRN PRN PRN Reason: HYPOGLYCEMIA PROTOCOL Digoxin (Digoxin 0.25 Mg Tab) 0.25 mg PO DAILY [facility] Last Admin: 02/17/20 08:22 Dose: 0.25 mg Documented by: Diltiazem HCl (Diltiazem Hcl 30 Mg Tablet) 30 mg PO QID [facility] Last Admin: 02/17/20 14:03 Dose: 30 mg Documented by: Diphenhydramine HCl (Diphenhydramine 25 Mg Cap) 25 mg PO Q6H PRN PRN Reason: Itching & Insomnia Last Admin: 02/16/20 22:10 Dose: 25 mg Documented by: Escitalopram Oxalate (Escitalopram Oxalate 20 Mg Tablet) 20 mg PO DAILY [facility] Last Admin: 02/17/20 08:23 Dose: 20 mg Documented by: Famotidine (Famotidine 20 Mg Tab) 20 mg PO BID [facility] Last Admin: 02/17/20 08:23 Dose: 20 mg Documented by: Furosemide (Furosemide 20 Mg Tab) 20 mg PO DAILY [facility] Last Admin: 02/17/20 08:23 Dose: 20 mg Documented by: Glucagon (Glucagon 1 Mg/Ml Vial) 1 mg IM PRN PRN PRN Reason: HYPOGLYCEMIA PROTOCOL Guaifenesin/Dextromethorphan (Guaifenesin Dm 100-10/5 Ml Udcup) 15 ml PO Q4H PRN PRN Reason: Cough Dextrose/Water (D5w) 1,000 mls @ 0 mls/hr IV INF PRN PRN Reason: HYPOGLYCEMIA PROTOCOL Insulin Human Regular (Insulin Regular 300 Units/3 Ml Vial) 0 units SC .MILD SLIDING SCALE PRN PRN Reason: Mild Correctional Scale Last Admin: 02/13/20 17:39 Dose: 2 unit Documented by: Laxative/Stool Softener (Laxative Of Choice) 1 each PO DAILY PRN PRN Reason: Constipation Lisinopril (Lisinopril 5 Mg Tab) 5 mg PO DAILY [facility] Last Admin: 02/17/20 08:23 Dose: 5 mg Documented by: Metoprolol Tartrate (Metoprolol Tartrate 5 Mg/5 Ml Vial) 5 mg IVP Q4H PRN PRN Reason: atrial fib w/ rate over 110 Last Admin: 02/12/20 09:09 Dose: 5 mg Documented by: Metoprolol Tartrate (Metoprolol Tartrate 25 Mg Tab) 25 mg PO BID [facility] Last Admin: 02/17/20 08:23 Dose: 25 mg Documented by: Miscellaneous Medication (Electrolyte Replacement Protoc 1 Each Each) 1 each FS ASDIR [facility] Mometasone Furoate/Formoterol Fumar (Mometasone 200 Mcg/Formoterol 5 Mcg 120 Pu ff Inhaler) 2 puff INH BID-RT [facility] Last Admin: 02/17/20 08:45 Dose: 2 puff Documented by: Nitroglycerin (Nitroglycerin 0.4 Mg Tab (25 Tab Bottle)) 0.4 mg SL Q5MIN PRN PRN Reason: Chest Pain Ondansetron HCl (Ondansetron Pf 4 Mg/2 Ml Vial) 4 mg IVP Q6H PRN PRN Reason: Nausea/Vomiting, use 1st Last Admin: 01/29/20 20:40 Dose: 4 mg Documented by: Prednisone (Prednisone 5 Mg Tab) 10 mg PO QAM[facility] Stop: 02/19/20 08:01 Last Admin: 02/17/20 08:22 Dose: 10 mg Documented by: Senna (Senokot 8.6 Mg Tab) 2 tab PO HSPRN PRN PRN Reason: Constipation Last Admin: 02/13/20 21:33 Dose: 2 tab Documented by: Senna/Docusate Sodium (Senokot S 8.6-50 Mg Tab) 1 tab PO BIDPRN PRN PRN Reason: Constipation Sodium Chloride (Flush - Normal Saline 10 Ml Syringe) 10 ml IVF Q12HR [facility] Last Admin: 02/17/20 08:24 Dose: 10 ml Documented by: Sodium Chloride (Flush - Normal Saline 10 Ml Syringe) 10 ml IVF PRN PRN PRN Reason: Saline Flush Last Admin: 02/06/20 15:37 Dose: 10 ml Documented by: Vital Signs & Weight: Vital Signs Temp Pulse Resp BP Pulse Ox 02/17/20 13:40 108 H 18 96 02/17/20 11:46 98.1 F 101 H 20 95/55 L 95 02/17/20 07:32 97.6 F 91 20 127/59 L 93 L 02/17/20 04:00 98.0 F 104 H 22 H 95/51 L 95 Admit Weight 219 lb 4.8 oz Weight 231 lb 6.4 oz I/O: I/O 02/16/20 02/17/20 02/18/20 06:59 06:59 06:59 Intake Total 2090 1200 Output Total 450 700 Balance 1640 500 - Quality Measures Condition: Atrial Fibrillation/Flutter (hx or current) CV meds: Eliquis: Yes - Medication Contraindications No Anticoagulant reason: Anticoagulant not tolerated - Physical Exam General: alert & oriented x3, appears well HEENT: mucus membranes moist Neck: supple neck, no JVD/HJR Cardiology: no murmur, irregularly irregular Lungs: clear to auscultation, no wheeze, rales, rhonchi Neurology: grossly intact Abdomen: unremarkable, soft, non-tender Extremities: strong pulses Skin: other (purpural rash on body) Musculoskeletal: pain in joint - Chadsvasc Risk factors Congestive heart failure: 1 Hypertension: 1 Age >75: 2 Vascular disease: 1 Female: 1 Risk Score: 6 - Labs Result Diagrams: 02/16/20 03:46 02/16/20 03:46 - EKG Interpretation EKG Method: Telemetry EKG shows: Atrial fibrillation - Assessment/Plan Assessment/Plan: 1. Persistent atrial fibrillation, rapid ventricular rate. a. Difficult to control ventricular rate despite digoxin, IV diltiazem, metoprolol. 2. Subacute myocardial infarction with peak troponin I at 23. a.Left heart catheterization from 01/28/20 shows 90% proximal LAD, 25% diffuse OM, proximal RCA 100% with LVEF 40% to 45%. . b. 2D echo from 01/28/2020 shows LVEF of 20% to 25% but difficult to assess due to atrial fibrillation, moderate left atrial enlargement, trace MR. 3. Advanced COPD and bilateral pleural effusion. a. Current smoking. 4. Hypertension. 5. Purpura - possible medication reaction Given her advanced COPD, CAD, and cardiomyopathy she has no ideal antiarrhythmic options. She is not a candidate for PVAI ablation in her tenuous medical condition. With the addition of metoprolol there has been some improved rate control and we will hold off on pacemaker /AV node ablation for now. I have discussed this with Dr. Cárdenas as well. Could consider outpatient CV after 30 days OAC. Eliquis was stopped this AM, maybe due to purpura Could try Xarelto 20mg QPM instead. Rate control is adequate at this time at 100-110 bpm while awake and 70-80 while asleep Continue rate control with: (Amiodarone was stopped 02/09 AM. ) 1. metoprolol tartrate 25mg BID. Consider gradually increasing. If necessary fo hypotension stop lisinopril. 2. Digoxin 250mcg daily 3. Dilt HCl 30mg QID. Can convert to Diltiazem CD daily upon DC to simplify pill regimen. Will check again 02/20/20 or outpt.
--- NOTE | 2020-02-17 17:39 | PDOC.HOSPP ---
- Subjective Encounter Date: 02/17/20 Encounter Time: 09:00 Subjective: The patient states her blood pressure was on the lower side 89 systolic. She denies dizziness Afib - she denies palpitations. Pneumonia - patient states her cough has resolved Purpura - this is now worsened and some bullae are developing. She denies itching. She denies pain in her legs . She received last dose of clindamycin around 4 am this morning. Juan has been on hold - Objective Vital Signs & Weight: Vital Signs (12 hours) Temp Pulse Pulse Resp BP BP Pulse Ox 02/17/20 16:34 98.6 F 85 21 H 97/64 95 02/17/20 14:09 122 H 186/102 H 02/17/20 13:40 108 H 18 96 02/17/20 11:46 98.1 F 101 H 20 95/55 L 95 02/17/20 07:32 97.6 F 91 20 127/59 L 93 L Weight Admit Weight 219 lb 4.8 oz Weight 231 lb 6.4 oz Most Recent Monitor Data Heart Rate from ECG 101 NIBP 119/68 NIBP BP-Mean 85 Respiration from ECG 21 SpO2 85 I&O: 02/16/20 02/17/20 02/18/20 06:59 06:59 06:59 Intake Total 2090 1200 Output Total 450 700 Balance 1640 500 Result Diagrams: 02/16/20 03:46 02/16/20 03:46 Hospitalist ROS - Review of Systems Constitutional: denies: fever, chills - Medication Medications: Active Medications Generic Name Dose Route Start Last Admin Trade Name Freq PRN Reason Stop Dose Admin Acetaminophen 650 mg 01/28/20 00:25 02/17/20 11:33 Acetaminophen 325 Mg Tab PO 650 mg Q4H PRN Administration Headache/Fever/Mild Pain (1-3) Albuterol/Ipratropium 3 ml 01/28/20 00:25 02/16/20 04:33 Ipratropium/Albuterol Sulfate 3 Ml Neb NEB 3 ml Q2H PRN Administration SOB &/or Wheezing Albuterol/Ipratropium 3 ml 01/29/20 13:00 02/17/20 13:40 Ipratropium/Albuterol Sulfate 3 Ml Neb NEB 3 ml [id number] PAULA Administration Aspirin 81 mg 01/28/20 09:00 02/17/20 08:22 Aspirin 81 Mg Enteric Coated Tablet PO 81 mg DAILY PAULA Administration Atorvastatin Calcium 40 mg 01/28/20 21:00 02/16/20 22:13 Atorvastatin Calcium 40 Mg Tab PO 40 mg HS PAULA Administration Benzonatate 100 mg 02/12/20 09:35 02/16/20 09:05 Benzonatate 100 Mg Cap PO 100 mg TIDPRN PRN Administration Cough Bisacodyl 10 mg 01/31/20 16:36 02/15/20 10:34 Bisacodyl 5 Mg Tab PO 10 mg DAILYPRN PRN Administration Constipation Cholecalciferol 2,000 units 02/14/20 09:00 02/17/20 08:22 Cholecalciferol 1,000 Units (25 Mcg) Tab PO 2,000 units DAILY PAULA Administration Digoxin 0.25 mg 02/09/20 09:00 02/17/20 08:22 Digoxin 0.25 Mg Tab PO 0.25 mg DAILY PAULA Administration Diltiazem HCl 30 mg 02/11/20 09:00 02/17/20 16:40 Diltiazem Hcl 30 Mg Tablet PO 30 mg QID PAULA Administration Diphenhydramine HCl 25 mg 02/12/20 09:35 02/16/20 22:10 Diphenhydramine 25 Mg Cap PO 25 mg Q6H PRN Administration Itching & Insomnia Escitalopram Oxalate 20 mg 01/31/20 09:00 02/17/20 08:23 Escitalopram Oxalate 20 Mg Tablet PO 20 mg DAILY PAULA Administration Famotidine 20 mg 01/28/20 09:00 02/17/20 08:23 Famotidine 20 Mg Tab PO 20 mg BID PAULA Administration Furosemide 20 mg 02/17/20 09:00 02/17/20 08:23 Furosemide 20 Mg Tab PO 20 mg DAILY PAULA Administration Insulin Human Regular 0 units 01/28/20 00:26 02/13/20 17:39 Insulin Regular 300 Units/3 Ml Vial SC 2 unit .MILD SLIDING SCALE PRN Administration Mild Correctional Scale Lisinopril 5 mg 02/17/20 09:00 02/17/20 08:23 Lisinopril 5 Mg Tab PO 5 mg DAILY PAULA Administration Metoprolol Tartrate 5 mg 01/28/20 00:21 02/12/20 09:09 Metoprolol Tartrate 5 Mg/5 Ml Vial IVP 5 mg Q4H PRN Administration atrial fib w/ rate over 110 Metoprolol Tartrate 25 mg 02/14/20 21:00 02/17/20 08:23 Metoprolol Tartrate 25 Mg Tab PO 25 mg BID PAULA Administration Mometasone Furoate/Formoterol Fumar 2 puff 01/28/20 18:30 02/17/20 08:45 Mometasone 200 Mcg/Formoterol 5 Mcg 120 Puff Inhaler INH 2 puff BID-RT PAULA Administration Ondansetron HCl 4 mg 01/28/20 00:25 01/29/20 20:40 Ondansetron Pf 4 Mg/2 Ml Vial IVP 4 mg Q6H PRN Administration Nausea/Vomiting, use 1st Prednisone 10 mg 02/17/20 08:00 02/17/20 08:22 Prednisone 5 Mg Tab PO 02/19/20 08:01 10 mg QAM-WM PAULA Administration Senna 2 tab 01/31/20 16:36 02/13/20 21:33 Senokot 8.6 Mg Tab PO 2 tab HSPRN PRN Administration Constipation Sodium Chloride 10 ml 02/01/20 09:00 02/17/20 08:24 Flush - Normal Saline 10 Ml Syringe IVF 10 ml Q12HR PAULA Administration Sodium Chloride 10 ml 02/01/20 08:30 02/06/20 15:37 Flush - Normal Saline 10 Ml Syringe IVF 10 ml PRN PRN Administration Saline Flush - Exam General Appearance: NAD, awake alert General - other findings: obese Eye: PERRL, anicteric sclera ENT: normocephalic atraumatic, no oropharyngeal lesions Neck: no JVD Heart: RRR, no murmur, no gallops, no rubs Respiratory: CTAB, no wheezes, no rales, no ronchi Gastrointestinal: soft, non-tender, non-distended, normal bowel sounds Extremities: 2+ LE edema Skin - other findings: purpura more diffuse with some purple blisters on legs Neurological: cranial nerve grossly intact, normal sensation to touch, no weakness Musculoskeletal: normal tone, normal strength, no muscle wasting Hosp A/P - Plan ECHO: EF 20-25%, limited in assessment due to tachycardai Chest X ray 01/26: pulmonary edema CTA chest: small to moderate right greater than left pleural effusion. Pulmonary edema in bronchioles Chest X ray 01/30: enlarging pleural effusions Abd X ray: constipation Carotid doppler: no significant stenosis Chest X ray 02/12: mild pulmonary venous congestion . RLL pneumonia Doppler US 02/15: no DVT This is a 79 year old female with COPD who presented with shortness of breath , afib with RVR, Found to have pulmonary edema on admission. Diuresed with IV lasix. Also developed pneumonia, completed five days of antibiotics. Continues to be in the hospital due to worsening purpura on legs Afib with RVR - controlled - she is on amiodarone, diltiazem 30 mg qid and digoxin 0.25 mg daily, toprol 25 mg bid - she is on aspirin. Eliquis discontinued due to purpura on legs - no ablation needed for now, EP following Petechial/purpural rash on lower extremities -Possibly secondary to medication reaction vs from anticoagulation vs vasculitis? -. Levaquin discontinued 02/13. Rash continues to worsen. Clindamycin discontinued 02/16. Eliquis also discontinued - general surgery consulted, consider punch biopsy tomorrow when patient is off anticoagulation for two days - dopplers done which showed no DVT Right lower lobe pneumonia - started on IV levaquin due to allergy to penicillin. However due to worsening petechial rash on lower extremities, she was switched to clindamycin 02/14. She has completed five days of antibiotics which will be discontinued due to purpura on legs - she will complete five day course of antibiotics today Acute hypoxic respiratory failure secondary to acute systolic heart failure - re solved - EF 20-25%, Xray showing pulmonary edema . She was diuresed and weaned to room air - she is off lasix due to hypotension . Implementing 2L fluid restriction Physical deconditioning - looking for SNF placement Hyponatremia - sodium is 131, likely fluid retention T7 compression fracture - asymptomatic, will monitor Vitamin D deficiency - vitamin D level 12, started on vitamin D supplementation Dispo: consider punch biopsy tomorrow due to persistent purpura rash
[2020-02-17] MEDS: Atorvastatin Calcium 40 MG TAB PO SCH (21:14)
[2020-02-17] MEDS: diphenhydrAMINE 25 MG CAP PO PRN (21:24)
[2020-02-17] MEDS ORDERED: Loratadine 10 MG TAB PO SCH (22:30)
[2020-02-18] MEDS: Mometasone 200 MCG/Formoterol 5 MCG 120 PUFF INHALER INH SCH ×2 (08:24→18:34)
[2020-02-18] MEDS: Digoxin 0.25 MG TAB PO SCH (08:26)
[2020-02-18] MEDS: Cholecalciferol 1,000 UNITS (25 MCG) TAB PO SCH (08:26)
[2020-02-18] MEDS: Escitalopram Oxalate 20 mg Tablet PO SCH (08:26)
[2020-02-18] MEDS: Aspirin 81 mg Enteric Coated Tablet PO SCH (08:26)
[2020-02-18] MEDS: Furosemide 20 MG TAB PO SCH (08:27)
[2020-02-18] MEDS: predniSONE 5 MG TAB PO SCH (08:27)
[2020-02-18] MEDS: Metoprolol Tartrate 25 MG TAB PO SCH ×2 (08:27→21:01)
[2020-02-18] MEDS: Famotidine 20 MG TAB PO SCH ×2 (08:36→21:01)
[2020-02-18] MEDS ORDERED: ALPRAZolam 0.25 MG TAB PO SCH ×2 (10:30→21:00)
[2020-02-18 11:34] LABS: PTT 26.2 sec (22.9-36.1); Prothrombin Time 13.2 sec (12.0-14.7)
[2020-02-18 11:36] LABS: D-Dimer Test 1.66 *mcg/mL (0.27-0.43)
[2020-02-18] MEDS: Acetaminophen 325 MG TAB PO PRN (11:59)
[2020-02-18 12:03] LABS: ALT (SGPT) 104 U/L (8-55); AST (SGOT) 36 U/L (5-34); Albumin 3.1 g/dL (3.4-4.8); Alkaline Phosphatase 36 U/L (40-110); Anion Gap 15 mmol/L (10-20); BUN (Urea Nitrogen) 22 mg/dL (9.8-20.1); Bilirubin, Total 1.5 mg/dL (0.2-1.2); Calc. Creatinine Clearance 102 mL/min (70-130); Calcium 8.3 mg/dL (7.8-10.44); Carbon Dioxide 23 mmol/L (23-31); Chloride 96 mmol/L (98-107); Estimated GFR-MDRD 75; Globulin 2.5 g/dL (2.4-3.5); Glucose 105 mg/dL (83-110); Potassium 4.2 mmol/L (3.5-5.1); Protein, Total 5.6 g/dL (6.0-8.3); Sodium 130 mmol/L (136-145)
[2020-02-18] MEDS: Lisinopril 5 MG TAB PO SCH (12:15)
--- NOTE | 2020-02-18 15:37 | PDOC.HOSPP ---
- Subjective Encounter Date: 02/18/20 - Objective Vital Signs & Weight: Vital Signs (12 hours) Temp Pulse Resp BP BP BP Pulse Ox 02/18/20 13:41 113 H 24 H 02/18/20 11:52 98.0 F 113 H 15 110/56 L 97 02/18/20 11:23 85/57 L 88/58 L 02/18/20 08:19 115 H 18 02/18/20 07:48 97.4 F L 109 H 19 96/57 L 96 02/18/20 04:00 97.4 F L 107 H 19 86/53 L 97 Weight Admit Weight 219 lb 4.8 oz Weight 227 lb 9.6 oz Most Recent Monitor Data Heart Rate from ECG 101 NIBP 119/68 NIBP BP-Mean 85 Respiration from ECG 21 SpO2 85 I&O: 02/17/20 02/18/20 02/19/20 06:59 06:59 05:59 Intake Total 1200 830 Output Total 700 Balance 500 830 Result Diagrams: 02/16/20 03:46 02/18/20 11:06 Additional Labs: Accuchecks 02/18/20 02/18/20 02/17/20 10:36 05:50 20:54 POC Glucose 106 H 101 H 109 H 02/17/20 02/17/20 02/17/20 17:19 10:37 05:41 POC Glucose 122 H 119 H 117 H 02/16/20 16:57 POC Glucose 136 H Hospitalist ROS - Medication Medications: Active Medications Generic Name Dose Route Start Last Admin Trade Name Freq PRN Reason Stop Dose Admin Acetaminophen 650 mg 01/28/20 00:25 02/18/20 11:59 Acetaminophen 325 Mg Tab PO 650 mg Q4H PRN Administration Headache/Fever/Mild Pain (1-3) Albuterol/Ipratropium 3 ml 01/28/20 00:25 02/16/20 04:33 Ipratropium/Albuterol Sulfate 3 Ml Neb NEB 3 ml Q2H PRN Administration SOB &/or Wheezing Albuterol/Ipratropium 3 ml 01/29/20 13:00 02/18/20 13:41 Ipratropium/Albuterol Sulfate 3 Ml Neb NEB 3 ml [id number] PAULA Administration Aspirin 81 mg 01/28/20 09:00 02/18/20 08:26 Aspirin 81 Mg Enteric Coated Tablet PO 81 mg DAILY PAULA Administration Atorvastatin Calcium 40 mg 01/28/20 21:00 02/17/20 21:14 Atorvastatin Calcium 40 Mg Tab PO 40 mg HS PAULA Administration Benzonatate 100 mg 02/12/20 09:35 02/16/20 09:05 Benzonatate 100 Mg Cap PO 100 mg TIDPRN PRN Administration Cough Bisacodyl 10 mg 01/31/20 16:36 02/15/20 10:34 Bisacodyl 5 Mg Tab PO 10 mg DAILYPRN PRN Administration Constipation Cholecalciferol 2,000 units 02/14/20 09:00 02/18/20 08:26 Cholecalciferol 1,000 Units (25 Mcg) Tab PO 2,000 units DAILY PAULA Administration Digoxin 0.25 mg 02/09/20 09:00 02/18/20 08:26 Digoxin 0.25 Mg Tab PO 0.25 mg DAILY PAULA Administration Diltiazem HCl 30 mg 02/11/20 09:00 02/18/20 11:59 Diltiazem Hcl 30 Mg Tablet PO 30 mg QID PAULA Administration Diphenhydramine HCl 25 mg 02/12/20 09:35 02/17/20 21:24 Diphenhydramine 25 Mg Cap PO 25 mg Q6H PRN Administration Itching & Insomnia Escitalopram Oxalate 20 mg 01/31/20 09:00 02/18/20 08:26 Escitalopram Oxalate 20 Mg Tablet PO 20 mg DAILY PAULA Administration Famotidine 20 mg 01/28/20 09:00 02/18/20 08:36 Famotidine 20 Mg Tab PO 20 mg BID PAULA Administration Furosemide 20 mg 02/17/20 09:00 02/18/20 08:27 Furosemide 20 Mg Tab PO 20 mg DAILY PAULA Administration Insulin Human Regular 0 units 01/28/20 00:26 02/13/20 17:39 Insulin Regular 300 Units/3 Ml Vial SC 2 unit .MILD SLIDING SCALE PRN Administration Mild Correctional Scale Lisinopril 5 mg 02/17/20 09:00 02/18/20 12:15 Lisinopril 5 Mg Tab PO Not Given DAILY PAULA Metoprolol Tartrate 5 mg 01/28/20 00:21 02/12/20 09:09 Metoprolol Tartrate 5 Mg/5 Ml Vial IVP 5 mg Q4H PRN Administration atrial fib w/ rate over 110 Metoprolol Tartrate 25 mg 02/14/20 21:00 02/18/20 08:27 Metoprolol Tartrate 25 Mg Tab PO 25 mg BID PAULA Administration Mometasone Furoate/Formoterol Fumar 2 puff 01/28/20 18:30 02/18/20 08:24 Mometasone 200 Mcg/Formoterol 5 Mcg 120 Puff Inhaler INH 2 puff BID-RT PAULA Administration Ondansetron HCl 4 mg 01/28/20 00:25 01/29/20 20:40 Ondansetron Pf 4 Mg/2 Ml Vial IVP 4 mg Q6H PRN Administration Nausea/Vomiting, use 1st Prednisone 10 mg 02/17/20 08:00 02/18/20 08:27 Prednisone 5 Mg Tab PO 02/19/20 08:01 10 mg QAM-WM PAULA Administration Senna 2 tab 01/31/20 16:36 02/13/20 21:33 Senokot 8.6 Mg Tab PO 2 tab HSPRN PRN Administration Constipation Sodium Chloride 10 ml 02/01/20 09:00 02/18/20 08:28 Flush - Normal Saline 10 Ml Syringe IVF 10 ml Q12HR PAULA Administration Sodium Chloride 10 ml 02/01/20 08:30 02/06/20 15:37 Flush - Normal Saline 10 Ml Syringe IVF 10 ml PRN PRN Administration Saline Flush - Exam General Appearance: awake alert ENT: normocephalic atraumatic Neck: supple, no JVD Respiratory: normal chest expansion, no tachypnea Gastrointestinal: soft Neurological: cranial nerve grossly intact, no focal deficits Hosp A/P - Plan This is a 79 year old female with COPD who presented with shortness of breath , afib with RVR, Found to have pulmonary edema on admission. Diuresed with IV lasix. Also developed pneumonia, completed five days of antibiotics. Continues to be in the hospital due to worsening purpura on legs Afib with RVR - controlled - she is on diltiazem 30 mg qid and digoxin 0.25 mg daily, toprol 25 mg bid - she is on aspirin. Eliquis discontinued due to purpura on legs -Multiple short episodes of V. tach were noted today. -EP following. Petechial/purpural rash on lower extremities -Possibly secondary to medication reaction vs from anticoagulation vs vasculiti s? Antibiotics were discontinued. Unsure if this hemorrhagic per for could have been caused by Eliquis. A similar reaction can happen with warfarin. The medication is on hold. Do supportive care and close monitoring. Prednisone 40 mg orally twice daily. Right lower lobe pneumonia Patient completed 5 days of antibiotics. Acute hypoxic respiratory failure secondary to acute systolic heart failure - resolved - EF 20-25%, Xray showing pulmonary edema . She was diuresed and weaned to room air - she is off lasix due to hypotension . Implementing 2L fluid restriction Physical deconditioning - looking for SNF placement Hyponatremia - sodium is 131, likely fluid retention T7 compression fracture - asymptomatic, will monitor Vitamin D deficiency - vitamin D level 12, started on vitamin D supplementation Dispo: consider punch biopsy tomorrow due to persistent purpura rash
--- NOTE | 2020-02-18 15:44 | PDOC.CONS ---
- Consultation Encounter Date: 02/18/20 Encounter Time: 12:55 CHIEF COMPLAINT: Lower extremity pain HISTORY OF PRESENT ILLNESS: 79-year-old female admitted on February 07, 2020 with pneumonia. She has a history of coronary artery disease and is noted to have 93% occlusion of a coronary vessel. It is recommended that she undergo bypass; however, she needs to undergo cardiac rehab prior to intervention. The patient has a stated adverse reaction to mycin drugs. She was treated with Levaquin and clindamycin for her pneumonia. She developed a purpuric rash of her bilateral lower extremities on 12 February. This is progressively worsened over the last 3 days, but seems to have stabilized. Both antibiotics have been discontinued since onset. The lesions are not particularly painful to the touch, but she does report discomfort when she flexes her ankles. PAST MEDICAL HISTORY: Coronary artery disease COPD Hypertension CHF PAST SURGICAL HISTORY: Denies FAMILY HISTORY: Denies SOCIAL HISTORY Non smoker, denies illicit drug use, endorses occasional alcohol consumption. ALLERGIES: Penicillin, "mycin" antibiotics PHYSICAL EXAM: Vital Signs: HR 107 BP 86/53 RR 19 General: Alert and oriented, no acute distress, obese ENT: Sclera anicteric, pupils equal and reactive, mucous membranes moist Neck: No jugular venous distention, trachea midline Cardiovascular: Regular rate and rhythm Pulmonary: Clear to auscultation Abdominal: Soft, nondistended, nontender Genitourinary: Normal anatomy Rectal: Deferred Integument: Purpuric rash with blisters and discoloration of bilateral lower extremities. No evidence of infection. Minimal tenderness. Similar, less severe rash of bilateral upper extremities. Musculoskeletal: No gross deformities or edema, normal range of motion LABORATORY: Laboratory analysis reviewed and demonstrates a white blood cell count of 9.7, hemoglobin 12.3, and mild hyponatremia at 131. Other results grossly normal. IMAGING: None reviewed ASSESSMENT: 79-year-old female with purpuric rash of the bilateral lower extremities with mild involvement of bilateral upper extremities. Given its temporal relationship to medication administration (clindamycin and Eliquis), likely an adverse reaction. Cutaneous T-cell lymphoma is in the differential; however, this does not fit the clinical picture. Discussed with hospitalist service. Supportive management per hospitalist service. Will defer biopsy at this time. Please call for any further questions or if the clinical situation changes. PLAN: [ ]
--- NOTE | 2020-02-18 17:43 | PRG ---
DATE OF SERVICE: 02/18/2020 PRESENT ILLNESS: She continues to have significant breathlessness, but actually is complaining more about pain, tension, fullness, and blisters with weeping of her lower extremities. There are what appear to be confluent petechiae and blistering with some oozing. This begins just above the knee and extends over the surface of the foot. She was seen earlier today by surgery, and they feel this is most likely a drug eruption. Depending on how much oozing she develops, she might benefit from elevation or even Unna boot placement. Her breathing is about the same according to her subjective report. PHYSICAL EXAMINATION: VITAL SIGNS: Blood pressure is 98/72 to 110/56. Saturation is 97% on room air. Heart rate ranges from 90 to 113. She is afebrile. GENERAL: She is a very grumpy lady. She speaks in short sentences due to her increased work of breathing. LUNGS: Show rhonchi, but no wheezing. There is no dullness. HEART: Regular rate and rhythm with resting quiet murmur. ABDOMEN: Soft. Lower legs bilaterally show very purple ecchymotic area with some blistering, several of which have opened with oozing. LABORATORY DATA: Today, electrolytes include sodium 130, potassium 4.2, chloride 96, CO2 is 23, BUN 22, creatinine 0.7. Liver tests are just above the upper limits of normal. Her albumin is low at 3.1. IMPRESSION: 1. Chronic obstructive pulmonary disease. 2. Cardiomyopathy. 3. Possible drug eruption of her lower extremity. PLAN: We will continue supportive therapies. Surgical input is appreciated, and we will continue to follow. She is at least several days away from going home and likely would benefit from a skilled stay/rehab. Job ID: [id number]
[2020-02-18] MEDS: Atorvastatin Calcium 40 MG TAB PO SCH (21:01)
[2020-02-18] MEDS: predniSONE 20 MG TAB PO SCH (21:01)
[2020-02-18] MEDS: Loratadine 10 MG TAB PO SCH (21:02)
[2020-02-19] MEDS ORDERED: Sodium Chloride 0.9% 500 ML IV SCH (05:15)
[2020-02-19] MEDS: Diltiazem HCl 125 MG, Admixture Fee 1 EACH in Sodium Chloride 0.9% 100 ML IVPB SCH (06:26)
[2020-02-19] MEDS: Mometasone 200 MCG/Formoterol 5 MCG 120 PUFF INHALER INH SCH ×2 (07:21→19:12)
[2020-02-19] MEDS ORDERED: Digoxin 0.5 MG/2 ML AMP SLOW IVP SCH (08:30)
[2020-02-19] MEDS: Aspirin 81 mg Enteric Coated Tablet PO SCH (08:53)
[2020-02-19] MEDS: ALPRAZolam 0.25 MG TAB PO SCH ×2 (08:54→20:23)
[2020-02-19] MEDS: predniSONE 20 MG TAB PO SCH ×2 (08:54→20:23)
[2020-02-19] MEDS: Digoxin 0.25 MG TAB PO SCH (08:54)
[2020-02-19] MEDS: Famotidine 20 MG TAB PO SCH ×2 (08:54→20:23)
[2020-02-19] MEDS: Cholecalciferol 1,000 UNITS (25 MCG) TAB PO SCH (08:54)
[2020-02-19] MEDS: Escitalopram Oxalate 20 mg Tablet PO SCH (08:55)
[2020-02-19] MEDS: Metoprolol Tartrate 25 MG TAB PO SCH ×2 (09:04→20:23)
--- NOTE | 2020-02-19 09:33 | PDOC.HOSPP ---
- Subjective Encounter Date: 02/19/20 Subjective: The patient's rhythm changed to A. fib with RVR overnight. - Objective Vital Signs & Weight: Vital Signs (12 hours) Temp Pulse Resp BP Pulse Ox 02/19/20 08:54 143 H 02/19/20 08:51 143 H 02/19/20 07:29 97.8 F 143 H 16 107/68 99 02/19/20 07:11 83 18 02/19/20 05:53 142 H 119/61 02/19/20 04:00 98.2 F 92 18 85/61 L 94 L Weight Admit Weight 219 lb 4.8 oz Weight 228 lb 1.6 oz Most Recent Monitor Data Heart Rate from ECG 101 NIBP 119/68 NIBP BP-Mean 85 Respiration from ECG 21 SpO2 85 I&O: 02/18/20 02/19/20 02/20/20 07:59 06:59 06:59 Intake Total Balance Result Diagrams: 02/16/20 03:46 02/18/20 11:06 Additional Labs: Accuchecks 02/19/20 02/18/20 02/18/20 06:06 19:59 16:46 POC Glucose 200 H 137 H 134 H 02/18/20 02/16/20 02/16/20 10:36 20:44 10:49 POC Glucose 106 H 132 H 123 H Hospitalist ROS - Medication Medications: Active Medications Generic Name Dose Route Start Last Admin Trade Name Freq PRN Reason Stop Dose Admin Acetaminophen 650 mg 01/28/20 00:25 02/18/20 11:59 Acetaminophen 325 Mg Tab PO 650 mg Q4H PRN Administration Headache/Fever/Mild Pain (1-3) Albuterol/Ipratropium 3 ml 01/28/20 00:25 02/16/20 04:33 Ipratropium/Albuterol Sulfate 3 Ml Neb NEB 3 ml Q2H PRN Administration SOB &/or Wheezing Albuterol/Ipratropium 3 ml 01/29/20 13:00 02/19/20 07:11 Ipratropium/Albuterol Sulfate 3 Ml Neb NEB 3 ml [id number] PAULA Administration Alprazolam 0.5 mg 02/19/20 09:00 02/19/20 08:54 Alprazolam 0.25 Mg Tab PO 0.5 mg BID PAULA Administration Aspirin 81 mg 01/28/20 09:00 02/19/20 08:53 Aspirin 81 Mg Enteric Coated Tablet PO 81 mg DAILY PAULA Administration Atorvastatin Calcium 40 mg 01/28/20 21:00 02/18/20 21:01 Atorvastatin Calcium 40 Mg Tab PO 40 mg HS PAULA Administration Benzonatate 100 mg 02/12/20 09:35 02/16/20 09:05 Benzonatate 100 Mg Cap PO 100 mg TIDPRN PRN Administration Cough Bisacodyl 10 mg 01/31/20 16:36 02/15/20 10:34 Bisacodyl 5 Mg Tab PO 10 mg DAILYPRN PRN Administration Constipation Cholecalciferol 2,000 units 02/14/20 09:00 02/19/20 08:54 Cholecalciferol 1,000 Units (25 Mcg) Tab PO 2,000 units DAILY PAULA Administration Digoxin 0.25 mg 02/09/20 09:00 02/19/20 08:54 Digoxin 0.25 Mg Tab PO 0.25 mg DAILY PAULA Administration Digoxin 0.25 mg 02/19/20 08:30 02/19/20 08:51 Digoxin 0.5 Mg/2 Ml Amp SLOW IVP 02/19/20 10:30 0.25 mg NOW PAULA Administration Diltiazem HCl 30 mg 02/11/20 09:00 02/18/20 21:01 Diltiazem Hcl 30 Mg Tablet PO 30 mg QID PAULA Administration Diphenhydramine HCl 25 mg 02/12/20 09:35 02/17/20 21:24 Diphenhydramine 25 Mg Cap PO 25 mg Q6H PRN Administration Itching & Insomnia Escitalopram Oxalate 20 mg 01/31/20 09:00 02/19/20 08:55 Escitalopram Oxalate 20 Mg Tablet PO 20 mg DAILY PAULA Administration Famotidine 20 mg 01/28/20 09:00 02/19/20 08:54 Famotidine 20 Mg Tab PO 20 mg BID PAULA Administration Furosemide 20 mg 02/17/20 09:00 02/18/20 08:27 Furosemide 20 Mg Tab PO 20 mg DAILY PAULA Administration Diltiazem HCl 125 mg/ 125 mls @ 5 mls/hr 02/19/20 06:30 02/19/20 06:26 Miscellaneous Medication 1 IVPB 125 mls each/ Sodium Chloride INF PAULA Administration Protocol Insulin Human Regular 0 units 01/28/20 00:26 02/13/20 17:39 Insulin Regular 300 Units/3 Ml Vial SC 2 unit .MILD SLIDING SCALE PRN Administration Mild Correctional Scale Lisinopril 5 mg 02/17/20 09:00 02/18/20 12:15 Lisinopril 5 Mg Tab PO Not Given DAILY PAULA Loratadine 10 mg 02/18/20 21:00 02/18/20 21:02 Loratadine 10 Mg Tab PO 10 mg 2100 PAULA Administration Metoprolol Tartrate 5 mg 01/28/20 00:21 02/12/20 09:09 Metoprolol Tartrate 5 Mg/5 Ml Vial IVP 5 mg Q4H PRN Administration atrial fib w/ rate over 110 Metoprolol Tartrate 25 mg 02/14/20 21:00 02/19/20 09:04 Metoprolol Tartrate 25 Mg Tab PO 25 mg BID PAULA Administration Mometasone Furoate/Formoterol Fumar 2 puff 01/28/20 18:30 02/19/20 07:21 Mometasone 200 Mcg/Formoterol 5 Mcg 120 Puff Inhaler INH 2 puff BID-RT PAULA Administration Ondansetron HCl 4 mg 01/28/20 00:25 01/29/20 20:40 Ondansetron Pf 4 Mg/2 Ml Vial IVP 4 mg Q6H PRN Administration Nausea/Vomiting, use 1st Prednisone 40 mg 02/18/20 21:00 02/19/20 08:54 Prednisone 20 Mg Tab PO 02/20/20 21:01 40 mg BID PAULA Administration Senna 2 tab 01/31/20 16:36 02/13/20 21:33 Senokot 8.6 Mg Tab PO 2 tab HSPRN PRN Administration Constipation Sodium Chloride 10 ml 02/01/20 09:00 02/18/20 21:02 Flush - Normal Saline 10 Ml Syringe IVF 10 ml Q12HR PAULA Administration Sodium Chloride 10 ml 02/01/20 08:30 02/06/20 15:37 Flush - Normal Saline 10 Ml Syringe IVF 10 ml PRN PRN Administration Saline Flush - Exam General Appearance: awake alert Neck: supple, no JVD Heart: irregular Respiratory: CTAB, no wheezes, normal chest expansion, no tachypnea Gastrointestinal: soft Neurological: cranial nerve grossly intact, no focal deficits Hosp A/P - Plan This is a 79 year old female with COPD who presented with shortness of breath , afib with RVR, Found to have pulmonary edema on admission. Diuresed with IV lasix. Also developed pneumonia, completed five days of antibiotics. Continues to be in the hospital due to worsening purpura on legs Afib with RVR The patient is now on diltiazem drip. She is also on oral diltiazem and metoprolol. An extra dose of digoxin was given today. Amiodarone has been discontinued due to the patient's pulmonary disease. Petechial/purpural rash on lower extremities Likely purpuric drug eruption. Antibiotics were discontinued. Unsure if this hemorrhagic per for could have been caused by Eliquis. A similar reaction can happen with warfarin. The medication is on hold. Do supportive care and close monitoring. Prednisone 40 mg orally twice daily. Right lower lobe pneumonia Patient completed 5 days of antibiotics. Acute hypoxic respiratory failure secondary to acute systolic heart failure - resolved - EF 20-25%, Xray showing pulmonary edema . She was diuresed and weaned to room air - she is off lasix due to hypotension . Implementing 2L fluid restriction Check chest x-ray Physical deconditioning - looking for SNF placement Hyponatremia - sodium is 131, likely fluid retention T7 compression fracture - asymptomatic, will monitor Vitamin D deficiency - vitamin D level 12, started on vitamin D supplementation Dispo: consider punch biopsy tomorrow due to persistent purpura rash
--- NOTE | 2020-02-19 10:55 | RAD ---
Portable frontal chest radiograph: 02/19/2020 COMPARISON: 02/12/2020 HISTORY: Shortness of breath, tachycardia FINDINGS: Heart and mediastinal contours demonstrate stable enlargement of the cardiac silhouette and stable atherosclerotic calcification of the aortic arch. Mild diffuse increased linear interstitial density noted. Mild pulmonary vascular congestion. No lobar consolidation or alveolar ed reza. IMPRESSION: Enlarged cardiac silhouette with mild perihilar interstitial prominence and pulmonary vas cular congestion.
[2020-02-19] MEDS: Furosemide 20 MG TAB PO SCH (10:56)
[2020-02-19] MEDS: Lisinopril 5 MG TAB PO SCH (11:02)
--- NOTE | 2020-02-19 17:13 | PRG ---
DATE OF SERVICE: 02/19/2020 SUBJECTIVE: She is trying to keep her feet elevated. They are now out loosely wrapped with Kerlix gauze. She is having increasing weeping and saturation of the bandages. I have not taken them down, but she feels that they are about the same. She feels that the rash on her upper extremities is slightly better. The present thought is that these are drug reaction. PHYSICAL EXAMINATION: VITAL SIGNS: Blood pressure 103/56, saturation 97% on room air. She is afebrile. Heart rate 72. GENERAL: She is sitting in the chair with her feet elevated, lower legs are wrapped, although saturated with serosanguineous fluid. LUNGS: She has shallow efforts with rhonchi, but no wheezing. HEART: Regular rate and rhythm. ABDOMEN: Obese. EXTREMITIES: She has fine nonconfluent petechial rash of the upper extremities. IMPRESSION: 1. Possible drug eruption with lower extremity stasis ulcers, hemorrhagic bullae. She is trying to elevate them, but may end up benefitting from an Unna boot. 2. Mild heart failure. 3. Chronic obstructive pulmonary disease. PLAN: We will continue current therapies. I feel that she probably would benefit from more aggressive wound care with an Unna boot. Job ID: [id number]
[2020-02-19] MEDS: Loratadine 10 MG TAB PO SCH (20:23)
[2020-02-19] MEDS: Atorvastatin Calcium 40 MG TAB PO SCH (20:23)
[2020-02-20] MEDS: diphenhydrAMINE 25 MG CAP PO PRN (02:05)
[2020-02-20 04:35] LABS: #Eosinphils 0.1 thou/uL (0.0-0.7); #Lymphocytes 0.7 thou/uL (1.20-3.40); #Monocytes 0.3 thou/uL (0.11-0.59); #Neutrophils 8.7 thou/uL (1.40-6.50); %Eosinophils 0.6 % (0.0-10.0); %Neutrophils 89.4 % (42.0-75.0); Hemoglobin 11.4 g/dL (12.0-16.0); Mean Corpuscular HGB CONC 33.7 g/dL (32.0-36.0); Mean Corpuscular Hemoglobin 30.4 pg (27.0-31.0); Mean Corpuscular Volume 90.2 fL (78.0-98.0); Platelet Count 130 thou/uL (130-400); RBC Distribution Width 16.2 % (11.5-14.5); Red Blood Cell (RBC) Count 3.74 mill/uL (4.20-5.40); White Blood Cell (WBC) Count 9.7 thou/uL (4.8-10.8)
[2020-02-20 05:01] LABS: ALT (SGPT) 90 U/L (8-55); AST (SGOT) 22 U/L (5-34); Albumin 3.1 g/dL (3.4-4.8); Alkaline Phosphatase 34 U/L (40-110); Bilirubin, Direct 0.5 mg/dL (0.1-0.3); Protein, Total 5.5 g/dL (6.0-8.3)
[2020-02-20 05:03] LABS: Anion Gap 15 mmol/L (10-20); BUN (Urea Nitrogen) 22 mg/dL (9.8-20.1); Calc. Creatinine Clearance 88 mL/min (70-130); Calcium 8.4 mg/dL (7.8-10.44); Carbon Dioxide 22 mmol/L (23-31); Chloride 100 mmol/L (98-107); Estimated GFR-MDRD 63; Glucose 168 mg/dL (83-110); Potassium 4.5 mmol/L (3.5-5.1); Sodium 132 mmol/L (136-145)
[2020-02-20] MEDS: Mometasone 200 MCG/Formoterol 5 MCG 120 PUFF INHALER INH SCH ×2 (06:46→18:41)
[2020-02-20] MEDS: Diltiazem HCl 125 MG, Admixture Fee 1 EACH in Sodium Chloride 0.9% 100 ML IVPB SCH (07:56)
[2020-02-20] MEDS: predniSONE 20 MG TAB PO SCH ×2 (09:17→21:31)
[2020-02-20] MEDS: ALPRAZolam 0.25 MG TAB PO SCH ×2 (09:17→22:06)
[2020-02-20] MEDS: Digoxin 0.25 MG TAB PO SCH (09:18)
[2020-02-20] MEDS: Furosemide 20 MG TAB PO SCH (09:18)
[2020-02-20] MEDS: Famotidine 20 MG TAB PO SCH ×2 (09:18→21:31)
[2020-02-20] MEDS: Escitalopram Oxalate 20 mg Tablet PO SCH (09:18)
[2020-02-20] MEDS: Metoprolol Tartrate 25 MG TAB PO SCH (09:18)
[2020-02-20] MEDS: Cholecalciferol 1,000 UNITS (25 MCG) TAB PO SCH (09:18)
[2020-02-20] MEDS: Lisinopril 5 MG TAB PO SCH (09:18)
[2020-02-20] MEDS: Aspirin 81 mg Enteric Coated Tablet PO SCH (09:18)
--- NOTE | 2020-02-20 10:51 | PRG ---
DATE OF SERVICE: 02/20/2020 SUBJECTIVE: Leanne Jessica is a 79-year-old female. This morning, she is doing better. OBJECTIVE: VITAL SIGNS: Temperature 98, pulse 73, saturations . She is on a Cardizem drip. CHEST: No wheezing. No crackles. CARDIAC: No gallops. ABDOMEN: Soft. IMPRESSION: 1. Chronic obstructive pulmonary disease. 2. Congestive heart failure. 3. SVT. 4. Lower extremity extensive subcu hemorrhagic lesions. PLAN: Pulmonary parks, she appears to be stable. She was given some extra dose of steroids over the weekend. Apparently, she was having more issues. Pulmonary parks, not much to offer. Continue supportive care, PT. Job ID: [id number]
[2020-02-20] MEDS: Acetaminophen 325 MG TAB PO PRN ×2 (11:24→22:05)
--- NOTE | 2020-02-20 13:49 | PDOC.HOSPP ---
- Subjective Encounter Date: 02/20/20 Subjective: The lower ext rash is improving. - Objective Vital Signs & Weight: Vital Signs (12 hours) Temp Pulse Resp BP BP Pulse Ox 02/20/20 12:58 63 20 91 L 02/20/20 11:23 89 16 111/57 L 94 L 02/20/20 07:20 98.1 F 73 16 107/55 L 95 02/20/20 06:48 87 20 93 L 02/20/20 06:46 71 20 93 L 02/20/20 04:00 98.2 F 59 L 18 110/57 L 92 L Weight Admit Weight 219 lb 4.8 oz Weight 228 lb 1.6 oz Most Recent Monitor Data Heart Rate from ECG 101 NIBP 119/68 NIBP BP-Mean 85 Respiration from ECG 21 SpO2 85 I&O: 02/19/20 02/20/20 02/21/20 06:59 06:59 06:59 Intake Total 1540 Output Total 450 Balance 1090 Result Diagrams: 02/20/20 04:14 02/20/20 04:14 Additional Labs: Accuchecks 02/20/20 02/20/20 02/19/20 10:42 05:23 20:19 POC Glucose 136 H 135 H 225 H 02/19/20 17:20 POC Glucose 136 H Hospitalist ROS - Medication Medications: Active Medications Generic Name Dose Route Start Last Admin Trade Name Freq PRN Reason Stop Dose Admin Acetaminophen 650 mg 01/28/20 00:25 02/20/20 11:24 Acetaminophen 325 Mg Tab PO 650 mg Q4H PRN Administration Headache/Fever/Mild Pain (1-3) Albuterol/Ipratropium 3 ml 01/28/20 00:25 02/16/20 04:33 Ipratropium/Albuterol Sulfate 3 Ml Neb NEB 3 ml Q2H PRN Administration SOB &/or Wheezing Albuterol/Ipratropium 3 ml 01/29/20 13:00 02/20/20 12:58 Ipratropium/Albuterol Sulfate 3 Ml Neb NEB 3 ml [id number] PAULA Administration Alprazolam 0.5 mg 02/19/20 09:00 02/20/20 09:17 Alprazolam 0.25 Mg Tab PO 0.5 mg BID PAULA Administration Aspirin 81 mg 01/28/20 09:00 02/20/20 09:18 Aspirin 81 Mg Enteric Coated Tablet PO 81 mg DAILY PAULA Administration Atorvastatin Calcium 40 mg 01/28/20 21:00 02/19/20 20:23 Atorvastatin Calcium 40 Mg Tab PO 40 mg HS PAULA Administration Benzonatate 100 mg 02/12/20 09:35 02/16/20 09:05 Benzonatate 100 Mg Cap PO 100 mg TIDPRN PRN Administration Cough Bisacodyl 10 mg 01/31/20 16:36 02/15/20 10:34 Bisacodyl 5 Mg Tab PO 10 mg DAILYPRN PRN Administration Constipation Cholecalciferol 2,000 units 02/14/20 09:00 02/20/20 09:18 Cholecalciferol 1,000 Units (25 Mcg) Tab PO 2,000 units DAILY PAULA Administration Digoxin 0.25 mg 02/09/20 09:00 02/20/20 09:18 Digoxin 0.25 Mg Tab PO 0.25 mg DAILY PAULA Administration Diltiazem HCl 30 mg 02/11/20 09:00 02/20/20 09:18 Diltiazem Hcl 30 Mg Tablet PO 30 mg QID PAULA Administration Diphenhydramine HCl 25 mg 02/12/20 09:35 02/20/20 02:05 Diphenhydramine 25 Mg Cap PO 25 mg Q6H PRN Administration Itching & Insomnia Escitalopram Oxalate 20 mg 01/31/20 09:00 02/20/20 09:18 Escitalopram Oxalate 20 Mg Tablet PO 20 mg DAILY PAULA Administration Famotidine 20 mg 01/28/20 09:00 02/20/20 09:18 Famotidine 20 Mg Tab PO 20 mg BID PAULA Administration Furosemide 20 mg 02/17/20 09:00 02/20/20 09:18 Furosemide 20 Mg Tab PO 20 mg DAILY PAULA Administration Diltiazem HCl 125 mg/ 125 mls @ 5 mls/hr 02/19/20 06:30 02/20/20 07:56 Miscellaneous Medication 1 IVPB 125 mls each/ Sodium Chloride INF PAULA Administration Protocol Insulin Human Regular 0 units 01/28/20 00:26 02/13/20 17:39 Insulin Regular 300 Units/3 Ml Vial SC 2 unit .MILD SLIDING SCALE PRN Administration Mild Correctional Scale Lisinopril 5 mg 02/17/20 09:00 02/20/20 09:18 Lisinopril 5 Mg Tab PO 5 mg DAILY PAULA Administration Loratadine 10 mg 02/18/20 21:00 02/19/20 20:23 Loratadine 10 Mg Tab PO 10 mg 2100 PAULA Administration Metoprolol Tartrate 5 mg 01/28/20 00:21 02/12/20 09:09 Metoprolol Tartrate 5 Mg/5 Ml Vial IVP 5 mg Q4H PRN Administration atrial fib w/ rate over 110 Metoprolol Tartrate 25 mg 02/14/20 21:00 02/20/20 09:18 Metoprolol Tartrate 25 Mg Tab PO 25 mg BID PAULA Administration Mometasone Furoate/Formoterol Fumar 2 puff 01/28/20 18:30 02/20/20 06:46 Mometasone 200 Mcg/Formoterol 5 Mcg 120 Puff Inhaler INH 2 puff BID-RT PAULA Administration Ondansetron HCl 4 mg 01/28/20 00:25 01/29/20 20:40 Ondansetron Pf 4 Mg/2 Ml Vial IVP 4 mg Q6H PRN Administration Nausea/Vomiting, use 1st Prednisone 40 mg 02/18/20 21:00 02/20/20 09:17 Prednisone 20 Mg Tab PO 02/20/20 21:01 40 mg BID PAULA Administration Senna 2 tab 01/31/20 16:36 02/13/20 21:33 Senokot 8.6 Mg Tab PO 2 tab HSPRN PRN Administration Constipation Sodium Chloride 10 ml 02/01/20 09:00 02/20/20 09:18 Flush - Normal Saline 10 Ml Syringe IVF 10 ml Q12HR PAULA Administration Sodium Chloride 10 ml 02/01/20 08:30 02/06/20 15:37 Flush - Normal Saline 10 Ml Syringe IVF 10 ml PRN PRN Administration Saline Flush - Exam General Appearance: awake alert ENT: normocephalic atraumatic Neck: no JVD, no thyromegaly Heart: RRR Respiratory: normal chest expansion, no tachypnea Neurological: no weakness, no focal deficits Hosp A/P - Plan This is a 79 year old female with COPD who presented with shortness of breath , afib with RVR, Found to have pulmonary edema on admission. Diuresed with IV lasix. Also developed pneumonia, completed five days of antibiotics. Continues to be in the hospital due to worsening purpura on legs Afib with RVR Rate controlled on diltiazem, metoprolol, and digoxin. Amiodarone has been discontinued due to the patient's pulmonary disease. Petechial/purpural rash on lower extremities Likely purpuric drug eruption. Antibiotics were discontinued. Differential diagnoses also include side effect related to the anticoagulation. She does have some open bleeding wounds. Anticoagulation on hold. Wound care consulted. Do supportive care and close monitoring. The rash is not getting worse. Right lower lobe pneumonia Patient completed 5 days of antibiotics. Acute hypoxic respiratory failure secondary to acute systolic heart failure - resolved - EF 20-25%, Xray showing pulmonary edema . She was diuresed and weaned to room air. The patient is now on oral Lasix. Physical deconditioning She will require SNF placement.
--- NOTE | 2020-02-20 15:55 | PDOC.EP ---
- Subjective Date: 02/20/20 Time: 15:52 Interval History: She is weak and tired today. She has slept much of the day. her feet/legs are bothersome but otherwise she voices no specific complaints. - Review of Systems Constitutional: reports: weakness. denies: chills, fever, malaise Respiratory: reports: cough, shortness of breath. denies: hemoptysis, sputum, wheezing Cardiology: denies: chest pain, edema, heart racing, palpitations Gastrointestinal: denies: abdominal pain, nausea, vomitting Musculoskeletal: reports: unstable gait, leg pain, foot pain - Objective Allergies/Adverse Reactions: Allergies Allergy/AdvReac Type Severity Reaction Status Date / Time Penicillins Allergy Unknown Hives Verified 01/28/20 10:11 levofloxacin [From Levaquin] Allergy Rash Verified 02/19/20 10:12 -MYCIN DRUGS Allergy Severe Rash Uncoded 02/18/20 10:09 Current Medications Acetaminophen (Acetaminophen 325 Mg Tab) 650 mg PO Q4H PRN PRN Reason: Headache/Fever/Mild Pain (1-3) Last Admin: 02/20/20 11:24 Dose: 650 mg Documented by: Albuterol/Ipratropium (Ipratropium/Albuterol Sulfate 3 Ml Neb) 3 ml NEB Q2H PRN PRN Reason: SOB &/or Wheezing Last Admin: 02/16/20 04:33 Dose: 3 ml Documented by: Albuterol/Ipratropium (Ipratropium/Albuterol Sulfate 3 Ml Neb) 3 ml NEB [id number] [facility] Last Admin: 02/20/20 12:58 Dose: 3 ml Documented by: Alprazolam (Alprazolam 0.25 Mg Tab) 0.5 mg PO BID [facility] Last Admin: 02/20/20 09:17 Dose: 0.5 mg Documented by: Aspirin (Aspirin 81 Mg Enteric Coated Tablet) 81 mg PO DAILY [facility] Last Admin: 02/20/20 09:18 Dose: 81 mg Documented by: Atorvastatin Calcium (Atorvastatin Calcium 40 Mg Tab) 40 mg PO HS [facility] Last Admin: 02/19/20 20:23 Dose: 40 mg Documented by: Benzonatate (Benzonatate 100 Mg Cap) 100 mg PO TIDPRN PRN PRN Reason: Cough Last Admin: 02/16/20 09:05 Dose: 100 mg Documented by: Bisacodyl (Bisacodyl 5 Mg Tab) 10 mg PO DAILYPRN PRN PRN Reason: Constipation Last Admin: 02/15/20 10:34 Dose: 10 mg Documented by: Bisacodyl (Bisacodyl 10 Mg Supp) 10 mg ID TIDPRN PRN PRN Reason: Constipation Cholecalciferol (Cholecalciferol 1,000 Units (25 Mcg) Tab) 2,000 units PO DAILY [facility] Last Admin: 02/20/20 09:18 Dose: 2,000 units Documented by: Dextrose/Water (Dextrose 50% Abboject 50 Ml Syringe) 25 gm IVP PRN PRN PRN Reason: HYPOGLYCEMIA PROTOCOL Digoxin (Digoxin 0.25 Mg Tab) 0.25 mg PO DAILY [facility] Last Admin: 02/20/20 09:18 Dose: 0.25 mg Documented by: Diltiazem HCl (Diltiazem Hcl 30 Mg Tablet) 30 mg PO QID [facility] Last Admin: 02/20/20 14:07 Dose: 30 mg Documented by: Diphenhydramine HCl (Diphenhydramine 25 Mg Cap) 25 mg PO Q6H PRN PRN Reason: Itching & Insomnia Last Admin: 02/20/20 02:05 Dose: 25 mg Documented by: Escitalopram Oxalate (Escitalopram Oxalate 20 Mg Tablet) 20 mg PO DAILY [facility] Last Admin: 02/20/20 09:18 Dose: 20 mg Documented by: Famotidine (Famotidine 20 Mg Tab) 20 mg PO BID [facility] Last Admin: 02/20/20 09:18 Dose: 20 mg Documented by: Furosemide (Furosemide 20 Mg Tab) 20 mg PO DAILY [facility] Last Admin: 02/20/20 09:18 Dose: 20 mg Documented by: Glucagon (Glucagon 1 Mg/Ml Vial) 1 mg IM PRN PRN PRN Reason: HYPOGLYCEMIA PROTOCOL Guaifenesin/Dextromethorphan (Guaifenesin Dm 100-10/5 Ml Udcup) 15 ml PO Q4H PRN PRN Reason: Cough Dextrose/Water (D5w) 1,000 mls @ 0 mls/hr IV INF PRN PRN Reason: HYPOGLYCEMIA PROTOCOL Diltiazem HCl 125 mg/Miscellaneous Medication 1 each/ Sodium Chloride 125 mls @ 5 mls/hr IVPB INF [facility]; Protocol Last Admin: 02/20/20 07:56 Dose: 125 mls Documented by: Insulin Human Regular (Insulin Regular 300 Units/3 Ml Vial) 0 units SC .MILD SLIDING SCALE PRN PRN Reason: Mild Correctional Scale Last Admin: 02/13/20 17:39 Dose: 2 unit Documented by: Laxative/Stool Softener (Laxative Of Choice) 1 each PO DAILY PRN PRN Reason: Constipation Lisinopril (Lisinopril 5 Mg Tab) 5 mg PO DAILY [facility] Last Admin: 02/20/20 09:18 Dose: 5 mg Documented by: Loratadine (Loratadine 10 Mg Tab) 10 mg PO 2100 [facility] Last Admin: 02/19/20 20:23 Dose: 10 mg Documented by: Metoprolol Tartrate (Metoprolol Tartrate 5 Mg/5 Ml Vial) 5 mg IVP Q4H PRN PRN Reason: atrial fib w/ rate over 110 Last Admin: 02/12/20 09:09 Dose: 5 mg Documented by: Metoprolol Tartrate (Metoprolol Tartrate 25 Mg Tab) 25 mg PO TID [facility] Miscellaneous Medication (Electrolyte Replacement Protoc 1 Each Each) 1 each FS ASDIR [facility] Mometasone Furoate/Formoterol Fumar (Mometasone 200 Mcg/Formoterol 5 Mcg 120 Puff Inhaler) 2 puff INH BID-RT [facility] Last Admin: 02/20/20 06:46 Dose: 2 puff Documented by: Nitroglycerin (Nitroglycerin 0.4 Mg Tab (25 Tab Bottle)) 0.4 mg SL Q5MIN PRN PRN Reason: Chest Pain Ondansetron HCl (Ondansetron Pf 4 Mg/2 Ml Vial) 4 mg IVP Q6H PRN PRN Reason: Nausea/Vomiting, use 1st Last Admin: 01/29/20 20:40 Dose: 4 mg Documented by: Prednisone (Prednisone 20 Mg Tab) 40 mg PO BID [facility] Stop: 02/20/20 21:01 Last Admin: 02/20/20 09:17 Dose: 40 mg Documented by: Senna (Senokot 8.6 Mg Tab) 2 tab PO HSPRN PRN PRN Reason: Constipation Last Admin: 02/13/20 21:33 Dose: 2 tab Documented by: Senna/Docusate Sodium (Senokot S 8.6-50 Mg Tab) 1 tab PO BIDPRN PRN PRN Reason: Constipation Sodium Chloride (Flush - Normal Saline 10 Ml Syringe) 10 ml IVF Q12HR [facility] Last Admin: 02/20/20 09:18 Dose: 10 ml Documented by: Sodium Chloride (Flush - Normal Saline 10 Ml Syringe) 10 ml IVF PRN PRN PRN Reason: Saline Flush Last Admin: 02/06/20 15:37 Dose: 10 ml Documented by: Vital Signs & Weight: Vital Signs Temp Pulse Resp BP BP Pulse Ox 02/20/20 12:58 63 20 91 L 02/20/20 11:23 89 16 111/57 L 94 L 02/20/20 07:20 98.1 F 73 16 107/55 L 95 02/20/20 06:48 87 20 93 L 02/20/20 06:46 71 20 93 L 02/20/20 04:00 98.2 F 59 L 18 110/57 L 92 L Admit Weight 219 lb 4.8 oz Weight 228 lb 1.6 oz I/O: I/O 02/19/20 02/20/20 02/21/20 06:59 06:59 06:59 Intake Total 1540 Output Total 450 Balance 1090 - Quality Measures Condition: Atrial Fibrillation/Flutter (hx or current) CV meds: Eliquis: Yes - Medication Contraindications No Anticoagulant reason: Anticoagulant not tolerated - Physical Exam General: alert & oriented x3, appears well, no apparent distress, speech clear, affect appropriate HEENT: mucus membranes moist, normocephaly Neck: supple neck, midline trachea, no JVD/HJR, no masses, no bruit, no lymphadenopathy, no thromegaly Cardiology: irregularly irregular, tachycardia Lungs: decreased breath sounds, bibasilar rales, oxygen. negative: scattered rhonchi Neurology: cranial nerve 2-12 intact, grossly intact, no lateralizing findings Abdomen: unremarkable, active bowel sounds, no pulsations/bruits Extremities: dry, strong pulses, warm Skin: groin sites stable, device site stable w/o swelling Musculoskeletal: normal range of motion, no pain - Labs Result Diagrams: 02/20/20 04:14 02/20/20 04:14 - Assessment/Plan Assessment/Plan: 1. Persistent atrial fibrillation, rapid ventricular rate. a. Difficult to control ventricular rate despite digoxin, IV diltiazem, metoprolol. 2. Subacute myocardial infarction with peak troponin I at 23. a.Left heart catheterization from 01/28/20 shows 90% proximal LAD, 25% diffuse OM, proximal RCA 100% with LVEF 40% to 45%. . b. 2D echo from 01/28/2020 shows LVEF of 20% to 25% but difficult to assess due to atrial fibrillation, moderate left atrial enlargement, trace MR. 3. Advanced COPD and bilateral pleural effusion. a. Current smoking. 4. Hypertension. 5. Purpura - possible medication reaction Given her advanced COPD, CAD, and cardiomyopathy she has no ideal antiarrhythmic options. She is not a candidate for PVAI ablation in her tenuous medical condition. With the addition of metoprolol there has been some improved rate control and we will hold off on pacemaker /AV node ablation for now. Rate control worsened over the weekend and diltiazem gtt was resumed. BP has been borderline and lisinopril is stopped. Continue rate control with: (Amiodarone was stopped 02/09 AM. ) 1. increased metoprolol tartrate 25mg TID. 2. Digoxin 250mcg daily 3. Dilt HCl 30mg QID. Can convert to Diltiazem CD daily upon DC to simplify pill regimen.
--- NOTE | 2020-02-20 20:31 | PDOC.CPN ---
- Subjective Date: 02/20/20 Time: 09:05 - Review of Systems General: denies: fever/chills, weight/appetite/sleep changes, night sweats, fatigue Respiratory: reports: shortness of breath Cardiovascular: reports: edema Gastrointestinal: denies: nausea, vomiting, diarrhea, constipation, abd pain, GI bleeding Musculoskeletal: reports: tenderness, swelling Neurological: denies: numbness, syncope, seizure, weakness - Objective Allergies/Adverse Reactions: Allergies Allergy/AdvReac Type Severity Reaction Status Date / Time Penicillins Allergy Unknown Hives Verified 01/28/20 10:11 levofloxacin [From Levaquin] Allergy Rash Verified 02/19/20 10:12 -MYCIN DRUGS Allergy Severe Rash Uncoded 02/18/20 10:09 Visit Medications: Current Medications Acetaminophen (Acetaminophen 325 Mg Tab) 650 mg PO Q4H PRN PRN Reason: Headache/Fever/Mild Pain (1-3) Last Admin: 02/20/20 11:24 Dose: 650 mg Documented by: Albuterol/Ipratropium (Ipratropium/Albuterol Sulfate 3 Ml Neb) 3 ml NEB Q2H PRN PRN Reason: SOB &/or Wheezing Last Admin: 02/16/20 04:33 Dose: 3 ml Documented by: Albuterol/Ipratropium (Ipratropium/Albuterol Sulfate 3 Ml Neb) 3 ml NEB [id number] Last Admin: 02/20/20 18:40 Dose: 3 ml Documented by: Alprazolam (Alprazolam 0.25 Mg Tab) 0.5 mg PO BID [facility] Last Admin: 02/20/20 09:17 Dose: 0.5 mg Documented by: Aspirin (Aspirin 81 Mg Enteric Coated Tablet) 81 mg PO DAILY [facility] Last Admin: 02/20/20 09:18 Dose: 81 mg Documented by: Atorvastatin Calcium (Atorvastatin Calcium 40 Mg Tab) 40 mg PO HS [facility] Last Admin: 02/19/20 20:23 Dose: 40 mg Documented by: Benzonatate (Benzonatate 100 Mg Cap) 100 mg PO TIDPRN PRN PRN Reason: Cough Last Admin: 02/16/20 09:05 Dose: 100 mg Documented by: Bisacodyl (Bisacodyl 5 Mg Tab) 10 mg PO DAILYPRN PRN PRN Reason: Constipation Last Admin: 02/15/20 10:34 Dose: 10 mg Documented by: Bisacodyl (Bisacodyl 10 Mg Supp) 10 mg [place] TIDPRN PRN PRN Reason: Constipation Cholecalciferol (Cholecalciferol 1,000 Units (25 Mcg) Tab) 2,000 units PO DAILY [facility] Last Admin: 02/20/20 09:18 Dose: 2,000 units Documented by: Dextrose/Water (Dextrose 50% Abboject 50 Ml Syringe) 25 gm IVP PRN PRN PRN Reason: HYPOGLYCEMIA PROTOCOL Digoxin (Digoxin 0.25 Mg Tab) 0.25 mg PO DAILY [facility] Last Admin: 02/20/20 09:18 Dose: 0.25 mg Documented by: Diltiazem HCl (Diltiazem Hcl 30 Mg Tablet) 30 mg PO QID [facility] Last Admin: 02/20/20 18:25 Dose: 30 mg Documented by: Diphenhydramine HCl (Diphenhydramine 25 Mg Cap) 25 mg PO Q6H PRN PRN Reason: Itching & Insomnia Last Admin: 02/20/20 02:05 Dose: 25 mg Documented by: Escitalopram Oxalate (Escitalopram Oxalate 20 Mg Tablet) 20 mg PO DAILY [facility] Last Admin: 02/20/20 09:18 Dose: 20 mg Documented by: Famotidine (Famotidine 20 Mg Tab) 20 mg PO BID [facility] Last Admin: 02/20/20 09:18 Dose: 20 mg Documented by: Furosemide (Furosemide 20 Mg Tab) 20 mg PO DAILY [facility] Last Admin: 02/20/20 09:18 Dose: 20 mg Documented by: Glucagon (Glucagon 1 Mg/Ml Vial) 1 mg IM PRN PRN PRN Reason: HYPOGLYCEMIA PROTOCOL Guaifenesin/Dextromethorphan (Guaifenesin Dm 100-10/5 Ml Udcup) 15 ml PO Q4H PRN PRN Reason: Cough Dextrose/Water (D5w) 1,000 mls @ 0 mls/hr IV INF PRN PRN Reason: HYPOGLYCEMIA PROTOCOL Insulin Human Regular (Insulin Regular 300 Units/3 Ml Vial) 0 units SC .MILD SLIDING SCALE PRN PRN Reason: Mild Correctional Scale Last Admin: 02/13/20 17:39 Dose: 2 unit Documented by: Laxative/Stool Softener (Laxative Of Choice) 1 each PO DAILY PRN PRN Reason: Constipation Loratadine (Loratadine 10 Mg Tab) 10 mg PO 2100 [facility] Last Admin: 02/19/20 20:23 Dose: 10 mg Documented by: Metoprolol Tartrate (Metoprolol Tartrate 5 Mg/5 Ml Vial) 5 mg IVP Q4H PRN PRN Reason: atrial fib w/ rate over 110 Last Admin: 02/12/20 09:09 Dose: 5 mg Documented by: Metoprolol Tartrate (Metoprolol Tartrate 25 Mg Tab) 25 mg PO TID [facility] Miscellaneous Medication (Electrolyte Replacement Protoc 1 Each Each) 1 each FS ASDIR [facility] Mometasone Furoate/Formoterol Fumar (Mometasone 200 Mcg/Formoterol 5 Mcg 120 Puff Inhaler) 2 puff INH BID-RT [facility] Last Admin: 02/20/20 18:41 Dose: 2 puff Documented by: Nitroglycerin (Nitroglycerin 0.4 Mg Tab (25 Tab Bottle)) 0.4 mg SL Q5MIN PRN PRN Reason: Chest Pain Ondansetron HCl (Ondansetron Pf 4 Mg/2 Ml Vial) 4 mg IVP Q6H PRN PRN Reason: Nausea/Vomiting, use 1st Last Admin: 01/29/20 20:40 Dose: 4 mg Documented by: Prednisone (Prednisone 20 Mg Tab) 40 mg PO BID [facility] Stop: 02/20/20 21:01 Last Admin: 02/20/20 09:17 Dose: 40 mg Documented by: Senna (Senokot 8.6 Mg Tab) 2 tab PO HSPRN PRN PRN Reason: Constipation Last Admin: 02/13/20 21:33 Dose: 2 tab Documented by: Senna/Docusate Sodium (Senokot S 8.6-50 Mg Tab) 1 tab PO BIDPRN PRN PRN Reason: Constipation Sodium Chloride (Flush - Normal Saline 10 Ml Syringe) 10 ml IVF Q12HR [facility] Last Admin: 02/20/20 09:18 Dose: 10 ml Documented by: Sodium Chloride (Flush - Normal Saline 10 Ml Syringe) 10 ml IVF PRN PRN PRN Reason: Saline Flush Last Admin: 02/06/20 15:37 Dose: 10 ml Documented by: Vital Signs & Weight: Vital Signs Temp Pulse Resp BP BP Pulse Ox 02/20/20 18:41 92 L 02/20/20 18:40 92 L 02/20/20 16:26 97.1 F L 72 16 92/58 L 95 02/20/20 12:58 63 20 91 L 02/20/20 11:23 89 16 111/57 L 94 L Admit Weight 219 lb 4.8 oz Weight 228 lb 1.6 oz - Quality Measures Condition: Atrial Fibrillation/Flutter (hx or current) (HR up to 80-110bpm), Coronary Artery Disease, Heart Failure, Myocardial Infarction CV meds: Beta Anyi: Yes, TERRELL/ARB: Yes - Medication Contraindications No Anticoagulant reason: Anticoagulant not tolerated - Physical Exam General: alert & oriented x3 HEENT: normocephaly Neck: midline trachea, no lymphadenopathy Cardiac: irregularly regular Lungs: wheezes Neuro: cranial nerve 2-12 intact - Labs Result Diagrams: 02/20/20 04:14 02/20/20 04:14 Troponin/CKMB CK-MB (CK-2) 206.6 ng/mL (0-6.6) H* 01/28/20 08:34 Troponin I 23.552 ng/mL (< 0.028) H* 01/28/20 03:10 - Telemetry Supraventricular conduction: atrial fibrillation - Assessment/Plan Assessment/Plan: 1. Severe miultivessel CAD. High risk for CABG at this time.May need to consider high risk ptca/stent to the LAD.Can not revascularize other vessels by ptca. 2. Severe COPD.Sounds better ,off oxygen . Ambulating in the halls. 3. Ischemic Cardiomyopathy 4. Afib RVR. Rate better controlled despite after adding metoprolol. tolerating betablocker thus far. Increased TO 25MG TID.. Tachycardia is not good for the CAD/ischemia or for the CMY. Occasionally still tachycardic but overall reasonably controlled.EP assisting with the care. She may need an ablation and a bi-V device.Another option may be REX and early cardioversion of the atrial fib.EP feels that HR is under reasonable control. Increased risk of ablation or AVJ ablation and device implant. Will continue meds and if HR increases further and can not be controlled then reconsider. 5. EF at 20-25% on Echo, closer to 40% on LHC. 6.Lower extremity purpura rash,could be due to medications/anti-biotics or OAC. Eliquis stopped.. The rash is extending to entire body. May need dermatology to see. the rash has improved over the weekend. Overall looks better. Slow progress. May eventually be a candidate for CABG if pulmonary function allows. Will need MAZE procedure an ARCHIE ligation if she becomes a surgical candidate. She should go to rehab for a few weeks and then reassess if she is a candidate for CABG.ramos
[2020-02-20] MEDS: Atorvastatin Calcium 40 MG TAB PO SCH (21:31)
[2020-02-20] MEDS: Loratadine 10 MG TAB PO SCH (21:31)
[2020-02-21] MEDS: Metoprolol Tartrate 25 MG TAB PO SCH ×2 (00:47→09:32)
[2020-02-21 01:36] LABS: HSV-1 IgG Type Specific >62.20 index (0.00-0.90); HSV-2 IgG Type Specific Less than 0.91 index (0.00-0.90)
[2020-02-21 04:16] LABS: #Eosinphils 0.1 thou/uL (0.0-0.7); #Lymphocytes 0.7 thou/uL (1.20-3.40); #Monocytes 0.3 thou/uL (0.11-0.59); #Neutrophils 7.2 thou/uL (1.40-6.50); %Basophils 0.1 % (0.0-1.0); %Eosinophils 0.8 % (0.0-10.0); %Lymphocytes 8.6 % (21.0-51.0); %Monocytes 3.8 % (0.0-10.0); %Neutrophils 86.7 % (42.0-75.0); Hemoglobin 11.6 g/dL (12.0-16.0); Mean Corpuscular HGB CONC 33.3 g/dL (32.0-36.0); Mean Corpuscular Hemoglobin 30.6 pg (27.0-31.0); Mean Corpuscular Volume 91.9 fL (78.0-98.0); Mean Platelet Volume 7.7 fL (7.4-10.4); Platelet Count 148 thou/uL (130-400); RBC Distribution Width 16.2 % (11.5-14.5); Red Blood Cell (RBC) Count 3.78 mill/uL (4.20-5.40); White Blood Cell (WBC) Count 8.3 thou/uL (4.8-10.8)
[2020-02-21 04:38] LABS: Anion Gap 15 mmol/L (10-20); BUN (Urea Nitrogen) 20 mg/dL (9.8-20.1); Calc. Creatinine Clearance 96 mL/min (70-130); Calcium 8.8 mg/dL (7.8-10.44); Carbon Dioxide 22 mmol/L (23-31); Chloride 102 mmol/L (98-107); Estimated GFR-MDRD 70; Glucose 142 mg/dL (83-110); Potassium 4.8 mmol/L (3.5-5.1); Sodium 134 mmol/L (136-145)
[2020-02-21] MEDS: Mometasone 200 MCG/Formoterol 5 MCG 120 PUFF INHALER INH SCH ×2 (06:54→19:42)
--- NOTE | 2020-02-21 09:20 | PDOC.EP ---
- Subjective Date: 02/21/20 Time: 09:19 Interval History: she feels tired and short of breath today. She was greatly winded after returning to her chair from her bathroom. she feels this is worse than it has been. - Review of Systems Constitutional: reports: weakness. denies: chills, fever, malaise Respiratory: reports: shortness of breath, SOB with excertion, wheezing. denies: cough, hemoptysis, pleuritic pain Cardiology: denies: chest pain, edema, heart racing, light headedness, orthopnea Gastrointestinal: denies: abdominal pain, constipation, diarrhea Musculoskeletal: denies: unstable gait, falls, neck pain - Objective Allergies/Adverse Reactions: Allergies Allergy/AdvReac Type Severity Reaction Status Date / Time Penicillins Allergy Unknown Hives Verified 01/28/20 10:11 levofloxacin [From Levaquin] Allergy Rash Verified 02/19/20 10:12 -MYCIN DRUGS Allergy Severe Rash Uncoded 02/18/20 10:09 Current Medications Acetaminophen (Acetaminophen 325 Mg Tab) 650 mg PO Q4H PRN PRN Reason: Headache/Fever/Mild Pain (1-3) Last Admin: 02/20/20 22:05 Dose: 650 mg Documented by: Albuterol/Ipratropium (Ipratropium/Albuterol Sulfate 3 Ml Neb) 3 ml NEB Q2H PRN PRN Reason: SOB &/or Wheezing Last Admin: 02/16/20 04:33 Dose: 3 ml Documented by: Albuterol/Ipratropium (Ipratropium/Albuterol Sulfate 3 Ml Neb) 3 ml NEB [id number] [facility] Last Admin: 02/21/20 06:57 Dose: 3 ml Documented by: Alprazolam (Alprazolam 0.25 Mg Tab) 0.5 mg PO BID [facility] Last Admin: 02/20/20 22:06 Dose: 0.5 mg Documented by: Apixaban (Apixaban 5 Mg Tab) 5 mg PO BID [facility] Aspirin (Aspirin 81 Mg Enteric Coated Tablet) 81 mg PO DAILY [facility] Last Admin: 02/20/20 09:18 Dose: 81 mg Documented by: Atorvastatin Calcium (Atorvastatin Calcium 40 Mg Tab) 40 mg PO HS [facility] Last Admin: 02/20/20 21:31 Dose: 40 mg Documented by: Benzonatate (Benzonatate 100 Mg Cap) 100 mg PO TIDPRN PRN PRN Reason: Cough Last Admin: 02/16/20 09:05 Dose: 100 mg Documented by: Bisacodyl (Bisacodyl 5 Mg Tab) 10 mg PO DAILYPRN PRN PRN Reason: Constipation Last Admin: 02/15/20 10:34 Dose: 10 mg Documented by: Bisacodyl (Bisacodyl 10 Mg Supp) 10 mg [place] TIDPRN PRN PRN Reason: Constipation Cholecalciferol (Cholecalciferol 1,000 Units (25 Mcg) Tab) 2,000 units PO DAILY [facility] Last Admin: 02/20/20 09:18 Dose: 2,000 units Documented by: Dextrose/Water (Dextrose 50% Abboject 50 Ml Syringe) 25 gm IVP PRN PRN PRN Reason: HYPOGLYCEMIA PROTOCOL Digoxin (Digoxin 0.25 Mg Tab) 0.25 mg PO DAILY [facility] Last Admin: 02/20/20 09:18 Dose: 0.25 mg Documented by: Diltiazem HCl (Diltiazem Hcl 30 Mg Tablet) 30 mg PO QID [facility] Last Admin: 02/20/20 21:31 Dose: 30 mg Documented by: Diphenhydramine HCl (Diphenhydramine 25 Mg Cap) 25 mg PO Q6H PRN PRN Reason: Itching & Insomnia Last Admin: 02/20/20 02:05 Dose: 25 mg Documented by: Escitalopram Oxalate (Escitalopram Oxalate 20 Mg Tablet) 20 mg PO DAILY [facility] Last Admin: 02/20/20 09:18 Dose: 20 mg Documented by: Famotidine (Famotidine 20 Mg Tab) 20 mg PO BID [facility] Last Admin: 02/20/20 21:31 Dose: 20 mg Documented by: Furosemide (Furosemide 20 Mg Tab) 20 mg PO DAILY [facility] Last Admin: 02/20/20 09:18 Dose: 20 mg Documented by: Glucagon (Glucagon 1 Mg/Ml Vial) 1 mg IM PRN PRN PRN Reason: HYPOGLYCEMIA PROTOCOL Guaifenesin/Dextromethorphan (Guaifenesin Dm 100-10/5 Ml Udcup) 15 ml PO Q4H PRN PRN Reason: Cough Dextrose/Water (D5w) 1,000 mls @ 0 mls/hr IV INF PRN PRN Reason: HYPOGLYCEMIA PROTOCOL Insulin Human Regular (Insulin Regular 300 Units/3 Ml Vial) 0 units SC .MILD SLIDING SCALE PRN PRN Reason: Mild Correctional Scale Last Admin: 02/13/20 17:39 Dose: 2 unit Documented by: Laxative/Stool Softener (Laxative Of Choice) 1 each PO DAILY PRN PRN Reason: Constipation Loratadine (Loratadine 10 Mg Tab) 10 mg PO 2100 [facility] Last Admin: 02/20/20 21:31 Dose: 10 mg Documented by: Metoprolol Tartrate (Metoprolol Tartrate 5 Mg/5 Ml Vial) 5 mg IVP Q4H PRN PRN Reason: atrial fib w/ rate over 110 Last Admin: 02/12/20 09:09 Dose: 5 mg Documented by: Metoprolol Tartrate (Metoprolol Tartrate 25 Mg Tab) 25 mg PO TID [facility] Last Admin: 02/21/20 00:47 Dose: 25 mg Documented by: Miscellaneous Medication (Electrolyte Replacement Protoc 1 Each Each) 1 each FS ASDIR [facility] Mometasone Furoate/Formoterol Fumar (Mometasone 200 Mcg/Formoterol 5 Mcg 120 Puff Inhaler) 2 puff INH BID-RT [facility] Last Admin: 02/21/20 06:54 Dose: 2 puff Documented by: Nitroglycerin (Nitroglycerin 0.4 Mg Tab (25 Tab Bottle)) 0.4 mg SL Q5MIN PRN PRN Reason: Chest Pain Ondansetron HCl (Ondansetron Pf 4 Mg/2 Ml Vial) 4 mg IVP Q6H PRN PRN Reason: Nausea/Vomiting, use 1st Last Admin: 01/29/20 20:40 Dose: 4 mg Documented by: Senna (Senokot 8.6 Mg Tab) 2 tab PO HSPRN PRN PRN Reason: Constipation Last Admin: 02/13/20 21:33 Dose: 2 tab Documented by: Senna/Docusate Sodium (Senokot S 8.6-50 Mg Tab) 1 tab PO BIDPRN PRN PRN Reason: Constipation Sodium Chloride (Flush - Normal Saline 10 Ml Syringe) 10 ml IVF Q12HR [facility] Last Admin: 02/20/20 22:09 Dose: Not Given Documented by: Sodium Chloride (Flush - Normal Saline 10 Ml Syringe) 10 ml IVF PRN PRN PRN Reason: Saline Flush Last Admin: 02/06/20 15:37 Dose: 10 ml Documented by: Vital Signs & Weight: Vital Signs Temp Pulse Resp BP Pulse Ox 02/21/20 07:15 97.5 F L 78 18 95/51 L 100 02/21/20 06:57 62 20 95 02/21/20 06:54 62 20 95 02/21/20 03:30 98.3 F 70 18 129/58 L 100 02/21/20 00:30 71 102/59 L 02/20/20 23:38 72 98/56 L Admit Weight 219 lb 4.8 oz Weight 230 lb I/O: I/O 02/20/20 02/21/20 02/22/20 06:59 06:59 06:59 Intake Total 1540 1330 Output Total 450 320 Balance 1090 1010 - Quality Measures Condition: Atrial Fibrillation/Flutter (hx or current) CV meds: Eliquis: Yes - Medication Contraindications No Anticoagulant reason: Anticoagulant not tolerated - Physical Exam General: alert & oriented x3, speech clear, affect appropriate Neck: supple neck, JVD/HJR Cardiology: irregularly irregular, tachycardia Lungs: no rales, no rhonchi, decreased breath sounds, wheezes. negative: bibasilar rales Neurology: cranial nerve 2-12 intact, grossly intact, coordination normal Abdomen: unremarkable, soft, non-tender. negative: HJR negative Extremities: dry, strong pulses, warm, other: (purpura) - Labs Result Diagrams: 02/21/20 03:51 02/21/20 03:51 - EKG Interpretation EKG Method: Telemetry EKG shows: Atrial fibrillation - Assessment/Plan Assessment/Plan: 1. Persistent atrial fibrillation, rapid ventricular rate. a. Difficult to control ventricular rate despite digoxin, IV diltiazem, metoprolol. 2. Subacute myocardial infarction with peak troponin I at 23. a.Left heart catheterization from 01/28/20 shows 90% proximal LAD, 25% diffuse OM, proximal RCA 100% with LVEF 40% to 45%. . b. 2D echo from 01/28/2020 shows LVEF of 20% to 25% but difficult to assess due to atrial fibrillation, moderate left atrial enlargement, trace MR. 3. Advanced COPD and bilateral pleural effusion. a. Current smoking. 4. Hypertension. 5. Purpura - possible medication reaction Given her advanced COPD, CAD, and cardiomyopathy she has no ideal antiarrhythmic options. She is not a candidate for PVAI ablation in her tenuous medical condition. With the addition of metoprolol there has been some improved rate control and we will hold off on pacemaker /AV node ablation for now. Rate control worsened over the weekend and diltiazem gtt was resumed. BP has been borderline and lisinopril is stopped. Metoprolol was increased but she is fairly dyspneic this AM with slight wheezes. She may not tolerate further increases in beta blockers. Rate control is adequate at this time. Continue rate control with: (Amiodarone was stopped 02/09 AM. ) 1. Decreased metoprolol tartrate 25mg BID. 2. Digoxin 250mcg daily 3. Change Dilt HCl 60mg TID.
[2020-02-21] MEDS: Famotidine 20 MG TAB PO SCH ×2 (09:30→22:42)
[2020-02-21] MEDS: Escitalopram Oxalate 20 mg Tablet PO SCH (09:30)
[2020-02-21] MEDS: Digoxin 0.25 MG TAB PO SCH (09:31)
[2020-02-21] MEDS: Cholecalciferol 1,000 UNITS (25 MCG) TAB PO SCH (09:31)
[2020-02-21] MEDS: Aspirin 81 mg Enteric Coated Tablet PO SCH (09:31)
[2020-02-21] MEDS: ALPRAZolam 0.25 MG TAB PO SCH ×2 (09:32→22:41)
[2020-02-21] MEDS: Apixaban 5 MG TAB PO SCH ×2 (09:32)
[2020-02-21] MEDS: Furosemide 20 MG TAB PO SCH (09:32)
--- NOTE | 2020-02-21 14:11 | PDOC.HOSPP ---
- Subjective Encounter Date: 02/21/20 - Objective Vital Signs & Weight: Vital Signs (12 hours) Temp Pulse Pulse Pulse Resp BP BP 02/21/20 12:33 78 16 02/21/20 11:46 98.9 F 98 16 02/21/20 09:31 94 02/21/20 08:51 88 94 91/54 L 93/52 L 02/21/20 07:15 97.5 F L 78 18 02/21/20 06:57 62 20 02/21/20 06:54 62 20 02/21/20 03:30 98.3 F 70 18 BP BP Pulse Ox 02/21/20 12:33 94 L 02/21/20 11:46 95/51 L 100 02/21/20 09:31 02/21/20 08:51 02/21/20 07:15 95/51 L 100 02/21/20 06:57 95 02/21/20 06:54 95 02/21/20 03:30 129/58 L 100 Weight Admit Weight 219 lb 4.8 oz Weight 230 lb Most Recent Monitor Data Heart Rate from ECG 101 NIBP 119/68 NIBP BP-Mean 85 Respiration from ECG 21 SpO2 85 I&O: 02/20/20 02/21/20 02/22/20 06:59 06:59 06:59 Intake Total 1540 1330 Output Total 450 320 Balance 1090 1010 Result Diagrams: 02/21/20 03:51 02/21/20 03:51 Additional Labs: Accuchecks 02/21/20 02/21/20 02/20/20 10:57 05:32 20:10 POC Glucose 113 H 153 H 147 H 02/20/20 17:55 POC Glucose 115 H Hospitalist ROS - Medication Medications: Active Medications Generic Name Dose Route Start Last Admin Trade Name Freq PRN Reason Stop Dose Admin Acetaminophen 650 mg 01/28/20 00:25 02/20/20 22:05 Acetaminophen 325 Mg Tab PO 650 mg Q4H PRN Administration Headache/Fever/Mild Pain (1-3) Albuterol/Ipratropium 3 ml 01/28/20 00:25 02/16/20 04:33 Ipratropium/Albuterol Sulfate 3 Ml Neb NEB 3 ml Q2H PRN Administration SOB &/or Wheezing Albuterol/Ipratropium 3 ml 01/29/20 13:00 02/21/20 12:33 Ipratropium/Albuterol Sulfate 3 Ml Neb NEB 3 ml [id number] PAULA Administration Alprazolam 0.5 mg 02/19/20 09:00 02/21/20 09:32 Alprazolam 0.25 Mg Tab PO 0.5 mg BID PAULA Administration Aspirin 81 mg 01/28/20 09:00 02/21/20 09:31 Aspirin 81 Mg Enteric Coated Tablet PO 81 mg DAILY PAULA Administration Atorvastatin Calcium 40 mg 01/28/20 21:00 02/20/20 21:31 Atorvastatin Calcium 40 Mg Tab PO 40 mg HS PAULA Administration Benzonatate 100 mg 02/12/20 09:35 02/16/20 09:05 Benzonatate 100 Mg Cap PO 100 mg TIDPRN PRN Administration Cough Bisacodyl 10 mg 01/31/20 16:36 02/15/20 10:34 Bisacodyl 5 Mg Tab PO 10 mg DAILYPRN PRN Administration Constipation Cholecalciferol 2,000 units 02/14/20 09:00 02/21/20 09:31 Cholecalciferol 1,000 Units (25 Mcg) Tab PO 2,000 units DAILY PAULA Administration Digoxin 0.25 mg 02/09/20 09:00 02/21/20 09:31 Digoxin 0.25 Mg Tab PO 0.25 mg DAILY PAULA Administration Diphenhydramine HCl 25 mg 02/12/20 09:35 02/20/20 02:05 Diphenhydramine 25 Mg Cap PO 25 mg Q6H PRN Administration Itching & Insomnia Escitalopram Oxalate 20 mg 01/31/20 09:00 02/21/20 09:30 Escitalopram Oxalate 20 Mg Tablet PO 20 mg DAILY PAULA Administration Famotidine 20 mg 01/28/20 09:00 02/21/20 09:30 Famotidine 20 Mg Tab PO 20 mg BID PAULA Administration Furosemide 20 mg 02/17/20 09:00 02/21/20 09:32 Furosemide 20 Mg Tab PO Not Given DAILY PAULA Insulin Human Regular 0 units 01/28/20 00:26 02/13/20 17:39 Insulin Regular 300 Units/3 Ml Vial SC 2 unit .MILD SLIDING SCALE PRN Administration Mild Correctional Scale Loratadine 10 mg 02/18/20 21:00 02/20/20 21:31 Loratadine 10 Mg Tab PO 10 mg 2100 PAULA Administration Metoprolol Tartrate 5 mg 01/28/20 00:21 02/12/20 09:09 Metoprolol Tartrate 5 Mg/5 Ml Vial IVP 5 mg Q4H PRN Administration atrial fib w/ rate over 110 Mometasone Furoate/Formoterol Fumar 2 puff 01/28/20 18:30 02/21/20 06:54 Mometasone 200 Mcg/Formoterol 5 Mcg 120 Puff Inhaler INH 2 puff BID-RT PAULA Administration Ondansetron HCl 4 mg 01/28/20 00:25 01/29/20 20:40 Ondansetron Pf 4 Mg/2 Ml Vial IVP 4 mg Q6H PRN Administration Nausea/Vomiting, use 1st Senna 2 tab 01/31/20 16:36 02/13/20 21:33 Senokot 8.6 Mg Tab PO 2 tab HSPRN PRN Administration Constipation Sodium Chloride 10 ml 02/01/20 09:00 02/21/20 09:33 Flush - Normal Saline 10 Ml Syringe IVF 10 ml Q12HR PAULA Administration Sodium Chloride 10 ml 02/01/20 08:30 02/06/20 15:37 Flush - Normal Saline 10 Ml Syringe IVF 10 ml PRN PRN Administration Saline Flush - Exam ENT: normocephalic atraumatic Heart: RRR Respiratory: normal chest expansion, no tachypnea Extremities: no cyanosis, no clubbing, 1+ LE edema Neurological: no focal deficits Hosp A/P - Plan This is a 79 year old female with COPD who presented with shortness of breath , afib with RVR, Found to have pulmonary edema on admission. Diuresed with IV lasix. Also developed pneumonia, completed five days of antibiotics. Continues to be in the hospital due to worsening purpura on legs Afib with RVR Rate controlled on diltiazem, metoprolol, and digoxin.(Metoprolol dose was reduced due to worsening respiratory status.) Amiodarone has been discontinued due to the patient's pulmonary disease. Continue management per as to radiology. COPD The patient shortness of breath and wheezing is worsening. Start ipratropium nebulized every 4 hours and continue prednisone 40 mg orally daily. Petechial/purpural rash on lower extremities Likely purpuric drug eruption. Antibiotics were discontinued. Differential diagnoses also include side effect related to the anticoagulation. She does have some open bleeding wounds. Anticoagulation on hold. Wound care consulted. The rash appears to be improving. Right lower lobe pneumonia Patient completed 5 days of antibiotics. Acute hypoxic respiratory failure secondary to acute systolic heart failure - resolved - EF 20-25%, Xray showing pulmonary edema . She was diuresed and weaned to room air. The patient is now on oral Lasix. Physical deconditioning Pending placement to swing bed when available and cleared by cardiology.
[2020-02-21] MEDS: Acetaminophen 325 MG TAB PO PRN (15:55)
[2020-02-21] MEDS: Ipratropium Bromide 2.5 ml Neb NEB SCH ×3 (18:22→23:50)
--- NOTE | 2020-02-21 20:31 | PDOC.CPN ---
- Subjective Date: 02/21/20 Time: 09:00 Interval history: No new events but HR still poorly controlled. Hypotensive at times. - Review of Systems General: reports: fatigue Respiratory: reports: shortness of breath Cardiovascular: reports: palpitation Musculoskeletal: reports: pain Neurological: reports: weakness - Objective Allergies/Adverse Reactions: Allergies Allergy/AdvReac Type Severity Reaction Status Date / Time Penicillins Allergy Unknown Hives Verified 01/28/20 10:11 levofloxacin [From Levaquin] Allergy Rash Verified 02/19/20 10:12 -MYCIN DRUGS Allergy Severe Rash Uncoded 02/18/20 10:09 Visit Medications: Current Medications Acetaminophen (Acetaminophen 325 Mg Tab) 650 mg PO Q4H PRN PRN Reason: Headache/Fever/Mild Pain (1-3) Last Admin: 02/21/20 15:55 Dose: 650 mg Documented by: Albuterol/Ipratropium (Ipratropium/Albuterol Sulfate 3 Ml Neb) 3 ml NEB Q2H PRN PRN Reason: SOB &/or Wheezing Last Admin: 02/16/20 04:33 Dose: 3 ml Documented by: Alprazolam (Alprazolam 0.25 Mg Tab) 0.[address] [facility] Last Admin: 02/21/20 09:32 Dose: 0.5 mg Documented by: Aspirin (Aspirin 81 Mg Enteric Coated Tablet) [address] [facility] Last Admin: 02/21/20 09:31 Dose: 81 mg Documented by: Atorvastatin Calcium (Atorvastatin Calcium 40 Mg Tab) [address] [facility] Last Admin: 02/20/20 21:31 Dose: 40 mg Documented by: Benzonatate (Benzonatate 100 Mg Cap) 100 mg PO TIDPRN PRN PRN Reason: Cough Last Admin: 02/16/20 09:05 Dose: 100 mg Documented by: Bisacodyl (Bisacodyl 5 Mg Tab) 10 mg PO DAILYPRN PRN PRN Reason: Constipation Last Admin: 02/15/20 10:34 Dose: 10 mg Documented by: Bisacodyl (Bisacodyl 10 Mg Supp) 10 mg ND TIDPRN PRN PRN Reason: Constipation Cholecalciferol (Cholecalciferol 1,000 Units (25 Mcg) Tab) 2,[address] [facility] Last Admin: 02/21/20 09:31 Dose: 2,000 units Documented by: Dextrose/Water (Dextrose 50% Abboject 50 Ml Syringe) 25 gm IVP PRN PRN PRN Reason: HYPOGLYCEMIA PROTOCOL Digoxin (Digoxin 0.25 Mg Tab) 0.[address] [facility] Last Admin: 02/21/20 09:31 Dose: 0.25 mg Documented by: Diltiazem HCl (Diltiazem Hcl 30 Mg Tablet) [address] [facility] Last Admin: 02/21/20 16:18 Dose: Not Given Documented by: Diphenhydramine HCl (Diphenhydramine 25 Mg Cap) 25 mg PO Q6H PRN PRN Reason: Itching & Insomnia Last Admin: 02/20/20 02:05 Dose: 25 mg Documented by: Escitalopram Oxalate (Escitalopram Oxalate 20 Mg Tablet) [address] [facility] Last Admin: 02/21/20 09:30 Dose: 20 mg Documented by: Famotidine (Famotidine 20 Mg Tab) [address] [facility] Last Admin: 02/21/20 09:30 Dose: 20 mg Documented by: Furosemide (Furosemide 20 Mg Tab) [address] [facility] Last Admin: 02/21/20 09:32 Dose: Not Given Documented by: Glucagon (Glucagon 1 Mg/Ml Vial) 1 mg IM PRN PRN PRN Reason: HYPOGLYCEMIA PROTOCOL Guaifenesin/Dextromethorphan (Guaifenesin Dm 100-10/5 Ml Udcup) 15 ml PO Q4H PRN PRN Reason: Cough Dextrose/Water (D5w) 1,000 mls @ 0 mls/hr IV INF PRN PRN Reason: HYPOGLYCEMIA PROTOCOL Insulin Human Regular (Insulin Regular 300 Units/3 Ml Vial) 0 units SC .MILD SLIDING SCALE PRN PRN Reason: Mild Correctional Scale Last Admin: 02/13/20 17:39 Dose: 2 unit Documented by: Ipratropium Van (Ipratropium Van 2.5 Ml Neb) 2.5 ml NEB [id number] [facility] Last Admin: 02/21/20 19:42 Dose: 2.5 ml Documented by: Laxative/Stool Softener (Laxative Of Choice) 1 each PO DAILY PRN PRN Reason: Constipation Loratadine (Loratadine 10 Mg Tab) [address] [facility] Last Admin: 02/20/20 21:31 Dose: 10 mg Documented by: Metoprolol Tartrate (Metoprolol Tartrate 5 Mg/5 Ml Vial) 5 mg IVP Q4H PRN PRN Reason: atrial fib w/ rate over 110 Last Admin: 02/12/20 09:09 Dose: 5 mg Documented by: Metoprolol Tartrate (Metoprolol Tartrate 25 Mg Tab) [address] [facility] Miscellaneous Medication (Electrolyte Replacement Protoc 1 Each Each) [address] [facility] Mometasone Furoate/Formoterol Fumar (Mometasone 200 Mcg/Formoterol 5 Mcg 120 Puff Inhaler) 2 puff INH BID-RT [facility] Last Admin: 02/21/20 19:42 Dose: 2 puff Documented by: Nitroglycerin (Nitroglycerin 0.4 Mg Tab (25 Tab Bottle)) 0.4 mg SL Q5MIN PRN PRN Reason: Chest Pain Ondansetron HCl (Ondansetron Pf 4 Mg/2 Ml Vial) 4 mg IVP Q6H PRN PRN Reason: Nausea/Vomiting, use 1st Last Admin: 01/29/20 20:40 Dose: 4 mg Documented by: Prednisone (Prednisone 20 Mg Tab) 40 mg PO QAM-[facility] Senna (Senokot 8.6 Mg Tab) 2 tab PO HSPRN PRN PRN Reason: Constipation Last Admin: 02/13/20 21:33 Dose: 2 tab Documented by: Senna/Docusate Sodium (Senokot S 8.6-50 Mg Tab) 1 tab PO BIDPRN PRN PRN Reason: Constipation Sodium Chloride (Flush - Normal Saline 10 Ml Syringe) [address] [facility] Last Admin: 02/21/20 09:33 Dose: 10 ml Documented by: Sodium Chloride (Flush - Normal Saline 10 Ml Syringe) 10 ml IVF PRN PRN PRN Reason: Saline Flush Last Admin: 02/06/20 15:37 Dose: 10 ml Documented by: Vital Signs & Weight: Vital Signs Temp Pulse Pulse Pulse Resp BP BP 02/21/20 19:42 02/21/20 16:33 97.7 F 83 16 02/21/20 12:33 78 16 02/21/20 11:46 98.9 F 98 16 02/21/20 09:31 94 02/21/20 08:51 88 94 91/54 L 93/52 L BP BP Pulse Ox 02/21/20 19:42 94 L 02/21/20 16:33 99/64 100 02/21/20 12:33 94 L 02/21/20 11:46 95/51 L 100 02/21/20 09:31 02/21/20 08:51 Admit Weight 219 lb 4.8 oz Weight 230 lb - Quality Measures Condition: Atrial Fibrillation/Flutter (hx or current) (HR up to 80-110bpm), Coronary Artery Disease, Heart Failure, Myocardial Infarction CV meds: Beta Anyi: Yes, TERRELL/ARB: Yes - Medication Contraindications No Anticoagulant reason: Anticoagulant not tolerated - Physical Exam HEENT: normocephaly Neck: no JVD/HJR Cardiac: irregularly regular Lungs: rales - right, scattered rhonchi Neuro: grossly intact Abdomen: unremarkable Extremities: other: (purpura, blisters on the dorsal surface of the feet.) - Labs Result Diagrams: 02/21/20 03:51 02/21/20 03:51 Troponin/CKMB CK-MB (CK-2) 206.6 ng/mL (0-6.6) H* 01/28/20 08:34 Troponin I 23.552 ng/mL (< 0.028) H* 01/28/20 03:10 - Telemetry Supraventricular conduction: atrial fibrillation (HR up to 130's at times.) - Assessment/Plan Assessment/Plan: 1. Severe miultivessel CAD. High risk for CABG at this time.May need to consider high risk ptca/stent to the LAD.Can not revascularize other vessels by ptca. 2. Severe COPD.Sounds better ,off oxygen . Ambulating in the halls. 3. Ischemic Cardiomyopathy 4. Afib RVR. Rate better controlled despite after adding metoprolol. tolerating betablocker thus far but BP on the low side.. Increased TO 25MG TID.. Tachycardia is not good for the CAD/ischemia or for the CMY. Occasionally still tachycardic but overall reasonably controlled.EP assisting with the care. She may need an ablation and a bi-V device.Another option may be REX and early cardioversion of the atrial fib.EP feels that HR is under reasonable control. Increased risk of ablation or AVJ ablation and device implant. Will continue meds and if HR increases further and can not be controlled then reconsider. 5. EF at 20-25% on Echo, closer to 40% on LHC. 6.Lower extremity purpura rash,could be due to medications/anti-biotics or OAC. Eliquis stopped.. The rash is extending to entire body. May need dermatology to see. the rash has improved over the weekend. Would try another OAC rather than eliquis, this may be the etiology of the purpura.
[2020-02-21] MEDS: Atorvastatin Calcium 40 MG TAB PO SCH (22:42)
[2020-02-21] MEDS: Loratadine 10 MG TAB PO SCH (22:42)
[2020-02-22] MEDS: diphenhydrAMINE 25 MG CAP PO PRN ×2 (01:41→11:08)
[2020-02-22] MEDS: Ipratropium Bromide 2.5 ml Neb NEB SCH ×5 (01:41→19:09)
[2020-02-22] MEDS: Acetaminophen 325 MG TAB PO PRN ×3 (01:41→20:23)
[2020-02-22] MEDS: Metoprolol Tartrate 25 MG TAB PO SCH ×3 (02:06→23:56)
[2020-02-22 04:13] LABS: #Eosinphils 0.4 thou/uL (0.0-0.7); #Lymphocytes 1.2 thou/uL (1.20-3.40); #Monocytes 0.5 thou/uL (0.11-0.59); #Neutrophils 6.1 thou/uL (1.40-6.50); %Basophils 0.3 % (0.0-1.0); %Eosinophils 5.2 % (0.0-10.0); %Lymphocytes 14.1 % (21.0-51.0); %Monocytes 6.1 % (0.0-10.0); %Neutrophils 74.2 % (42.0-75.0); Hemoglobin 11.9 g/dL (12.0-16.0); Mean Corpuscular HGB CONC 34.5 g/dL (32.0-36.0); Mean Corpuscular Hemoglobin 31.5 pg (27.0-31.0); Mean Corpuscular Volume 91.5 fL (78.0-98.0); Mean Platelet Volume 7.7 fL (7.4-10.4); Platelet Count 143 thou/uL (130-400); RBC Distribution Width 16.3 % (11.5-14.5); Red Blood Cell (RBC) Count 3.78 mill/uL (4.20-5.40); White Blood Cell (WBC) Count 8.3 thou/uL (4.8-10.8)
[2020-02-22 04:30] LABS: Anion Gap 13 mmol/L (10-20); BUN (Urea Nitrogen) 22 mg/dL (9.8-20.1); Calc. Creatinine Clearance 101 mL/min (70-130); Calcium 8.6 mg/dL (7.8-10.44); Carbon Dioxide 22 mmol/L (23-31); Chloride 103 mmol/L (98-107); Estimated GFR-MDRD 73; Glucose 97 mg/dL (83-110); Potassium 4.4 mmol/L (3.5-5.1); Sodium 134 mmol/L (136-145)
[2020-02-22] MEDS: Metoprolol Tartrate 5 MG/5 ML VIAL IVP PRN (05:22)
[2020-02-22] MEDS: Mometasone 200 MCG/Formoterol 5 MCG 120 PUFF INHALER INH SCH ×2 (07:10→19:12)
[2020-02-22] MEDS: ALPRAZolam 0.25 MG TAB PO SCH ×2 (08:44→20:22)
[2020-02-22] MEDS: Furosemide 20 MG TAB PO SCH (08:45)
[2020-02-22] MEDS: Cholecalciferol 1,000 UNITS (25 MCG) TAB PO SCH (08:45)
[2020-02-22] MEDS: Digoxin 0.25 MG TAB PO SCH (08:45)
[2020-02-22] MEDS: Aspirin 81 mg Enteric Coated Tablet PO SCH (08:45)
[2020-02-22] MEDS: predniSONE 20 MG TAB PO SCH (08:45)
[2020-02-22] MEDS: Famotidine 20 MG TAB PO SCH ×2 (08:45→20:23)
[2020-02-22] MEDS: Escitalopram Oxalate 20 mg Tablet PO SCH (08:45)
--- NOTE | 2020-02-22 11:13 | PRG ---
DATE OF SERVICE: 02/22/2020 SUBJECTIVE: Leanne Jessica is a 79-year-old female. OBJECTIVE: VITAL SIGNS: Pulse is 130, respiratory rate 20, sats 99 on 2 L, and blood pressure 165/84. LUNGS: She is having some difficulty breathing. CHEST: No wheezing. No crackles. CARDIAC: Normal S1 and S2. No gallops. ABDOMEN: No masses. LABORATORY DATA: Unremarkable. ASSESSMENT: Congestive heart failure, cardiomyopathy, chronic obstructive pulmonary disease, supraventricular tachycardia, and severe deconditioning. PLAN: Pulmonary parks, appears to be relatively stable. Await disposition as per Cardiology. Job ID: [id number]
--- NOTE | 2020-02-22 13:30 | PDOC.EP ---
- Subjective Date: 02/22/20 Time: 08:00 Interval History: Less short of breath today. No wheezing. She did not sleep well and feels tired. She reports pain in her feet/legs and itching discomfort in her flanks. - Review of Systems Constitutional: reports: weakness. denies: chills, fever, malaise, sweats Respiratory: reports: shortness of breath. denies: cough, dry, hemoptysis, sputum, wheezing Cardiology: denies: chest pain, edema, heart racing, light headedness, palpitations Gastrointestinal: denies: abdominal pain, constipation, nausea, vomitting Musculoskeletal: reports: foot pain. denies: unstable gait, falls - Objective Allergies/Adverse Reactions: Allergies Allergy/AdvReac Type Severity Reaction Status Date / Time Penicillins Allergy Unknown Hives Verified 01/28/20 10:11 levofloxacin [From Levaquin] Allergy Rash Verified 02/19/20 10:12 -MYCIN DRUGS Allergy Severe Rash Uncoded 02/18/20 10:09 Current Medications Acetaminophen (Acetaminophen 325 Mg Tab) 650 mg PO Q4H PRN PRN Reason: Headache/Fever/Mild Pain (1-3) Last Admin: 02/22/20 05:23 Dose: 650 mg Documented by: Albuterol/Ipratropium (Ipratropium/Albuterol Sulfate 3 Ml Neb) 3 ml NEB Q2H PRN PRN Reason: SOB &/or Wheezing Last Admin: 02/16/20 04:33 Dose: 3 ml Documented by: Alprazolam (Alprazolam 0.25 Mg Tab) 0.5 mg PO BID [facility] Last Admin: 02/22/20 08:44 Dose: 0.5 mg Documented by: Aspirin (Aspirin 81 Mg Enteric Coated Tablet) 81 mg PO DAILY [facility] Last Admin: 02/22/20 08:45 Dose: 81 mg Documented by: Atorvastatin Calcium (Atorvastatin Calcium 40 Mg Tab) 40 mg PO HS [facility] Last Admin: 02/21/20 22:42 Dose: 40 mg Documented by: Benzonatate (Benzonatate 100 Mg Cap) 100 mg PO TIDPRN PRN PRN Reason: Cough Last Admin: 02/16/20 09:05 Dose: 100 mg Documented by: Bisacodyl (Bisacodyl 5 Mg Tab) 10 mg PO DAILYPRN PRN PRN Reason: Constipation Last Admin: 02/15/20 10:34 Dose: 10 mg Documented by: Bisacodyl (Bisacodyl 10 Mg Supp) 10 mg SC TIDPRN PRN PRN Reason: Constipation Cholecalciferol (Cholecalciferol 1,000 Units (25 Mcg) Tab) 2,000 units PO DAILY [facility] Last Admin: 02/22/20 08:45 Dose: 2,000 units Documented by: Dextrose/Water (Dextrose 50% Abboject 50 Ml Syringe) 25 gm IVP PRN PRN PRN Reason: HYPOGLYCEMIA PROTOCOL Digoxin (Digoxin 0.25 Mg Tab) 0.25 mg PO DAILY [facility] Last Admin: 02/22/20 08:45 Dose: 0.25 mg Documented by: Diltiazem HCl (Diltiazem Hcl 30 Mg Tablet) 60 mg PO TID [facility] Last Admin: 02/22/20 08:45 Dose: 60 mg Documented by: Diphenhydramine HCl (Diphenhydramine 25 Mg Cap) 25 mg PO Q6H PRN PRN Reason: Itching & Insomnia Last Admin: 02/22/20 11:08 Dose: 25 mg Documented by: Escitalopram Oxalate (Escitalopram Oxalate 20 Mg Tablet) 20 mg PO DAILY [facility] Last Admin: 02/22/20 08:45 Dose: 20 mg Documented by: Famotidine (Famotidine 20 Mg Tab) 20 mg PO BID [facility] Last Admin: 02/22/20 08:45 Dose: 20 mg Documented by: Furosemide (Furosemide 20 Mg Tab) 20 mg PO DAILY [facility] Last Admin: 02/22/20 08:45 Dose: 20 mg Documented by: Glucagon (Glucagon 1 Mg/Ml Vial) 1 mg IM PRN PRN PRN Reason: HYPOGLYCEMIA PROTOCOL Guaifenesin/Dextromethorphan (Guaifenesin Dm 100-10/5 Ml Udcup) 15 ml PO Q4H PRN PRN Reason: Cough Dextrose/Water (D5w) 1,000 mls @ 0 mls/hr IV INF PRN PRN Reason: HYPOGLYCEMIA PROTOCOL Insulin Human Regular (Insulin Regular 300 Units/3 Ml Vial) 0 units SC .MILD SLIDING SCALE PRN PRN Reason: Mild Correctional Scale Last Admin: 02/13/20 17:39 Dose: 2 unit Documented by: Ipratropium Chardon (Ipratropium [place] 2.5 Ml Neb) 2.5 ml NEB [id number] [facility] Last Admin: 02/22/20 10:30 Dose: 2.5 ml Documented by: Laxative/Stool Softener (Laxative Of Choice) 1 each PO DAILY PRN PRN Reason: Constipation Loratadine (Loratadine 10 Mg Tab) 10 mg PO 2100 [facility] Last Admin: 02/21/20 22:42 Dose: 10 mg Documented by: Metoprolol Tartrate (Metoprolol Tartrate 5 Mg/5 Ml Vial) 5 mg IVP Q4H PRN PRN Reason: atrial fib w/ rate over 110 Last Admin: 02/22/20 05:22 Dose: 5 mg Documented by: Metoprolol Tartrate (Metoprolol Tartrate 25 Mg Tab) 25 mg PO BID [facility] Last Admin: 02/22/20 08:45 Dose: 25 mg Documented by: Miscellaneous Medication (Electrolyte Replacement Protoc 1 Each Each) 1 each FS ASDIR [facility] Mometasone Furoate/Formoterol Fumar (Mometasone 200 Mcg/Formoterol 5 Mcg 120 Puff Inhaler) 2 puff INH BID-RT [facility] Last Admin: 02/22/20 07:10 Dose: 2 puff Documented by: Nitroglycerin (Nitroglycerin 0.4 Mg Tab (25 Tab Bottle)) 0.4 mg SL Q5MIN PRN PRN Reason: Chest Pain Ondansetron HCl (Ondansetron Pf 4 Mg/2 Ml Vial) 4 mg IVP Q6H PRN PRN Reason: Nausea/Vomiting, use 1st Last Admin: 01/29/20 20:40 Dose: 4 mg Documented by: Prednisone (Prednisone 20 Mg Tab) 40 mg PO QAM-WM [facility] Last Admin: 02/22/20 08:45 Dose: 40 mg Documented by: Senna (Senokot 8.6 Mg Tab) 2 tab PO HSPRN PRN PRN Reason: Constipation Last Admin: 02/13/20 21:33 Dose: 2 tab Documented by: Senna/Docusate Sodium (Senokot S 8.6-50 Mg Tab) 1 tab PO BIDPRN PRN PRN Reason: Constipation Sodium Chloride (Flush - Normal Saline 10 Ml Syringe) 10 ml IVF Q12HR [facility] Last Admin: 02/22/20 08:46 Dose: 10 ml Documented by: Sodium Chloride (Flush - Normal Saline 10 Ml Syringe) 10 ml IVF PRN PRN PRN Reason: Saline Flush Last Admin: 02/06/20 15:37 Dose: 10 ml Documented by: Vital Signs & Weight: Vital Signs Temp Pulse Pulse Pulse Resp BP BP 02/22/20 11:40 97.5 F L 105 H 16 02/22/20 10:30 131 H 20 02/22/20 09:33 154 H 164 H 107/63 106/62 02/22/20 07:30 98.3 F 103 H 16 02/22/20 07:09 126 H 20 02/22/20 04:45 133 H 02/22/20 02:49 98.3 F 97 20 02/22/20 01:43 88 02/22/20 01:41 BP BP Pulse Ox Pulse Ox Pulse Ox 02/22/20 11:40 98/71 100 02/22/20 10:30 99 02/22/20 09:33 95 98 02/22/20 07:30 145/103 H 95 02/22/20 07:09 96 02/22/20 04:45 134/66 02/22/20 02:49 127/59 L 96 02/22/20 01:43 96/60 02/22/20 01:41 94 L Admit Weight 219 lb 4.8 oz Weight 230 lb I/O: I/O 02/21/20 02/22/20 02/23/20 06:59 06:59 06:59 Intake Total 1330 1120 Output Total 320 390 Balance 1010 730 - Quality Measures Condition: Atrial Fibrillation/Flutter (hx or current) CV meds: Eliquis: Yes - Medication Contraindications No Anticoagulant reason: Anticoagulant not tolerated - Physical Exam General: alert & oriented x3, no apparent distress, speech clear, affect appropriate. negative: appears well HEENT: mucus membranes moist, normocephaly Neck: supple neck, no JVD/HJR, no lymphadenopathy Cardiology: PMI nondisplaced, irregularly irregular, tachycardia Lungs: no wheezes, no rhonchi, decreased breath sounds Neurology: cranial nerve 2-12 intact, grossly intact, no lateralizing findings Abdomen: unremarkable, active bowel sounds, no pulsations/bruits Extremities: dry, strong pulses, warm, + edema B - Chadsvasc Risk factors Hypertension: 1 Age >75: 2 Vascular disease: 1 Female: 1 Risk Score: 5 - Labs Result Diagrams: 02/22/20 03:57 02/22/20 03:57 - EKG Interpretation EKG Method: Telemetry EKG shows: Atrial fibrillation - Assessment/Plan Assessment/Plan: 1. Persistent atrial fibrillation, rapid ventricular rate. a. Difficult to control ventricular rate despite digoxin, IV diltiazem, metoprolol. 2. Subacute myocardial infarction with peak troponin I at 23. a.Left heart catheterization from 01/28/20 shows 90% proximal LAD, 25% diffuse OM, proximal RCA 100% with LVEF 40% to 45%. . b. 2D echo from 01/28/2020 shows LVEF of 20% to 25% but difficult to assess due to atrial fibrillation, moderate left atrial enlargement, trace MR. 3. Advanced COPD and bilateral pleural effusion. a. Current smoking. 4. Hypertension. 5. Purpura - possible medication reaction Given her advanced COPD, CAD, and cardiomyopathy she has no ideal antiarrhythmic options. She is not a candidate for PVAI ablation in her tenuous medical condition. 02/19: Increased metoprolol 02/20: Wheezing increased with BB increase, metoprolol reduced to 25mg BID and increased dilt to 60TID 02/21: Poor rate control this AM but having pain. BP stable, even high overnight, will increase Diltto 60mg QID. With her open sores on her feet she's at risk for infection. I would be less inclined to proceed with PPM implant with the infection risk. Cardiology may want to consider REX/CV if we cannot rate control. If kidney function remains stable, could load her on tikosyn after REX/CV. She will require resumed OAC once the medical team feels this is an option. Continue rate control with: (Amiodarone was stopped 02/09 AM. ) 1. Decreased metoprolol tartrate 25mg BID. 2. Digoxin 250mcg daily 3. Change Dilt HCl 60mg QID.
--- NOTE | 2020-02-22 14:03 | PDOC.HOSPP ---
- Subjective Encounter Date: 02/22/20 Subjective: The patient appears to be short of breath today. She complains of itching in her lower extremities. - Objective Vital Signs & Weight: Vital Signs (12 hours) Temp Pulse Pulse Pulse Resp BP BP 02/22/20 11:40 97.5 F L 105 H 16 02/22/20 10:30 131 H 20 02/22/20 09:33 154 H 164 H 107/63 106/62 02/22/20 07:30 98.3 F 103 H 16 02/22/20 07:09 126 H 20 02/22/20 04:45 133 H 02/22/20 02:49 98.3 F 97 20 BP Pulse Ox Pulse Ox Pulse Ox 02/22/20 11:40 98/71 100 02/22/20 10:30 99 02/22/20 09:33 95 98 02/22/20 07:30 145/103 H 95 02/22/20 07:09 96 02/22/20 04:45 134/66 02/22/20 02:49 127/59 L 96 Weight Admit Weight 219 lb 4.8 oz Weight 230 lb Most Recent Monitor Data Heart Rate from ECG 101 NIBP 119/68 NIBP BP-Mean 85 Respiration from ECG 21 SpO2 85 I&O: 02/21/20 02/22/20 02/23/20 06:59 06:59 06:59 Intake Total 1330 1120 Output Total 320 390 Balance 1010 730 Result Diagrams: 02/22/20 03:57 02/22/20 03:57 Additional Labs: Accuchecks 02/22/20 02/22/20 02/22/20 11:36 10:55 06:06 POC Glucose 155 H 48 L* 113 H 02/21/20 02/21/20 20:28 16:33 POC Glucose 133 H 119 H Hospitalist ROS - Medication Medications: Active Medications Generic Name Dose Route Start Last Admin Trade Name Freq PRN Reason Stop Dose Admin Acetaminophen 650 mg 01/28/20 00:25 02/22/20 05:23 Acetaminophen 325 Mg Tab PO 650 mg Q4H PRN Administration Headache/Fever/Mild Pain (1-3) Albuterol/Ipratropium 3 ml 01/28/20 00:25 02/16/20 04:33 Ipratropium/Albuterol Sulfate 3 Ml Neb NEB 3 ml Q2H PRN Administration SOB &/or Wheezing Alprazolam 0.5 mg 02/19/20 09:00 02/22/20 08:44 Alprazolam 0.25 Mg Tab PO 0.5 mg BID PAULA Administration Aspirin 81 mg 01/28/20 09:00 02/22/20 08:45 Aspirin 81 Mg Enteric Coated Tablet PO 81 mg DAILY PAULA Administration Atorvastatin Calcium 40 mg 01/28/20 21:00 02/21/20 22:42 Atorvastatin Calcium 40 Mg Tab PO 40 mg HS PAULA Administration Benzonatate 100 mg 02/12/20 09:35 02/16/20 09:05 Benzonatate 100 Mg Cap PO 100 mg TIDPRN PRN Administration Cough Bisacodyl 10 mg 01/31/20 16:36 02/15/20 10:34 Bisacodyl 5 Mg Tab PO 10 mg DAILYPRN PRN Administration Constipation Cholecalciferol 2,000 units 02/14/20 09:00 02/22/20 08:45 Cholecalciferol 1,000 Units (25 Mcg) Tab PO 2,000 units DAILY PAULA Administration Digoxin 0.25 mg 02/09/20 09:00 02/22/20 08:45 Digoxin 0.25 Mg Tab PO 0.25 mg DAILY PAULA Administration Diphenhydramine HCl 25 mg 02/12/20 09:35 02/22/20 11:08 Diphenhydramine 25 Mg Cap PO 25 mg Q6H PRN Administration Itching & Insomnia Escitalopram Oxalate 20 mg 01/31/20 09:00 02/22/20 08:45 Escitalopram Oxalate 20 Mg Tablet PO 20 mg DAILY PAULA Administration Famotidine 20 mg 01/28/20 09:00 02/22/20 08:45 Famotidine 20 Mg Tab PO 20 mg BID PAULA Administration Furosemide 20 mg 02/17/20 09:00 02/22/20 08:45 Furosemide 20 Mg Tab PO 20 mg DAILY PAULA Administration Insulin Human Regular 0 units 01/28/20 00:26 02/13/20 17:39 Insulin Regular 300 Units/3 Ml Vial SC 2 unit .MILD SLIDING SCALE PRN Administration Mild Correctional Scale Ipratropium [place] 2.5 ml 02/21/20 14:30 02/22/20 10:30 Ipratropium [place] 2.5 Ml Neb NEB 2.5 ml [id number] PAULA Administration Loratadine 10 mg 02/18/20 21:00 02/21/20 22:42 Loratadine 10 Mg Tab PO 10 mg 2100 PAULA Administration Metoprolol Tartrate 5 mg 01/28/20 00:21 02/22/20 05:22 Metoprolol Tartrate 5 Mg/5 Ml Vial IVP 5 mg Q4H PRN Administration atrial fib w/ rate over 110 Metoprolol Tartrate 25 mg 02/21/20 21:00 02/22/20 08:45 Metoprolol Tartrate 25 Mg Tab PO 25 mg BID PAULA Administration Mometasone Furoate/Formoterol Fumar 2 puff 01/28/20 18:30 02/22/20 07:10 Mometasone 200 Mcg/Formoterol 5 Mcg 120 Puff Inhaler INH 2 puff BID-RT PAULA Administration Ondansetron HCl 4 mg 01/28/20 00:25 01/29/20 20:40 Ondansetron Pf 4 Mg/2 Ml Vial IVP 4 mg Q6H PRN Administration Nausea/Vomiting, use 1st Prednisone 40 mg 02/22/20 08:00 02/22/20 08:45 Prednisone 20 Mg Tab PO 40 mg QAM-WM PAULA Administration Senna 2 tab 01/31/20 16:36 02/13/20 21:33 Senokot 8.6 Mg Tab PO 2 tab HSPRN PRN Administration Constipation Sodium Chloride 10 ml 02/01/20 09:00 02/22/20 08:46 Flush - Normal Saline 10 Ml Syringe IVF 10 ml Q12HR PAULA Administration Sodium Chloride 10 ml 02/01/20 08:30 02/06/20 15:37 Flush - Normal Saline 10 Ml Syringe IVF 10 ml PRN PRN Administration Saline Flush - Exam General Appearance: awake alert, ill appearing ENT: normocephalic atraumatic Neck: supple, no JVD Heart - other findings: Tachycardia Respiratory: normal chest expansion, rhonchi, tachypneic Gastrointestinal: soft Neurological: cranial nerve grossly intact, no focal deficits Hosp A/P - Plan This is a 79 year old female with COPD who presented with shortness of breath , afib with RVR, Found to have pulmonary edema on admission. Diuresed with IV lasix. Also developed pneumonia, completed five days of antibiotics. Continues to be in the hospital due to worsening purpura on legs Afib with RVR Her rate is not controlled. She is on digoxin. Diltiazem dose was increased her metoprolol dose was decreased. Amiodarone has been discontinued due to the patient's pulmonary disease. Continue management per as to radiology. COPD Shortness of breath is worsening. Continue ipratropium nebulized every 4 hours and continue prednisone 40 mg orally daily. Check chest x-ray. Petechial/purpural rash on lower extremities Likely purpuric drug eruption. Antibiotics were discontinued. Differential diagnoses also include side effect related to the anticoagulation. She does have some open bleeding wounds. Anticoagulation on hold. Wound care consulted. The rash appears to be improving. Right lower lobe pneumonia Patient completed 5 days of antibiotics. Acute hypoxic respiratory failure secondary to acute systolic heart failure - resolved - EF 20-25%, Xray showing pulmonary edema . She was diuresed and weaned to room air. The patient is now on oral Lasix. Physical deconditioning Pending placement to swing bed when available and cleared by cardiology.
--- NOTE | 2020-02-22 16:19 | RAD ---
CHEST 1 VIEW: Date: 02/22/2020 HISTORY: Shortness of breath. COMPARISON: 02/19/2020. FINDINGS: Heart size is enlarged. Pulmonary vessels appear engorged. Increased parahilar lung markings are seen . This would suggest some element of edema. This appears worsened as compared to the prior examinatio n. Somewhat more prominent density now seen in the right base. This could represent atelectasis with effusion, but an infiltrate is not excluded. IMPRESSION: Cardiomegaly with some pulmonary edema changes, appear more prominent than on the prior exam, with de velopment of some density in the right base which could represent effusion with atelectasis or possib ly an infiltrative lung process. POS: JULIO
--- NOTE | 2020-02-22 18:59 | EKG ---
Test Reason : Blood Pressure : / mmHG Vent. Rate : 103 BPM Atrial Rate : 093 BPM P-R Int : 000 ms QRS Dur : 084 ms QT Int : 326 ms P-R-T Axes : 000 060 168 degrees QTc Int : 427 ms Atrial fibrillation with rapid ventricular response Low voltage QRS Cannot rule out Anteroseptal infarct , age undetermined Abnormal ECG Confirmed by DR. Robe SEGUNDO MD ([id number]) on 02/22/2020 6:59:05 PM Referred By: [facility] Confirmed By:DR. Robe SEGUNDO MD
--- NOTE | 2020-02-22 19:00 | EKG ---
Test Reason : Blood Pressure : / mmHG Vent. Rate : 131 BPM Atrial Rate : 127 BPM P-R Int : 000 ms QRS Dur : 084 ms QT Int : 308 ms P-R-T Axes : 000 039 100 degrees QTc Int : 454 ms Atrial fibrillation with rapid ventricular response Septal infarct , age undetermined Abnormal ECG Confirmed by SANYA DE LEON, DR. Nagel ([id number]) on 02/22/2020 6:59:55 PM Referred By: [facility] Confirmed By:DR. Robe SEGUNDO MD
[2020-02-22] MEDS: Atorvastatin Calcium 40 MG TAB PO SCH (20:22)
[2020-02-22] MEDS: Loratadine 10 MG TAB PO SCH (20:24)
--- NOTE | 2020-02-22 20:57 | PDOC.CPN ---
- Subjective Date: 02/22/20 Time: 09:00 Interval history: No new overnight events. - Review of Systems Respiratory: reports: shortness of breath Cardiovascular: reports: edema Gastrointestinal: reports: constipation Musculoskeletal: reports: pain, swelling Neurological: reports: weakness - Objective Allergies/Adverse Reactions: Allergies Allergy/AdvReac Type Severity Reaction Status Date / Time Penicillins Allergy Unknown Hives Verified 01/28/20 10:11 levofloxacin [From Levaquin] Allergy Rash Verified 02/19/20 10:12 -MYCIN DRUGS Allergy Severe Rash Uncoded 02/18/20 10:09 Visit Medications: Current Medications Acetaminophen (Acetaminophen 325 Mg Tab) 650 mg PO Q4H PRN PRN Reason: Headache/Fever/Mild Pain (1-3) Last Admin: 02/22/20 20:23 Dose: 650 mg Documented by: Albuterol/Ipratropium (Ipratropium/Albuterol Sulfate 3 Ml Neb) 3 ml NEB Q2H PRN PRN Reason: SOB &/or Wheezing Last Admin: 02/16/20 04:33 Dose: 3 ml Documented by: Alprazolam (Alprazolam 0.25 Mg Tab) 0.5 mg PO BID [facility] Last Admin: 02/22/20 20:22 Dose: 0.5 mg Documented by: Aspirin (Aspirin 81 Mg Enteric Coated Tablet) 81 mg PO DAILY [facility] Last Admin: 02/22/20 08:45 Dose: 81 mg Documented by: Atorvastatin Calcium (Atorvastatin Calcium 40 Mg Tab) 40 mg PO HS [facility] Last Admin: 02/22/20 20:22 Dose: 40 mg Documented by: Benzonatate (Benzonatate 100 Mg Cap) 100 mg PO TIDPRN PRN PRN Reason: Cough Last Admin: 02/16/20 09:05 Dose: 100 mg Documented by: Bisacodyl (Bisacodyl 5 Mg Tab) 10 mg PO DAILYPRN PRN PRN Reason: Constipation Last Admin: 02/15/20 10:34 Dose: 10 mg Documented by: Bisacodyl (Bisacodyl 10 Mg Supp) 10 mg VT TIDPRN PRN PRN Reason: Constipation Cholecalciferol (Cholecalciferol 1,000 Units (25 Mcg) Tab) 2,000 units PO DAILY [facility] Last Admin: 02/22/20 08:45 Dose: 2,000 units Documented by: Dextrose/Water (Dextrose 50% Abboject 50 Ml Syringe) 25 gm IVP PRN PRN PRN Reason: HYPOGLYCEMIA PROTOCOL Digoxin (Digoxin 0.25 Mg Tab) 0.25 mg PO DAILY [facility] Last Admin: 02/22/20 08:45 Dose: 0.25 mg Documented by: Diltiazem HCl (Diltiazem Hcl 30 Mg Tablet) 60 mg PO QID [facility] Last Admin: 02/22/20 20:23 Dose: 60 mg Documented by: Diphenhydramine HCl (Diphenhydramine 25 Mg Cap) 25 mg PO Q6H PRN PRN Reason: Itching & Insomnia Last Admin: 02/22/20 11:08 Dose: 25 mg Documented by: Escitalopram Oxalate (Escitalopram Oxalate 20 Mg Tablet) 20 mg PO DAILY [facility] Last Admin: 02/22/20 08:45 Dose: 20 mg Documented by: Famotidine (Famotidine 20 Mg Tab) 20 mg PO BID [facility] Last Admin: 02/22/20 20:23 Dose: 20 mg Documented by: Furosemide (Furosemide 20 Mg Tab) 20 mg PO DAILY [facility] Last Admin: 02/22/20 08:45 Dose: 20 mg Documented by: Glucagon (Glucagon 1 Mg/Ml Vial) 1 mg IM PRN PRN PRN Reason: HYPOGLYCEMIA PROTOCOL Guaifenesin/Dextromethorphan (Guaifenesin Dm 100-10/5 Ml Udcup) 15 ml PO Q4H PRN PRN Reason: Cough Dextrose/Water (D5w) 1,000 mls @ 0 mls/hr IV INF PRN PRN Reason: HYPOGLYCEMIA PROTOCOL Insulin Human Regular (Insulin Regular 300 Units/3 Ml Vial) 0 units SC .MILD SLIDING SCALE PRN PRN Reason: Mild Correctional Scale Last Admin: 02/13/20 17:39 Dose: 2 unit Documented by: Ipratropium [place] (Ipratropium [place] 2.5 Ml Neb) 2.5 ml NEB [id number] [facility] Last Admin: 02/22/20 19:09 Dose: 2.5 ml Documented by: Laxative/Stool Softener (Laxative Of Choice) 1 each PO DAILY PRN PRN Reason: Constipation Loratadine (Loratadine 10 Mg Tab) 10 mg PO 2100 [facility] Last Admin: 02/22/20 20:24 Dose: 10 mg Documented by: Metoprolol Tartrate (Metoprolol Tartrate 5 Mg/5 Ml Vial) 5 mg IVP Q4H PRN PRN Reason: atrial fib w/ rate over 110 Last Admin: 02/22/20 05:22 Dose: 5 mg Documented by: Metoprolol Tartrate (Metoprolol Tartrate 25 Mg Tab) 25 mg PO BID [facility] Last Admin: 02/22/20 08:45 Dose: 25 mg Documented by: Miscellaneous Medication (Electrolyte Replacement Protoc 1 Each Each) 1 each FS ASDIR [facility] Mometasone Furoate/Formoterol Fumar (Mometasone 200 Mcg/Formoterol 5 Mcg 120 Puff Inhaler) 2 puff INH BID-RT [facility] Last Admin: 02/22/20 19:12 Dose: 2 puff Documented by: Nitroglycerin (Nitroglycerin 0.4 Mg Tab (25 Tab Bottle)) 0.4 mg SL Q5MIN PRN PRN Reason: Chest Pain Ondansetron HCl (Ondansetron Pf 4 Mg/2 Ml Vial) 4 mg IVP Q6H PRN PRN Reason: Nausea/Vomiting, use 1st Last Admin: 01/29/20 20:40 Dose: 4 mg Documented by: Prednisone (Prednisone 20 Mg Tab) 40 mg PO QAM-WM [facility] Last Admin: 02/22/20 08:45 Dose: 40 mg Documented by: Senna (Senokot 8.6 Mg Tab) 2 tab PO HSPRN PRN PRN Reason: Constipation Last Admin: 02/13/20 21:33 Dose: 2 tab Documented by: Senna/Docusate Sodium (Senokot S 8.6-50 Mg Tab) 1 tab PO BIDPRN PRN PRN Reason: Constipation Sodium Chloride (Flush - Normal Saline 10 Ml Syringe) 10 ml IVF Q12HR [facility] Last Admin: 02/22/20 20:24 Dose: 10 ml Documented by: Sodium Chloride (Flush - Normal Saline 10 Ml Syringe) 10 ml IVF PRN PRN PRN Reason: Saline Flush Last Admin: 02/06/20 15:37 Dose: 10 ml Documented by: Vital Signs & Weight: Vital Signs Temp Pulse Pulse Pulse Resp BP BP 02/22/20 19:22 97.4 F L 106 H 26 H 02/22/20 19:13 02/22/20 19:12 02/22/20 19:09 120 H 20 02/22/20 16:07 97.5 F L 84 22 H 02/22/20 14:36 126 H 20 02/22/20 11:40 97.5 F L 105 H 16 02/22/20 10:30 131 H 20 02/22/20 09:33 154 H 164 H 107/63 106/62 BP BP Pulse Ox Pulse Ox Pulse Ox 02/22/20 19:22 108/52 L 97 02/22/20 19:13 98 02/22/20 19:12 98 02/22/20 19:09 98 02/22/20 16:07 105/64 96 02/22/20 14:36 97 02/22/20 11:40 98/71 100 02/22/20 10:30 99 02/22/20 09:33 95 98 Admit Weight 219 lb 4.8 oz Weight 230 lb - Quality Measures Condition: Atrial Fibrillation/Flutter (hx or current) (HR up to 80-110bpm), Coronary Artery Disease, Heart Failure, Myocardial Infarction CV meds: Beta Anyi: Yes, TERRELL/ARB: Yes - Medication Contraindications No Anticoagulant reason: Anticoagulant not tolerated - Physical Exam HEENT: normocephaly Neck: no JVD/HJR Cardiac: irregularly regular Lungs: no rhonchi Neuro: grossly intact Abdomen: unremarkable Extremities: 1+ LE edema Skin: rash, other (lower extremity purpura with a generalized erythematous rash.) Musculoskeletal: normal range of motion - Labs Result Diagrams: 02/22/20 03:57 02/22/20 03:57 Troponin/CKMB CK-MB (CK-2) 206.6 ng/mL (0-6.6) H* 01/28/20 08:34 Troponin I 23.552 ng/mL (< 0.028) H* 01/28/20 03:10 - Telemetry Supraventricular conduction: atrial fibrillation - Assessment/Plan Assessment/Plan: 1. Severe multi-vessel CAD. High risk for CABG at this time.May need to consider high risk ptca/stent to the LAD.Can not revascularize other vessels by ptca. 2. Severe COPD.Sounds better ,off oxygen . Ambulating in the halls. 3. Ischemic Cardiomyopathy. EF 30-40%. 4. Afib RVR. Rate better controlled despite after adding metoprolol. tolerating betablocker thus far but BP on the low side.. Increased TO 25MG TID and then back to bid. Tachycardia is not good for the CAD/ischemia or for the CMY. Occasionally still tachycardic poorly controlled.EP assisting with the care. She may need an ablation and a bi-V device.Another option may be REX and early cardioversion of the atrial fib.EP feels that HR is under reasonable control. Increased risk of ablation or AVJ ablation and device implant. Will continue meds and if HR increases further and can not be controlled then reconsider. 5. EF at 20-25% on Echo, closer to 40% on LHC. 6.Lower extremity purpura rash,could be due to medications/anti-biotics or OAC. Eliquis stopped.. The rash is extending to entire body. May need dermatology to see. the rash has improved over the weekend. Now she has blisters on the dorsum of the feet.Would try another OAC rather than eliquis, this may be the etiology of the purpura. Consider starting coumadin or Xarelto. She is at increased risk of CVA due to embolic source due to Atrial fibrillation. 7. HTN.Continue to adjust meds as tolerated.
[2020-02-23] MEDS: Ipratropium Bromide 2.5 ml Neb NEB SCH ×7 (00:14→22:29)
[2020-02-23 04:54] LABS: #Eosinphils 0.3 thou/uL (0.0-0.7); #Lymphocytes 0.8 thou/uL (1.20-3.40); #Monocytes 0.3 thou/uL (0.11-0.59); #Neutrophils 5.3 thou/uL (1.40-6.50); %Basophils 0.1 % (0.0-1.0); %Eosinophils 3.7 % (0.0-10.0); %Lymphocytes 12.4 % (21.0-51.0); %Neutrophils 78.8 % (42.0-75.0); Hemoglobin 11.7 g/dL (12.0-16.0); Mean Corpuscular HGB CONC 33.8 g/dL (32.0-36.0); Mean Corpuscular Hemoglobin 30.9 pg (27.0-31.0); Mean Corpuscular Volume 91.5 fL (78.0-98.0); Mean Platelet Volume 7.7 fL (7.4-10.4); Platelet Count 169 thou/uL (130-400); RBC Distribution Width 16.4 % (11.5-14.5); Red Blood Cell (RBC) Count 3.79 mill/uL (4.20-5.40); White Blood Cell (WBC) Count 6.7 thou/uL (4.8-10.8)
[2020-02-23 05:14] LABS: Anion Gap 11 mmol/L (10-20); BUN (Urea Nitrogen) 20 mg/dL (9.8-20.1); Calc. Creatinine Clearance 103 mL/min (70-130); Calcium 8.6 mg/dL (7.8-10.44); Carbon Dioxide 27 mmol/L (23-31); Chloride 102 mmol/L (98-107); Estimated GFR-MDRD 73; Glucose 117 mg/dL (83-110); Potassium 4.3 mmol/L (3.5-5.1); Sodium 136 mmol/L (136-145)
[2020-02-23] MEDS: Insulin Regular 300 UNITS/3 ML VIAL SC PRN (06:30)
[2020-02-23] MEDS: Mometasone 200 MCG/Formoterol 5 MCG 120 PUFF INHALER INH SCH ×2 (07:39→19:26)
[2020-02-23] MEDS: diphenhydrAMINE 25 MG CAP PO PRN ×2 (08:05→20:56)
[2020-02-23] MEDS: predniSONE 20 MG TAB PO SCH (09:46)
[2020-02-23] MEDS: Cholecalciferol 1,000 UNITS (25 MCG) TAB PO SCH (09:46)
[2020-02-23] MEDS: Furosemide 20 MG TAB PO SCH (09:46)
[2020-02-23] MEDS: ALPRAZolam 0.25 MG TAB PO SCH ×2 (09:46→20:56)
[2020-02-23] MEDS: Aspirin 81 mg Enteric Coated Tablet PO SCH (09:46)
[2020-02-23] MEDS: Digoxin 0.25 MG TAB PO SCH (09:46)
[2020-02-23] MEDS: Famotidine 20 MG TAB PO SCH ×2 (09:46→20:56)
[2020-02-23 09:47] LABS: Hemoglobin 11.6 g/dL (12.0-16.0); Platelet Count 157 thou/uL (130-400)
[2020-02-23] MEDS: Metoprolol Tartrate 25 MG TAB PO SCH ×2 (09:47→20:56)
[2020-02-23] MEDS: Escitalopram Oxalate 20 mg Tablet PO SCH (09:47)
[2020-02-23] MEDS: Acetaminophen 325 MG TAB PO PRN (09:49)
--- NOTE | 2020-02-23 12:05 | PRG ---
DATE OF SERVICE: 02/23/2020 OBJECTIVE: VITAL SIGNS: This morning, temperature 97 saturations are 100% on 2 L, blood pressure 105/51. GENERAL: She says she is feeling better. Less short of breath. EXTREMITIES: Legs are less swollen, less rash. IMPRESSION: COPD, CHF, cardiomyopathy, SVT, severe deconditioning. X-ray still shows cephalization, CHF. Though she is clinically better, they are trying to get a placement additional intervention. Continue steroids, neb treatment. Job ID: [id number]
--- NOTE | 2020-02-23 15:52 | PDOC.HOSPP ---
- Subjective Encounter Date: 02/23/20 Subjective: The patient is complaining of shortness of breath. - Objective Vital Signs & Weight: Vital Signs (12 hours) Temp Pulse Resp BP Pulse Ox 02/23/20 14:58 86 20 95 02/23/20 11:35 97.4 F L 99 22 H 99/59 L 98 02/23/20 10:55 89 18 100 02/23/20 09:46 120 H 02/23/20 07:38 72 20 98 02/23/20 07:30 97.7 F 83 16 105/51 L 99 02/23/20 04:00 97.6 F 84 22 H 90/53 L 96 02/23/20 03:50 98 Weight Admit Weight 219 lb 4.8 oz Weight 234 lb Most Recent Monitor Data Heart Rate from ECG 101 NIBP 119/68 NIBP BP-Mean 85 Respiration from ECG 21 SpO2 85 I&O: 02/22/20 02/23/20 02/24/20 06:59 06:59 06:59 Intake Total 1120 990 Output Total 390 1400 Balance 730 -410 Result Diagrams: 02/23/20 09:22 02/23/20 09:22 Additional Labs: Accuchecks 02/23/20 02/23/20 02/22/20 10:50 06:10 19:51 POC Glucose 104 H 156 H 175 H 02/22/20 17:09 POC Glucose 158 H Hospitalist ROS - Medication Medications: Active Medications Generic Name Dose Route Start Last Admin Trade Name Freq PRN Reason Stop Dose Admin Acetaminophen 650 mg 01/28/20 00:25 02/23/20 09:49 Acetaminophen 325 Mg Tab PO 650 mg Q4H PRN Administration Headache/Fever/Mild Pain (1-3) Albuterol/Ipratropium 3 ml 01/28/20 00:25 02/16/20 04:33 Ipratropium/Albuterol Sulfate 3 Ml Neb NEB 3 ml Q2H PRN Administration SOB &/or Wheezing Alprazolam 0.5 mg 02/19/20 09:00 02/23/20 09:46 Alprazolam 0.25 Mg Tab PO 0.5 mg BID PAULA Administration Aspirin 81 mg 01/28/20 09:00 02/23/20 09:46 Aspirin 81 Mg Enteric Coated Tablet PO 81 mg DAILY PAULA Administration Atorvastatin Calcium 40 mg 01/28/20 21:00 02/22/20 20:22 Atorvastatin Calcium 40 Mg Tab PO 40 mg HS PAULA Administration Benzonatate 100 mg 02/12/20 09:35 02/16/20 09:05 Benzonatate 100 Mg Cap PO 100 mg TIDPRN PRN Administration Cough Bisacodyl 10 mg 01/31/20 16:36 02/15/20 10:34 Bisacodyl 5 Mg Tab PO 10 mg DAILYPRN PRN Administration Constipation Cholecalciferol 2,000 units 02/14/20 09:00 02/23/20 09:46 Cholecalciferol 1,000 Units (25 Mcg) Tab PO 2,000 units DAILY PAULA Administration Digoxin 0.25 mg 02/09/20 09:00 02/23/20 09:46 Digoxin 0.25 Mg Tab PO 0.25 mg DAILY PAULA Administration Diltiazem HCl 60 mg 02/22/20 17:00 02/23/20 14:44 Diltiazem Hcl 30 Mg Tablet PO 60 mg QID PAULA Administration Diphenhydramine HCl 25 mg 02/12/20 09:35 02/23/20 08:05 Diphenhydramine 25 Mg Cap PO 25 mg Q6H PRN Administration Itching & Insomnia Escitalopram Oxalate 20 mg 01/31/20 09:00 02/23/20 09:47 Escitalopram Oxalate 20 Mg Tablet PO 20 mg DAILY PAULA Administration Famotidine 20 mg 01/28/20 09:00 02/23/20 09:46 Famotidine 20 Mg Tab PO 20 mg BID PAULA Administration Insulin Human Regular 0 units 01/28/20 00:26 02/23/20 06:30 Insulin Regular 300 Units/3 Ml Vial SC 2 unit .MILD SLIDING SCALE PRN Administration Mild Correctional Scale Ipratropium [place] 2.5 ml 02/21/20 14:30 02/23/20 14:58 Ipratropium [place] 2.5 Ml Neb NEB 2.5 ml [id number] PAULA Administration Loratadine 10 mg 02/18/20 21:00 02/22/20 20:24 Loratadine 10 Mg Tab PO 10 mg 2100 PAULA Administration Metoprolol Tartrate 5 mg 01/28/20 00:21 02/22/20 05:22 Metoprolol Tartrate 5 Mg/5 Ml Vial IVP 5 mg Q4H PRN Administration atrial fib w/ rate over 110 Metoprolol Tartrate 25 mg 02/21/20 21:00 02/23/20 09:47 Metoprolol Tartrate 25 Mg Tab PO 25 mg BID PAULA Administration Mometasone Furoate/Formoterol Fumar 2 puff 01/28/20 18:30 02/23/20 07:39 Mometasone 200 Mcg/Formoterol 5 Mcg 120 Puff Inhaler INH 2 puff BID-RT PAULA Administration Ondansetron HCl 4 mg 01/28/20 00:25 01/29/20 20:40 Ondansetron Pf 4 Mg/2 Ml Vial IVP 4 mg Q6H PRN Administration Nausea/Vomiting, use 1st Prednisone 40 mg 02/22/20 08:00 02/23/20 09:46 Prednisone 20 Mg Tab PO 40 mg QAM-WM PAULA Administration Senna 2 tab 01/31/20 16:36 02/13/20 21:33 Senokot 8.6 Mg Tab PO 2 tab HSPRN PRN Administration Constipation Sodium Chloride 10 ml 02/01/20 09:00 02/23/20 09:48 Flush - Normal Saline 10 Ml Syringe IVF 10 ml Q12HR PAULA Administration Sodium Chloride 10 ml 02/01/20 08:30 02/06/20 15:37 Flush - Normal Saline 10 Ml Syringe IVF 10 ml PRN PRN Administration Saline Flush - Exam General Appearance: awake alert ENT: normocephalic atraumatic Neck: supple, no JVD Respiratory: normal chest expansion, tachypneic Neurological: cranial nerve grossly intact, no focal deficits Hosp A/P - Plan This is a 79 year old female with COPD who presented with shortness of breath , afib with RVR, Found to have pulmonary edema on admission. Diuresed with IV lasix. Also developed pneumonia, completed five days of antibiotics. Continues to be in the hospital due to worsening purpura on legs Acute hypoxic respiratory failure secondary to acute systolic heart failure - resolved - EF 20-25% Chest x-ray showing worsening pulmonary edema. Change Lasix to 20 mg IV twice daily. Monitor intake and output. Afib with RVR Her rate is controlled. She is on digoxin, diltiazem, and metoprolol. Amiodarone has been discontinued due to the patient's pulmonary disease. Continue management per as to radiology. COPD Shortness of breath is worsening. Continue ipratropium nebulized every 4 hours and continue prednisone 40 mg orally daily. Check chest x-ray. Petechial/purpural rash on lower extremities Likely purpuric drug eruption. Antibiotics were discontinued. Differential diagnoses also include side effect related to the anticoagulation. She does have some open bleeding wounds. Anticoagulation on hold. Wound care consulted. The rash appears to be improving. Right lower lobe pneumonia Patient completed 5 days of antibiotics. Physical deconditioning Pending placement to swing bed when available and cleared by cardiology.
--- NOTE | 2020-02-23 17:11 | PDOC.CPN ---
- Subjective Date: 02/23/20 Time: 09:00 Interval history: No new events overnight. - Review of Systems General: denies: fever/chills, weight/appetite/sleep changes, night sweats, fatigue Respiratory: reports: shortness of breath Cardiovascular: denies: chest pain, palpitation, edema, paroxysmal nocturnal d yspnea, orthopnea Gastrointestinal: denies: nausea, vomiting, diarrhea, constipation, abd pain, GI bleeding Musculoskeletal: reports: pain, swelling Neurological: reports: weakness - Objective Allergies/Adverse Reactions: Allergies Allergy/AdvReac Type Severity Reaction Status Date / Time Penicillins Allergy Unknown Hives Verified 01/28/20 10:11 levofloxacin [From Levaquin] Allergy Rash Verified 02/19/20 10:12 -MYCIN DRUGS Allergy Severe Rash Uncoded 02/18/20 10:09 Visit Medications: Current Medications Acetaminophen (Acetaminophen 325 Mg Tab) 650 mg PO Q4H PRN PRN Reason: Headache/Fever/Mild Pain (1-3) Last Admin: 02/23/20 09:49 Dose: 650 mg Documented by: Albuterol/Ipratropium (Ipratropium/Albuterol Sulfate 3 Ml Neb) 3 ml NEB Q2H PRN PRN Reason: SOB &/or Wheezing Last Admin: 02/16/20 04:33 Dose: 3 ml Documented by: Alprazolam (Alprazolam 0.25 Mg Tab) 0.5 mg PO BID [facility] Last Admin: 02/23/20 09:46 Dose: 0.5 mg Documented by: Aspirin (Aspirin 81 Mg Enteric Coated Tablet) 81 mg PO DAILY [facility] Last Admin: 02/23/20 09:46 Dose: 81 mg Documented by: Atorvastatin Calcium (Atorvastatin Calcium 40 Mg Tab) 40 mg PO HS [facility] Last Admin: 02/22/20 20:22 Dose: 40 mg Documented by: Benzonatate (Benzonatate 100 Mg Cap) 100 mg PO TIDPRN PRN PRN Reason: Cough Last Admin: 02/16/20 09:05 Dose: 100 mg Documented by: Bisacodyl (Bisacodyl 5 Mg Tab) 10 mg PO DAILYPRN PRN PRN Reason: Constipation Last Admin: 02/15/20 10:34 Dose: 10 mg Documented by: Bisacodyl (Bisacodyl 10 Mg Supp) 10 mg AL TIDPRN PRN PRN Reason: Constipation Cholecalciferol (Cholecalciferol 1,000 Units (25 Mcg) Tab) 2,000 units PO DAILY [facility] Last Admin: 02/23/20 09:46 Dose: 2,000 units Documented by: Dextrose/Water (Dextrose 50% Abboject 50 Ml Syringe) 25 gm IVP PRN PRN PRN Reason: HYPOGLYCEMIA PROTOCOL Digoxin (Digoxin 0.25 Mg Tab) 0.25 mg PO DAILY [facility] Last Admin: 02/23/20 09:46 Dose: 0.25 mg Documented by: Diltiazem HCl (Diltiazem Hcl 30 Mg Tablet) 60 mg PO QID [facility] Last Admin: 02/23/20 16:29 Dose: 60 mg Documented by: Diphenhydramine HCl (Diphenhydramine 25 Mg Cap) 25 mg PO Q6H PRN PRN Reason: Itching & Insomnia Last Admin: 02/23/20 08:05 Dose: 25 mg Documented by: Enoxaparin Sodium (Enoxaparin Sodium 100 Mg/Ml Syringe) 100 mg SC 0900,2100 [facility] Escitalopram Oxalate (Escitalopram Oxalate 20 Mg Tablet) 20 mg PO DAILY [facility] Last Admin: 02/23/20 09:47 Dose: 20 mg Documented by: Famotidine (Famotidine 20 Mg Tab) 20 mg PO BID [facility] Last Admin: 02/23/20 09:46 Dose: 20 mg Documented by: Furosemide (Furosemide 20 Mg/2 Ml Vial) 20 mg SLOW IVP 0600,1400 [facility] Glucagon (Glucagon 1 Mg/Ml Vial) 1 mg IM PRN PRN PRN Reason: HYPOGLYCEMIA PROTOCOL Guaifenesin/Dextromethorphan (Guaifenesin Dm 100-10/5 Ml Udcup) 15 ml PO Q4H PRN PRN Reason: Cough Dextrose/Water (D5w) 1,000 mls @ 0 mls/hr IV INF PRN PRN Reason: HYPOGLYCEMIA PROTOCOL Insulin Human Regular (Insulin Regular 300 Units/3 Ml Vial) 0 units SC .MILD SLIDING SCALE PRN PRN Reason: Mild Correctional Scale Last Admin: 02/23/20 06:30 Dose: 2 unit Documented by: Ipratropium [place] (Ipratropium [place] 2.5 Ml Neb) 2.5 ml NEB [id number] [facility] Last Admin: 02/23/20 14:58 Dose: 2.5 ml Documented by: Laxative/Stool Softener (Laxative Of Choice) 1 each PO DAILY PRN PRN Reason: Constipation Loratadine (Loratadine 10 Mg Tab) 10 mg PO 2100 [facility] Last Admin: 02/22/20 20:24 Dose: 10 mg Documented by: Metoprolol Tartrate (Metoprolol Tartrate 5 Mg/5 Ml Vial) 5 mg IVP Q4H PRN PRN Reason: atrial fib w/ rate over 110 Last Admin: 02/22/20 05:22 Dose: 5 mg Documented by: Metoprolol Tartrate (Metoprolol Tartrate 25 Mg Tab) 25 mg PO BID [facility] Last Admin: 02/23/20 09:47 Dose: 25 mg Documented by: Miscellaneous Medication (Electrolyte Replacement Protoc 1 Each Each) 1 each FS ASDIR [facility] Mometasone Furoate/Formoterol Fumar (Mometasone 200 Mcg/Formoterol 5 Mcg 120 Puff Inhaler) 2 puff INH BID-RT [facility] Last Admin: 02/23/20 07:39 Dose: 2 puff Documented by: Nitroglycerin (Nitroglycerin 0.4 Mg Tab (25 Tab Bottle)) 0.4 mg SL Q5MIN PRN PRN Reason: Chest Pain Ondansetron HCl (Ondansetron Pf 4 Mg/2 Ml Vial) 4 mg IVP Q6H PRN PRN Reason: Nausea/Vomiting, use 1st Last Admin: 01/29/20 20:40 Dose: 4 mg Documented by: Prednisone (Prednisone 20 Mg Tab) 40 mg PO QAM-WM [facility] Last Admin: 02/23/20 09:46 Dose: 40 mg Documented by: Senna (Senokot 8.6 Mg Tab) 2 tab PO HSPRN PRN PRN Reason: Constipation Last Admin: 02/13/20 21:33 Dose: 2 tab Documented by: Senna/Docusate Sodium (Senokot S 8.6-50 Mg Tab) 1 tab PO BIDPRN PRN PRN Reason: Constipation Sodium Chloride (Flush - Normal Saline 10 Ml Syringe) 10 ml IVF Q12HR [facility] Last Admin: 02/23/20 09:48 Dose: 10 ml Documented by: Sodium Chloride (Flush - Normal Saline 10 Ml Syringe) 10 ml IVF PRN PRN PRN Reason: Saline Flush Last Admin: 02/06/20 15:37 Dose: 10 ml Documented by: Vital Signs & Weight: Vital Signs Temp Pulse Resp BP Pulse Ox 02/23/20 16:30 97.5 F L 101 H 16 105/68 95 02/23/20 14:58 86 20 95 02/23/20 11:35 97.4 F L 99 22 H 99/59 L 98 02/23/20 10:55 89 18 100 02/23/20 09:46 120 H 02/23/20 07:38 72 20 98 02/23/20 07:30 97.7 F 83 16 105/51 L 99 Admit Weight 219 lb 4.8 oz Weight 234 lb - Quality Measures Condition: Atrial Fibrillation/Flutter (hx or current) (HR up to 80-110bpm), Coronary Artery Disease, Heart Failure, Myocardial Infarction CV meds: Beta Anyi: Yes, TERRELL/ARB: Yes - Medication Contraindications No Anticoagulant reason: Anticoagulant not tolerated - Physical Exam HEENT: mucus membranes moist, normocephaly Neck: no JVD/HJR Cardiac: irregularly regular Lungs: clear to auscultation Neuro: grossly intact Abdomen: unremarkable Extremities: 1+ LE edema Skin: rash, other (purpura, improved.) Musculoskeletal: normal range of motion - Labs Result Diagrams: 02/23/20 09:22 02/23/20 09:22 Troponin/CKMB CK-MB (CK-2) 206.6 ng/mL (0-6.6) H* 01/28/20 08:34 Troponin I 23.552 ng/mL (< 0.028) H* 01/28/20 03:10 - Telemetry Supraventricular conduction: atrial fibrillation - Assessment/Plan Assessment/Plan: 1. Severe multi-vessel CAD. High risk for CABG at this time.May need to consider high risk ptca/stent to the LAD.Can not revascularize other vessels by ptca. 2. Severe COPD.Sounds better ,off oxygen . Ambulating in the halls with assistance. 3. Ischemic Cardiomyopathy. EF 30-40%. 4. Afib RVR. Rate better controlled after adding metoprolol. tolerating betablocker thus far but BP on the low side.. Increased TO 25MG TID and then back to bid. Tachycardia is not good for the CAD/ischemia or for the CMY. Occasionally still tachycardic at times, ofelia. with minimal activity, poorly cont rolled.EP assisting with the care. She may need an ablation and a bi-V device.Another option may be REX and early cardioversion of the atrial fib.EP feels that HR is under reasonable control. Increased risk of ablation or AVJ ablation and device implant. Will continue meds and if HR increases further and can not be controlled then reconsider. 5. EF at 20-25% on Echo, closer to 40% on LHC. 6.Lower extremity purpura rash,could be due to medications/anti-biotics or OAC. Eliquis stopped.. The rash is extending to entire body. May need dermatology to see. the rash has improved over the weekend. Now she has blisters on the dorsum of the feet.Would try another OAC rather than eliquis, this may be the etiology of the purpura. Consider starting coumadin or Xarelto. She is at increased risk of CVA due to embolic source due to Atrial fibrillation. 7. HTN.Continue to adjust meds as tolerated.
--- NOTE | 2020-02-23 18:38 | PDOC.EP ---
- Subjective Date: 02/23/20 Time: 08:00 Interval History: no new events overnight. Rash has worsened. - Review of Systems Respiratory: reports: cough, shortness of breath, wheezing Cardiology: denies: chest pain, edema, heart racing, light headedness, palpitations, passing out Gastrointestinal: denies: abdominal pain, constipation, nausea, vomitting Musculoskeletal: reports: foot pain. denies: unstable gait, falls, leg pain - Objective Allergies/Adverse Reactions: Allergies Allergy/AdvReac Type Severity Reaction Status Date / Time Penicillins Allergy Unknown Hives Verified 01/28/20 10:11 levofloxacin [From Levaquin] Allergy Rash Verified 02/19/20 10:12 -MYCIN DRUGS Allergy Severe Rash Uncoded 02/18/20 10:09 Current Medications Acetaminophen (Acetaminophen 325 Mg Tab) 650 mg PO Q4H PRN PRN Reason: Headache/Fever/Mild Pain (1-3) Last Admin: 02/23/20 09:49 Dose: 650 mg Documented by: Albuterol/Ipratropium (Ipratropium/Albuterol Sulfate 3 Ml Neb) 3 ml NEB Q2H PRN PRN Reason: SOB &/or Wheezing Last Admin: 02/16/20 04:33 Dose: 3 ml Documented by: Alprazolam (Alprazolam 0.25 Mg Tab) 0.5 mg PO BID [facility] Last Admin: 02/23/20 09:46 Dose: 0.5 mg Documented by: Aspirin (Aspirin 81 Mg Enteric Coated Tablet) 81 mg PO DAILY [facility] Last Admin: 02/23/20 09:46 Dose: 81 mg Documented by: Atorvastatin Calcium (Atorvastatin Calcium 40 Mg Tab) 40 mg PO HS [facility] Last Admin: 02/22/20 20:22 Dose: 40 mg Documented by: Benzonatate (Benzonatate 100 Mg Cap) 100 mg PO TIDPRN PRN PRN Reason: Cough Last Admin: 02/16/20 09:05 Dose: 100 mg Documented by: Bisacodyl (Bisacodyl 5 Mg Tab) 10 mg PO DAILYPRN PRN PRN Reason: Constipation Last Admin: 02/15/20 10:34 Dose: 10 mg Documented by: Bisacodyl (Bisacodyl 10 Mg Supp) 10 mg [place] TIDPRN PRN PRN Reason: Constipation Cholecalciferol (Cholecalciferol 1,000 Units (25 Mcg) Tab) 2,000 units PO DAILY [facility] Last Admin: 02/23/20 09:46 Dose: 2,000 units Documented by: Dextrose/Water (Dextrose 50% Abboject 50 Ml Syringe) 25 gm IVP PRN PRN PRN Reason: HYPOGLYCEMIA PROTOCOL Digoxin (Digoxin 0.25 Mg Tab) 0.25 mg PO DAILY [facility] Last Admin: 02/23/20 09:46 Dose: 0.25 mg Documented by: Diltiazem HCl (Diltiazem Hcl 30 Mg Tablet) 60 mg PO QID [facility] Last Admin: 02/23/20 16:29 Dose: 60 mg Documented by: Diphenhydramine HCl (Diphenhydramine 25 Mg Cap) 25 mg PO Q6H PRN PRN Reason: Itching & Insomnia Last Admin: 02/23/20 08:05 Dose: 25 mg Documented by: Enoxaparin Sodium (Enoxaparin Sodium 100 Mg/Ml Syringe) 100 mg SC 0900,2100 [facility] Escitalopram Oxalate (Escitalopram Oxalate 20 Mg Tablet) 20 mg PO DAILY [facility] Last Admin: 02/23/20 09:47 Dose: 20 mg Documented by: Famotidine (Famotidine 20 Mg Tab) 20 mg PO BID [facility] Last Admin: 02/23/20 09:46 Dose: 20 mg Documented by: Furosemide (Furosemide 20 Mg/2 Ml Vial) 20 mg SLOW IVP 0600,1400 [facility] Glucagon (Glucagon 1 Mg/Ml Vial) 1 mg IM PRN PRN PRN Reason: HYPOGLYCEMIA PROTOCOL Guaifenesin/Dextromethorphan (Guaifenesin Dm 100-10/5 Ml Udcup) 15 ml PO Q4H PRN PRN Reason: Cough Dextrose/Water (D5w) 1,000 mls @ 0 mls/hr IV INF PRN PRN Reason: HYPOGLYCEMIA PROTOCOL Insulin Human Regular (Insulin Regular 300 Units/3 Ml Vial) 0 units SC .MILD SLIDING SCALE PRN PRN Reason: Mild Correctional Scale Last Admin: 02/23/20 06:30 Dose: 2 unit Documented by: Ipratropium [place] (Ipratropium [place] 2.5 Ml Neb) 2.5 ml NEB [id number] [facility] Last Admin: 02/23/20 14:58 Dose: 2.5 ml Documented by: Laxative/Stool Softener (Laxative Of Choice) 1 each PO DAILY PRN PRN Reason: Constipation Loratadine (Loratadine 10 Mg Tab) 10 mg PO 2100 [facility] Last Admin: 02/22/20 20:24 Dose: 10 mg Documented by: Metoprolol Tartrate (Metoprolol Tartrate 5 Mg/5 Ml Vial) 5 mg IVP Q4H PRN PRN Reason: atrial fib w/ rate over 110 Last Admin: 02/22/20 05:22 Dose: 5 mg Documented by: Metoprolol Tartrate (Metoprolol Tartrate 25 Mg Tab) 25 mg PO BID [facility] Last Admin: 02/23/20 09:47 Dose: 25 mg Documented by: Miscellaneous Medication (Electrolyte Replacement Protoc 1 Each Each) 1 each FS ASDIR [facility] Mometasone Furoate/Formoterol Fumar (Mometasone 200 Mcg/Formoterol 5 Mcg 120 Puff Inhaler) 2 puff INH BID-RT [facility] Last Admin: 02/23/20 07:39 Dose: 2 puff Documented by: Nitroglycerin (Nitroglycerin 0.4 Mg Tab (25 Tab Bottle)) 0.4 mg SL Q5MIN PRN PRN Reason: Chest Pain Ondansetron HCl (Ondansetron Pf 4 Mg/2 Ml Vial) 4 mg IVP Q6H PRN PRN Reason: Nausea/Vomiting, use 1st Last Admin: 01/29/20 20:40 Dose: 4 mg Documented by: Prednisone (Prednisone 20 Mg Tab) 40 mg PO QAM-WM [facility] Last Admin: 02/23/20 09:46 Dose: 40 mg Documented by: Senna (Senokot 8.6 Mg Tab) 2 tab PO HSPRN PRN PRN Reason: Constipation Last Admin: 02/13/20 21:33 Dose: 2 tab Documented by: Senna/Docusate Sodium (Senokot S 8.6-50 Mg Tab) 1 tab PO BIDPRN PRN PRN Reason: Constipation Sodium Chloride (Flush - Normal Saline 10 Ml Syringe) 10 ml IVF Q12HR [facility] Last Admin: 02/23/20 09:48 Dose: 10 ml Documented by: Sodium Chloride (Flush - Normal Saline 10 Ml Syringe) 10 ml IVF PRN PRN PRN Reason: Saline Flush Last Admin: 02/06/20 15:37 Dose: 10 ml Documented by: Vital Signs & Weight: Vital Signs Temp Pulse Resp BP Pulse Ox 02/23/20 16:30 97.5 F L 101 H 16 105/68 95 02/23/20 14:58 86 20 95 02/23/20 11:35 97.4 F L 99 22 H 99/59 L 98 02/23/20 10:55 89 18 100 02/23/20 09:46 120 H 02/23/20 07:38 72 20 98 02/23/20 07:30 97.7 F 83 16 105/51 L 99 Admit Weight 219 lb 4.8 oz Weight 234 lb I/O: I/O 02/22/20 02/23/20 02/24/20 06:59 06:59 06:59 Intake Total 1120 990 Output Total 390 1400 Balance 730 -410 - Quality Measures Condition: Atrial Fibrillation/Flutter (hx or current) CV meds: Eliquis: Yes (on hold) - Physical Exam General: alert & oriented x3, no apparent distress, speech clear, affect appropriate. negative: appears well HEENT: mucus membranes moist, normocephaly Neck: supple neck, no JVD/HJR, no lymphadenopathy Cardiology: regular rate, irregularly irregular Lungs: no rales, no rhonchi, wheezes Neurology: cranial nerve 2-12 intact, grossly intact, no lateralizing findings Abdomen: unremarkable, active bowel sounds, no pulsations/bruits - Chadsvasc Risk factors Age >75: 2 Vascular disease: 1 Female: 1 Risk Score: 4 - Labs Result Diagrams: 02/23/20 09:22 02/23/20 09:22 - EKG Interpretation EKG Method: Telemetry EKG shows: Atrial fibrillation - Assessment/Plan Assessment/Plan: 1. Persistent atrial fibrillation, rapid ventricular rate. a. Difficult to control ventricular rate despite digoxin, IV diltiazem, metoprolol. 2. Subacute myocardial infarction with peak troponin I at 23. a.Left heart catheterization from 01/28/20 shows 90% proximal LAD, 25% diffuse OM, proximal RCA 100% with LVEF 40% to 45%. . b. 2D echo from 01/28/2020 shows LVEF of 20% to 25% but difficult to assess d ue to atrial fibrillation, moderate left atrial enlargement, trace MR. 3. Advanced COPD and bilateral pleural effusion. a. Current smoking. 4. Hypertension. 5. Purpura - possible medication reaction Given her advanced COPD, CAD, and cardiomyopathy she has no ideal antiarrhythmic options. She is not a candidate for PVAI ablation in her tenuous medical condition. 02/19: Increased metoprolol 02/20: Wheezing increased with BB increase, metoprolol reduced to 25mg BID and increased dilt to 60TID 02/21: Poor rate control this AM but having pain. BP stable, even high overnight, will increase Diltto 60mg QID. 02/22: Rate control adequate. SBP 95-115. With her open sores on her feet she's at risk for infection. I would be less inclined to proceed with PPM implant with the infection risk. Cardiology may want to consider REX/CV if we cannot rate control. If kidney function remains stable, could load her on tikosyn after REX/CV. She will require resumed OAC once the medical team feels this is an option which hopefully will be an option for her soon., now on lovenox BID Continue rate control with: (Amiodarone was stopped 02/09 AM. ) 1. Decreased metoprolol tartrate 25mg BID. 2. Digoxin 250mcg daily 3. Dilt HCl 60mg QID.
[2020-02-23] MEDS: Enoxaparin Sodium 100 MG/ML SYRINGE SC SCH (20:55)
[2020-02-23] MEDS: Atorvastatin Calcium 40 MG TAB PO SCH (20:56)
[2020-02-23] MEDS: Loratadine 10 MG TAB PO SCH (20:56)
[2020-02-24] MEDS: Ipratropium Bromide 2.5 ml Neb NEB SCH ×6 (02:10→21:45)
[2020-02-24 05:10] LABS: #Eosinphils 0.3 thou/uL (0.0-0.7); #Lymphocytes 0.9 thou/uL (1.20-3.40); #Monocytes 0.3 thou/uL (0.11-0.59); #Neutrophils 5.5 thou/uL (1.40-6.50); %Basophils 0.5 % (0.0-1.0); %Eosinophils 4.4 % (0.0-10.0); %Lymphocytes 12.8 % (21.0-51.0); %Monocytes 4.7 % (0.0-10.0); %Neutrophils 77.6 % (42.0-75.0); Hemoglobin 11.2 g/dL (12.0-16.0); Mean Corpuscular HGB CONC 32.7 g/dL (32.0-36.0); Mean Corpuscular Volume 91.6 fL (78.0-98.0); Mean Platelet Volume 7.6 fL (7.4-10.4); Platelet Count 161 thou/uL (130-400); RBC Distribution Width 16.4 % (11.5-14.5); Red Blood Cell (RBC) Count 3.73 mill/uL (4.20-5.40)
[2020-02-24 05:28] LABS: Anion Gap 11 mmol/L (10-20); BUN (Urea Nitrogen) 20 mg/dL (9.8-20.1); Calc. Creatinine Clearance 222 mL/min (70-130); Calcium 8.5 mg/dL (7.8-10.44); Carbon Dioxide 28 mmol/L (23-31); Chloride 101 mmol/L (98-107); Estimated GFR-MDRD 77; Glucose 107 mg/dL (83-110); Potassium 4.2 mmol/L (3.5-5.1); Sodium 136 mmol/L (136-145)
[2020-02-24] MEDS ORDERED: Furosemide 20 MG/2 ML VIAL SLOW IVP SCH (06:00)
[2020-02-24] MEDS: diphenhydrAMINE 25 MG CAP PO PRN ×3 (07:18→20:42)
[2020-02-24] MEDS: Cholecalciferol 1,000 UNITS (25 MCG) TAB PO SCH (08:20)
[2020-02-24] MEDS: Famotidine 20 MG TAB PO SCH ×2 (08:20→20:42)
[2020-02-24] MEDS: predniSONE 20 MG TAB PO SCH (08:20)
[2020-02-24] MEDS: Metoprolol Tartrate 25 MG TAB PO SCH ×2 (08:21→20:42)
[2020-02-24] MEDS: ALPRAZolam 0.25 MG TAB PO SCH ×2 (08:21→20:42)
[2020-02-24] MEDS: Digoxin 0.25 MG TAB PO SCH (08:21)
[2020-02-24] MEDS: Escitalopram Oxalate 20 mg Tablet PO SCH (08:21)
[2020-02-24] MEDS: Aspirin 81 mg Enteric Coated Tablet PO SCH (08:21)
[2020-02-24] MEDS: Enoxaparin Sodium 100 MG/ML SYRINGE SC SCH ×2 (08:22→20:42)
[2020-02-24] MEDS: Mometasone 200 MCG/Formoterol 5 MCG 120 PUFF INHALER INH SCH ×2 (09:00→18:21)
[2020-02-24] MEDS: Furosemide 20 MG/2 ML VIAL SLOW IVP SCH ×3 (10:21→16:25)
[2020-02-24] MEDS ORDERED: predniSONE 20 MG TAB PO SCH (10:30)
--- NOTE | 2020-02-24 10:33 | PRG ---
DATE OF SERVICE: 02/24/2020 SUBJECTIVE: Leanne Jessica is a 79-year-old female, remains in the ICU. OBJECTIVE: VITAL SIGNS: Temperature 97, pulse 89, respirations 15, sats are 98% on 2 L, blood pressure 105/52. EXTREMITIES: She has 2+ ankle edema with stasis and extensive rash. She says she is less short of breath, weak. CHEST: Decreased breath sounds. No wheezing. CARDIAC: Normal S1, S2. No gallops. ABDOMEN: No masses. IMPRESSION AND PLAN: 1. Multiorgan respiratory failure, CHF, COPD. 2. SVT, severe deconditioning, chronic stasis. Pulmonary is going to follow while in the hospital. She was started back on a very high dose of prednisone, which I would try and avoid. I am going to cut back to 20 mg a day. She appears to be relatively stable. Eventually placement prior to any intervention by EP physician. Job ID: [id number]
[2020-02-24 13:29] VITALS: BMI 35.6
--- NOTE | 2020-02-24 14:22 | PDOC.EP ---
- Subjective Date: 02/24/20 Time: 14:20 Interval History: No new events. skin is still blistered and with raised macular rash throughout body. Feet hurt on ambulation. Dyspnea on exertion slightly better. - Review of Systems Constitutional: reports: chills, malaise, weakness. denies: fever, sweats Respiratory: reports: shortness of breath (Improved), SOB with excertion Musculoskeletal: reports: unstable gait, foot pain Neurological: denies: headache, vision changes - Objective Allergies/Adverse Reactions: Allergies Allergy/AdvReac Type Severity Reaction Status Date / Time Penicillins Allergy Unknown Hives Verified 01/28/20 10:11 levofloxacin [From Levaquin] Allergy Rash Verified 02/19/20 10:12 -MYCIN DRUGS Allergy Severe Rash Uncoded 02/18/20 10:09 Current Medications Acetaminophen (Acetaminophen 325 Mg Tab) 650 mg PO Q4H PRN PRN Reason: Headache/Fever/Mild Pain (1-3) Last Admin: 02/23/20 09:49 Dose: 650 mg Documented by: Albuterol/Ipratropium (Ipratropium/Albuterol Sulfate 3 Ml Neb) 3 ml NEB Q2H PRN PRN Reason: SOB &/or Wheezing Last Admin: 02/16/20 04:33 Dose: 3 ml Documented by: Alprazolam (Alprazolam 0.25 Mg Tab) 0.5 mg PO BID [facility] Last Admin: 02/24/20 08:21 Dose: 0.5 mg Documented by: Aspirin (Aspirin 81 Mg Enteric Coated Tablet) 81 mg PO DAILY [facility] Last Admin: 02/24/20 08:21 Dose: 81 mg Documented by: Atorvastatin Calcium (Atorvastatin Calcium 40 Mg Tab) 40 mg PO HS [facility] Last Admin: 02/23/20 20:56 Dose: 40 mg Documented by: Benzonatate (Benzonatate 100 Mg Cap) 100 mg PO TIDPRN PRN PRN Reason: Cough Last Admin: 02/16/20 09:05 Dose: 100 mg Documented by: Bisacodyl (Bisacodyl 5 Mg Tab) 10 mg PO DAILYPRN PRN PRN Reason: Constipation Last Admin: 02/15/20 10:34 Dose: 10 mg Documented by: Bisacodyl (Bisacodyl 10 Mg Supp) 10 mg OK TIDPRN PRN PRN Reason: Constipation Cholecalciferol (Cholecalciferol 1,000 Units (25 Mcg) Tab) 2,000 units PO DAILY [facility] Last Admin: 02/24/20 08:20 Dose: 2,000 units Documented by: Dextrose/Water (Dextrose 50% Abboject 50 Ml Syringe) 25 gm IVP PRN PRN PRN Reason: HYPOGLYCEMIA PROTOCOL Digoxin (Digoxin 0.25 Mg Tab) 0.25 mg PO DAILY [facility] Last Admin: 02/24/20 08:21 Dose: 0.25 mg Documented by: Diltiazem HCl (Diltiazem Hcl 30 Mg Tablet) 60 mg PO QID [facility] Last Admin: 02/24/20 13:29 Dose: 60 mg Documented by: Diphenhydramine HCl (Diphenhydramine 25 Mg Cap) 25 mg PO Q6H PRN PRN Reason: Itching & Insomnia Last Admin: 02/24/20 13:33 Dose: 25 mg Documented by: Enoxaparin Sodium (Enoxaparin Sodium 100 Mg/Ml Syringe) 100 mg SC 0900,2100 [facility] Last Admin: 02/24/20 08:22 Dose: 100 mg Documented by: Escitalopram Oxalate (Escitalopram Oxalate 20 Mg Tablet) 20 mg PO DAILY [facility] Last Admin: 02/24/20 08:21 Dose: 20 mg Documented by: Famotidine (Famotidine 20 Mg Tab) 20 mg PO BID [facility] Last Admin: 02/24/20 08:20 Dose: 20 mg Documented by: Furosemide (Furosemide 20 Mg/2 Ml Vial) 40 mg SLOW IVP 0600,1400 [facility] Glucagon (Glucagon 1 Mg/Ml Vial) 1 mg IM PRN PRN PRN Reason: HYPOGLYCEMIA PROTOCOL Guaifenesin/Dextromethorphan (Guaifenesin Dm 100-10/5 Ml Udcup) 15 ml PO Q4H PRN PRN Reason: Cough Dextrose/Water (D5w) 1,000 mls @ 0 mls/hr IV INF PRN PRN Reason: HYPOGLYCEMIA PROTOCOL Insulin Human Regular (Insulin Regular 300 Units/3 Ml Vial) 0 units SC .MILD SLIDING SCALE PRN PRN Reason: Mild Correctional Scale Last Admin: 02/23/20 06:30 Dose: 2 unit Documented by: Ipratropium [place] (Ipratropium [place] 2.5 Ml Neb) 2.5 ml NEB [id number] [facility] Last Admin: 02/24/20 10:21 Dose: Not Given Documented by: Laxative/Stool Softener (Laxative Of Choice) 1 each PO DAILY PRN PRN Reason: Constipation Loratadine (Loratadine 10 Mg Tab) 10 mg PO 2100 [facility] Last Admin: 02/23/20 20:56 Dose: 10 mg Documented by: Metoprolol Tartrate (Metoprolol Tartrate 5 Mg/5 Ml Vial) 5 mg IVP Q4H PRN PRN Reason: atrial fib w/ rate over 110 Last Admin: 02/22/20 05:22 Dose: 5 mg Documented by: Metoprolol Tartrate (Metoprolol Tartrate 25 Mg Tab) 25 mg PO BID [facility] Last Admin: 02/24/20 08:21 Dose: 25 mg Documented by: Miscellaneous Medication (Electrolyte Replacement Protoc 1 Each Each) 1 each FS ASDIR [facility] Mometasone Furoate/Formoterol Fumar (Mometasone 200 Mcg/Formoterol 5 Mcg 120 Puff Inhaler) 2 puff INH BID-RT [facility] Last Admin: 02/24/20 09:00 Dose: 2 puff Documented by: Nitroglycerin (Nitroglycerin 0.4 Mg Tab (25 Tab Bottle)) 0.4 mg SL Q5MIN PRN PRN Reason: Chest Pain Ondansetron HCl (Ondansetron Pf 4 Mg/2 Ml Vial) 4 mg IVP Q6H PRN PRN Reason: Nausea/Vomiting, use 1st Last Admin: 01/29/20 20:40 Dose: 4 mg Documented by: Prednisone (Prednisone 20 Mg Tab) 20 mg PO QAM-[facility] Senna (Senokot 8.6 Mg Tab) 2 tab PO HSPRN PRN PRN Reason: Constipation Last Admin: 02/13/20 21:33 Dose: 2 tab Documented by: Senna/Docusate Sodium (Senokot S 8.6-50 Mg Tab) 1 tab PO BIDPRN PRN PRN Reason: Constipation Sodium Chloride (Flush - Normal Saline 10 Ml Syringe) 10 ml IVF Q12HR [facility] Last Admin: 02/24/20 08:23 Dose: 10 ml Documented by: Sodium Chloride (Flush - Normal Saline 10 Ml Syringe) 10 ml IVF PRN PRN PRN Reason: Saline Flush Last Admin: 02/06/20 15:37 Dose: 10 ml Documented by: Vital Signs & Weight: Vital Signs Temp Pulse Pulse Pulse Resp BP BP 02/24/20 11:35 98.0 F 72 20 02/24/20 10:27 02/24/20 09:15 101 H 84 124/68 102/63 02/24/20 08:55 89 15 02/24/20 08:24 02/24/20 08:21 82 02/24/20 07:54 97.8 F 59 L 18 02/24/20 04:00 98.6 F 81 20 BP BP Pulse Ox Pulse Ox Pulse Ox 02/24/20 11:35 116/77 98 02/24/20 10:27 85/50 L 02/24/20 09:15 96 97 02/24/20 08:55 02/24/20 08:24 105/52 L 02/24/20 08:21 02/24/20 07:54 92/52 L 98 02/24/20 04:00 104/58 L 98 Admit Weight 219 lb 4.8 oz Weight 234 lb I/O: I/O 02/23/20 02/24/20 02/25/20 06:59 06:59 06:59 Intake Total 990 1440 Output Total 1400 1200 Balance -410 240 - Quality Measures Condition: Atrial Fibrillation/Flutter (hx or current) CV meds: Eliquis: No - Medication Contraindications No Anticoagulant reason: Anticoagulant not tolerated - Physical Exam General: alert & oriented x3, appears well, no apparent distress HEENT: normocephaly Neck: no JVD/HJR, no masses Cardiology: irregularly irregular. negative: tachycardia, audible murmur Lungs: normal breath sounds. negative: wheezes Neurology: grossly intact Abdomen: active bowel sounds, soft Extremities: strong pulses Skin: other (macular rash with sanguinous blisters epsecially in LE.) Musculoskeletal: other (LE pain on ambulation.) - Labs Result Diagrams: 02/24/20 04:50 02/24/20 04:50
--- NOTE | 2020-02-24 16:26 | PDOC.HOSPP ---
- Subjective Encounter Date: 02/24/20 Subjective: The patient appears to be less short of breath today. - Objective Vital Signs & Weight: Vital Signs (12 hours) Temp Pulse Pulse Pulse Resp BP BP 02/24/20 14:51 87 16 02/24/20 11:35 98.0 F 72 20 02/24/20 10:27 02/24/20 09:15 101 H 84 124/68 102/63 02/24/20 08:55 89 15 02/24/20 08:24 02/24/20 08:21 82 02/24/20 07:54 97.8 F 59 L 18 BP BP Pulse Ox Pulse Ox Pulse Ox 02/24/20 14:51 02/24/20 11:35 116/77 98 02/24/20 10:27 85/50 L 02/24/20 09:15 96 97 02/24/20 08:55 02/24/20 08:24 105/52 L 02/24/20 08:21 02/24/20 07:54 92/52 L 98 Weight Admit Weight 219 lb 4.8 oz Weight 234 lb Most Recent Monitor Data Heart Rate from ECG 101 NIBP 119/68 NIBP BP-Mean 85 Respiration from ECG 21 SpO2 85 I&O: 02/23/20 02/24/20 02/25/20 06:59 06:59 06:59 Intake Total 990 1440 Output Total 1400 1200 Balance -410 240 Result Diagrams: 02/24/20 04:50 02/24/20 04:50 Additional Labs: Accuchecks 02/24/20 02/24/20 02/23/20 11:46 05:45 20:06 POC Glucose 112 H 101 H 152 H 02/23/20 17:44 POC Glucose 153 H Hospitalist ROS - Medication Medications: Active Medications Generic Name Dose Route Start Last Admin Trade Name Freq PRN Reason Stop Dose Admin Acetaminophen 650 mg 01/28/20 00:25 02/23/20 09:49 Acetaminophen 325 Mg Tab PO 650 mg Q4H PRN Administration Headache/Fever/Mild Pain (1-3) Albuterol/Ipratropium 3 ml 01/28/20 00:25 02/16/20 04:33 Ipratropium/Albuterol Sulfate 3 Ml Neb NEB 3 ml Q2H PRN Administration SOB &/or Wheezing Alprazolam 0.5 mg 02/19/20 09:00 02/24/20 08:21 Alprazolam 0.25 Mg Tab PO 0.5 mg BID [facility] Administration Aspirin 81 mg 01/28/20 09:00 02/24/20 08:21 Aspirin 81 Mg Enteric Coated Tablet PO 81 mg DAILY [facility] Administration Atorvastatin Calcium 40 mg 01/28/20 21:00 02/23/20 20:56 Atorvastatin Calcium 40 Mg Tab PO 40 mg HS [facility] Administration Benzonatate 100 mg 02/12/20 09:35 02/16/20 09:05 Benzonatate 100 Mg Cap PO 100 mg TIDPRN PRN Administration Cough Bisacodyl 10 mg 01/31/20 16:36 02/15/20 10:34 Bisacodyl 5 Mg Tab PO 10 mg DAILYPRN PRN Administration Constipation Cholecalciferol 2,000 units 02/14/20 09:00 02/24/20 08:20 Cholecalciferol 1,000 Units (25 Mcg) Tab PO 2,000 units DAILY [facility] Administration Digoxin 0.25 mg 02/09/20 09:00 02/24/20 08:21 Digoxin 0.25 Mg Tab PO 0.25 mg DAILY [facility] Administration Diltiazem HCl 60 mg 02/22/20 17:00 02/24/20 13:29 Diltiazem Hcl 30 Mg Tablet PO 60 mg QID [facility] Administration Diphenhydramine HCl 25 mg 02/12/20 09:35 02/24/20 13:33 Diphenhydramine 25 Mg Cap PO 25 mg Q6H PRN Administration Itching & Insomnia Enoxaparin Sodium 100 mg 02/23/20 21:00 02/24/20 08:22 Enoxaparin Sodium 100 Mg/Ml Syringe SC 100 mg 09,2099 [facility] Administration Escitalopram Oxalate 20 mg 01/31/20 09:00 02/24/20 08:21 Escitalopram Oxalate 20 Mg Tablet PO 20 mg DAILY [facility] Administration Famotidine 20 mg 01/28/20 09:00 02/24/20 08:20 Famotidine 20 Mg Tab PO 20 mg BID [facility] Administration Insulin Human Regular 0 units 01/28/20 00:26 02/23/20 06:30 Insulin Regular 300 Units/3 Ml Vial SC 2 unit .MILD SLIDING SCALE PRN Administration Mild Correctional Scale Ipratropium [place] 2.5 ml 02/21/20 14:30 02/24/20 14:51 Ipratropium [place] 2.5 Ml Neb NEB 2.5 ml [id number] [facility] Administration Loratadine 10 mg 02/18/20 21:00 02/23/20 20:56 Loratadine 10 Mg Tab PO 10 mg 2100 [facility] Administration Metoprolol Tartrate 5 mg 01/28/20 00:21 02/22/20 05:22 Metoprolol Tartrate 5 Mg/5 Ml Vial IVP 5 mg Q4H PRN Administration atrial fib w/ rate over 110 Metoprolol Tartrate 25 mg 02/21/20 21:00 02/24/20 08:21 Metoprolol Tartrate 25 Mg Tab PO 25 mg BID [facility] Administration Mometasone Furoate/Formoterol Fumar 2 puff 01/28/20 18:30 02/24/20 09:00 Mometasone 200 Mcg/Formoterol 5 Mcg 120 Puff Inhaler INH 2 puff BID-RT [facility] Administration Ondansetron HCl 4 mg 01/28/20 00:25 01/29/20 20:40 Ondansetron Pf 4 Mg/2 Ml Vial IVP 4 mg Q6H PRN Administration Nausea/Vomiting, use 1st Senna 2 tab 01/31/20 16:36 02/13/20 21:33 Senokot 8.6 Mg Tab PO 2 tab HSPRN PRN Administration Constipation Sodium Chloride 10 ml 02/01/20 09:00 02/24/20 08:23 Flush - Normal Saline 10 Ml Syringe IVF 10 ml Q12HR [facility] Administration Sodium Chloride 10 ml 02/01/20 08:30 02/06/20 15:37 Flush - Normal Saline 10 Ml Syringe IVF 10 ml PRN PRN Administration Saline Flush - Exam ENT: normocephalic atraumatic Neck: supple, no JVD Respiratory: normal chest expansion, no tachypnea, rhonchi Gastrointestinal: soft, non-tender, non-distended Extremities - other findings: Purpuric rash involving the lower extremities bila terally Hosp A/P - Plan This is a 79 year old female with COPD who presented with shortness of breath , afib with RVR, Found to have pulmonary edema on admission. Diuresed with IV lasix. Also developed pneumonia, completed five days of antibiotics. Continues to be in the hospital due to worsening purpura on legs Acute hypoxic respiratory failure secondary to acute systolic heart failure - EF 20-25% Chest x-ray showing worsening pulmonary edema. Lasix was increased to 40 mg IV twice daily. Monitor intake and output. Afib with RVR Her rate is controlled. She is on digoxin, diltiazem, and metoprolol. Amiodarone has been discontinued due to the patient's pulmonary disease. Currently on Lovenox for anticoagulation. The patient would need to be transitioned to oral anticoagulation prior to discharge. Pradaxa and rivaroxaban appears to have interaction with diltiazem. Eliquis is one of the possible causes for her purpura. We might need to use warfarin or get clearance from cardiology to use Pradaxa or rivaroxaban. COPD Shortness of breath is worsening. Continue ipratropium nebulized every 4 hours and continue prednisone 40 mg orally daily. Check chest x-ray. Petechial/purpural rash on lower extremities Likely purpuric drug eruption. Antibiotics were discontinued. Differential diagnoses also include side effect related to the anticoagulation. She does have some open bleeding wounds. The patient has been started on IV Lovenox. Right lower lobe pneumonia Patient completed 5 days of antibiotics. Physical deconditioning The patient was accepted to swing bed once medically ready.
[2020-02-24] MEDS: Loratadine 10 MG TAB PO SCH (20:42)
[2020-02-24] MEDS: Atorvastatin Calcium 40 MG TAB PO SCH (20:42)
[2020-02-25] MEDS: Ipratropium Bromide 2.5 ml Neb NEB SCH ×6 (00:53→22:50)
[2020-02-25] MEDS: Furosemide 20 MG/2 ML VIAL SLOW IVP SCH ×2 (05:20→13:32)
[2020-02-25] MEDS: Mometasone 200 MCG/Formoterol 5 MCG 120 PUFF INHALER INH SCH ×2 (06:53→17:58)
[2020-02-25] MEDS ORDERED: predniSONE 20 MG TAB PO SCH (08:00)
[2020-02-25] MEDS: diphenhydrAMINE 25 MG CAP PO PRN ×2 (09:42→18:41)
[2020-02-25] MEDS: Escitalopram Oxalate 20 mg Tablet PO SCH (09:42)
[2020-02-25] MEDS: Digoxin 0.25 MG TAB PO SCH (09:42)
[2020-02-25] MEDS: Aspirin 81 mg Enteric Coated Tablet PO SCH (09:42)
[2020-02-25] MEDS: Cholecalciferol 1,000 UNITS (25 MCG) TAB PO SCH (09:43)
[2020-02-25] MEDS: Metoprolol Tartrate 25 MG TAB PO SCH ×2 (09:43→20:30)
[2020-02-25] MEDS: ALPRAZolam 0.25 MG TAB PO SCH ×2 (09:43→20:30)
[2020-02-25] MEDS: Enoxaparin Sodium 100 MG/ML SYRINGE SC SCH ×2 (09:43→20:30)
[2020-02-25] MEDS: Famotidine 20 MG TAB PO SCH ×2 (09:43→20:30)
[2020-02-25] MEDS ORDERED: methylPREDNISolone Sod Succ 40 MG VIAL IVP SCH (11:15)
[2020-02-25] MEDS: methylPREDNISolone Sod Succ 40 MG VIAL IVP SCH (13:32)
--- NOTE | 2020-02-25 15:41 | PDOC.HOSPP ---
- Subjective Subjective: Assuming care: c/o new rash on her trunk, pruritic in nature. thought d/t allergic reaction from medications. - Objective Vital Signs & Weight: Vital Signs (12 hours) Temp Pulse Pulse Resp BP BP BP 02/25/20 14:01 110 H 16 02/25/20 13:02 98.1 F 110 H 18 92/54 L 02/25/20 11:30 94 130/55 L 86/62 L 02/25/20 10:16 81 16 02/25/20 07:26 97.5 F L 81 16 108/52 L 02/25/20 07:25 02/25/20 06:53 97 20 02/25/20 06:44 97 20 02/25/20 04:00 97.7 F 72 18 BP Pulse Ox Pulse Ox 02/25/20 14:01 02/25/20 13:02 96 02/25/20 11:30 99 02/25/20 10:16 02/25/20 07:26 97 02/25/20 07:25 97 02/25/20 06:53 02/25/20 06:44 02/25/20 04:00 93/55 L 97 Weight Admit Weight 219 lb 4.8 oz Weight 236 lb 4.8 oz Most Recent Monitor Data Heart Rate from ECG 101 NIBP 119/68 NIBP BP-Mean 85 Respiration from ECG 21 SpO2 85 I&O: 02/24/20 02/25/20 02/26/20 06:59 06:59 06:59 Intake Total 1440 1800 Output Total 1200 1700 Balance 240 100 Result Diagrams: 02/24/20 04:50 02/24/20 04:50 Additional Labs: Accuchecks 02/25/20 02/24/20 02/24/20 05:35 20:41 16:43 POC Glucose 126 H 159 H 176 H Radiology Reviewed by me: Yes EKG Reviewed by me: Yes Hospitalist ROS - Medication Medications: Active Medications Generic Name Dose Route Start Last Admin Trade Name Freq PRN Reason Stop Dose Admin Acetaminophen 650 mg 01/28/20 00:25 02/23/20 09:49 Acetaminophen 325 Mg Tab PO 650 mg Q4H PRN Administration Headache/Fever/Mild Pain (1-3) Albuterol/Ipratropium 3 ml 01/28/20 00:25 02/24/20 18:20 Ipratropium/Albuterol Sulfate 3 Ml Neb NEB 3 ml Q2H PRN Administration SOB &/or Wheezing Alprazolam 0.5 mg 02/19/20 09:00 02/25/20 09:43 Alprazolam 0.25 Mg Tab PO 0.5 mg BID [facility] Administration Aspirin 81 mg 01/28/20 09:00 02/25/20 09:42 Aspirin 81 Mg Enteric Coated Tablet PO 81 mg DAILY [facility] Administration Atorvastatin Calcium 40 mg 01/28/20 21:00 02/24/20 20:42 Atorvastatin Calcium 40 Mg Tab PO 40 mg HS [facility] Administration Benzonatate 100 mg 02/12/20 09:35 02/16/20 09:05 Benzonatate 100 Mg Cap PO 100 mg TIDPRN PRN Administration Cough Bisacodyl 10 mg 01/31/20 16:36 02/15/20 10:34 Bisacodyl 5 Mg Tab PO 10 mg DAILYPRN PRN Administration Constipation Cholecalciferol 2,000 units 02/14/20 09:00 02/25/20 09:43 Cholecalciferol 1,000 Units (25 Mcg) Tab PO 2,000 units DAILY [facility] Administration Digoxin 0.25 mg 02/09/20 09:00 02/25/20 09:42 Digoxin 0.25 Mg Tab PO 0.25 mg DAILY [facility] Administration Diltiazem HCl 60 mg 02/22/20 17:00 02/25/20 13:31 Diltiazem Hcl 30 Mg Tablet PO 60 mg QID [facility] Administration Diphenhydramine HCl 25 mg 02/12/20 09:35 02/25/20 09:42 Diphenhydramine 25 Mg Cap PO 25 mg Q6H PRN Administration Itching & Insomnia Enoxaparin Sodium 100 mg 02/23/20 21:00 02/25/20 09:43 Enoxaparin Sodium 100 Mg/Ml Syringe SC 100 mg 0900,2100 [facility] Administration Famotidine 20 mg 01/28/20 09:00 02/25/20 09:43 Famotidine 20 Mg Tab PO 20 mg BID [facility] Administration Furosemide 40 mg 02/24/20 14:00 02/25/20 13:32 Furosemide 20 Mg/2 Ml Vial SLOW IVP 40 mg 0600,1400 [facility] Administration Insulin Human Regular 0 units 01/28/20 00:26 02/23/20 06:30 Insulin Regular 300 Units/3 Ml Vial SC 2 unit .MILD SLIDING SCALE PRN Administration Mild Correctional Scale Ipratropium [place] 2.5 ml 02/21/20 14:30 02/25/20 14:01 Ipratropium [place] 2.5 Ml Neb NEB 2.5 ml [id number] [facility] Administration Loratadine 10 mg 02/18/20 21:00 02/24/20 20:42 Loratadine 10 Mg Tab PO 10 mg 2100 [facility] Administration Methylprednisolone Sodium Succinate 40 mg 02/26/20 09:00 02/25/20 13:32 Methylprednisolone Sod Succ 40 Mg Vial IVP 40 mg DAILY [facility] Administration Metoprolol Tartrate 5 mg 01/28/20 00:21 02/22/20 05:22 Metoprolol Tartrate 5 Mg/5 Ml Vial IVP 5 mg Q4H PRN Administration atrial fib w/ rate over 110 Metoprolol Tartrate 25 mg 02/21/20 21:00 02/25/20 09:43 Metoprolol Tartrate 25 Mg Tab PO 25 mg BID [facility] Administration Mometasone Furoate/Formoterol Fumar 2 puff 01/28/20 18:30 02/25/20 06:53 Mometasone 200 Mcg/Formoterol 5 Mcg 120 Puff Inhaler INH 2 puff BID-RT [facility] Administration Ondansetron HCl 4 mg 01/28/20 00:25 01/29/20 20:40 Ondansetron Pf 4 Mg/2 Ml Vial IVP 4 mg Q6H PRN Administration Nausea/Vomiting, use 1st Prednisone 20 mg 02/25/20 08:00 02/25/20 09:43 Prednisone 20 Mg Tab PO 20 mg QAM-WM [facility] Administration Senna 2 tab 01/31/20 16:36 02/13/20 21:33 Senokot 8.6 Mg Tab PO 2 tab HSPRN PRN Administration Constipation Sodium Chloride 10 ml 02/01/20 09:00 02/25/20 09:44 Flush - Normal Saline 10 Ml Syringe IVF 10 ml Q12HR [facility] Administration Sodium Chloride 10 ml 02/01/20 08:30 02/06/20 15:37 Flush - Normal Saline 10 Ml Syringe IVF 10 ml PRN PRN Administration Saline Flush - Exam General Appearance: NAD Eye: PERRL ENT: normocephalic atraumatic Neck: supple Heart: RRR Respiratory: CTAB, no wheezes Gastrointestinal: soft Extremities: no cyanosis Skin: normal turgor Skin - other findings: Purpuric rash involving the lower extremities bilaterally, and blotchy Neurological: cranial nerve grossly intact Psychiatric: normal affect, normal behavior, A&O x 3 Hosp A/P - Plan Hosp A/P - Plan This is a 79 year old female with COPD who presented with shortness of breath , afib with RVR, Found to have pulmonary edema on admission. Diuresed with IV lasix. Also developed pneumonia, completed five days of antibiotics. Continues to be in the hospital due to worsening purpura on legs Acute hypoxic respiratory failure secondary to acute systolic heart failure - EF 20-25% - cont IV diuresis as per cardiology. monitor I&O and daily weight Afib with RVR - rate controlled Her rate is controlled. She is on complex regimen including digoxin, diltiazem, and metoprolol. Amiodarone has been discontinued due to the patient's pulmonary disease. Currently on Lovenox for anticoagulation. The patient would need to be transitioned to oral anticoagulation prior to discharge. Pradaxa and rivaroxaban appears to have interaction with diltiazem. Eliquis is one of the possible causes for her purpura. We might need to use warfarin or get clearance from cardiology to use Pradaxa or rivaroxaban. NSTEMI -s/p LHC - multivessel disease. high risk CABG at this time. Cardiology is following COPD pulmonology is following. Cont PO Prednisone as per pul Petechial/purpural rash on lower extremities Likely purpuric drug eruption. Antibiotics were discontinued. Differential diagnoses also include side effect related to the anticoagulation. She does have some open bleeding wounds. The patient has been started on IV Lovenox. PLT wnl. Monitor will give her a dose of IV steroid and Atarax for pruritus Right lower lobe pneumonia Patient completed 5 days of antibiotics. Physical deconditioning The patient was accepted to swing bed once medically ready.
[2020-02-25] MEDS: hydrOXYzine 25 MG TAB PO SCH ×2 (15:46→20:30)
[2020-02-25] MEDS: Insulin Regular 300 UNITS/3 ML VIAL SC PRN (16:51)
--- NOTE | 2020-02-25 18:02 | PRG ---
DATE OF SERVICE: 02/25/2020 SUBJECTIVE: Ms. Jessica says she feels like she is close to her baseline. Her only complaint is she has a new macular rash that is pruritic. Atarax was ordered. She was switched from p.o. to IV steroids. OBJECTIVE: VITAL SIGNS: She is afebrile. Heart rate is in the 70s, respiratory rate is 18, oximetry is 96%, blood pressure 98/54. LUNGS: Free of wheezes. HEART: . S1 and S2 are unremarkable. ABDOMEN: Soft, very large. EXTREMITIES: With edema. IMPRESSION: 1. Chronic obstructive pulmonary disease and congestive heart failure. 2. Chronic stasis changes. 3. Life-threatening obesity. 4. Macular rash. It is likely a drug eruption. 5. Atrial fibrillation. 6. Myocardial infarction. The peak troponin of 23. 7. Coronary artery disease. 8. 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 9. Hypertension. PLAN: In her pulmonary stability, would recommend a slow 2 to 3 week steroid taper. Continue nebulized treatments. We will sign off and see her as needed. Job ID: [id number]
[2020-02-25] MEDS: Atorvastatin Calcium 40 MG TAB PO SCH (20:30)
[2020-02-26] MEDS: Ipratropium Bromide 2.5 ml Neb NEB SCH ×6 (02:26→22:06)
[2020-02-26 04:28] LABS: #Lymphocytes 0.9 thou/uL (1.20-3.40); #Monocytes 0.3 thou/uL (0.11-0.59); %Basophils 0.2 % (0.0-1.0); %Eosinophils 0.4 % (0.0-10.0); %Lymphocytes 14.7 % (21.0-51.0); %Monocytes 4.5 % (0.0-10.0); %Neutrophils 80.2 % (42.0-75.0); Hemoglobin 12.1 g/dL (12.0-16.0); Mean Corpuscular HGB CONC 33.5 g/dL (32.0-36.0); Mean Corpuscular Hemoglobin 30.5 pg (27.0-31.0); Mean Platelet Volume 7.6 fL (7.4-10.4); Platelet Count 180 thou/uL (130-400); RBC Distribution Width 16.6 % (11.5-14.5); Red Blood Cell (RBC) Count 3.96 mill/uL (4.20-5.40); White Blood Cell (WBC) Count 6.3 thou/uL (4.8-10.8)
[2020-02-26 04:48] LABS: Anion Gap 13 mmol/L (10-20); BUN (Urea Nitrogen) 27 mg/dL (9.8-20.1); CRP (Inflammatory) 1.49 mg/dL (= or < 0.5); Calc. Creatinine Clearance 110 mL/min (70-130); Calcium 8.8 mg/dL (7.8-10.44); Carbon Dioxide 29 mmol/L (23-31); Chloride 100 mmol/L (98-107); Estimated GFR-MDRD 77; Glucose 158 mg/dL (83-110); Sodium 138 mmol/L (136-145)
[2020-02-26] MEDS: Furosemide 20 MG/2 ML VIAL SLOW IVP SCH ×2 (05:50→15:00)
[2020-02-26] MEDS: Mometasone 200 MCG/Formoterol 5 MCG 120 PUFF INHALER INH SCH ×2 (07:26→18:03)
[2020-02-26] MEDS: Acetaminophen 325 MG TAB PO PRN ×2 (08:39→15:03)
[2020-02-26] MEDS: Aspirin 81 mg Enteric Coated Tablet PO SCH (08:40)
[2020-02-26] MEDS: Famotidine 20 MG TAB PO SCH ×2 (08:40→21:08)
[2020-02-26] MEDS: Enoxaparin Sodium 100 MG/ML SYRINGE SC SCH ×2 (08:40→21:10)
[2020-02-26] MEDS: methylPREDNISolone Sod Succ 40 MG VIAL IVP SCH (08:41)
[2020-02-26] MEDS: Digoxin 0.25 MG TAB PO SCH (08:41)
[2020-02-26] MEDS: ALPRAZolam 0.25 MG TAB PO SCH ×2 (08:41→21:10)
[2020-02-26] MEDS: Cholecalciferol 1,000 UNITS (25 MCG) TAB PO SCH (08:42)
[2020-02-26] MEDS: Metoprolol Tartrate 25 MG TAB PO SCH ×2 (08:42→21:48)
[2020-02-26] MEDS: hydrOXYzine 25 MG TAB PO SCH ×3 (08:42→21:09)
[2020-02-26 09:21] LABS: Hemoglobin 12.5 g/dL (12.0-16.0); Platelet Count 192 thou/uL (130-400)
[2020-02-26] MEDS: diphenhydrAMINE 25 MG CAP PO PRN (12:12)
--- NOTE | 2020-02-26 13:04 | PDOC.HOSPP ---
- Subjective Subjective: Patient was seen examined at bedside. Patient reported that her itching is much better. - Objective Vital Signs & Weight: Vital Signs (12 hours) Temp Pulse Resp BP BP Pulse Ox 02/26/20 12:09 98.3 F 85 20 103/52 L 96 02/26/20 10:35 103 H 18 02/26/20 08:43 106/69 02/26/20 07:27 96.5 F L 116 H 20 130/71 100 02/26/20 07:25 91 18 96 02/26/20 03:15 97.4 F L 86 16 90/61 97 02/26/20 02:26 87 18 96 Weight Admit Weight 219 lb 4.8 oz Weight 238 lb Most Recent Monitor Data Heart Rate from ECG 101 NIBP 119/68 NIBP BP-Mean 85 Respiration from ECG 21 SpO2 85 I&O: 02/25/20 02/26/20 02/27/20 06:59 06:59 06:59 Intake Total 1800 1440 Output Total 1700 1650 Balance 100 -210 Result Diagrams: 02/26/20 08:50 02/26/20 08:50 Additional Labs: Accuchecks 02/26/20 02/25/20 02/25/20 05:48 20:32 16:26 POC Glucose 127 H 157 H 211 H Hospitalist ROS - Medication Medications: Active Medications Generic Name Dose Route Start Last Admin Trade Name Freq PRN Reason Stop Dose Admin Acetaminophen 650 mg 01/28/20 00:25 02/26/20 08:39 Acetaminophen 325 Mg Tab PO 650 mg Q4H PRN Administration Headache/Fever/Mild Pain (1-3) Albuterol/Ipratropium 3 ml 01/28/20 00:25 02/25/20 17:54 Ipratropium/Albuterol Sulfate 3 Ml Neb NEB 3 ml Q2H PRN Administration SOB &/or Wheezing Alprazolam 0.5 mg 02/19/20 09:00 02/26/20 08:41 Alprazolam 0.25 Mg Tab PO 0.5 mg BID PAULA Administration Aspirin 81 mg 01/28/20 09:00 02/26/20 08:40 Aspirin 81 Mg Enteric Coated Tablet PO 81 mg DAILY PAULA Administration Atorvastatin Calcium 40 mg 01/28/20 21:00 02/25/20 20:30 Atorvastatin Calcium 40 Mg Tab PO 40 mg HS PAULA Administration Benzonatate 100 mg 02/12/20 09:35 02/16/20 09:05 Benzonatate 100 Mg Cap PO 100 mg TIDPRN PRN Administration Cough Bisacodyl 10 mg 01/31/20 16:36 02/15/20 10:34 Bisacodyl 5 Mg Tab PO 10 mg DAILYPRN PRN Administration Constipation Cholecalciferol 2,000 units 02/14/20 09:00 02/26/20 08:42 Cholecalciferol 1,000 Units (25 Mcg) Tab PO 2,000 units DAILY PAULA Administration Digoxin 0.25 mg 02/09/20 09:00 02/26/20 08:41 Digoxin 0.25 Mg Tab PO 0.25 mg DAILY PAULA Administration Diltiazem HCl 60 mg 02/22/20 17:00 02/26/20 12:10 Diltiazem Hcl 30 Mg Tablet PO 60 mg QID PAULA Administration Diphenhydramine HCl 25 mg 02/12/20 09:35 02/26/20 12:12 Diphenhydramine 25 Mg Cap PO 25 mg Q6H PRN Administration Itching & Insomnia Enoxaparin Sodium 100 mg 02/23/20 21:00 02/26/20 08:40 Enoxaparin Sodium 100 Mg/Ml Syringe SC 100 mg 0900,2100 PAULA Administration Famotidine 20 mg 01/28/20 09:00 02/26/20 08:40 Famotidine 20 Mg Tab PO 20 mg BID PAULA Administration Furosemide 40 mg 02/24/20 14:00 02/26/20 05:50 Furosemide 20 Mg/2 Ml Vial SLOW IVP 40 mg 0600,1400 PAULA Administration Hydroxyzine HCl 25 mg 02/25/20 15:00 02/26/20 08:42 Hydroxyzine 25 Mg Tab PO 25 mg TID PAULA Administration Insulin Human Regular 0 units 01/28/20 00:26 02/25/20 16:51 Insulin Regular 300 Units/3 Ml Vial SC 3 unit .MILD SLIDING SCALE PRN Administration Mild Correctional Scale Ipratropium [place] 2.5 ml 02/21/20 14:30 02/26/20 10:35 Ipratropium [place] 2.5 Ml Neb NEB 2.5 ml [id number] PAULA Administration Methylprednisolone Sodium Succinate 40 mg 02/26/20 09:00 02/26/20 08:41 Methylprednisolone Sod Succ 40 Mg Vial IVP 40 mg DAILY PAULA Administration Metoprolol Tartrate 5 mg 01/28/20 00:21 02/22/20 05:22 Metoprolol Tartrate 5 Mg/5 Ml Vial IVP 5 mg Q4H PRN Administration atrial fib w/ rate over 110 Metoprolol Tartrate 25 mg 02/21/20 21:00 02/26/20 08:42 Metoprolol Tartrate 25 Mg Tab PO 25 mg BID PAULA Administration Mometasone Furoate/Formoterol Fumar 2 puff 01/28/20 18:30 02/26/20 07:26 Mometasone 200 Mcg/Formoterol 5 Mcg 120 Puff Inhaler INH 2 puff BID-RT PAULA Administration Ondansetron HCl 4 mg 01/28/20 00:25 01/29/20 20:40 Ondansetron Pf 4 Mg/2 Ml Vial IVP 4 mg Q6H PRN Administration Nausea/Vomiting, use 1st Senna 2 tab 01/31/20 16:36 02/13/20 21:33 Senokot 8.6 Mg Tab PO 2 tab HSPRN PRN Administration Constipation Sodium Chloride 10 ml 02/01/20 09:00 02/26/20 09:01 Flush - Normal Saline 10 Ml Syringe IVF 10 ml Q12HR PAULA Administration Sodium Chloride 10 ml 02/01/20 08:30 02/06/20 15:37 Flush - Normal Saline 10 Ml Syringe IVF 10 ml PRN PRN Administration Saline Flush - Exam General Appearance: NAD Eye: PERRL ENT: normocephalic atraumatic Neck: supple Heart: RRR Respiratory: CTAB Gastrointestinal: soft Extremities: no cyanosis Skin: normal turgor Skin - other findings: Petechial rash on lower extremity Neurological: cranial nerve grossly intact Musculoskeletal: normal tone Psychiatric: normal affect, normal behavior Hosp A/P - Plan Hosp A/P - Plan This is a 79 year old female with COPD who presented with shortness of breath , afib with RVR, Found to have pulmonary edema on admission. Diuresed with IV lasix. Also developed pneumonia, completed five days of antibiotics. Continues to be in the hospital due to worsening purpura on legs Acute hypoxic respiratory failure secondary to acute systolic heart failure - EF 20-25% - cont IV diuresis as per cardiology. monitor I&O and daily weight Afib with RVR - rate controlled Her rate is controlled. She is on complex regimen including digoxin, diltiazem, and metoprolol. Amiodarone has been discontinued due to the patient's pulmonary disease. Currently on Lovenox for anticoagulation. The patient would need to be transiti oned to oral anticoagulation prior to discharge. Pending further recommendations from cardiology with regarding to oral anticoagulation upon discharge NSTEMI -s/p LHC - multivessel disease. high risk CABG at this time. Cardiology is following COPD pulmonology is following. Cont to wean off PO Prednisone as per pul Petechial/purpural rash on lower extremities Likely purpuric drug eruption. Antibiotics were discontinued. Differential diagnoses also include side effect related to the anticoagulation. She does have some open bleeding wounds. The patient has been started on IV Lovenox. PLT wnl. Monitor. itching improved with Atarax Right lower lobe pneumonia Patient completed 5 days of antibiotics. Physical deconditioning The patient was accepted to swing bed once medically ready.
[2020-02-26] MEDS: Insulin Regular 300 UNITS/3 ML VIAL SC PRN (17:00)
[2020-02-26] MEDS: Atorvastatin Calcium 40 MG TAB PO SCH (21:08)
[2020-02-27] MEDS: diphenhydrAMINE 25 MG CAP PO PRN ×3 (00:56→15:01)
[2020-02-27] MEDS: Ipratropium Bromide 2.5 ml Neb NEB SCH ×6 (02:03→22:18)
[2020-02-27] MEDS: Furosemide 20 MG/2 ML VIAL SLOW IVP SCH ×2 (06:23→14:58)
[2020-02-27] MEDS: Mometasone 200 MCG/Formoterol 5 MCG 120 PUFF INHALER INH SCH ×3 (07:31→22:18)
[2020-02-27] MEDS: methylPREDNISolone Sod Succ 40 MG VIAL IVP SCH (08:09)
[2020-02-27] MEDS: Aspirin 81 mg Enteric Coated Tablet PO SCH (08:10)
[2020-02-27] MEDS: Digoxin 0.25 MG TAB PO SCH (08:10)
[2020-02-27] MEDS: hydrOXYzine 25 MG TAB PO SCH ×3 (08:10→20:22)
[2020-02-27] MEDS: ALPRAZolam 0.25 MG TAB PO SCH ×2 (08:10→20:22)
[2020-02-27] MEDS: Cholecalciferol 1,000 UNITS (25 MCG) TAB PO SCH (08:10)
[2020-02-27] MEDS: Enoxaparin Sodium 100 MG/ML SYRINGE SC SCH (08:11)
[2020-02-27] MEDS: Famotidine 20 MG TAB PO SCH ×2 (08:11→20:22)
[2020-02-27] MEDS: Metoprolol Tartrate 25 MG TAB PO SCH ×2 (08:11→20:22)
[2020-02-27 10:07] LABS: Anion Gap 16 mmol/L (10-20); BUN (Urea Nitrogen) 27 mg/dL (9.8-20.1); Calc. Creatinine Clearance 101 mL/min (70-130); Calcium 8.8 mg/dL (7.8-10.44); Carbon Dioxide 27 mmol/L (23-31); Chloride 99 mmol/L (98-107); Estimated GFR-MDRD 72; Glucose 128 mg/dL (83-110); Magnesium 2.1 mg/dL (1.6-2.6); Potassium 4.1 mmol/L (3.5-5.1); Sodium 138 mmol/L (136-145)
[2020-02-27 10:48] LABS: Band 3 % (5-11); Eosinophils 2 % (0-10); Hemoglobin 12.8 g/dL (12.0-16.0); Lymphocytes 17 % (21-51); MDiff Complete? YES; Mean Corpuscular HGB CONC 33.5 g/dL (32.0-36.0); Mean Corpuscular Hemoglobin 30.4 pg (27.0-31.0); Mean Corpuscular Volume 90.7 fL (78.0-98.0); Mean Platelet Volume 7.9 fL (7.4-10.4); Metamyelocyte 2 % (0-0); Monocytes 2 % (0-10); Neutrophil 74 % (42-75); Platelet Count 167 thou/uL (130-400); Platelet Morphology Comment Appears Adequate; RBC Distribution Width 16.5 % (11.5-14.5); RBC Morphology Normal; Red Blood Cell (RBC) Count 4.22 mill/uL (4.20-5.40); White Blood Cell (WBC) Count 9.4 thou/uL (4.8-10.8)
--- NOTE | 2020-02-27 12:07 | PDOC.EP ---
- Subjective Date: 02/27/20 Time: 12:05 Interval History: EP following for rate control with atrial fibrillation,. No major events over the weekend. Progress is slow - Review of Systems Constitutional: denies: chills, fever, malaise, sweats, weakness Respiratory: reports: cough, shortness of breath, SOB with excertion. denies: dry, sputum, wheezing Cardiology: denies: chest pain, edema, heart racing, palpitations, pressure Gastrointestinal: denies: abdominal pain, constipation, diarrhea Musculoskeletal: denies: unstable gait, falls, neck pain - Objective Allergies/Adverse Reactions: Allergies Allergy/AdvReac Type Severity Reaction Status Date / Time Penicillins Allergy Unknown Hives Verified 01/28/20 10:11 levofloxacin [From Levaquin] Allergy Rash Verified 02/19/20 10:12 -MYCIN DRUGS Allergy Severe Rash Uncoded 02/18/20 10:09 Current Medications Acetaminophen (Acetaminophen 325 Mg Tab) 650 mg PO Q4H PRN PRN Reason: Headache/Fever/Mild Pain (1-3) Last Admin: 02/26/20 15:03 Dose: 650 mg Documented by: Albuterol/Ipratropium (Ipratropium/Albuterol Sulfate 3 Ml Neb) 3 ml NEB Q2H PRN PRN Reason: SOB &/or Wheezing Last Admin: 02/25/20 17:54 Dose: 3 ml Documented by: Alprazolam (Alprazolam 0.25 Mg Tab) 0.5 mg PO BID [facility] Last Admin: 02/27/20 08:10 Dose: 0.5 mg Documented by: Aspirin (Aspirin 81 Mg Enteric Coated Tablet) 81 mg PO DAILY [facility] Last Admin: 02/27/20 08:10 Dose: 81 mg Documented by: Atorvastatin Calcium (Atorvastatin Calcium 40 Mg Tab) 40 mg PO HS [facility] Last Admin: 02/26/20 21:08 Dose: 40 mg Documented by: Benzonatate (Benzonatate 100 Mg Cap) 100 mg PO TIDPRN PRN PRN Reason: Cough Last Admin: 02/16/20 09:05 Dose: 100 mg Documented by: Bisacodyl (Bisacodyl 5 Mg Tab) 10 mg PO DAILYPRN PRN PRN Reason: Constipation Last Admin: 02/15/20 10:34 Dose: 10 mg Documented by: Bisacodyl (Bisacodyl 10 Mg Supp) 10 mg [place] TIDPRN PRN PRN Reason: Constipation Cholecalciferol (Cholecalciferol 1,000 Units (25 Mcg) Tab) 2,000 units PO DAILY [facility] Last Admin: 02/27/20 08:10 Dose: 2,000 units Documented by: Dextrose/Water (Dextrose 50% Abboject 50 Ml Syringe) 25 gm IVP PRN PRN PRN Reason: HYPOGLYCEMIA PROTOCOL Digoxin (Digoxin 0.25 Mg Tab) 0.25 mg PO DAILY [facility] Last Admin: 02/27/20 08:10 Dose: 0.25 mg Documented by: Diltiazem HCl (Diltiazem Hcl 30 Mg Tablet) 60 mg PO QID [facility] Last Admin: 02/27/20 08:09 Dose: 60 mg Documented by: Diphenhydramine HCl (Diphenhydramine 25 Mg Cap) 25 mg PO Q6H PRN PRN Reason: Itching & Insomnia Last Admin: 02/27/20 08:10 Dose: 25 mg Documented by: Enoxaparin Sodium (Enoxaparin Sodium 100 Mg/Ml Syringe) 100 mg SC 0900,2100 [facility] Last Admin: 02/27/20 08:11 Dose: 100 mg Documented by: Famotidine (Famotidine 20 Mg Tab) 20 mg PO BID [facility] Last Admin: 02/27/20 08:11 Dose: 20 mg Documented by: Furosemide (Furosemide 20 Mg/2 Ml Vial) 40 mg SLOW IVP 0600,1400 [facility] Last Admin: 02/27/20 06:23 Dose: 40 mg Documented by: Glucagon (Glucagon 1 Mg/Ml Vial) 1 mg IM PRN PRN PRN Reason: HYPOGLYCEMIA PROTOCOL Guaifenesin/Dextromethorphan (Guaifenesin Dm 100-10/5 Ml Udcup) 15 ml PO Q4H [place] N PRN Reason: Cough Hydroxyzine HCl (Hydroxyzine 25 Mg Tab) 25 mg PO TID [facility] Last Admin: 02/27/20 08:10 Dose: 25 mg Documented by: Dextrose/Water (D5w) 1,000 mls @ 0 mls/hr IV INF PRN PRN Reason: HYPOGLYCEMIA PROTOCOL Insulin Human Regular (Insulin Regular 300 Units/3 Ml Vial) 0 units SC .MILD SLIDING SCALE PRN PRN Reason: Mild Correctional Scale Last Admin: 02/26/20 17:00 Dose: 2 unit Documented by: Ipratropium [place] (Ipratropium [place] 2.5 Ml Neb) 2.5 ml NEB [id number] [facility] Last Admin: 02/27/20 10:08 Dose: 2.5 ml Documented by: Laxative/Stool Softener (Laxative Of Choice) 1 each PO DAILY PRN PRN Reason: Constipation Methylprednisolone Sodium Succinate (Methylprednisolone Sod Succ 40 Mg Vial) 40 mg IVP DAILY [facility] Last Admin: 02/27/20 08:09 Dose: 40 mg Documented by: Metoprolol Tartrate (Metoprolol Tartrate 5 Mg/5 Ml Vial) 5 mg IVP Q4H PRN PRN Reason: atrial fib w/ rate over 110 Last Admin: 02/22/20 05:22 Dose: 5 mg Documented by: Metoprolol Tartrate (Metoprolol Tartrate 25 Mg Tab) 25 mg PO BID [facility] Last Admin: 02/27/20 08:11 Dose: 25 mg Documented by: Miscellaneous Medication (Electrolyte Replacement Protoc 1 Each Each) 1 each FS ASDIR [facility] Mometasone Furoate/Formoterol Fumar (Mometasone 200 Mcg/Formoterol 5 Mcg 120 Puff Inhaler) 2 puff INH BID-RT [facility] Last Admin: 02/27/20 07:31 Dose: 2 puff Documented by: Nitroglycerin (Nitroglycerin 0.4 Mg Tab (25 Tab Bottle)) 0.4 mg SL Q5MIN PRN PRN Reason: Chest Pain Ondansetron HCl (Ondansetron Pf 4 Mg/2 Ml Vial) 4 mg IVP Q6H PRN PRN Reason: Nausea/Vomiting, use 1st Last Admin: 01/29/20 20:40 Dose: 4 mg Documented by: Senna (Senokot 8.6 Mg Tab) 2 tab PO HSPRN PRN PRN Reason: Constipation Last Admin: 02/13/20 21:33 Dose: 2 tab Documented by: Senna/Docusate Sodium (Senokot S 8.6-50 Mg Tab) 1 tab PO BIDPRN PRN PRN Reason: Constipation Sodium Chloride (Flush - Normal Saline 10 Ml Syringe) 10 ml IVF Q12HR [facility] Last Admin: 02/27/20 08:11 Dose: 10 ml Documented by: Sodium Chloride (Flush - Normal Saline 10 Ml Syringe) 10 ml IVF PRN PRN PRN Reason: Saline Flush Last Admin: 02/27/20 06:23 Dose: 10 ml Documented by: Vital Signs & Weight: Vital Signs Temp Pulse Pulse Resp BP BP BP 02/27/20 11:02 64 143/82 H 02/27/20 10:08 66 18 02/27/20 08:11 109/62 02/27/20 08:10 79 02/27/20 07:31 79 20 02/27/20 07:14 98.6 F 95 18 159/85 H 02/27/20 03:58 97.5 F L 74 15 109/60 02/27/20 02:03 92 18 Pulse Ox 02/27/20 11:02 02/27/20 10:08 94 L 02/27/20 08:11 02/27/20 08:10 02/27/20 07:31 96 02/27/20 07:14 97 02/27/20 03:58 95 02/27/20 02:03 95 Admit Weight 219 lb 4.8 oz Weight 232 lb 6.4 oz I/O: I/O 02/26/20 02/27/20 02/28/20 06:59 06:59 06:59 Intake Total 1440 1990 Output Total 1650 1500 Balance -210 490 - Quality Measures Condition: Atrial Fibrillation/Flutter (hx or current) CV meds: Eliquis: Yes - Physical Exam General: alert & oriented x3, no apparent distress, speech clear, affect appropriate HEENT: mucus membranes moist, normocephaly Neck: supple neck, midline trachea, no JVD/HJR Cardiology: regular rate, irregularly irregular Lungs: no wheeze, rales, rhonchi, decreased breath sounds Neurology: cranial nerve 2-12 intact, grossly intact, coordination normal Abdomen: unremarkable, active bowel sounds, HJR negative - Chadsvasc Risk factors Hypertension: 1 Age >75: 2 Vascular disease: 1 Female: 1 Risk Score: 5 - Labs Result Diagrams: 02/28/20 04:06 02/28/20 04:06 - EKG Interpretation EKG Method: Telemetry EKG shows: Atrial fibrillation - Assessment/Plan Assessment/Plan: 1. Persistent atrial fibrillation, rapid ventricular rate. a. Difficult to control ventricular rate despite digoxin, IV diltiazem, metoprolol. 2. Subacute myocardial infarction with peak troponin I at 23. a.Left heart catheterization from 01/28/20 shows 90% proximal LAD, 25% diffuse OM, proximal RCA 100% with LVEF 40% to 45%. . b. 2D echo from 01/28/2020 shows LVEF of 20% to 25% but difficult to assess due to atrial fibrillation, moderate left atrial enlargement, trace MR. 3. Advanced COPD and bilateral pleural effusion. a. Current smoking. 4. Hypertension. 5. Purpura - possible medication reaction to Clindamycin, possibly worsened due to AC. Given her advanced COPD, CAD, and cardiomyopathy she has no ideal antiarrhythmic options. She is not a candidate for PVAI ablation in her tenuous medical condition. With her open sores on her feet she's at risk for infection. I would be less inclined to proceed with PPM implant with the infection risk. Cardiology may want to consider REX/CV if we cannot rate control. If kidney function remains stable, could load her on tikosyn after REX/CV. Cardiology p lans to resume NOAC therapy. Currently on lovenox. 02/19: Increased metoprolol 02/20: Wheezing increased with BB increase, metoprolol reduced to 25mg BID and increased dilt to 60TID 02/21: Poor rate control this AM but having pain. BP stable, even high overnight, will increase Diltto 60mg QID. 02/22: Rate control adequate. SBP 95-115. 02/23: Stable hemodynamics and ventricular rates with continued atrial fibrillation. Dermatological issues dominate. 02/26: Stable HR and BP on current regimen with persisting Atrial fibrillation. Eliquis resumed. Off lovenox Continue rate control with: (Amiodarone was stopped 02/09 AM. ) 1. Metoprolol tartrate 25mg BID. 2. Digoxin 250 mcg daily 3. Dilt HCl 60mg QID. 4. Stop lovenox, resuming eliquis 5mg BID.
--- NOTE | 2020-02-27 16:08 | PDOC.HOSPP ---
- Subjective Subjective: Pt states itching improved, she is rate controlled. D/w Dr. Cárdenas, will resume her Eliquis, her rash likely d/t abx, which has discontinued. - Objective Vital Signs & Weight: Vital Signs (12 hours) Temp Pulse Pulse Resp BP BP BP 02/27/20 15:05 98.1 F 87 20 109/56 L 02/27/20 14:00 100 14 02/27/20 12:12 97.6 F 75 20 02/27/20 11:02 64 143/82 H 02/27/20 10:08 66 18 02/27/20 08:11 109/62 02/27/20 08:10 79 02/27/20 07:31 79 20 02/27/20 07:14 98.6 F 95 18 159/85 H BP Pulse Ox 02/27/20 15:05 96 02/27/20 14:00 95 02/27/20 12:12 91/50 L 97 02/27/20 11:02 02/27/20 10:08 94 L 02/27/20 08:11 02/27/20 08:10 02/27/20 07:31 96 02/27/20 07:14 97 Weight Admit Weight 219 lb 4.8 oz Weight 232 lb 6.4 oz Most Recent Monitor Data Heart Rate from ECG 101 NIBP 119/68 NIBP BP-Mean 85 Respiration from ECG 21 SpO2 85 I&O: 02/26/20 02/27/20 02/28/20 06:59 06:59 06:59 Intake Total 1440 1990 Output Total 1650 1500 Balance -210 490 Result Diagrams: 02/27/20 09:42 02/27/20 09:42 Additional Labs: Accuchecks 02/27/20 02/27/20 02/26/20 11:00 05:43 20:12 POC Glucose 157 H 98 169 H 02/26/20 02/26/20 02/25/20 16:20 11:16 11:01 POC Glucose 170 H 146 H 113 H Radiology Reviewed by me: Yes EKG Reviewed by me: Yes Hospitalist ROS - Medication Medications: Active Medications Generic Name Dose Route Start Last Admin Trade Name Freq PRN Reason Stop Dose Admin Acetaminophen 650 mg 01/28/20 00:25 02/26/20 15:03 Acetaminophen 325 Mg Tab PO 650 mg Q4H PRN Administration Headache/Fever/Mild Pain (1-3) Albuterol/Ipratropium 3 ml 01/28/20 00:25 02/25/20 17:54 Ipratropium/Albuterol Sulfate 3 Ml Neb NEB 3 ml Q2H PRN Administration SOB &/or Wheezing Alprazolam 0.5 mg 02/19/20 09:00 02/27/20 08:10 Alprazolam 0.25 Mg Tab PO 0.5 mg BID PAULA Administration Aspirin 81 mg 01/28/20 09:00 02/27/20 08:10 Aspirin 81 Mg Enteric Coated Tablet PO 81 mg DAILY PAULA Administration Atorvastatin Calcium 40 mg 01/28/20 21:00 02/26/20 21:08 Atorvastatin Calcium 40 Mg Tab PO 40 mg HS PAULA Administration Benzonatate 100 mg 02/12/20 09:35 02/16/20 09:05 Benzonatate 100 Mg Cap PO 100 mg TIDPRN PRN Administration Cough Bisacodyl 10 mg 01/31/20 16:36 02/15/20 10:34 Bisacodyl 5 Mg Tab PO 10 mg DAILYPRN PRN Administration Constipation Cholecalciferol 2,000 units 02/14/20 09:00 02/27/20 08:10 Cholecalciferol 1,000 Units (25 Mcg) Tab PO 2,000 units DAILY PAULA Administration Digoxin 0.25 mg 02/09/20 09:00 02/27/20 08:10 Digoxin 0.25 Mg Tab PO 0.25 mg DAILY PAULA Administration Diltiazem HCl 60 mg 02/22/20 17:00 02/27/20 12:34 Diltiazem Hcl 30 Mg Tablet PO Not Given QID PAULA Diphenhydramine HCl 25 mg 02/12/20 09:35 02/27/20 15:01 Diphenhydramine 25 Mg Cap PO 25 mg Q6H PRN Administration Itching & Insomnia Famotidine 20 mg 01/28/20 09:00 02/27/20 08:11 Famotidine 20 Mg Tab PO 20 mg BID PAULA Administration Furosemide 40 mg 02/24/20 14:00 02/27/20 14:58 Furosemide 20 Mg/2 Ml Vial SLOW IVP 40 mg 0600,1400 PAULA Administration Hydroxyzine HCl 25 mg 02/25/20 15:00 02/27/20 15:01 Hydroxyzine 25 Mg Tab PO 25 mg TID PAULA Administration Insulin Human Regular 0 units 01/28/20 00:26 02/26/20 17:00 Insulin Regular 300 Units/3 Ml Vial SC 2 unit .MILD SLIDING SCALE PRN Administration Mild Correctional Scale Ipratropium [place] 2.5 ml 02/21/20 14:30 02/27/20 14:00 Ipratropium [place] 2.5 Ml Neb NEB 2.5 ml [id number] PAULA Administration Metoprolol Tartrate 5 mg 01/28/20 00:21 02/22/20 05:22 Metoprolol Tartrate 5 Mg/5 Ml Vial IVP 5 mg Q4H PRN Administration atrial fib w/ rate over 110 Metoprolol Tartrate 25 mg 02/21/20 21:00 02/27/20 08:11 Metoprolol Tartrate 25 Mg Tab PO 25 mg BID PAULA Administration Mometasone Furoate/Formoterol Fumar 2 puff 01/28/20 18:30 02/27/20 07:31 Mometasone 200 Mcg/Formoterol 5 Mcg 120 Puff Inhaler INH 2 puff BID-RT PAULA Administration Ondansetron HCl 4 mg 01/28/20 00:25 01/29/20 20:40 Ondansetron Pf 4 Mg/2 Ml Vial IVP 4 mg Q6H PRN Administration Nausea/Vomiting, use 1st Senna 2 tab 01/31/20 16:36 02/13/20 21:33 Senokot 8.6 Mg Tab PO 2 tab HSPRN PRN Administration Constipation Sodium Chloride 10 ml 02/01/20 09:00 02/27/20 08:11 Flush - Normal Saline 10 Ml Syringe IVF 10 ml Q12HR PAULA Administration Sodium Chloride 10 ml 02/01/20 08:30 02/27/20 06:23 Flush - Normal Saline 10 Ml Syringe IVF 10 ml PRN PRN Administration Saline Flush - Exam General Appearance: NAD Eye: PERRL ENT: normocephalic atraumatic Neck: supple Heart: irregular Respiratory: CTAB Gastrointestinal: soft Extremities: no cyanosis Skin: normal turgor Neurological: cranial nerve grossly intact Musculoskeletal: normal tone Psychiatric: normal affect, normal behavior, A&O x 3 Hosp A/P - Plan Hosp A/P - Plan This is a 79 year old female with COPD who presented with shortness of breath , afib with RVR, Found to have pulmonary edema on admission. Diuresed with IV lasix. Also developed pneumonia, completed five days of antibiotics. Continues to be in the hospital due to worsening purpura on legs Acute hypoxic respiratory failure secondary to acute systolic heart failure - EF 20-25% - cont IV diuresis as per cardiology. monitor I&O and daily weight Afib with RVR - rate controlled Her rate is controlled. She is on complex regimen including digoxin, diltiazem, and metoprolol. Amiodarone has been discontinued due to the patient's pulmonary disease. d/w Dr. Cárdenas, will resume her Eliquis NSTEMI -s/p C - multivessel disease. high risk CABG at this time. Cardiology is jasper minaya COPD pulmonology is following. Cont to wean off PO Prednisone as per pul Petechial/purpural rash on lower extremities Likely purpuric drug eruption. Antibiotics were discontinued. PLT wnl. Monitor. itching improved with Atarax Right lower lobe pneumonia Patient completed 5 days of antibiotics. Physical deconditioning The patient was accepted to swing bed once medically ready.
--- NOTE | 2020-02-27 16:31 | PDOC.CPN ---
- Subjective Date: 02/27/20 Time: 16:00 - Review of Systems General: denies: fever/chills, weight/appetite/sleep changes, night sweats, fatigue Respiratory: denies: cough, congestion, shortness of breath, exercise intolerance Cardiovascular: denies: chest pain, palpitation, edema, paroxysmal nocturnal dyspnea, orthopnea Gastrointestinal: denies: nausea, vomiting, diarrhea, constipation, abd pain, GI bleeding Musculoskeletal: reports: swelling Neurological: denies: numbness, syncope, seizure, weakness - Objective Allergies/Adverse Reactions: Allergies Allergy/AdvReac Type Severity Reaction Status Date / Time Penicillins Allergy Unknown Hives Verified 01/28/20 10:11 levofloxacin [From Levaquin] Allergy Rash Verified 02/19/20 10:12 -MYCIN DRUGS Allergy Severe Rash Uncoded 02/18/20 10:09 Visit Medications: Current Medications Acetaminophen (Acetaminophen 325 Mg Tab) 650 mg PO Q4H PRN PRN Reason: Headache/Fever/Mild Pain (1-3) Last Admin: 02/26/20 15:03 Dose: 650 mg Documented by: Albuterol/Ipratropium (Ipratropium/Albuterol Sulfate 3 Ml Neb) 3 ml NEB Q2H PRN PRN Reason: SOB &/or Wheezing Last Admin: 02/25/20 17:54 Dose: 3 ml Documented by: Alprazolam (Alprazolam 0.25 Mg Tab) 0.5 mg PO BID [facility] Last Admin: 02/27/20 08:10 Dose: 0.5 mg Documented by: Apixaban (Apixaban 5 Mg Tab) 5 mg PO BID [facility] Aspirin (Aspirin 81 Mg Enteric Coated Tablet) 81 mg PO DAILY [facility] Last Admin: 02/27/20 08:10 Dose: 81 mg Documented by: Atorvastatin Calcium (Atorvastatin Calcium 40 Mg Tab) 40 mg PO HS [facility] Last Admin: 02/26/20 21:08 Dose: 40 mg Documented by: Benzonatate (Benzonatate 100 Mg Cap) 100 mg PO TIDPRN PRN PRN Reason: Cough Last Admin: 02/16/20 09:05 Dose: 100 mg Documented by: Bisacodyl (Bisacodyl 5 Mg Tab) 10 mg PO DAILYPRN PRN PRN Reason: Constipation Last Admin: 02/15/20 10:34 Dose: 10 mg Documented by: Bisacodyl (Bisacodyl 10 Mg Supp) [address] TIDPRN PRN PRN Reason: Constipation Cholecalciferol (Cholecalciferol 1,000 Units (25 Mcg) Tab) 2,000 units PO DAILY [facility] Last Admin: 02/27/20 08:10 Dose: 2,000 units Documented by: Dextrose/Water (Dextrose 50% Abboject 50 Ml Syringe) 25 gm IVP PRN PRN PRN Reason: HYPOGLYCEMIA PROTOCOL Digoxin (Digoxin 0.25 Mg Tab) 0.25 mg PO DAILY [facility] Last Admin: 02/27/20 08:10 Dose: 0.25 mg Documented by: Diltiazem HCl (Diltiazem Hcl 30 Mg Tablet) 60 mg PO QID [facility] Last Admin: 02/27/20 12:34 Dose: Not Given Documented by: Diphenhydramine HCl (Diphenhydramine 25 Mg Cap) 25 mg PO Q6H PRN PRN Reason: Itching & Insomnia Last Admin: 02/27/20 15:01 Dose: 25 mg Documented by: Famotidine (Famotidine 20 Mg Tab) 20 mg PO BID [facility] Last Admin: 02/27/20 08:11 Dose: 20 mg Documented by: Furosemide (Furosemide 20 Mg/2 Ml Vial) 40 mg SLOW IVP 0600,1400 [facility] Last Admin: 02/27/20 14:58 Dose: 40 mg Documented by: Glucagon (Glucagon 1 Mg/Ml Vial) 1 mg IM PRN PRN PRN Reason: HYPOGLYCEMIA PROTOCOL Guaifenesin/Dextromethorphan (Guaifenesin Dm 100-10/5 Ml Udcup) 15 ml PO Q4H PRN PRN Reason: Cough Hydroxyzine HCl (Hydroxyzine 25 Mg Tab) 25 mg PO TID [facility] Last Admin: 02/27/20 15:01 Dose: 25 mg Documented by: Dextrose/Water (D5w) 1,000 mls @ 0 mls/hr IV INF PRN PRN Reason: HYPOGLYCEMIA PROTOCOL Insulin Human Regular (Insulin Regular 300 Units/3 Ml Vial) 0 units SC .MILD SLIDING SCALE PRN PRN Reason: Mild Correctional Scale Last Admin: 02/26/20 17:00 Dose: 2 unit Documented by: Ipratropium [place] (Ipratropium [place] 2.5 Ml Neb) 2.5 ml NEB [id number] [facility] Last Admin: 02/27/20 14:00 Dose: 2.5 ml Documented by: Laxative/Stool Softener (Laxative Of Choice) 1 each PO DAILY PRN PRN Reason: Constipation Metoprolol Tartrate (Metoprolol Tartrate 5 Mg/5 Ml Vial) 5 mg IVP Q4H PRN PRN Reason: atrial fib w/ rate over 110 Last Admin: 02/22/20 05:22 Dose: 5 mg Documented by: Metoprolol Tartrate (Metoprolol Tartrate 25 Mg Tab) 25 mg PO BID [facility] Last Admin: 02/27/20 08:11 Dose: 25 mg Documented by: Miscellaneous Medication (Electrolyte Replacement Protoc 1 Each Each) 1 each FS ASDIR [facility] Mometasone Furoate/Formoterol Fumar (Mometasone 200 Mcg/Formoterol 5 Mcg 120 Puff Inhaler) 2 puff INH BID-RT [facility] Last Admin: 02/27/20 07:31 Dose: 2 puff Documented by: Nitroglycerin (Nitroglycerin 0.4 Mg Tab (25 Tab Bottle)) 0.4 mg SL Q5MIN PRN PRN Reason: Chest Pain Ondansetron HCl (Ondansetron Pf 4 Mg/2 Ml Vial) 4 mg IVP Q6H PRN PRN Reason: Nausea/Vomiting, use 1st Last Admin: 01/29/20 20:40 Dose: 4 mg Documented by: Senna (Senokot 8.6 Mg Tab) 2 tab PO HSPRN PRN PRN Reason: Constipation Last Admin: 02/13/20 21:33 Dose: 2 tab Documented by: Senna/Docusate Sodium (Senokot S 8.6-50 Mg Tab) 1 tab PO BIDPRN PRN PRN Reason: Constipation Sodium Chloride (Flush - Normal Saline 10 Ml Syringe) 10 ml IVF Q12HR [facility] Last Admin: 02/27/20 08:11 Dose: 10 ml Documented by: Sodium Chloride (Flush - Normal Saline 10 Ml Syringe) 10 ml IVF PRN PRN PRN Reason: Saline Flush Last Admin: 02/27/20 06:23 Dose: 10 ml Documented by: Vital Signs & Weight: Vital Signs Temp Pulse Pulse Resp BP BP BP 02/27/20 15:26 113/70 131/66 02/27/20 15:05 98.1 F 87 20 109/56 L 02/27/20 14:00 100 14 02/27/20 12:12 97.6 F 75 20 02/27/20 11:02 64 143/82 H 02/27/20 10:08 66 18 02/27/20 08:11 02/27/20 08:10 79 02/27/20 07:31 79 20 02/27/20 07:14 98.6 F 95 18 159/85 H BP BP Pulse Ox Pulse Ox 02/27/20 15:26 96 02/27/20 15:05 96 02/27/20 14:00 95 02/27/20 12:12 91/50 L 97 02/27/20 11:02 02/27/20 10:08 94 L 02/27/20 08:11 109/62 02/27/20 08:10 02/27/20 07:31 96 02/27/20 07:14 97 Admit Weight 219 lb 4.8 oz Weight 232 lb 6.4 oz - Quality Measures Condition: Atrial Fibrillation/Flutter (hx or current) (HR up to 80-110bpm), Coronary Artery Disease, Heart Failure, Myocardial Infarction CV meds: Beta Anyi: Yes, TERRELL/ARB: Yes - Medication Contraindications No Anticoagulant reason: Anticoagulant not tolerated - Physical Exam HEENT: normocephaly Neck: no JVD/HJR Cardiac: irregularly regular Lungs: clear to auscultation, no wheeze, rales, rhonchi Neuro: grossly intact Abdomen: unremarkable Extremities: 2+ LE edema Skin: rash Musculoskeletal: normal range of motion - Labs Result Diagrams: 02/27/20 09:42 02/27/20 09:42 Troponin/CKMB CK-MB (CK-2) 206.6 ng/mL (0-6.6) H* 01/28/20 08:34 Troponin I 23.552 ng/mL (< 0.028) H* 01/28/20 03:10 - Telemetry Supraventricular conduction: atrial fibrillation - Assessment/Plan Assessment/Plan: 1. Severe multi-vessel CAD. High risk for CABG at this time.May need to consider high risk ptca/stent to the LAD.Can not revascularize other vessels by ptca. 2. Severe COPD.Lungs clear. off oxygen . Ambulating in the halls with assistance. 3. Ischemic Cardiomyopathy. EF 30-40%. 4. Afib RVR. Rate better controlled , tolerating betablocker thus far but BP on the low side. Tachycardia is not good for the CAD/ischemia or for the CMY. Occasionally still tachycardic at times, ofelia. with minimal activity, poorly controlled.EP assisting with the care. She may need an ablation and a bi-V device once she is medically stable. At this time she is at risk of infection with ulcerations on both feet after purpura..Another option may be REX and early cardioversion of the atrial fib. EP feels that HR is under reasonable control. Increased risk of ablation or AVJ ablation and device implant. Will continue meds and if HR increases further and can not be controlled then reconsider. 5. EF at 20-25% on Echo, closer to 40% on LHC. 6.Lower extremity purpura rash,could be due to medications/anti-biotics or OAC. Eliquis was stopped but will be resumed. If the purpura returns then this may have been the etiology. If she can not tolerate eliquis rthen she should be placed on coumadin. The rash extended to entire body. the rash has improved over the weekend. Now she has blisters on the dorsum of the feet.Would could try another OAC rather than eliquis, this may be the etiology of the purpura. Consider starting coumadin or Xarelto if the purpura returns. She is at increased risk of CVA due to embolic source due to Atrial fibrillation. 7. HTN.Continue to adjust meds as tolerated. 8. Edema: continue lasix, restrict fluids. Should be okay to transition to rehab. or [facility].
--- NOTE | 2020-02-27 16:47 | PDOC.HOSPP ---
- Subjective Subjective: d/w cardiology. Pt denies chest pain. no acute event. d/w cardiology, will resume Eliquis. if rash worsened then consider alternative such as Xarelto or Coumadin. - Objective Vital Signs & Weight: Vital Signs (12 hours) Temp Pulse Pulse Resp BP BP BP 02/27/20 15:26 113/70 131/66 02/27/20 15:05 98.1 F 87 20 109/56 L 02/27/20 14:00 100 14 02/27/20 12:12 97.6 F 75 20 02/27/20 11:02 64 143/82 H 02/27/20 10:08 66 18 02/27/20 08:11 02/27/20 08:10 79 02/27/20 07:31 79 20 02/27/20 07:14 98.6 F 95 18 159/85 H BP BP Pulse Ox Pulse Ox 02/27/20 15:26 96 02/27/20 15:05 96 02/27/20 14:00 95 02/27/20 12:12 91/50 L 97 02/27/20 11:02 02/27/20 10:08 94 L 02/27/20 08:11 109/62 02/27/20 08:10 02/27/20 07:31 96 02/27/20 07:14 97 Weight Admit Weight 219 lb 4.8 oz Weight 232 lb 6.4 oz Most Recent Monitor Data Heart Rate from ECG 101 NIBP 119/68 NIBP BP-Mean 85 Respiration from ECG 21 SpO2 85 I&O: 02/26/20 02/27/20 02/28/20 06:59 06:59 06:59 Intake Total 1440 1989 Output Total 1650 1500 Balance -210 490 Result Diagrams: 02/27/20 09:42 02/27/20 09:42 Additional Labs: Accuchecks 02/27/20 02/27/20 02/27/20 16:29 11:00 05:43 POC Glucose 191 H 157 H 98 02/26/20 02/26/20 02/25/20 20:12 11:16 11:01 POC Glucose 169 H 146 H 113 H Radiology Reviewed by me: Yes EKG Reviewed by me: Yes Hospitalist ROS - Medication Medications: Active Medications Generic Name Dose Route Start Last Admin Trade Name Freq PRN Reason Stop Dose Admin Acetaminophen 650 mg 01/28/20 00:25 02/26/20 15:03 Acetaminophen 325 Mg Tab PO 650 mg Q4H PRN Administration Headache/Fever/Mild Pain (1-3) Albuterol/Ipratropium 3 ml 01/28/20 00:25 02/25/20 17:54 Ipratropium/Albuterol Sulfate 3 Ml Neb NEB 3 ml Q2H PRN Administration SOB &/or Wheezing Alprazolam 0.5 mg 02/19/20 09:00 02/27/20 08:10 Alprazolam 0.25 Mg Tab PO 0.5 mg BID [facility] Administration Aspirin 81 mg 01/28/20 09:00 02/27/20 08:10 Aspirin 81 Mg Enteric Coated Tablet PO 81 mg DAILY [facility] Administration Atorvastatin Calcium 40 mg 01/28/20 21:00 02/26/20 21:08 Atorvastatin Calcium 40 Mg Tab PO 40 mg HS [facility] Administration Benzonatate 100 mg 02/12/20 09:35 02/16/20 09:05 Benzonatate 100 Mg Cap PO 100 mg TIDPRN PRN Administration Cough Bisacodyl 10 mg 01/31/20 16:36 02/15/20 10:34 Bisacodyl 5 Mg Tab PO 10 mg DAILYPRN PRN Administration Constipation Cholecalciferol 2,000 units 02/14/20 09:00 02/27/20 08:10 Cholecalciferol 1,000 Units (25 Mcg) Tab PO 2,000 units DAILY [facility] Administration Digoxin 0.25 mg 02/09/20 09:00 02/27/20 08:10 Digoxin 0.25 Mg Tab PO 0.25 mg DAILY [facility] Administration Diltiazem HCl 60 mg 02/22/20 17:00 02/27/20 12:34 Diltiazem Hcl 30 Mg Tablet PO Not Given QID [facility]A Diphenhydramine HCl 25 mg 02/12/20 09:35 02/27/20 15:01 Diphenhydramine 25 Mg Cap PO 25 mg Q6H PRN Administration Itching & Insomnia Famotidine 20 mg 01/28/20 09:00 02/27/20 08:11 Famotidine 20 Mg Tab PO 20 mg BID [facility] Administration Furosemide 40 mg 02/24/20 14:00 02/27/20 14:58 Furosemide 20 Mg/2 Ml Vial SLOW IVP 40 mg 0600,1400 [facility] Administration Hydroxyzine HCl 25 mg 02/25/20 15:00 02/27/20 15:01 Hydroxyzine 25 Mg Tab PO 25 mg TID [facility] Administration Insulin Human Regular 0 units 01/28/20 00:26 02/26/20 17:00 Insulin Regular 300 Units/3 Ml Vial SC 2 unit .MILD SLIDING SCALE PRN Administration Mild Correctional Scale Ipratropium [place] 2.5 ml 02/21/20 14:30 02/27/20 14:00 Ipratropium [place] 2.5 Ml Neb NEB 2.5 ml [id number] [facility] Administration Metoprolol Tartrate 5 mg 01/28/20 00:21 02/22/20 05:22 Metoprolol Tartrate 5 Mg/5 Ml Vial IVP 5 mg Q4H PRN Administration atrial fib w/ rate over 110 Metoprolol Tartrate 25 mg 02/21/20 21:00 02/27/20 08:11 Metoprolol Tartrate 25 Mg Tab PO 25 mg BID [facility] Administration Mometasone Furoate/Formoterol Fumar 2 puff 01/28/20 18:30 02/27/20 07:31 Mometasone 200 Mcg/Formoterol 5 Mcg 120 Puff Inhaler INH 2 puff BID-RT [facility] Administration Ondansetron HCl 4 mg 01/28/20 00:25 01/29/20 20:40 Ondansetron Pf 4 Mg/2 Ml Vial IVP 4 mg Q6H PRN Administration Nausea/Vomiting, use 1st Senna 2 tab 01/31/20 16:36 02/13/20 21:33 Senokot 8.6 Mg Tab PO 2 tab HSPRN PRN Administration Constipation Sodium Chloride 10 ml 02/01/20 09:00 02/27/20 08:11 Flush - Normal Saline 10 Ml Syringe IVF 10 ml Q12HR [facility] Administration Sodium Chloride 10 ml 02/01/20 08:30 02/27/20 06:23 Flush - Normal Saline 10 Ml Syringe IVF 10 ml PRN PRN Administration Saline Flush - Exam General Appearance: NAD Eye: PERRL ENT: normocephalic atraumatic Neck: supple Heart: RRR Respiratory: CTAB, no wheezes Gastrointestinal: soft, non-tender Extremities: no cyanosis Skin: normal turgor Neurological: cranial nerve grossly intact Musculoskeletal: normal tone Psychiatric: normal affect, normal behavior, A&O x 3 Hosp A/P - Plan Hosp A/P - Plan This is a 79 year old female with COPD who presented with shortness of breath , afib with RVR, Found to have pulmonary edema on admission. Diuresed with IV lasix. Also developed pneumonia, completed five days of antibiotics. Continues to be in the hospital due to worsening purpura on legs Acute hypoxic respiratory failure secondary to acute systolic heart failure - EF 20-25% - cont IV diuresis as per cardiology. monitor I&O and daily weight Afib with RVR - rate controlled Her rate is controlled. She is on complex regimen including digoxin, diltiazem, and metoprolol. Amiodarone has been discontinued due to the patient's pulmonary disease. d/w Dr. Cárdenas, will resume her Eliquis NSTEMI -s/p [facility] - multivessel disease. high risk CABG at this time. Cardiology is following COPD pulmonology is following. Cont to wean off PO Prednisone as per pul Petechial/purpural rash on lower extremities Likely purpuric drug eruption. Antibiotics were discontinued. PLT wnl. Monitor. itching improved with Atarax Right lower lobe pneumonia Patient completed 5 days of antibiotics. Physical deconditioning The patient was accepted to swing bed once medically ready.
[2020-02-27] MEDS: Insulin Regular 300 UNITS/3 ML VIAL SC PRN (16:50)
[2020-02-27] MEDS: Apixaban 5 MG TAB PO SCH (20:22)
[2020-02-27] MEDS: Atorvastatin Calcium 40 MG TAB PO SCH (20:22)
--- NOTE | 2020-02-27 23:00 | PDOC.EVN ---
Event Note - Event Note Event Note: At approximately 11 PM kanchan rodriguez was called for a fall. 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 Patient landed on her bottom, no head strike. Patient denies any dizziness, lightheadedness, chest pain, shortness of breath. She denies any numbness weakness or tingling. Patient is on a blood thinner, Eliquis. Will obtain head CT since patient is on blood thinner.
--- NOTE | 2020-02-27 23:13 | CT ---
CT head noncontrast HISTORY: Fall. Head injury. FINDINGS: There is no evidence of acute intracranial hemorrhage or infarct. The ventricles appear nor mal in size, shape and position. Chronic ischemic small vessel disease is apparent throughout the periventricular white matter of each cerebral hemisphere. Fluid layers in the dependent portion of th e sphenoid sinus. IMPRESSION : Chronic ischemic small vessel disease. No acute intracranial abnormalities are demonstrated.
[2020-02-28] MEDS: Ipratropium Bromide 2.5 ml Neb NEB SCH ×6 (02:43→23:37)
[2020-02-28 04:40] LABS: #Eosinphils 0.1 thou/uL (0.0-0.7); #Lymphocytes 1.3 thou/uL (1.20-3.40); #Monocytes 0.7 thou/uL (0.11-0.59); #Neutrophils 6.2 thou/uL (1.40-6.50); %Basophils 0.2 % (0.0-1.0); %Eosinophils 1.5 % (0.0-10.0); %Lymphocytes 15.5 % (21.0-51.0); %Monocytes 8.4 % (0.0-10.0); %Neutrophils 74.4 % (42.0-75.0); Mean Corpuscular HGB CONC 34.3 g/dL (32.0-36.0); Mean Corpuscular Hemoglobin 31.6 pg (27.0-31.0); Mean Platelet Volume 7.7 fL (7.4-10.4); Platelet Count 182 thou/uL (130-400); RBC Distribution Width 16.5 % (11.5-14.5); Red Blood Cell (RBC) Count 3.81 mill/uL (4.20-5.40); White Blood Cell (WBC) Count 8.3 thou/uL (4.8-10.8)
[2020-02-28 05:03] LABS: Anion Gap 14 mmol/L (10-20); BUN (Urea Nitrogen) 30 mg/dL (9.8-20.1); Calc. Creatinine Clearance 105 mL/min (70-130); Carbon Dioxide 31 mmol/L (23-31); Chloride 98 mmol/L (98-107); Estimated GFR-MDRD 75; Glucose 112 mg/dL (83-110); Magnesium 2.2 mg/dL (1.6-2.6); Potassium 3.7 mmol/L (3.5-5.1); Sodium 139 mmol/L (136-145)
[2020-02-28] MEDS: Furosemide 20 MG/2 ML VIAL SLOW IVP SCH ×2 (05:12→15:13)
[2020-02-28] MEDS: Mometasone 200 MCG/Formoterol 5 MCG 120 PUFF INHALER INH SCH ×2 (07:47→19:46)
[2020-02-28] MEDS: Famotidine 20 MG TAB PO SCH ×2 (08:12→20:25)
[2020-02-28] MEDS: hydrOXYzine 25 MG TAB PO SCH ×3 (08:12→20:25)
[2020-02-28] MEDS: Cholecalciferol 1,000 UNITS (25 MCG) TAB PO SCH (08:12)
[2020-02-28] MEDS: Digoxin 0.25 MG TAB PO SCH (08:12)
[2020-02-28] MEDS: Apixaban 5 MG TAB PO SCH ×2 (08:12→20:25)
[2020-02-28] MEDS: Aspirin 81 mg Enteric Coated Tablet PO SCH (08:12)
[2020-02-28] MEDS: Metoprolol Tartrate 25 MG TAB PO SCH ×2 (08:12→20:25)
[2020-02-28] MEDS: diphenhydrAMINE 25 MG CAP PO PRN (08:12)
[2020-02-28] MEDS: ALPRAZolam 0.25 MG TAB PO SCH ×2 (08:12→20:25)
--- NOTE | 2020-02-28 11:36 | PDOC.FMACP ---
Advance Care Planning - Problem (1) Acute exacerbation of CHF (congestive heart failure) Status: Acute Code(s): I50.9 - HEART FAILURE, UNSPECIFIED Qualifiers: Heart failure type: combined systolic and diastolic Qualified Code(s): I50.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 (2) Acute respiratory failure with hypoxia Status: Acute Code(s): J96.01 - ACUTE RESPIRATORY FAILURE WITH HYPOXIA (3) Cardiomyopathy Status: Chronic Code(s): I42.9 - CARDIOMYOPATHY, UNSPECIFIED - Note Participants: patient, family, palliative care Summary: Discussed Advanced Care Planning with patient and her son Sammy. The diagnosis, prognosis and goals of care were discussed. Appropriate forms and documentation to accomplish the goals of care were discussed. All questions were answered. Teaching in relation to disease processes and trajectory toward decline. Revisited quality of life and patient goal is to go home and eat what she wants. Discussed Resuscitation status, both manuelito and son Sammy understanding and desire to transition to DNAR, Ms Jessica is requesting to "sit still" before signing the OOHDNAR and DNAR. Electing to transition home with hospice and seek management of symptoms to provide comfort in the home setting. Dr Esquivel and Dr Cárdenas notified. CM notified, order place. Will need to determine hospice, patient had no preference. Time Spent (mins): 60
--- NOTE | 2020-02-28 16:04 | PDOC.DS.DS ---
Provider - Provider Date of Admission: 01/28/20 02:11 Date of Discharge: 02/28/20 Admitting Provider: Gareth Gutierrez MD Consultations: Cardiology, Pulmonary, Other ([facility] - Dr. Ragsdale) Primary Care Physician: Jocelyne Chapman DO Course - Hospital Course Hospital Course: DISCHARGE DIAGNOSES: 1. Acute hypoxic respiratory failure secondary to acute on chronic heart failure 2. Acute on chronic systolic heart failure 3. Persistent atrial fib with RVR 4. NSTEMI 5. Severe COPD 6. Right lower lobe pneumonia, CAP 7. Physical debility 8. Ischemic cardiomyopathy 9. Morbid obesity 10. Hypertension 11. Multivessel CAD 12. Macular purpura rash likely due to drug eruption 13. Sepsis poa PERTINENT IMAGING STUDIES: Chest x-ray show moderate decompensated congestive heart failure Chest CTA: Pulmonary edema, small to moderate right greater than left pleural effusion, and moderate pericardial effusion, and lower lobe predominant pulmonary edema. Tree-in-bud nodularity within the right middle lobe likely reflect some decrease of pulmonary edema within the bronchioles superimposed infection, aspiration, hemorrhage cannot be excluded in this appropriate clinical setting Carotic Doppler: No hemodynamically significant stenosis of both ICAs Brain CT: Chronic ischemic small vessel disease. No acute intracranial abnormalities are demonstrated HISTORY OF PRESENT ILLNESS AND BRIEF HOSPITAL COURSE: The patient is unfortunate 79 years old female with multiple comorbidities including severe COPD, hypertension, congestive heart failure, hypertension, who presented to the ED with complaint of short of breath. Patient had a protracted hospital course, she was hospitalized for 31 days. Anyway, patient was admitted initially for acute on chronic respiratory failure, she required BiPAP on admission, secondary to CHF exacerbation. Further work-up showed that she also had NSTEMI, with cardiac enzyme went up to 23. Cardiology was consulted. Patient was treated medically, subsequently underwent left heart cath, was shown she had multivessel disease. Initially recommend urgent CABG, however, patient was deemed as a high risk, due to severe COPD. She was subsequently treated medically. As her hospital course continue to evolve, patient developed macular papular rash on her lower extremity. This was thought due to allergic reaction, suspect related to antibiotics, which has been discontinued. She also went into atrial fib with RVR, it has been very difficult to control, due to hypotension and other comorbidities. Multiple specialists were on the case. Ultimately, palliative care was consulted, to address the goal of care and CODE STATUS. Patient and family member decided to go home on home hospice. PROCEDURE PERFORMED: LHC showed multivessel disease, deemed high risk for surgery DISCHARGE CONDITION: STABLE DISPOSITION: HOME with hospice PHYSICAL EXAM: General Appearance: Alert, oriented, resting comfortably, no apparent distress, well developed/nourished. HEENT: Normocephalic/atraumatic, moist mucous membrane, normal ENT inspection, normal tones. PERRLA, no scleral icterus, normal conjunctiva Neck: Supple, normal inspection, no JVD Respiratory: Lungs are clear bilaterally, normal breath sounds, no accessory muscle use Cardiovascular: irregularly irregular Abdomen: Soft, nontender, nondistended, normal bowel sounds, no organomegaly, no guarding no rebound Extremities: No clubbing, no cyanosis, 1+ edema Psych/Mental Status: Normal affect, speech, non-pressured, AAO x 3 Neurologic: CN II-XII are intact. Skin: Warm/Dry, Normal Color, macular papular rash on lower extremity and trunk DISCHARGE TIME SPENT: >30 MINUTES Resuscitation Status: 02/28/20 13:03 Resuscitation Status Routine Co-Sign Provider: Resuscitation Status: DNAR: NO Resuscitation Discussed with: Patient Additional comments: Discussed with patient and her son. Requesting to be a DNAR - Labs Lab Results: 02/28/20 04:06 02/28/20 04:06 Abnormal Lab Results - Last 48 hrs 02/27/20 09:42: BUN 27 H 02/27/20 09:42: RDW 16.5 H, Band Neuts % (Manual) 3 L, Lymphocytes % (Manual) 17 L, Metamyelocytes % (Man) 2 H 02/28/20 04:06: BUN 30 H 02/28/20 04:06: RBC 3.81 L, Hct 35.1 L, MCH 31.6 H, RDW 16.5 H, Lymphocytes % 15.5 L, Monocytes # 0.7 H Microbiology - Entire Visit 02/12/20 14:27 Sputum Respiratory Culture - Final Mold Species 02/08/20 15:40 Urine voided Urine Culture - Final NO GROWTH AT 48 HOURS - Physical Exam Vitals: Vital Signs (12 hours) Temp Pulse Pulse Pulse Resp BP BP 02/28/20 15:27 97.6 F 86 20 02/28/20 14:09 77 14 02/28/20 12:18 98.1 F 79 20 02/28/20 11:11 65 20 02/28/20 09:40 90 84 96/62 100/60 02/28/20 08:12 97 02/28/20 07:47 97 18 02/28/20 06:59 98.1 F 80 20 BP BP Pulse Ox 02/28/20 15:27 110/69 93 L 02/28/20 14:09 95 02/28/20 12:18 102/56 L 96 02/28/20 11:11 97 02/28/20 09:40 02/28/20 08:12 02/28/20 07:47 96 02/28/20 06:59 103/62 96 Weight Admit Weight 219 lb 4.8 oz Weight 232 lb 9.6 oz Most Recent Monitor Data Heart Rate from ECG 101 NIBP 119/68 NIBP BP-Mean 85 Respiration from ECG 21 SpO2 85 Physical Exam: The patient was seen and examined on the day of discharge. Plan - Discharge Medications Prescriptions: RX: hydrOXYzine [Atarax] 25 mg PO TID PRN #30 tab PRN Reason: Itching RX: Diltiazem HCl [Cardizem] 60 mg PO QID #120 tab RX: Apixaban [Eliquis] 5 mg PO BID #60 tab RX: Potassium Chloride [K-Dur] 20 meq PO DAILY #30 tab RX: Digoxin [Lanoxin] 0.25 mg PO DAILY #30 tab Furosemide [Lasix] 40 mg PO BID #60 tab RX: Atorvastatin Calcium [Lipitor] 40 mg PO HS #30 tab Home Medications: Medication Instructions Recorded Confirmed Type RX: Albuterol Sulfate [Proventil 2 puff INH Q4H PRN 01/28/20 01/28/20 History Hfa] RX: Aspirin [Aspirin EC] 81 mg PO DAILY 01/28/20 01/28/20 History RX: Escitalopram Oxalate [Lexapro] 20 mg PO DAILY 01/28/20 01/28/20 History RX: Fluticasone/Umeclidin/Vilanter 1 each IH DAILY 01/28/20 01/28/20 History [Trelegy Ellipta 100-62.5-25] RX: Hydrochlorothiazide 12.5 mg PO DAILY 01/28/20 01/28/20 History Furosemide [Lasix] 40 mg PO BID #60 tab 02/28/20 Rx RX: Apixaban [Eliquis] 5 mg PO BID #60 tab 02/28/20 Rx RX: Atorvastatin Calcium [Lipitor] 40 mg PO HS #30 tab 02/28/20 Rx RX: Digoxin [Lanoxin] 0.25 mg PO DAILY #30 tab 02/28/20 Rx RX: Diltiazem HCl [Cardizem] 60 mg PO QID #120 tab 02/28/20 Rx RX: Potassium Chloride [K-Dur] 20 meq PO DAILY #30 tab 02/28/20 Rx RX: hydrOXYzine [Atarax] 25 mg PO TID PRN #30 tab 02/28/20 Rx Allergies: Penicillins Allergy (Unknown, Verified 01/28/20 10:11) Hives RN spoke with pt who reported reaction as hives, not anaphylaxis. levofloxacin [From Levaquin] Allergy (Verified 02/19/20 10:12) Rash Macular rash left arm, purpuric rash developed on lower extremities -MYCIN DRUGS Allergy (Severe, Uncoded 02/18/20 10:09) Rash ATIENT ASKED TO CONFIRM ALLERGIES. PATIENT STATED "I AM ONLY ALLERGIC TO PENICILLIN AND -MYCIN DRUGS". - Discharge Instructions Nourishment:: Low Sodium Diet - Follow up Plan Referrals: [facility], [facility] [Other] (Home with hospice services. ) [facility] - [place] [Outside] - 7 Days (Please call to make an appointment. ) Jocelyne Chapman DO [Primary Care Provider] - (Will accept as pcp at the [facility] for snf placement.) uSe Cárdenas MD [Active] - 2-3 Weeks (Please call to make an appointment. ) Disposition: HOSPICE-HOME Quality - Care Measures CORE MEASURES:: AMI
--- NOTE | 2020-02-28 17:36 | PDOC.EP ---
- Subjective Date: 02/28/20 Time: 08:00 - Review of Systems Constitutional: reports: weakness. denies: chills, fever, malaise Respiratory: reports: shortness of breath. denies: cough, wheezing Cardiology: denies: chest pain, edema, heart racing, light headedness, palpitations Gastrointestinal: denies: abdominal pain, constipation, nausea, vomitting Musculoskeletal: denies: unstable gait, falls, leg pain - Objective Allergies/Adverse Reactions: Allergies Allergy/AdvReac Type Severity Reaction Status Date / Time Penicillins Allergy Unknown Hives Verified 01/28/20 10:11 levofloxacin [From Levaquin] Allergy Rash Verified 02/19/20 10:12 -MYCIN DRUGS Allergy Severe Rash Uncoded 02/18/20 10:09 Current Medications Acetaminophen (Acetaminophen 325 Mg Tab) 650 mg PO Q4H PRN PRN Reason: Headache/Fever/Mild Pain (1-3) Last Admin: 02/26/20 15:03 Dose: 650 mg Documented by: Albuterol/Ipratropium (Ipratropium/Albuterol Sulfate 3 Ml Neb) 3 ml NEB Q2H PRN PRN Reason: SOB &/or Wheezing Last Admin: 02/25/20 17:54 Dose: 3 ml Documented by: Alprazolam (Alprazolam 0.25 Mg Tab) 0.5 mg PO BID [facility] Last Admin: 02/28/20 08:12 Dose: 0.5 mg Documented by: Apixaban (Apixaban 5 Mg Tab) 5 mg PO BID [facility] Last Admin: 02/28/20 08:12 Dose: 5 mg Documented by: Aspirin (Aspirin 81 Mg Enteric Coated Tablet) 81 mg PO DAILY [facility] Last Admin: 02/28/20 08:12 Dose: 81 mg Documented by: Atorvastatin Calcium (Atorvastatin Calcium 40 Mg Tab) 40 mg PO HS [facility] Last Admin: 02/27/20 20:22 Dose: 40 mg Documented by: Benzonatate (Benzonatate 100 Mg Cap) 100 mg PO TIDPRN PRN PRN Reason: Cough Last Admin: 02/16/20 09:05 Dose: 100 mg Documented by: Bisacodyl (Bisacodyl 5 Mg Tab) 10 mg PO DAILYPRN PRN PRN Reason: Constipation Last Admin: 02/15/20 10:34 Dose: 10 mg Documented by: Bisacodyl (Bisacodyl 10 Mg Supp) 10 mg ME TIDPRN PRN PRN Reason: Constipation Cholecalciferol (Cholecalciferol 1,000 Units (25 Mcg) Tab) 2,000 units PO DAILY [facility] Last Admin: 02/28/20 08:12 Dose: 2,000 units Documented by: Dextrose/Water (Dextrose 50% Abboject 50 Ml Syringe) 25 gm IVP PRN PRN PRN Reason: HYPOGLYCEMIA PROTOCOL Digoxin (Digoxin 0.25 Mg Tab) 0.25 mg PO DAILY [facility] Last Admin: 02/28/20 08:12 Dose: 0.25 mg Documented by: Diltiazem HCl (Diltiazem Hcl 30 Mg Tablet) 60 mg PO QID [facility] Last Admin: 02/28/20 16:10 Dose: 60 mg Documented by: Diphenhydramine HCl (Diphenhydramine 25 Mg Cap) 25 mg PO Q6H PRN PRN Reason: Itching & Insomnia Last Admin: 02/28/20 08:12 Dose: 25 mg Documented by: Famotidine (Famotidine 20 Mg Tab) 20 mg PO BID [facility] Last Admin: 02/28/20 08:12 Dose: 20 mg Documented by: Furosemide (Furosemide 20 Mg/2 Ml Vial) 40 mg SLOW IVP 0600,1400 [facility] Last Admin: 02/28/20 15:13 Dose: 40 mg Documented by: Glucagon (Glucagon 1 Mg/Ml Vial) 1 mg IM PRN PRN PRN Reason: HYPOGLYCEMIA PROTOCOL Guaifenesin/Dextromethorphan (Guaifenesin Dm 100-10/5 Ml Udcup) 15 ml PO Q4H PRN PRN Reason: Cough Hydroxyzine HCl (Hydroxyzine 25 Mg Tab) 25 mg PO TID [facility] Last Admin: 02/28/20 15:12 Dose: 25 mg Documented by: Dextrose/Water (D5w) 1,000 mls @ 0 mls/hr IV INF PRN PRN Reason: HYPOGLYCEMIA PROTOCOL Insulin Human Regular (Insulin Regular 300 Units/3 Ml Vial) 0 units SC .MILD SLIDING SCALE PRN PRN Reason: Mild Correctional Scale Last Admin: 02/27/20 16:50 Dose: 2 unit Documented by: Ipratropium [place] (Ipratropium [place] 2.5 Ml Neb) 2.5 ml NEB [id number] [facility] Last Admin: 02/28/20 14:09 Dose: 2.5 ml Documented by: Laxative/Stool Softener (Laxative Of Choice) 1 each PO DAILY PRN PRN Reason: Constipation Metoprolol Tartrate (Metoprolol Tartrate 5 Mg/5 Ml Vial) 5 mg IVP Q4H PRN PRN Reason: atrial fib w/ rate over 110 Last Admin: 02/22/20 05:22 Dose: 5 mg Documented by: Metoprolol Tartrate (Metoprolol Tartrate 25 Mg Tab) 25 mg PO BID [facility] Last Admin: 02/28/20 08:12 Dose: 25 mg Documented by: Miscellaneous Medication (Electrolyte Replacement Protoc 1 Each Each) 1 each FS ASDIR [facility] Mometasone Furoate/Formoterol Fumar (Mometasone 200 Mcg/Formoterol 5 Mcg 120 Puff Inhaler) 2 puff INH BID-RT [facility] Last Admin: 02/28/20 07:47 Dose: 2 puff Documented by: Nitroglycerin (Nitroglycerin 0.4 Mg Tab (25 Tab Bottle)) 0.4 mg SL Q5MIN PRN PRN Reason: Chest Pain Ondansetron HCl (Ondansetron Pf 4 Mg/2 Ml Vial) 4 mg IVP Q6H PRN PRN Reason: Nausea/Vomiting, use 1st Last Admin: 01/29/20 20:40 Dose: 4 mg Documented by: Senna (Senokot 8.6 Mg Tab) 2 tab PO HSPRN PRN PRN Reason: Constipation Last Admin: 02/13/20 21:33 Dose: 2 tab Documented by: Senna/Docusate Sodium (Senokot S 8.6-50 Mg Tab) 1 tab PO BIDPRN PRN PRN Reason: Constipation Sodium Chloride (Flush - Normal Saline 10 Ml Syringe) 10 ml IVF Q12HR [facility] Last Admin: 02/28/20 08:12 Dose: 10 ml Documented by: Sodium Chloride (Flush - Normal Saline 10 Ml Syringe) 10 ml IVF PRN PRN PRN Reason: Saline Flush Last Admin: 02/27/20 06:23 Dose: 10 ml Documented by: Vital Signs & Weight: Vital Signs Temp Pulse Pulse Pulse Resp BP BP 02/28/20 15:27 97.6 F 86 20 02/28/20 14:09 77 14 02/28/20 12:18 98.1 F 79 20 02/28/20 11:11 65 20 02/28/20 09:40 90 84 96/62 100/60 02/28/20 08:12 97 02/28/20 07:47 97 18 02/28/20 06:59 98.1 F 80 20 BP BP Pulse Ox 02/28/20 15:27 110/69 93 L 02/28/20 14:09 95 02/28/20 12:18 102/56 L 96 02/28/20 11:11 97 02/28/20 09:40 02/28/20 08:12 02/28/20 07:47 96 02/28/20 06:59 103/62 96 Admit Weight 219 lb 4.8 oz Weight 232 lb 9.6 oz I/O: I/O 02/27/20 02/28/20 02/29/20 06:59 06:59 06:59 Intake Total 1989 1680 Output Total 1500 1800 600 Balance 490 -120 -600 - Quality Measures Condition: Atrial Fibrillation/Flutter (hx or current) CV meds: Eliquis: Yes, Xarelto: Yes - Medication Contraindications No Anticoagulant reason: Anticoagulant not tolerated - Physical Exam General: alert & oriented x3, no apparent distress, speech clear, affect appropriate. negative: appears well Neck: supple neck, midline trachea, no lymphadenopathy Cardiology: regular rate, irregularly irregular Lungs: normal exam, no wheezes, decreased breath sounds Neurology: cranial nerve 2-12 intact, grossly intact, no lateralizing findings Abdomen: unremarkable, active bowel sounds, no pulsations/bruits - Labs Result Diagrams: 02/28/20 04:06 02/28/20 04:06 - EKG Interpretation EKG Method: Telemetry EKG shows: Atrial fibrillation - Assessment/Plan Assessment/Plan: 1. Persistent atrial fibrillation, rapid ventricular rate. a. Difficult to control ventricular rate despite digoxin, IV diltiazem, metoprolol. 2. Subacute myocardial infarction with peak troponin I at 23. a.Left heart catheterization from 01/28/20 shows 90% proximal LAD, 25% diffuse OM, proximal RCA 100% with LVEF 40% to 45%. . b. 2D echo from 01/28/2020 shows LVEF of 20% to 25% but difficult to assess due to atrial fibrillation, moderate left atrial enlargement, trace MR. 3. Advanced COPD and bilateral pleural effusion. a. Current smoking. 4. Hypertension. 5. Purpura, RESOLVING - possible medication reaction to -mycin based anbx, possibly worsened due to OAC with eliquis. Given her advanced COPD, CAD, and cardiomyopathy she has no ideal antiarrhythmic options. She is not a candidate for PVAI ablation in her tenuous medical condition. With her open sores on her feet she's at risk for infection. I would be less inclined to proceed with PPM implant with the infection risk. Cardiology may want to consider REX/CV if we cannot rate control. If kidney function remains stable, could load her on tikosyn after REX/CV. Cardiology p lans to resume NOAC therapy. Currently on lovenox. 02/19: Increased metoprolol 02/20: Wheezing increased with BB increase, metoprolol reduced to 25mg BID and increased dilt to 60TID 02/21: Poor rate control this AM but having pain. BP stable, even high overnight, will increase Diltto 60mg QID. 02/22: Rate control adequate. SBP 95-115. 02/23: Stable hemodynamics and ventricular rates with continued atrial fibrillation. Dermatological issues dominate. 02/26: Stable HR and BP on current regimen with persisting Atrial fibrillation. Eliquis resumed. Off lovenox 02/27: Bp and HR stable on current regimen. No recurrent purpura with eliquis resumed. Stable for DC by EP on current regimen Continue rate control with: (Amiodarone was stopped 02/09 AM. ) 1. Metoprolol tartrate 25mg BID. 2. Digoxin 250 mcg daily 3. Dilt HCl 60mg QID. 4. Stop lovenox, resuming eliquis 5mg BID.
--- NOTE | 2020-02-28 18:26 | PDOC.CPN ---
- Subjective Date: 02/28/20 Time: 18:25 - Review of Systems General: denies: fever/chills, weight/appetite/sleep changes, night sweats, fatigue Respiratory: denies: cough, congestion, shortness of breath, exercise intolerance Cardiovascular: denies: chest pain, palpitation, edema, paroxysmal nocturnal dyspnea, orthopnea Gastrointestinal: denies: nausea, vomiting, diarrhea, constipation, abd pain, GI bleeding Musculoskeletal: reports: swelling Neurological: denies: numbness, syncope, seizure, weakness - Objective Allergies/Adverse Reactions: Allergies Allergy/AdvReac Type Severity Reaction Status Date / Time Penicillins Allergy Unknown Hives Verified 01/28/20 10:11 levofloxacin [From Levaquin] Allergy Rash Verified 02/19/20 10:12 -MYCIN DRUGS Allergy Severe Rash Uncoded 02/18/20 10:09 Visit Medications: Current Medications Acetaminophen (Acetaminophen 325 Mg Tab) 650 mg PO Q4H PRN PRN Reason: Headache/Fever/Mild Pain (1-3) Last Admin: 02/26/20 15:03 Dose: 650 mg Documented by: Albuterol/Ipratropium (Ipratropium/Albuterol Sulfate 3 Ml Neb) 3 ml NEB Q2H PRN PRN Reason: SOB &/or Wheezing Last Admin: 02/25/20 17:54 Dose: 3 ml Documented by: Alprazolam (Alprazolam 0.25 Mg Tab) 0.5 mg PO BID [facility] Last Admin: 02/28/20 08:12 Dose: 0.5 mg Documented by: Apixaban (Apixaban 5 Mg Tab) 5 mg PO BID [facility] Last Admin: 02/28/20 08:12 Dose: 5 mg Documented by: Aspirin (Aspirin 81 Mg Enteric Coated Tablet) 81 mg PO DAILY [facility] Last Admin: 02/28/20 08:12 Dose: 81 mg Documented by: Atorvastatin Calcium (Atorvastatin Calcium 40 Mg Tab) 40 mg PO HS [facility] Last Admin: 02/27/20 20:22 Dose: 40 mg Documented by: Benzonatate (Benzonatate 100 Mg Cap) 100 mg PO TIDPRN PRN PRN Reason: Cough Last Admin: 02/16/20 09:05 Dose: 100 mg Documented by: Bisacodyl (Bisacodyl 5 Mg Tab) 10 mg PO DAILYPRN PRN PRN Reason: Constipation Last Admin: 02/15/20 10:34 Dose: 10 mg Documented by: Bisacodyl (Bisacodyl 10 Mg Supp) 10 mg ND TIDPRN PRN PRN Reason: Constipation Cholecalciferol (Cholecalciferol 1,000 Units (25 Mcg) Tab) 2,000 units PO DAILY [facility] Last Admin: 02/28/20 08:12 Dose: 2,000 units Documented by: Dextrose/Water (Dextrose 50% Abboject 50 Ml Syringe) 25 gm IVP PRN PRN PRN Reason: HYPOGLYCEMIA PROTOCOL Digoxin (Digoxin 0.25 Mg Tab) 0.25 mg PO DAILY [facility] Last Admin: 02/28/20 08:12 Dose: 0.25 mg Documented by: Diltiazem HCl (Diltiazem Hcl 30 Mg Tablet) 60 mg PO QID [facility] Last Admin: 02/28/20 16:10 Dose: 60 mg Documented by: Diphenhydramine HCl (Diphenhydramine 25 Mg Cap) 25 mg PO Q6H PRN PRN Reason: Itching & Insomnia Last Admin: 02/28/20 08:12 Dose: 25 mg Documented by: Famotidine (Famotidine 20 Mg Tab) 20 mg PO BID [facility] Last Admin: 02/28/20 08:12 Dose: 20 mg Documented by: Furosemide (Furosemide 20 Mg/2 Ml Vial) 40 mg SLOW IVP 0600,1400 [facility] Last Admin: 02/28/20 15:13 Dose: 40 mg Documented by: Glucagon (Glucagon 1 Mg/Ml Vial) 1 mg IM PRN PRN PRN Reason: HYPOGLYCEMIA PROTOCOL Guaifenesin/Dextromethorphan (Guaifenesin Dm 100-10/5 Ml Udcup) 15 ml PO Q4H PRN PRN Reason: Cough Hydroxyzine HCl (Hydroxyzine 25 Mg Tab) 25 mg PO TID [facility] Last Admin: 02/28/20 15:12 Dose: 25 mg Documented by: Dextrose/Water (D5w) 1,000 mls @ 0 mls/hr IV INF PRN PRN Reason: HYPOGLYCEMIA PROTOCOL Insulin Human Regular (Insulin Regular 300 Units/3 Ml Vial) 0 units SC .MILD SLIDING SCALE PRN PRN Reason: Mild Correctional Scale Last Admin: 02/27/20 16:50 Dose: 2 unit Documented by: Ipratropium [place] (Ipratropium [place] 2.5 Ml Neb) 2.5 ml NEB [id number] [facility] Last Admin: 02/28/20 14:09 Dose: 2.5 ml Documented by: Laxative/Stool Softener (Laxative Of Choice) 1 each PO DAILY PRN PRN Reason: Constipation Metoprolol Tartrate (Metoprolol Tartrate 5 Mg/5 Ml Vial) 5 mg IVP Q4H PRN PRN Reason: atrial fib w/ rate over 110 Last Admin: 02/22/20 05:22 Dose: 5 mg Documented by: Metoprolol Tartrate (Metoprolol Tartrate 25 Mg Tab) 25 mg PO BID [facility] Last Admin: 02/28/20 08:12 Dose: 25 mg Documented by: Miscellaneous Medication (Electrolyte Replacement Protoc 1 Each Each) 1 each FS ASDIR [facility] Mometasone Furoate/Formoterol Fumar (Mometasone 200 Mcg/Formoterol 5 Mcg 120 Puff Inhaler) 2 puff INH BID-RT [facility] Last Admin: 02/28/20 07:47 Dose: 2 puff Documented by: Nitroglycerin (Nitroglycerin 0.4 Mg Tab (25 Tab Bottle)) 0.4 mg SL Q5MIN PRN PRN Reason: Chest Pain Ondansetron HCl (Ondansetron Pf 4 Mg/2 Ml Vial) 4 mg IVP Q6H PRN PRN Reason: Nausea/Vomiting, use 1st Last Admin: 01/29/20 20:40 Dose: 4 mg Documented by: Senna (Senokot 8.6 Mg Tab) 2 tab PO HSPRN PRN PRN Reason: Constipation Last Admin: 02/13/20 21:33 Dose: 2 tab Documented by: Senna/Docusate Sodium (Senokot S 8.6-50 Mg Tab) 1 tab PO BIDPRN PRN PRN Reason: Constipation Sodium Chloride (Flush - Normal Saline 10 Ml Syringe) 10 ml IVF Q12HR [facility] Last Admin: 02/28/20 08:12 Dose: 10 ml Documented by: Sodium Chloride (Flush - Normal Saline 10 Ml Syringe) 10 ml IVF PRN PRN PRN Reason: Saline Flush Last Admin: 02/27/20 06:23 Dose: 10 ml Documented by: Vital Signs & Weight: Vital Signs Temp Pulse Pulse Pulse Resp BP BP 02/28/20 15:27 97.6 F 86 20 02/28/20 14:09 77 14 02/28/20 12:18 98.1 F 79 20 02/28/20 11:11 65 20 02/28/20 09:40 90 84 96/62 100/60 02/28/20 08:12 97 02/28/20 07:47 97 18 02/28/20 06:59 98.1 F 80 20 BP BP Pulse Ox 02/28/20 15:27 110/69 93 L 02/28/20 14:09 95 02/28/20 12:18 102/56 L 96 02/28/20 11:11 97 02/28/20 09:40 02/28/20 08:12 02/28/20 07:47 96 02/28/20 06:59 103/62 96 Admit Weight 219 lb 4.8 oz Weight 232 lb 9.6 oz - Quality Measures Condition: Atrial Fibrillation/Flutter (hx or current) (HR up to 80-110bpm), Coronary Artery Disease, Heart Failure, Myocardial Infarction CV meds: Beta Anyi: Yes, TERRELL/ARB: Yes - Medication Contraindications No Anticoagulant reason: Anticoagulant not tolerated - Physical Exam HEENT: normocephaly Neck: midline trachea, no JVD/HJR Cardiac: irregularly regular Lungs: clear to auscultation, no wheezes, decreased breath sounds Neuro: grossly intact Abdomen: active bowel sounds Extremities: 1+ LE edema Skin: rash (improved) - Labs Result Diagrams: 02/28/20 04:06 02/28/20 04:06 Troponin/CKMB CK-MB (CK-2) 206.6 ng/mL (0-6.6) H* 01/28/20 08:34 Troponin I 23.552 ng/mL (< 0.028) H* 01/28/20 03:10 - Telemetry Supraventricular conduction: atrial fibrillation - Assessment/Plan Assessment/Plan: 1. Severe multi-vessel CAD. High risk for CABG at this time. Unable to revascu larize by PTCA. 2. Severe COPD.Lungs clear. off oxygen . Ambulating in the halls with assistance. 3. Ischemic Cardiomyopathy. EF 30-40%. 4. Afib RVR. Rate better controlled , tolerating betablocker thus far but BP on the low side. Occasionally still tachycardic at times, ofelia. with minimal activity, better controlled. EP assisting with the care. EP feels that HR is under reasonable control. Increased risk of ablation or AVJ ablation and device implant. Will continue meds . 5. EF at 20-25% on Echo, closer to 40% on LHC. 6.Lower extremity purpura rash,improved,could be due to medications/anti-biotics or OAC. Eliquis was resumed. If the purpura returns then this may have been the etiology. If she can not tolerate eliquis rthen she should be placed on coumadin. The rash extended to entire body. the rash has improved. Now she has blisters on the dorsum of the feet. Consider starting coumadin or Xarelto if the purpura returns. She is at increased risk of CVA due to embolic source due to At rial fibrillation. 7. HTN.Continue to adjust meds as tolerated. 8. Edema: continue lasix, restrict fluids. Pt. has decided to be discharged to home with Hospice. I will be happy to see her in 2-4 weeks in the office if possible.
[2020-02-28] MEDS: Atorvastatin Calcium 40 MG TAB PO SCH (20:25)
[2020-02-29] MEDS: Ipratropium Bromide 2.5 ml Neb NEB SCH ×3 (02:37→11:08)
[2020-02-29] MEDS: Furosemide 20 MG/2 ML VIAL SLOW IVP SCH (05:40)
[2020-02-29 07:04] VITALS: BP 134/58; TEMP 98.7
[2020-02-29] MEDS: Mometasone 200 MCG/Formoterol 5 MCG 120 PUFF INHALER INH SCH (07:19)
[2020-02-29] MEDS: Apixaban 5 MG TAB PO SCH (09:28)
[2020-02-29] MEDS: Digoxin 0.25 MG TAB PO SCH (09:28)
[2020-02-29] MEDS: Famotidine 20 MG TAB PO SCH (09:28)
[2020-02-29] MEDS: Metoprolol Tartrate 25 MG TAB PO SCH (09:28)
[2020-02-29] MEDS: ALPRAZolam 0.25 MG TAB PO SCH (09:28)
[2020-02-29] MEDS: hydrOXYzine 25 MG TAB PO SCH (09:28)
[2020-02-29] MEDS: Cholecalciferol 1,000 UNITS (25 MCG) TAB PO SCH (09:29)
[2020-02-29] MEDS: Aspirin 81 mg Enteric Coated Tablet PO SCH (09:29)
--- NOTE | 2020-02-29 10:31 | PDOC.EP ---
- Subjective Date: 02/29/20 Time: 10:30 Interval History: On hospice with pending DC home. - Review of Systems Constitutional: denies: chills, fever, malaise, sweats, weakness Respiratory: reports: cough, shortness of breath. denies: dry, hemoptysis, sputum, wheezing Cardiology: denies: chest pain, edema, heart racing, light headedness, palpitations, passing out Gastrointestinal: denies: abdominal pain, nausea, vomitting Musculoskeletal: denies: unstable gait, falls, leg pain - Objective Allergies/Adverse Reactions: Allergies Allergy/AdvReac Type Severity Reaction Status Date / Time Penicillins Allergy Unknown Hives Verified 01/28/20 10:11 levofloxacin [From Levaquin] Allergy Rash Verified 02/19/20 10:12 -MYCIN DRUGS Allergy Severe Rash Uncoded 02/18/20 10:09 Current Medications Acetaminophen (Acetaminophen 325 Mg Tab) 650 mg PO Q4H PRN PRN Reason: Headache/Fever/Mild Pain (1-3) Last Admin: 02/26/20 15:03 Dose: 650 mg Documented by: Albuterol/Ipratropium (Ipratropium/Albuterol Sulfate 3 Ml Neb) 3 ml NEB Q2H PRN PRN Reason: SOB &/or Wheezing Last Admin: 02/25/20 17:54 Dose: 3 ml Documented by: Apixaban (Apixaban 5 Mg Tab) 5 mg PO BID [facility] Last Admin: 02/29/20 09:28 Dose: 5 mg Documented by: Aspirin (Aspirin 81 Mg Enteric Coated Tablet) 81 mg PO DAILY [facility] Last Admin: 02/29/20 09:29 Dose: 81 mg Documented by: Atorvastatin Calcium (Atorvastatin Calcium 40 Mg Tab) 40 mg PO HS [facility] Last Admin: 02/28/20 20:25 Dose: 40 mg Documented by: Benzonatate (Benzonatate 100 Mg Cap) 100 mg PO TIDPRN PRN PRN Reason: Cough Last Admin: 02/16/20 09:05 Dose: 100 mg Documented by: Bisacodyl (Bisacodyl 5 Mg Tab) 10 mg PO DAILYPRN PRN PRN Reason: Constipation Last Admin: 02/15/20 10:34 Dose: 10 mg Documented by: Bisacodyl (Bisacodyl 10 Mg Supp) 10 mg [place] TIDPRN PRN PRN Reason: Constipation Cholecalciferol (Cholecalciferol 1,000 Units (25 Mcg) Tab) 2,000 units PO DAILY [facility] Last Admin: 02/29/20 09:29 Dose: 2,000 units Documented by: Dextrose/Water (Dextrose 50% Abboject 50 Ml Syringe) 25 gm IVP PRN PRN PRN Reason: HYPOGLYCEMIA PROTOCOL Digoxin (Digoxin 0.25 Mg Tab) 0.25 mg PO DAILY [facility] Last Admin: 02/29/20 09:28 Dose: 0.25 mg Documented by: Diltiazem HCl (Diltiazem Hcl 30 Mg Tablet) 60 mg PO QID [facility] Last Admin: 02/29/20 09:28 Dose: 60 mg Documented by: Diphenhydramine HCl (Diphenhydramine 25 Mg Cap) 25 mg PO Q6H PRN PRN Reason: Itching & Insomnia Last Admin: 02/28/20 08:12 Dose: 25 mg Documented by: Famotidine (Famotidine 20 Mg Tab) 20 mg PO BID [facility] Last Admin: 02/29/20 09:28 Dose: 20 mg Documented by: Furosemide (Furosemide 20 Mg/2 Ml Vial) 40 mg SLOW IVP 0600,1400 [facility] Last Admin: 02/29/20 05:40 Dose: 40 mg Documented by: Glucagon (Glucagon 1 Mg/Ml Vial) 1 mg IM PRN PRN PRN Reason: HYPOGLYCEMIA PROTOCOL Guaifenesin/Dextromethorphan (Guaifenesin Dm 100-10/5 Ml Udcup) 15 ml PO Q4H PRN PRN Reason: Cough Hydroxyzine HCl (Hydroxyzine 25 Mg Tab) 25 mg PO TID [facility] Last Admin: 02/29/20 09:28 Dose: 25 mg Documented by: Dextrose/Water (D5w) 1,000 mls @ 0 mls/hr IV INF PRN PRN Reason: HYPOGLYCEMIA PROTOCOL Insulin Human Regular (Insulin Regular 300 Units/3 Ml Vial) 0 units SC .MILD SLIDING SCALE PRN PRN Reason: Mild Correctional Scale Last Admin: 02/27/20 16:50 Dose: 2 unit Documented by: Ipratropium [place] (Ipratropium [place] 2.5 Ml Neb) 2.5 ml NEB [id number] [facility] Last Admin: 02/29/20 07:19 Dose: 2.5 ml Documented by: Laxative/Stool Softener (Laxative Of Choice) 1 each PO DAILY PRN PRN Reason: Constipation Metoprolol Tartrate (Metoprolol Tartrate 5 Mg/5 Ml Vial) 5 mg IVP Q4H PRN PRN Reason: atrial fib w/ rate over 110 Last Admin: 02/22/20 05:22 Dose: 5 mg Documented by: Metoprolol Tartrate (Metoprolol Tartrate 25 Mg Tab) 25 mg PO BID [facility] Last Admin: 02/29/20 09:28 Dose: 25 mg Documented by: Miscellaneous Medication (Electrolyte Replacement Protoc 1 Each Each) 1 each FS ASDIR [facility] Mometasone Furoate/Formoterol Fumar (Mometasone 200 Mcg/Formoterol 5 Mcg 120 Puff Inhaler) 2 puff INH BID-RT [facility] Last Admin: 02/29/20 07:19 Dose: 2 puff Documented by: Nitroglycerin (Nitroglycerin 0.4 Mg Tab (25 Tab Bottle)) 0.4 mg SL Q5MIN PRN PRN Reason: Chest Pain Ondansetron HCl (Ondansetron Pf 4 Mg/2 Ml Vial) 4 mg IVP Q6H PRN PRN Reason: Nausea/Vomiting, use 1st Last Admin: 01/29/20 20:40 Dose: 4 mg Documented by: Senna (Senokot 8.6 Mg Tab) 2 tab PO HSPRN PRN PRN Reason: Constipation Last Admin: 02/13/20 21:33 Dose: 2 tab Documented by: Senna/Docusate Sodium (Senokot S 8.6-50 Mg Tab) 1 tab PO BIDPRN PRN PRN Reason: Constipation Sodium Chloride (Flush - Normal Saline 10 Ml Syringe) 10 ml IVF Q12HR [facility] Last Admin: 02/29/20 09:29 Dose: 10 ml Documented by: Sodium Chloride (Flush - Normal Saline 10 Ml Syringe) 10 ml IVF PRN PRN PRN Reason: Saline Flush Last Admin: 02/27/20 06:23 Dose: 10 ml Documented by: Vital Signs & Weight: Vital Signs Temp Pulse Resp BP Pulse Ox 02/29/20 09:28 131 H 02/29/20 07:19 142 H 18 02/29/20 07:01 98.7 F 128 H 17 134/58 L 95 02/29/20 03:49 97.8 F 120 H 21 H 102/64 95 02/29/20 02:37 95 02/28/20 23:45 99/73 02/28/20 23:37 95 Admit Weight 219 lb 4.8 oz Weight 232 lb 9.6 oz I/O: I/O 02/28/20 02/29/20 03/01/20 06:59 06:59 06:59 Intake Total 1680 1480 Output Total 1800 3300 Balance -120 -1820 - Quality Measures Condition: Atrial Fibrillation/Flutter (hx or current) CV meds: Eliquis: Yes - Medication Contraindications No Anticoagulant reason: Anticoagulant not tolerated - Physical Exam General: alert & oriented x3, no apparent distress. negative: appears well HEENT: mucus membranes moist, normocephaly, EOMI Neck: supple neck, midline trachea, no lymphadenopathy Cardiology: irregularly irregular, tachycardia Lungs: decreased breath sounds. negative: no wheezes, no rales, no rhonchi Neurology: cranial nerve 2-12 intact, grossly intact, no lateralizing findings Abdomen: unremarkable, active bowel sounds, no pulsations/bruits Extremities: dry, strong pulses, warm, + edema B - Chadsvasc Risk factors Age >75: 2 Vascular disease: 1 Female: 1 Risk Score: 4 - Labs Result Diagrams: 02/28/20 04:06 02/28/20 04:06 - EKG Interpretation EKG Method: Telemetry EKG shows: Atrial fibrillation - Assessment/Plan Assessment/Plan: 1. Persistent atrial fibrillation, rapid ventricular rate. a. Difficult to control ventricular rate despite digoxin, IV diltiazem, metoprolol. 2. Subacute myocardial infarction with peak troponin I at 23. a.Left heart catheterization from 01/28/20 shows 90% proximal LAD, 25% diffuse OM, proximal RCA 100% with LVEF 40% to 45%. . b. 2D echo from 01/28/2020 shows LVEF of 20% to 25% but difficult to assess due to atrial fibrillation, moderate left atrial enlargement, trace MR. 3. Advanced COPD and bilateral pleural effusion. a. Current smoking. 4. Hypertension. 5. Purpura, RESOLVING - possible medication reaction to -mycin based anbx, possibly worsened due to OAC with eliquis. 02/19: Increased metoprolol 02/20: Wheezing increased with BB increase, metoprolol reduced to 25mg BID and increased dilt to 60TID 02/21: Poor rate control this AM but having pain. BP stable, even high overnight, will increase Diltto 60mg QID. 02/22: Rate control adequate. SBP 95-115. 02/23: Stable hemodynamics and ventricular rates with continued atrial fibrillation. Dermatological issues dominate. 02/26: Stable HR and BP on current regimen with persisting Atrial fibrillation. Eliquis resumed. Off lovenox 02/27: Bp and HR stable on current regimen. No recurrent purpura with eliquis resumed. 02/28: On hospice. Tachycardic this AM. DC home pending Stable for DC by EP on current regimen Continue rate control with: (Amiodarone was stopped 02/09 AM. ) 1. Metoprolol tartrate 25mg BID. 2. Digoxin 250 mcg daily 3. Dilt HCl 60mg QID. 4. eliquis 5mg BID.
--- NOTE | 2020-03-02 04:12 | PQF ---
Dear : Luis Alfredo Esquivel Date : 03/02/20 Please exercise your independent, professional judgment in responding to the clarification form. Clinical indicators are provided on the bottom of this form for your review Can you please further clarify the conflicting diagnosis? Please check appropriate box(es): Conflicting documentation was noted in the Medical Record; please clarify if patient is being treated/monitored for: [ X ] Sepsis [ ] No Sepsis [ ] Other diagnosis please specify [ ] Unable to determine In addition, please specify: Present on Admission (POA): [ x] Yes [ ] No [ ] Unable to determine Physician Signature: Date/Time: For continuity of documentation, please document condition throughout progress notes and discharge summary. Thank You. To be completed by CDI/Coding staff for physician review: Present Clinical Indicators - Signs / Symptoms / Labs Results and Location in Medical Record [ x ] Sepsis- POA DS pg.1 [ x ] Sepsis ruled out Physician Documentation 01/31 pg.1 [ x ] Shortness of breath H and P pg.1 [ x ] Severe sepsis H and P pg.5 [ x ] VS: 119/103, P: 97, RR: 36 ED Provider pg.2 [ x ] tachycardia ED Provider pg.3 [ x ] WBC: 18.6H, 16.9H, 12.6H, 10.3, 20.4H, 20.4H. 19.2H, 16.4H Laboratory [ x ] Possible right lower lobe pneumonia Chest X ray 02/11 [ x ] Leukocytosis, improving WBC up to 13.3. Possibly from steroids PN pg.6 02/11 [ x ] Lactic Acid: 01/26=5.1 01/27=2.4 Laboratory 01/26 [ x ] Sputum culture: mold species Laboratory 02/11 Present Risk Factors Results and Location in Medical Record [ x ] 79 years old H and P pg.1 [ x ] COPD H and P pg.1 [ x ] CHF H and P pg.1 [ x ] HTN H and P pg.1 [ x ] Current everyday smoker H and P pg.2 [ x ] Right lower lobe pneumonia Hospitalist PN pg.6 [ x ] Morbid Obesity Consult 01/27 [ x ] DM Consult 01/27 Present Treatments Results and Location in Medical Record [ x ] Chest X ray 01/26 Chest X ray 01/26 [ x ] WBC monitoring Laboratory [ x ] Pulmonary Consult Dr. Oleary 01/27 [ x ] IV Fluids JUN [ x ] Sputum culture Microbiology 02/11 [ x ] Azithromycin 500mg IV JUN [ x ] Rocephin 1gm IV JUN CDS/Chief Growth Officer Signature: Gerson Tong Phone #: ext [phone] Date 03/02/20 This is a permanent part of the Medical Record [facility]
== END 2020-02-29 12:05 | disposition hospice, home (50) | DRG 871 ==
LOC: ERS 20:51 → CCU 01-28 02:11 → IMCU/EMU 02-01 19:34 → 2NO 02-05 17:10
PROVIDERS: ADMIT Internal Medicine; ATTEND Family Medicine
PROC: 3E02340 Introduction of Influenza Vaccine into Muscle, Percutaneous Approach (ICD-10-PCS; principal; 2020-01-28)
PROC: 5A09457 Assistance with Respiratory Ventilation, 24-96 Consecutive Hours, Continuous Positive Airway Pressure (ICD-10-PCS; 2020-01-28)
PROC: 4A023N7 Measurement of Cardiac Sampling and Pressure, Left Heart, Percutaneous Approach (ICD-10-PCS; 2020-02-07)
PROC: B2151ZZ Fluoroscopy of Left Heart using Low Osmolar Contrast (ICD-10-PCS; 2020-02-07)
PROC: B2111ZZ Fluoroscopy of Multiple Coronary Arteries using Low Osmolar Contrast (ICD-10-PCS; 2020-02-07)
DX: A41.9 Sepsis, unspecified organism (principal); I21.4 Non-ST elevation (NSTEMI) myocardial infarction; J96.01 Acute respiratory failure with hypoxia; J18.9 Pneumonia, unspecified organism; I50.23 Acute on chronic systolic (congestive) heart failure; I13.0 Hypertensive heart and chronic kidney disease with heart failure and stage 1 through stage 4 chronic kidney disease, or unspecified chronic kidney disease; I48.19 Other persistent atrial fibrillation; I47.1 Supraventricular tachycardia; R04.2 Hemoptysis; E87.1 Hypo-osmolality and hyponatremia; M48.54XA Collapsed vertebra, not elsewhere classified, thoracic region, initial encounter for fracture; Z23 Encounter for immunization; Z51.5 Encounter for palliative care; Z66 Do not resuscitate; Z20.828 Contact with and (suspected) exposure to other viral communicable diseases; J43.9 Emphysema, unspecified; I25.5 Ischemic cardiomyopathy; E66.01 Morbid (severe) obesity due to excess calories; I25.10 Atherosclerotic heart disease of native coronary artery without angina pectoris; F17.210 Nicotine dependence, cigarettes, uncomplicated; E78.00 Pure hypercholesterolemia, unspecified; M19.90 Unspecified osteoarthritis, unspecified site; I48.0 Paroxysmal atrial fibrillation; G47.33 Obstructive sleep apnea (adult) (pediatric); N18.9 Chronic kidney disease, unspecified; E11.22 Type 2 diabetes mellitus with diabetic chronic kidney disease; E55.9 Vitamin D deficiency, unspecified; K59.00 Constipation, unspecified; L27.1 Localized skin eruption due to drugs and medicaments taken internally; T36.8X5A Adverse effect of other systemic antibiotics, initial encounter; Z98.51 Tubal ligation status; Z79.82 Long term (current) use of aspirin; Z79.899 Other long term (current) drug therapy; Z88.0 Allergy status to penicillin; Z88.1 Allergy status to other antibiotic agents; Z90.710 Acquired absence of both cervix and uterus; Z88.8 Allergy status to other drugs, medicaments and biological substances; Z68.35 Body mass index [BMI] 35.0-35.9, adult
CPT/HCPCS: 36415; 36416; 70450; 71045; 71275; 74018; 80048; 80053; 80076; 81001; 82306; 82553; 82565; 82805; 83036; 83605; 83735; 83880; 84132; 84443; 84484; 85007; 85014; 85018; 85025; 85027; 85049; 85379; 85610; 85652; 85730; 86140; 86694; 86695; 86696; 87070; 87086; 87205; 87635; 90471; 90662; 90732; 93005; 93010; 93306; 93458; 93798; 93880; 93970; 94150; 94640; 94660; 94760; 96374; 96375; 96376; 97139; G0008; G0009; J0456; J0696; J1160; J1200; J1644; J1650; J1815; J1940; J1956; J2001; J2060; J2405; J2920; J2930; J3475; J3490; J7050; J7512; J7620; Q0163; Q9967; U0003